=== PATIENT | female | born 1940 | race Caucasian/White ===

== ENCOUNTER 2016-09-16 21:26 | Day surgery (SDC) | payer MEDICARE, BC ==
[~2016-09-16] VITALS: Ht 162.6 cm; Wt 106.6 kg
[~2016-09-16 21:26] MED LIST: ASP325TEC PO; ASPI-875 PO; ASPI-892; ASPI-892 PO; ATR20T; CALC-80; CALC-9 PO; CLOP75TA PO; CLOP75TA28 PO; FLC1T; LEFL20TA; LEFL20TA PO; LEFL20TA18 PO; LEVO150T6 PO; LVT.05T PO; LVT.15T PO; METO-272 PO; METO50TA7 PO; MULT-608; MULT-608 PO; NITR0.3T6 SL; NITR0.4T SL; OXYC-12 PO; RNT150T PO; SIMV40TA4 PO
--- OUTSIDE RECORDS SUMMARY | 2016-09-16 21:33 | XMS REPORT | Continuity of Care Document ---
Author Author [facility] Organization [facility] Address Unknown Phone Unavailable Care Team Providers Care Manager Pediatric Name Role Phone STEPHANIE PIERRE MD PCP Insurance Providers Payer Name Policy Number Subscriber Name Relationship [employer] [id number] Beulah Barreto 20 Self / Same As Patient [facility] [id number] Beulah Barreto Self / Same As Patient Advance Directives Directive Response Recorded Date/Time Advance Directives Yes 01/09/15 9:59am Health Care Power of Flight Engineer Instructor No 01/09/15 9:59am Organ Donor Yes 01/09/15 9:59am Resuscitation Status Full Code 01/09/15 9:59am Problems No known problems or medical conditions. Medications Medication Dose Route Sig Days/Qty Instructions Order Date Discontinued Date Status Leflunomide 11/19/09 11/20/09 Discontinued Folic Acid 11/19/09 11/20/09 Discontinued Atorvastatin Calcium 11/19/09 11/04/10 Discontinued Ranitidine HCl 150 Mg PO BEDTIME 11/19/09 Active Multivitamins 11/19/09 11/20/09 Discontinued Calcium Carbonate/Vitamin D3 11/19/09 11/20/09 Discontinued Aspirin 11/19/09 11/20/09 Discontinued Metoprolol Succinate 50 Mg PO DAILY 11/19/09 Active Clopidogrel Bisulfate 75 Mg PO DAILY 11/19/09 12/27/14 Discontinued Levothyroxine Sodium 150 Mcg PO DAILY 11/19/09 11/06/10 Discontinued Leflunomide 20 Mg PO DAILY 11/20/09 Active Folic Acid 11/20/09 11/04/10 Discontinued Calcium Carbonate/Vitamin D3 1 Tab PO TWICE A DAY TWICE A DAY 9AM & 9PM 11/20/09 Active Aspirin 81 Mg PO DAILY 11/20/09 11/06/10 Discontinued Multivitamins 1 Tab PO DAILY 11/20/09 Active Simvastatin 40 Mg PO BEDTIME 11/04/10 Active Nitroglycerin 0.4 Mg SL NEEDED 11/04/10 Active Levothyroxine Sodium 150 Mcg PO DAILY 11/06/10 Active Aspirin 325 Mg PO DAILY 11/06/10 06/28/12 Discontinued Aspirin 81 Mg PO DAILY 06/28/12 Active Leflunomide 20 Mg PO DAILY 10/18/12 12/27/14 Discontinued Oxycodone Hcl/Acetaminophen 1-2 Tab PO Q4-6HR PRN PAIN 60 Qty 01/10/15 Active Social History Social History Problem Response Recorded Date/Time Alcohol Use Occasionally Uses 01/09/2015 6:52am Recreational Drug Use No 01/09/2015 6:52am Recent Foreign Travel No 01/09/2015 6:52am Recent Infectious Disease Exposure No 01/09/2015 6:52am Smoking Status Never a Smoker 01/09/2015 9:59am Query Response Start Date Stop Date Smoking Status Never a Smoker Hospital Discharge Instructions No hospital discharge instructions. Plan of Care Discharge Date 01/12/15 11:00am Disposition 30 STILL A PATIENT Instructions/Education Provided Total Knee Replacement (DC) Forms Provided Follow-Up Fax [facility] Surgical Prescriptions See Medications Section Referrals (Unspecified) Reason(s) for Referral: FOLLOW UP WITH DR SEAY IN THREE WEEKS [phone] Care Plan and Goals RN to contact [facility] of any weekend discharge, [phone]. [facility] has been coordinated, but agency does not plan to visit patient until Wednesday. Functional Status Query Response Date Recorded Patient Orientation Confused Place Time Situation January 12, 2015 9:01am Comprehension Ability Understands Concepts January 11, 2015 8:05pm Allergies, Adverse Reactions, Alerts Allergen Type Severity Reaction Status Last Updated tetracycline ([id number]) Allergy Mild Active 11/19/09 Immunizations Name Given Type Date of Pneumonia Vaccine 04/25/13 Historical Date of Influenza Vaccine 03/30/12 Historical Vital Signs Acute Vital Signs Vital Response Date/Time Temperature (Fahrenheit) 97.6 degrees F (97.6 - 99.5) Temperature (Calculated Celsius) 36.47945 degrees C (36.4 - 37.5) Temperature Source Tympanic Pulse Rate (adult) 76 bpm (60 - 90) Respiratory Rate 20 bpm (12 - 24) O2 Sat by Pulse Oximetry 96 % (88 - 100) Blood Pressure 133/77 mm Hg Pain Pain Intensity 3 Height (Feet) 5 feet Height (Inches) 4.00 inches Height (Calculated Centimeters) 162.759516 cm Weight (Pounds) 232 pounds Weight (Calculated Grams) 622186.431 gm Weight (Calculated Kilograms) 105.857377 kilograms Calculated BMI 39.82 Results Laboratory Results Test Name Result Units Flags Reference Collection Date/Time Result Date/ Time Comments Hemoglobin 9.9 G/DL L 11.5-16.0 01/12/2015 4:39am 01/12/2015 5:30am Hematocrit 32 % L 35-52 01/12/2015 4:39am 01/12/2015 5:30am White Blood Count 5.9 10^3/uL 4.3-11.0 12/27/2014 10:12/27/2014 11 :03am Red Blood Count 4.53 10^6/uL 4.35-5.85 12/27/2014 10:12/27/2014 11 :03am Hemoglobin 13.5 G/DL 11.5-16.0 12/27/2014 10:12/27/2014 11:03am Hematocrit 42 % 35-52 12/27/2014 10:12/27/2014 11:03am Mean Corpuscular Volume 93 FL 80-99 12/27/2014 10:12/27/2014 11: 03am Mean Corpuscular Hemoglobin 30 PG 25-34 12/27/2014 10:12/27/2014 11:03am Mean Corpuscular Hemoglobin Concent 32 G/DL 32-36 12/27/2014 10: 11:03am Red Cell Distribution Width 13.8 % 10.0-14.5 12/27/2014 10:202014 11:03am Platelet Count 206 10^3/uL 130-400 12/27/2014 10:2012/27/2014 11: 03am Mean Platelet Volume 10.2 FL 7.4-10.4 12/27/2014 10:12/27/2014 11: 03am Neutrophils (%) (Auto) 54 % 42-75 12/27/2014 10:12/27/2014 11: 03am Lymphocytes (%) (Auto) 26 % 12-44 12/27/2014 10:12/27/2014 11: 03am Monocytes (%) (Auto) 9 % 0-12 12/27/2014 10:12/27/2014 11:03am Eosinophils (%) (Auto) 10 % 0-10 12/27/2014 10:12/27/2014 11:03am Basophils (%) (Auto) 1 % 0-10 12/27/2014 10:12/27/2014 11:03am Neutrophils # (Auto) 3.2 X 10^3 1.8-7.8 12/27/2014 10:12/27/2014 11:03am Lymphocytes # (Auto) 1.5 X 10^3 1.0-4.0 12/27/2014 10:12/27/2014 11:03am Monocytes # (Auto) 0.5 X 10^3 0.0-1.0 12/27/2014 10:12/27/2014 11: 03am Eosinophils # (Auto) 0.6 10^3/uL H 0.0-0.3 12/27/2014 10:12/27/2014 11:03am Basophils # (Auto) 0.0 10^3/uL 0.0-0.1 12/27/2014 10:12/27/2014 11 :03am Erythrocyte Sedimentation Rate 40 MM/HR H 0-30 12/27/2014 10:2014 11:32am Prothrombin Time 12.0 SEC L 12.2-14.7 12/27/2014 10:12/27/2014 11: 00am INR Comment 0.9 0.8-1.4 12/27/2014 10:12/27/2014 11:00am INTERPRETIVE DATA SUGGESTED THERAPEUTIC RANGE FOR INR'S: VENOUS THROMBOSIS, PULMONARY EMBOLISM, OR PREVENTION OF SYSTEMIC EMBOLISM (EG. IN ATRIAL FIBRILLATION): 2.0 - 3.0 MECHANICAL PROSTHETIC HEART VALVES: 2.5 - 3.5* *NOTE: INR'S UP TO 4.5 MAY BE NECESSARY IN SELECTED GROUPS OF HIGH RISK PATIENTS. [employer] CONSENSUS CONFERENCE ON ANTITHROMBOTIC THERAPY (2000). Urine Color YELLOW 12/27/2014 10:2512/27/2014 11:14am Urine Clarity CLEAR 12/27/2014 10:12/27/2014 11:14am Urine pH 6.5 5-9 12/27/2014 10:12/27/2014 11:14am Urine Specific Paulina 1.010 * 1.016-1.022 12/27/2014 10:252014 11:14am Urine Protein NEGATIVE NEGATIVE 12/27/2014 10:2512/27/2014 11: 14am Urine Glucose (UA) NEGATIVE NEGATIVE 12/27/2014 10:12/27/2014 11 :14am Urine RBC (Auto) NEGATIVE NEGATIVE 12/27/2014 10:12/27/2014 11: 14am Urine Ketones NEGATIVE NEGATIVE 12/27/2014 10:2512/27/2014 11: 14am Urine Nitrite NEGATIVE NEGATIVE 12/27/2014 10:2512/27/2014 11: 14am Urine Bilirubin NEGATIVE NEGATIVE 12/27/2014 10:2512/27/2014 11: 14am Urine Urobilinogen NORMAL MG/DL NORMAL 12/27/2014 10:12/27/2014 11 :14am Urine Leukocyte Esterase NEGATIVE NEGATIVE 12/27/2014 10:2014 11:14am Urine RBC NONE /HPF 12/27/2014 10:12/27/2014 11:14am Urine WBC NONE /HPF 12/27/2014 10:2512/27/2014 11:14am Urine Bacteria TRACE /HPF 12/27/2014 10:2512/27/2014 11:14am Urine Squamous Epithelial Cells 5-10 /HPF 12/27/2014 10:252014 11:14am Urine Crystals NONE /LPF 12/27/2014 10:2512/27/2014 11:14am Urine Casts NONE /LPF 12/27/2014 10:2512/27/2014 11:14am Urine Mucus NEGATIVE /LPF 12/27/2014 10:2512/27/2014 11:14am Urine Culture Indicated NO 12/27/2014 10:12/27/2014 11:14am Sodium Level 142 MMOL/L 135-145 12/27/2014 10:12/27/2014 11:10am Potassium Level 4.0 MMOL/L 3.6-5.0 12/27/2014 10:12/27/2014 11: 10am Chloride Level 108 MMOL/L H 98-107 12/27/2014 10:12/27/2014 11:10am Carbon Dioxide Level 26 MMOL/L 21-32 12/27/2014 10:12/27/2014 11: 10am Blood Urea Nitrogen 13 MG/DL 7-18 12/27/2014 10:12/27/2014 11: 10am Creatinine 0.73 MG/DL 0.60-1.30 12/27/2014 10:12/27/2014 11:10am BUN/Creatinine Ratio 18 12/27/2014 10:12/27/2014 11:10am Estimat Glomerular Filtration Rate > 60 12/27/2014 10:2014 11:10am GFR INTERPRETIVE DATA UNITS FOR ESTIMATED GFR (eGFR): mL/min/1.73 M2 REFERENCE RANGE FOR ESTIMATED GFR (eGFR) eGFR NORMAL eGFR >60 MODERATELY DECREASED eGFR 30-59 SEVERLY DECREASED eGFR 15-29 KIDNEY FAILURE <15 (OR DIALYSIS) Glucose Level 93 MG/DL 70-105 12/27/2014 10:12/27/2014 11:10am Calcium Level 8.9 MG/DL 8.5-10.1 12/27/2014 10:12/27/2014 11:10am Total Bilirubin 0.5 MG/DL 0.1-1.0 12/27/2014 10:12/27/2014 11: 10am Alkaline Phosphatase 53 U/L 40-136 12/27/2014 10:12/27/2014 11: 10am Aspartate Amino Transf (AST/SGOT) 16 U/L 5-34 12/27/2014 10:2014 11:10am Alanine Aminotransferase (ALT/SGPT) 18 U/L 0-55 12/27/2014 10:10/2014 11:10am Total Protein 6.8 G/DL 6.4-8.2 12/27/2014 10:20am 12/27/2014 11:10am Albumin 3.7 G/DL 3.2-4.5 12/27/2014 10:20am 12/27/2014 11:10am Procedures Procedure Status Date Provider(s) Total replacement of knee joint completed 01/09/15 FIONA SEAY MD Tracing only of electrocardiogram completed 12/31/14 FIONA SEAY MD Tracing only of electrocardiogram completed 01/01/15 FIONA SEAY MD Encounters Encounter Location Date/Time Discharged Inpatient Via [facility] 01/09/15 5:51am Registered Clinic [facility] 12/27/14 9:37am Registered Clinic [facility] 12/20/14 7:40am
--- NOTE | 2016-09-16 21:47 | ED General ---
General Stated Complaint: COLD AND CLAMY FEELING Source of Information: Patient Exam Limitations: No Limitations History of Present Illness Time Seen by Provider: 21:45 Initial Comments Patient develops diaphoresis malaise and exhaustion around 7 p.m. today. She took a nitroglycerin without much relief. She came here for evaluation because her symptoms were the same as that experienced prior to a non-STEMI 1 year ago. She denies chest discomfort. Symptoms are better now. Allergies and Home Medications Allergies Coded Allergies: tetracycline (Unverified Allergy, Mild, 11/19/09) Home Medications Aspirin 81 Mg Tablet.dr 81 MG PO DAILY (Reported) Calcium Carbonate/Vitamin D3 1 Each Tablet 1 TAB PO BID (Reported) Clopidogrel Bisulfate 75 Mg Tablet 30Days 75 MG PO DAILY Prescribed by: NADEGE WHITE on 12/23/15 0819 Leflunomide 20 Mg Tablet 20 MG PO DAILY (Reported) Levothyroxine Sodium 150 Mcg Tablet 150 MCG PO DAILY (Reported) Metoprolol Succinate 50 Mg Tab.er.24h 50 MG PO DAILY (Reported) Multivitamins 1 Tab Tablet 1 TAB PO DAILY (Reported) Nitroglycerin 0.4 Mg Tab.subl 0.4 MG SL UD PRN PRN CHEST PAIN (Reported) Ranitidine Hcl 150 Mg Tablet 150 MG PO HS PRN PRN HEARTBURN (Reported) Simvastatin 40 Mg Tablet 40 MG PO HS (Reported) Constitutional: diaphoresisNo fever, malaise weakness Respiratory: no symptoms reported Cardiovascular: see HPI Musculoskeletal: no symptoms reported All Other Systems Reviewed Negative Unless Noted: Yes Past [id number]-Tqhbnr-Cfbbmz Hx Patient Social History Former Smoker/When Quit: Oct 18, 2008 Recent Foreign Travel: No Contact w/Someone Who Travel: No Immunizations Up To Date Date of Pneumonia Vaccine: Apr 25, 2013 Date of Influenza Vaccine: Mar 30, 2012 Seasonal Allergies Seasonal Allergies: Yes Surgeries HX Surgeries: Yes ( BREAST LUMPECTOMY, R MASTECTOMY, r knee) Surgeries: Breast, Joint Replacement, Orthopedic, Thyroidectomy Respiratory Hx Respiratory Disorders: No Cardiovascular Hx Cardiac Disorders: No (STENTS X3) Cardiac Disorders: Coronary Artery Disease, Heart Attack, High Cholesterol, Hypertension Neurological Hx Neurological Disorders: No Reproductive System Hx Reproductive Disorders: Yes Genitourinary Hx Genitourinary Disorders: No Gastrointestinal Hx Gastrointestinal Disorders: Yes Gastrointestinal Disorders: Gastroesophageal Reflux Musculoskeletal Hx Musculoskeletal Disorders: Yes Musculoskeletal Disorders: Arthritis, Rheumatoid Arthritis Endocrine Hx Endocrine Disorders: Yes (hx thyroid ca x2 with thyroidectomy) Endocrine Disorders: Hypothyroidsim HEENT HX ENT Disorders: Yes (GLASSES, RIGHT EYE BLOOD VESSEL KEEPS POPPING-RED EYE) Cancer Hx Cancer: Yes Cancer: Breast, Thyroid Psychosocial Hx Psychiatric Problems: No Integumentary HX Skin/Integumentary Disorder: No Blood Transfusions Hx Blood Disorders: No Reviewed Nursing Assessment Reviewed/Agree w Nursing PMH: Yes Family Medical History Significant Family History: No Pertinent Family Hx Family Medial History: Alcoholism G8 BROTHER Arthritis 19 FATHER 19 MOTHER G8 BROTHER G8 SISTER Cardiovascular disease 19 FATHER G8 BROTHER Cataracts 19 MOTHER Diabetes mellitus G8 SISTER Drug abuse G8 BROTHER FH: cancer G8 BROTHER Hypertension 19 MOTHER Myocardial infarction 19 FATHER G8 BROTHER Thyroid disease G8 SISTER No Family History of: AIDS Abdominal aortic aneurysm Dandre's disease Asthma Cancer of mouth Colon cancer Completed stroke Dementia Parkinson's disease Prostate cancer Psychosocial problem Respiratory disorder Seizure disorder Severe allergy Tuberculosis Physical Exam Vital Signs Vital Sign - Last 12Hours 09/16/16 21:30 Temp 97.3 Pulse 84 Resp 18 B/P 166/87 O2 Delivery Room Air Capillary Refill : General Appearance: No Apparent Distress WD/WN Eyes: Bilateral Eye EOMI, Bilateral Eye Normal Inspection, Bilateral Eye PERRL HEENT: PERRL/EOMI Pharynx Normal Neck: Supple Respiratory: Lungs Clear Normal Breath Sounds Cardiovascular: Regular Rate, Rhythm Gastrointestinal: Non Tender Soft Extremity: Normal Inspection Neurologic/Psychiatric: Alert No Motor/Sensory Deficits Skin: Normal Color Warm/Dry Progress/Results/Core Measures Results/Orders Lab Results Laboratory Tests Test 09/16/16 21:45 09/16/16 22:06 Range/Units Activated Partial Thromboplast Time 22 L 24-35 SEC Basophils # (Auto) 0.0 0.0-0.1 10^3/uL Basophils (%) (Auto) 0 0-10 % Eosinophils # (Auto) 0.5 H 0.0-0.3 10^3/uL Eosinophils (%) (Auto) 6 0-10 % Hematocrit 41 35-52 % Hemoglobin 13.4 11.5-16.0 G/DL INR Comment 0.9 0.8-1.4 Lymphocytes # (Auto) 2.4 1.0-4.0 X 10^3 Lymphocytes (%) (Auto) 30 12-44 % Mean Corpuscular Hemoglobin 30 25-34 PG Mean Corpuscular Hemoglobin Concent 32 32-36 G/DL Mean Corpuscular Volume 94 80-99 FL Mean Platelet Volume 10.2 7.4-10.4 FL Monocytes # (Auto) 0.8 0.0-1.0 X 10^3 Monocytes (%) (Auto) 10 0-12 % Neutrophils # (Auto) 4.5 1.8-7.8 X 10^3 Neutrophils (%) (Auto) 54 42-75 % Platelet Count 249 130-400 10^3/uL Prothrombin Time 11.6 L 12.2-14.7 SEC Red Blood Count 4.41 4.35-5.85 10^6/uL Red Cell Distribution Width 13.7 10.0-14.5 % White Blood Count 8.2 4.3-11.0 10^3/uL My Orders Orders-BRAYDEN PIERRE MD Cbc With Automated Diff (09/16/16 22:06) Magnesium (09/16/16 22:06) Chest 1 View, Ap/Pa Only (09/16/16 22:06) Ekg Tracing (09/16/16 22:06) Cardiac Profile 1 (09/16/16 22:06) Comprehensive Metabolic Panel (09/16/16 22:06) Protime With Inr (09/16/16 22:06) Partial Thromboplastin Time (09/16/16 22:06) O2 (09/16/16 22:06) Monitor-Rhythm Ecg Trace Only (09/16/16 22:06) Saline Lock/Iv-Start (09/16/16 22:06) Vital Signs/I&O Vital Sign - Last 12Hours 09/16/16 21:30 Temp 97.3 Pulse 84 Resp 18 B/P 166/87 O2 Delivery Room Air ECG Initial ECG Rhythm: Normal Sinus Initial ECG Intervals: Normal Initial ECG Impression: Normal Diagnostic Imaging Comments Chest x-ray showed nothing acute Departure Communication Time/Spoke to Admitting Phy: 22:[address] Rodriguez who agrees to admit Progress Notes We'll admit as symptoms are very similar to her [place] 1 year ago Impression Impression: Primary Impression: Unstable angina Disposition: 01 HOME, SELF-CARE Condition: Stable Decision to Admit Reason: Admit from ER (General) Decision to Admit/Date: Sep 17, 2016 Time/Decision to Admit Time: 22:30 Departure-Patient Inst. Referrals: STEPHANIE PIERRE MD (PCP/Family) Primary Care Physician BRAYDEN PIERRE MD Sep 16, 2016 21:47
[2016-09-16 22:14] LABS: BASOPHILS % (AUTO) 0 % (0-10); EOSINOPHILS # (AUTO) 0.5 10^3/uL (0.0-0.3); EOSINOPHILS % (AUTO) 6 % (0-10); LYMPHOCYTES # (AUTO) 2.4 X 10^3 (1.0-4.0); LYMPHOCYTES % (AUTO) 30 % (12-44); MEAN CORPUSCULAR HEMOGLOBIN 30 PG (25-34); MEAN CORPUSCULAR HGB CONC 32 G/DL (32-36); MEAN CORPUSCULAR VOLUME 94 FL (80-99); MEAN PLATELET VOLUME 10.2 FL (7.4-10.4); MONOCYTES # (AUTO) 0.8 X 10^3 (0.0-1.0); MONOCYTES % (AUTO) 10 % (0-12); NEUTROPHILS # (AUTO) 4.5 X 10^3 (1.8-7.8); NEUTROPHILS % (AUTO) 54 % (42-75); PLATELET COUNT 249 10^3/uL (130-400); RED BLOOD COUNT 4.41 10^6/uL (4.35-5.85); RED CELL DISTRIBUTION WIDTH 13.7 % (10.0-14.5); WHITE BLOOD COUNT 8.2 10^3/uL (4.3-11.0)
[2016-09-16 22:17] LABS: INR 0.9 (0.8-1.4); PROTHROMBIN TIME PATIENT 11.6 SEC (12.2-14.7)
[2016-09-17] VITALS (10 sets, daily range): BP systolic 132–179; BP diastolic 58–85
[2016-09-17 00:14] LABS: ANION GAP 12 MMOL/L (5-14); BLOOD UREA NITROGEN 20 MG/DL (7-18); BUN/CREATININE RATIO 19; CALCIUM 8.5 MG/DL (8.5-10.1); CARBON DIOXIDE 22 MMOL/L (21-32); CHLORIDE 107 MMOL/L (98-107); CREATININE SERUM 1.04 MG/DL (0.60-1.30); GFR ESTIMATED 52; GLUCOSE 105 MG/DL (70-105); POTASSIUM 4.1 MMOL/L (3.6-5.0); SODIUM 141 MMOL/L (135-145)
[2016-09-17 00:15] LABS: ALANINE AMINOTRANSFERASE 19 U/L (0-55); ALBUMIN 3.6 G/DL (3.2-4.5); ASPARTATE AMINO TRANSFERASE 21 U/L (5-34); BILIRUBIN,TOTAL 0.3 MG/DL (0.1-1.0); MAGNESIUM 2.1 MG/DL (1.8-2.4); TOTAL PROTEIN 6.6 G/DL (6.4-8.2)
[2016-09-17] MEDS ORDERED: ATOR80TA76 PO (00:51)
[2016-09-17] MEDS ORDERED: NITROGLYCERIN SUBLINGUAL 0.4 MG TAB (NITROSTAT) SL PRN ×2 (03:45→09:45)
[2016-09-17] MEDS ORDERED: CATHETER FLUSH 10 ML SYR IV PRN (03:45)
[2016-09-17] MEDS: CATHETER FLUSH 10 ML SYR IV SCH ×2 (06:05→14:00)
--- NOTE | 2016-09-17 06:21 | Diagnostic Imaging Report ---
EXAM: CHEST 1 VIEW, AP/PA ONLY INDICATION: Diaphoresis. Nausea. COMPARISON: Chest radiograph 12/20/2015. FINDINGS: Normal heart size and pulmonary vascularity. No focal pulmonary opacity, pleural effusion or pneumothorax. Increased attenuation of the left hemithorax in relation to the right due to a right mastectomy. No acute osseous findings. IMPRESSION: No acute cardiopulmonary findings. Dictated by: Dictated on workstation # [id number]
[2016-09-17] MEDS ORDERED: ASPIRIN E.C. 325 MG (ECOTRIN) TABLET PO SCH (09:00)
[2016-09-17] MEDS ORDERED: CLOP75TA28 PO (09:04)
[2016-09-17] MEDS ORDERED: LEFL20TA18 PO (09:05)
[2016-09-17] MEDS ORDERED: LIDOCAINE 1% INJ 20 ML (XYLOCAINE) VIAL ONE ×2 (10:10→10:15)
[2016-09-17] MEDS ORDERED: NS IV 1000 ML 1,000 ML ONE ×2 (10:10→10:15)
[2016-09-17] MEDS ORDERED: HEParin (CATH LAB) 2,000 ML IV ONE ×2 (10:10→10:15)
--- NOTE | 2016-09-17 10:13 | Consultation-Cardiology ---
HPI-Cardiology Cardiology Consultation: Date of Consultation 09/17/16 Date of Admission 09/16/16 Attending Physician Ximena Rodriguez DO Admitting Physician Rudy Parada MD Consulting Physician GILBERT MICHELE MD, FACP, FACC, FSCAI, CCDS HPI: Chief Complaint: Chest/throat discomfort, sweating 75 yo woman with known CAD who had upper midsternal and throat discomfort associated with diaphoresis, unrelieved with s/l NTG, similar to previous angina , lasting 1- 1 1/2 hours, not associated with palp or syncope. Has been having such symptoms intermittently for several months. Yesterday's episode much worse. Denies leg swelling. Chronic mod exertional shortness of breath Review of Systems-Cardiology Review of Systems Constitutional: malaise tirednessNo weight loss, No weight gain Eyes: No vision change Ears/Nose/Throat: No ear discharge, No nasal drainage, No recent hearing loss Respiratory: As described under HPI Cardiovascular: As described under HPI Gastrointestinal: No constipation, No nausea Genitourinary: No dysuria, No hematuria Musculoskeletal: No back pain Skin: No rash, No ulcerations Psychiatric/Neurological: No focal weakness, No seizure, No syncope Hematologic: No bleeding abnormalities All Other Systems Reviewed Negative Unless Noted: Yes ZME-Tjddpk-Nvkgzv Hx Patient Social History Alcohol Use: Regular Use Recreational Drug Use: No Smoking Status: Former Smoker Former smoker/When Quit: Oct 18, 2008 Recent Foreign Travel: No Recent Infectious Disease Expo: No Hospitalization with Isolation: Denies Physical Abuse Screen: No Sexual Abuse: No Immunizations Up To Date Date of Pneumonia Vaccine: Apr 25, 2015 Date of Influenza Vaccine: Apr 27, 2016 Past Medical History PMH As described under Assessment. Family Medical History Family History: Alcoholism G8 BROTHER Arthritis 19 FATHER 19 MOTHER G8 BROTHER G8 SISTER Cardiovascular disease 19 FATHER G8 BROTHER Cataracts 19 MOTHER Diabetes mellitus G8 SISTER Drug abuse G8 BROTHER FH: cancer G8 BROTHER Hypertension 19 MOTHER Myocardial infarction 19 FATHER G8 BROTHER Thyroid disease G8 SISTER No Family History of: AIDS Abdominal aortic aneurysm Dandre's disease Asthma Cancer of mouth Colon cancer Completed stroke Dementia Parkinson's disease Prostate cancer Psychosocial problem Respiratory disorder Seizure disorder Severe allergy Tuberculosis Allergies and Home Medications Allergies Coded Allergies: tetracycline (Unverified Allergy, Mild, 11/19/09) Home Medications Aspirin 81 Mg Tablet.dr 81 MG PO DAILY (Reported) Atorvastatin Calcium 80 Mg Tablet 80 MG PO HS (Reported) Calcium Carbonate/Vitamin D3 1 Each Tablet 1 TAB PO BID (Reported) Clopidogrel Bisulfate 75 Mg Tablet 75 MG PO DAILY (Reported) Leflunomide 20 Mg Tablet 20 MG PO DAILY (Reported) Levothyroxine Sodium 150 Mcg Tablet 150 MCG PO DAILY (Reported) Metoprolol Succinate 50 Mg Tab.er.24h 50 MG PO DAILY (Reported) Multivitamins 1 Tab Tablet 1 TAB PO DAILY (Reported) Nitroglycerin 0.4 Mg Tab.subl 0.4 MG SL UD PRN PRN CHEST PAIN (Reported) Ranitidine Hcl 150 Mg Tablet 150 MG PO BID (Reported) Physical Exam-Cardiology Physical Exam Vital Signs/I&O Vital Sign - Last 12Hours 09/16/16 09/16/16 09/17/16 09/17/16 22:40 23:03 00:50 01:00 Temp 97.1 Pulse 73 70 79 Resp 16 20 B/P 138/63 Pulse Ox 98 96 O2 Delivery Room Air 09/17/16 09/17/16 09/17/16 09/17/16 04:00 07:00 08:00 09:00 Temp 96.3 96.6 Pulse 69 65 70 Resp 18 18 B/P 137/60 132/58 Pulse Ox 97 97 O2 Delivery Room Air Room Air Capillary Refill : Less Than 3 Seconds Constitutional: AAO x 3 well-developed well-nourished HEENT: PERRL EOMINo xanthelasmas are seen Neck: carotid pulses are 2 + bilaterally with good upstrokes Respiratory: No accessory muscle use, lungs clear to percussion lungs clear to auscultation Cardiovascular: regular rate-rhythm S1 and S2 systolic murmur (faint ALBERTO at card baase) Gastrointestinal: No tender, softNo guarding, No rebound, audible bowel sounds Extremities: No clubbing, No cyanosis, No significant edema Neurologic/Psychiatric: oriented x 3 grossly intact power is 5/5 both on sides Skin: No rash on exposed areas, No ulcerations on exposed areas Data Review Labs Laboratory Tests 09/16/16 21:45: Activated Partial Thromboplast Time 22L, Basophils # (Auto) 0.0, Basophils (%) ( Auto) 0, Eosinophils # (Auto) 0.5H, Eosinophils (%) (Auto) 6, Hematocrit 41, Hemoglobin 13.4, INR Comment 0.9, Lymphocytes # (Auto) 2.4, Lymphocytes (%) ( Auto) 30, Mean Corpuscular Hemoglobin 30, Mean Corpuscular Hemoglobin Concent 32 , Mean Corpuscular Volume 94, Mean Platelet Volume 10.2, Monocytes # (Auto) 0.8 , Monocytes (%) (Auto) 10, Neutrophils # (Auto) 4.5, Neutrophils (%) (Auto) 54, Platelet Count 249, Prothrombin Time 11.6L, Red Blood Count 4.41, Red Cell Distribution Width 13.7, White Blood Count 8.2 09/16/16 22:06: Alanine Aminotransferase (ALT/SGPT) 19, Albumin 3.6, Alkaline Phosphatase 61, Anion Gap 12, Aspartate Amino Transf (AST/SGOT) 21, BUN/Creatinine Ratio 19, Blood Urea Nitrogen 20H, Calcium Level 8.5, Carbon Dioxide Level 22, Chloride Level 107, Creatinine 1.04, Estimat Glomerular Filtration Rate 52, Glucose Level 105, Magnesium Level 2.1, Potassium Level 4.1, Sodium Level 141, Total Bilirubin 0.3, Total Protein 6.6, Troponin I < 0.30 09/17/16 04:05: Troponin I < 0.30 Laboratory Tests 09/16/16 21:45 09/16/16 22:06 A/P-Cardiology Assessment/Admission Diagnosis Chest discomfort and diaphoresis, suggestive of unstable angina Coronary artery disease with history of multiple percutaneous interventions. The first intervention was to the right coronary artery in December 2008 (Promus 3.5 x 18-mm stent in [place]). She also had balloon angioplasty of the left circumflex artery at that time. Cardiac catheterization on 11/04/2010: she underwent drug-eluting stenting with Promus 4 x 23-mm stent to the proximal and mid-right coronary artery. On 11/05/2010, she underwent drug-eluting stenting with Promus 2.75 x 15-mm stent to the proximal and mid-left anterior descending artery. Cardiac catheterization from 10/18/2012 showed angiographically mild coronary artery disease. Most recent cath of 12/20/[address] Pierre, during STEMI, showed complete occlusion of LCX that was treated with Promus 2.5x15 stent (there was periprocedural VF, requiring defibrillation); other previous stents were intact; there was 50% mid LAD stenosis, as before. Echo of 01/08/16 showed LVEF 55-60%, tivial MR, no valvular stenosis, PASP 25 mmHg Dyspepsia, likely related to gastroesophageal reflux and/or hiatal hernia and/ or peptic ulcer disease. 24 Hour Holter monitor study of May 29, 2015 showed NSR, isolated and coupled PVC's. No VT or SVT. No significant bradycardia. Hyperlipidemia, being treated with statin therapy, currently controlled History of rheumatoid arthritis. Hypothyroidism following thyroidectomy for thyroid cancer. This is being followed by Dr. Parada. Cough, resolving following cessation of therapy with ESTEVAN inhibitors and addition of Zantac to the regimen. History of right-sided mastectomy for breast carcinoma several years ago. Gastroesophageal reflux. Normal global left ventricular systolic function per echocardiography of 2008. Elevated body mass index of approximately approximately 39 Carotid u/s of December 2015 showed minimal caotid plaque without any evidence of hemodynamic stenosis. Distal portion of the R ICA is not well visualized Discussion and Recomendations * Given previous card history and symptoms suggestive of unstable angina, it appears reasonable to proceed with card cath * I spoke with her in detail and explained procedure, rationale, risks, benefits , potential complications and alternative of card cath and possible PCI. She understands and provides informed consent * Further recs to be based on the results of card cath Clinical Quality Measures DVT/VTE Risk/Contraindication: Risk Factor Score Per Nursin RFS Level Per Nursing on Admit: 4+=Very High GILBERT MICHELE MD FACP [facility] CCDS Sep 17, 2016 10:13
[2016-09-17] MEDS ORDERED: fentaNYL INJECTION 100 MCG/2 ML AMP ONE ×2 (10:14→16:34)
[2016-09-17] MEDS ORDERED: MIDAZOLAM 5 MG/5 ML (VERSED) VIAL ONE (10:14)
[2016-09-17] MEDS ORDERED: diphenhydrAMINE 50 MG/ML INJ (BENADRYL) ONE (10:15)
[2016-09-17] MEDS ORDERED: PATIENT MAY USE OWN MEDS, ALL MC SCH (11:00)
--- NOTE | 2016-09-17 11:41 | Short Stay Summary-Hospitalist ---
HPI History of Present Illness: HPI/Chief Complaint CC: Chest pain HPI: This is a 75yoWF pt of Dr. Parada that presented to ER with chest pain. She has been admitted to observation with Cardiology consultation. Chart Review: No fever Vitals stable WBC 8.2 CMP normal Troponin negative para educator: RN states that pt will receive heart cath this evening. Patient Interview: Pt states that she feels good today. Pt confirms that PCP is Dr. Parada. Pt states that she has had 3 stents placed before. The most recent was last November. Pt states that she sees Dr. Ibrahim for Rheumatology for Rheumatoid arthritis. Pt states that she no longer has chest pain. Physical exam stable. Pt denies smoking and drinks ETOH occasionally. 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 Pt and both worked for [employer] and retired 9 years ago. Scribed by Elías Alfaro under the direct supervision of Dr. Mishra. Source: patient Exam Limitations: no limitations Date Seen 09/17/16 Attending Physician Ximena Mishra DO PCP Rudy Parada MD Referring Physician Date of Admission Sep 16, 2016 at 22:26 Home Medications & Allergies Home Medications Reviewed patient Home Medication Reconciliation Form Allergies Coded Allergies: tetracycline (Unverified Allergy, Mild, 11/19/09) Past Yzyhybh-Upcqbu-Wdhvrv Hx Patient Social History Marrital Status: Employed/Student: retired (worked as [employer]) Alcohol Use: Regular Use Recreational Drug Use: No Smoking Status: Former Smoker Former smoker/When Quit: Oct 18, 2008 Physical Abuse Screen: No Sexual Abuse: No Recent Foreign Travel: No Contact w/other who traveled: No Recent Hopitalizations: Yes Recent Infectious Disease Expo: No Immunizations Up To Date Date of Pneumonia Vaccine: Apr 25, 2015 Date of Influenza Vaccine: Apr 27, 2016 Seasonal Allergies Seasonal Allergies: Yes Surgeries HX Surgeries: Yes ( BREAST LUMPECTOMY, R MASTECTOMY, r knee) Surgeries: Breast, Coronary Stent, Joint Replacement, Orthopedic, Thyroidectomy Respiratory Hx Respiratory Disorders: No Cardiovascular Hx Cardiovascular Disorders: Yes (STENTS X4) Cardiac Disorders: Coronary Artery Disease, Heart Attack, High Cholesterol, Hypertension Neurological Hx Neurological Disorders: No Reproductive System Hx Reproductive Disorders: Yes Genitourinary Hx Genitourinary Disorders: No Gastrointestinal Hx Gastrointestinal Disorders: Yes Gastrointestinal Disorders: Gastroesophageal Reflux Musculoskeletal Hx Musculoskeletal Disorders: Yes Musculoskeletal Disorders: Arthritis, Rheumatoid Arthritis Endocrine Hx Endocrine Disorders: Yes (hx thyroid ca x2 with thyroidectomy) Endocrine Disorders: Hypothyroidsim HEENT HX ENT Disorders: Yes (GLASSES) Cancer Hx Cancer: Yes Cancer: Breast, Thyroid Psychosocial Hx Psychiatric Problems: No Integumentary HX Skin/Integumentary Disorder: No Blood Transfusions Hx Blood Disorders: No Reviewed Nursing Assessment Reviewed/Agree w Nursing PMH: Yes Family Medical History Significant Family History: No Pertinent Family Hx Family Hx: Alcoholism G8 BROTHER Arthritis 19 FATHER 19 MOTHER G8 BROTHER G8 SISTER Cardiovascular disease 19 FATHER G8 BROTHER Cataracts 19 MOTHER Diabetes mellitus G8 SISTER Drug abuse G8 BROTHER FH: cancer G8 BROTHER Hypertension 19 MOTHER Myocardial infarction 19 FATHER G8 BROTHER Thyroid disease G8 SISTER No Family History of: AIDS Abdominal aortic aneurysm Huntington's disease Asthma Cancer of mouth Colon cancer Completed stroke Dementia Parkinson's disease Prostate cancer Psychosocial problem Respiratory disorder Seizure disorder Severe allergy Tuberculosis Review of Systems Constitutional: no symptoms reported weakness EENTM: no symptoms reported Respiratory: short of breath Cardiovascular: chest pain Gastrointestinal: nausea Genitourinary: no symptoms reported Musculoskeletal: no symptoms reported Skin: no symptoms reported Psychiatric/Neurological: No Symptoms Reported All Other Systems Reviewed Negative Unless Noted: Yes Physical Exam Physical Exam Vital Signs Vital Sign - Last 12Hours 09/16/16 09/16/16 21:30 22:40 Temp 97.3 Pulse 84 Resp 18 B/P 166/87 Pulse Ox 98 O2 Delivery Room Air O2 Flow Rate 2 Capillary Refill : Less Than 3 Seconds General Appearance: No Apparent Distress WD/WN Eyes: Bilateral Eye Normal Inspection, Bilateral Eye PERRL HEENT: PERRL/EOMI Normal ENT Inspection Pharynx Normal Neck: Full Range of Motion Normal Inspection Non Tender Supple Carotid Bruit Respiratory: Chest Non Tender Lungs Clear Normal Breath Sounds No Accessory Muscle Use No Respiratory Distress Cardiovascular: Regular Rate, Rhythm No Edema No Gallop No JVD No Murmur Normal Peripheral Pulses Gastrointestinal: Normal Bowel Sounds No Organomegaly No Pulsatile Mass Non Tender Soft Back: Normal Inspection No CVA Tenderness No Vertebral Tenderness Extremity: Normal Capillary Refill Normal Inspection Normal Range of Motion Non Tender No Calf Tenderness No Pedal Edema Neurologic/Psychiatric: Alert Oriented x3 No Motor/Sensory Deficits Normal Mood/Affect Skin: Normal Color Warm/Dry Lymphatic: No Adenopathy Results Results/Procedures Lab Laboratory Tests 09/16/16 21:45 09/16/16 22:06 Short Stay Diagnosis Discharge Diagnosis-Short Stay Admission Diagnosis Assessment: Chest pain CAD on Plavix w/3 prior stents Hypothyroidism HTN Hyperlipidemia GERD Plan: Heart cath placement this afternoon Final Discharge Diagnosis Assessment: Chest pain CAD on Plavix w/3 stents placed prior Hypothyroidism HTN Hyperlipidemia GERD Plan: Heart cath placement this afternoon Conclusion Plan Appreciate cardiology consultation and cardiac catheter arrangements Home meds Clinical Quality Measures DVT/VTE Risk/Contraindication: Risk Factor Score Per Nursin RFS Level Per Nursing on Admit: 4+=Very High XIMENA MISHRA DO Sep 17, 2016 11:41
[2016-09-17] MEDS ORDERED: HEParin 1000 UNIT/ML (10ML VIAL) FOR BOLUS ONE (13:06)
[2016-09-17] MEDS ORDERED: ADENOSINE 3 MG/1 ML (ADENOSCAN) 30ML VIAL IV ONE (13:06)
[2016-09-17] MEDS ORDERED: NS IV 1000 ML 1,000 ML IV SCH (13:35)
[2016-09-17] MEDS ORDERED: PATIENT MAY USE OWN MEDS, ALL PO SCH (13:45)
[2016-09-17] MEDS ORDERED: ATROPINE INJECTION 1 MG/10 ML SYR (ABBOTT) ONE (16:33)
[2016-09-17] MEDS ORDERED: FAMOTIDINE 20 MG (PEPCID) TABLET PO SCH (21:00)
[2016-09-17] MEDS ORDERED: ATORVASTATIN 80 MG (LIPITOR) TABLET PO SCH ×2 (21:00)
[2016-09-18] MEDS ORDERED: LEVOTHYROXINE 150 MCG (LEVOTHROID) TAB PO SCH ×2 (06:30)
[2016-09-18] MEDS ORDERED: ASPIRIN E.C. 81 MG (ECOTRIN) TAB PO SCH ×2 (09:00)
[2016-09-18] MEDS ORDERED: LEFLUNOMIDE 20 MG PO SCH (09:00)
[2016-09-18] MEDS ORDERED: meTOproloL SUCCINATE 50 MG (TOPROL XL) TAB PO SCH ×2 (09:00)
[2016-09-18] MEDS ORDERED: CLOPIDOGREL 75 MG (PLAVIX) TABLET PO SCH ×2 (09:00)
--- NOTE | 2016-09-18 12:55 | CARDIAC CATHETERIZATION ---
PROCEDURE PHYSICIAN: GILBERT MICHELE DATE OF PROCEDURE: 09/16/2016 PRIMARY PHYSICIAN: Dr. Rodriguez. Beulah Barreto is a 75-year-old lady who is known to have coronary artery disease and has had multiple coronary interventions. She presented with symptoms suggestive of unstable angina. Cardiac catheterization was carried out after having obtained an informed consent. PROCEDURE: She is brought to the cardiac catheterization during a fasting state. The right groin was prepared and draped in usual sterile fashion. 1% lidocaine was used for local anesthesia. Modified Seldinger technique was used to advance a 5-Sudanese sheath in the right femoral artery. 5-Sudanese JL4 catheter was used for left coronary angiography. 5-Sudanese JR4 catheter was used for right coronary angiography. 5-Sudanese pigtail catheter was used for left heart catheterization, left ventricular angiography. FRACTIONAL FLOW RESERVE MEASUREMENT IN THE RIGHT CORONARY ARTERY: Following completion of the diagnostic procedure, we carried out fractional flow reserve measurement in the right coronary artery where the patient had multiple 40 to 50% stenoses in its proximal and mid to distal portion. We exchanged the sheath over the wire for a 6-Sudanese sheath. We gave 5,000 units of intravenous heparin. We used a 6-Sudanese JR4 guide catheter. We advanced an Aeris pressure wire across the multiple lesions in the right coronary artery and the tip was placed in the distal vessel. We gave 140 mcg/kg per minute infusion of adenosine for 2 minutes and 30 seconds. Fractional flow reserve was normal. Fractional flow reserve was measured at 0.99. This indicates hemodynamic non-significance of these multiple stenoses. The wire and the catheter were removed. Angiography of the right femoral artery was carried through the sheath. The site of sheath insertion did not appear suitable for device closure. She was [facility] for manual sheath removal. She tolerated the procedure well. HEMODYNAMICS: Left ventricular end diastolic pressure following coronary angiography was 14 mmHg. There was no significant pressure gradient on pullback across the aortic valve. Ascending aortic pressure was 167/89 with a mean of 91 mmHg. LEFT VENTRICULAR ANGIOGRAPHY: Left ventricular angiography was carried out in the right anterior oblique projection. Global left ventricular systolic function is normal. No regional wall motion abnormalities are seen. Left ventricular ejection fraction is approximately 65 to 70%. There did not appear to be any significant mitral regurgitation. AORTIC ARCH ANGIOGRAPHY: Following completion of the left ventricular angiography, we pulled back the pigtail catheter into the aortic arch and aortic arch angiography was performed. Some degree of aortic arch calcification is seen but there does not appear to be significant thoracic aortic aneurysm or dissection, to the extent seen. The neck arteries, to the extent seen, do not have significant disease. CORONARY ANGIOGRAPHY: Diffuse coronary calcification is present. The left main coronary does not exhibit significant disease. The left anterior descending artery is approximately 40% proximal stenosis and 40 to 50% stenosis in the midportion following the distal end of a proximal left anterior descending artery stent. The left anterior descending artery is widely patent. Left circumflex artery stent is widely patent and is present in the proximal portion of the left circumflex artery. Right coronary artery has 2 stents. The proximal stent is widely patent and so is the distal stent. The proximal right coronary artery has approximately 40 to 50% stenoses. The mid right coronary artery has 40 to 50% stenoses. The distal right coronary artery has 40 to 50% stenoses. Fractional flow reserve measurement across all of these is 0.99, indicating hemodynamic insignificance of these lesions. CONCLUSION: 1. Diffuse, mild to moderate coronary artery disease. 2. Patent stents: Left anterior descending artery has 2.75 x 15 mm stent placed in 2010, left circumflex artery has a patent stent 2.5 x 15 placed in 2015, right coronary artery has widely patent stents that are 4.0 x 23 mm in the proximal (2010) and 3.5 x 18 mm and the distal (2008) vessel. 3. Normal global left ventricular systolic function with an ejection fraction of 65 to 70%. 4. No significant mitral regurgitation. 5. Mild elevation left ventricular end diastolic pressure. 6. No evidence of thoracic aortic aneurysm or dissection. DISCUSSION AND RECOMMENDATION: Based on the results of this study, it appears appropriate to continue a conservative regimen. Risk factor modification has been advised. His previous regimen is being continued. Outpatient follow-up is advised. Job ID: [id number] Dictated Date: 09/17/2016 13:34:07 Flow Specialist Date: 09/18/2016 12:35:15 / constance
--- OUTSIDE RECORDS SUMMARY | 2016-09-18 15:25 | XMS REPORT | Continuity of Care Document ---
Author Author [facility] Organization [facility] Address Unknown Phone Unavailable Care Team Providers Care Horse Rancher Name Role Phone STEPHANIE PIERRE MD PCP Insurance Providers Payer Name Policy Number Subscriber Name Relationship Wps Medicare [id number] Beulah Barreto 20 Self / Same As Patient [facility] [id number] Beulah Barreto Self / Same As Patient Advance Directives Directive Response Recorded Date/Time Advance Directives Yes 01/09/15 9:59am Health Care Power of Rn Cardiovascular No 01/09/15 9:59am Organ Donor Yes 01/09/15 [...] UP WITH DR SEAY IN THREE WEEKS [phone] Care Plan and Goals RN to contact [facility] of any weekend discharge, [phone]. [facility] has been coordinated, but agency does not plan to visit patient until Wednesday. Functional Status Query Response Date Recorded Patient Orientation Confused Place Time Situation January 12, 2015 9:01am Comprehension Ability Understands Concepts January 11, 2015 8:05pm Allergies, Adverse Reactions, Alerts Allergen Type Severity Reaction Status Last Updated tetracycline ([id number]) Allergy Mild Active 11/19/09 Immunizations Name Given Type Date of Pneumonia Vaccine 04/25/13 Historical Date of Influenza Vaccine 03/30/12 Historical Vital Signs Acute Vital Signs Vital Response Date/Time Temperature (Fahrenheit) 97.6 degrees F (97.6 - 99.5) Temperature (Calculated Celsius) 36.45286 degrees C (36.4 - 37.5) Temperature Source Tympanic Pulse Rate (adult) 76 bpm (60 - 90) Respiratory Rate 20 bpm (12 - 24) O2 Sat by Pulse Oximetry 96 % (88 - 100) Blood Pressure 133/77 mm Hg Pain Pain Intensity 3 Height (Feet) 5 feet Height (Inches) 4.00 inches Height (Calculated Centimeters) 162.706577 cm Weight (Pounds) 232 pounds Weight (Calculated Grams) 560073.431 gm Weight (Calculated Kilograms) 105.564731 kilograms Calculated BMI 39.82 Results Laboratory Results [...] SELECTED GROUPS OF HIGH RISK PATIENTS. [place]IX[employer] CIT[employer] [employer] [employer] CONSENSUS CONFERENCE ON ANTITHROMBOTIC THERAPY (2000). Urine Color YELLOW 12/27/2014 10:2512/27/2014 11:14am Urine Clarity CLEAR 12/27/2014 10:12/27/2014 11:14am Urine pH 6.5 5-9 12/27/2014 10:12/27/2014 11:14am Urine Specific [place] 1.010 * 1.016-1.022 12/27/2014 10:252014 11:14am Urine [...] Encounters Encounter Location Date/Time Discharged Inpatient [facility] 01/09/15 5:51am Registered Clinic [facility] 12/27/14 9:37am Registered Clinic [facility] 12/20/14 7:40am
--- OUTSIDE RECORDS SUMMARY | 2016-09-18 15:25 | XMS REPORT | Continuity of Care Document ---
Author Author [facility] Organization [facility] Address Unknown Phone Unavailable Care Team Providers Care Cut Out Stitcher Name Role Phone STEPHANIE PIERRE MD PCP Insurance Providers Payer Name Policy Number Subscriber Name Relationship [employer] [id number] Beulah Barreto 20 Self / Same As Patient [facility] [id number] Beulah Barreto Self / Same As Patient Advance Directives Directive Response Recorded Date/Time Advance Directives Yes 01/09/15 9:59am Health Care Power of Resource Efficiency Manager No 01/09/15 9:59am Organ Donor Yes 01/09/15 [...] UP WITH DR SEAY IN THREE WEEKS [phone] Care Plan and Goals RN to contact [facility] of any weekend discharge, [phone]. [facility] has been coordinated, but agency does not plan to visit patient until Wednesday. Functional Status Query Response Date Recorded Patient Orientation Confused Place Time Situation January 12, 2015 9:01am Comprehension Ability Understands Concepts January 11, 2015 8:05pm Allergies, Adverse Reactions, Alerts Allergen Type Severity Reaction Status Last Updated tetracycline ([id number]) Allergy Mild Active 11/19/09 Immunizations Name Given Type Date of Pneumonia Vaccine 04/25/13 Historical Date of Influenza Vaccine 03/30/12 Historical Vital Signs Acute Vital Signs Vital Response Date/Time Temperature (Fahrenheit) 97.6 degrees F (97.6 - 99.5) Temperature (Calculated Celsius) 36.08964 degrees C (36.4 - 37.5) Temperature Source Tympanic Pulse Rate (adult) 76 bpm (60 - 90) Respiratory Rate 20 bpm (12 - 24) O2 Sat by Pulse Oximetry 96 % (88 - 100) Blood Pressure 133/77 mm Hg Pain Pain Intensity 3 Height (Feet) 5 feet Height (Inches) 4.00 inches Height (Calculated Centimeters) 162.444485 cm Weight (Pounds) 232 pounds Weight (Calculated Grams) 268008.431 gm Weight (Calculated Kilograms) 105.776350 kilograms Calculated BMI 39.82 Results Laboratory Results [...] SELECTED GROUPS OF HIGH RISK PATIENTS. [employer] CONSENSUS CONFERENCE ON ANTITHROMBOTIC THERAPY (2000). Urine Color YELLOW 12/27/2014 10:2512/27/2014 11:14am Urine Clarity CLEAR 12/27/2014 10:12/27/2014 11:14am Urine pH 6.5 5-9 12/27/2014 10:12/27/2014 11:14am Urine Specific [place] 1.010 * 1.016-1.022 12/27/2014 10:252014 11:14am Urine [...] Encounters Encounter Location Date/Time Discharged Inpatient [facility] 01/09/15 5:51am Registered Clinic [facility] 12/27/14 9:37am Registered Clinic [facility] 12/20/14 7:40am
--- NOTE | 2016-09-23 07:32 | ECHOCARDIOGRAPHY REPORT ---
PROCEDURE PHYSICIAN: GILBERT LARSEN DATE OF PROCEDURE: 09/17/2016 TWO DIMENSIONAL ECHOCARDIOGRAM REPORT PRIMARY PHYSICIAN: Dr. Rodriguez OTHER PHYSICIAN: Dr. Parada REFERRING PHYSICIAN: ORDERING PHYSICIAN: Dr. Larsen INDICATION FOR THE PROCEDURE: Chest discomfort. MEASUREMENTS DERIVED VALUES LV DIAMETER (LAX) NORMALS NORMALS Diastolic 5.3 (3.6-5.2) Eject. Fract. (60%+/-6%) Systolic (2.3-3.9) Diastolic Vol. % Shortening (0.22-0.42) Systolic Vol. Aortic Root 3 IVS THICKNESS Diastolic 1 (0.6-1.1) LVPW THICKNESS Diastolic 0.9 (0.6-1.1) LA DIAMETER Systolic 3.7 (2.1-3.7) DESCRIPTION: Two-dimensional echocardiography shows normal global left ventricular systolic function without distinct regional wall motion abnormality. Left ventricular ejection fraction is approximately 55 to 60%. Aortic, mitral, and tricuspid valve leaflets show good leaflet excursion. There is no significant pericardial effusion. Doppler imaging shows trivial, mitral, tricuspid and pulmonic regurgitation. There is Doppler evidence of any significant valvular stenosis. The aortic valve appears to be trileaflet. Mitral inflow is consistent with grade 1 diastolic dysfunction of the left ventricle. Pulmonary artery systolic pressure is estimated to be approximately 30 mmHg. There is no evidence of significant intracardiac shunt on this transthoracic echocardiographic study. Inferior vena cava appears to be mildly dilated but does exhibit inspiratory collapse. CONCLUSION: 1. Normal global left ventricular systolic function with an ejection fraction of 55 to 60%. 2. Trivial, mitral, pulmonic and tricuspid regurgitation. 3. Pulmonary artery systolic pressure is estimated to be approximately 35 mmHg. 4. No evidence of significant valvular stenosis. 5. Mild diastolic dysfunction of the left ventricle. Job ID: [id number] Dictated Date: 09/22/2016 13:30:31 Group Leader Date: 09/23/2016 07:26:01 / almita
== END 2016-09-17 21:30 | disposition home or self-care (01) ==
LOC: EDUNIT# 21:26 → ER 21:28 → 4TH 22:26 → UNDOADMOB 22:26 → 4TH 23:02 → CATH 23:03 → UNDOADMOB 23:03 → ICU 09-17 12:40 → 4TH 09-17 12:40 → ICU 09-17 12:40 → CATH 09-17 21:30 → UNDODISOB 09-17 21:30
PROVIDERS: ATTEND Internal Medicine
DX: R07.89 Other chest pain (principal); I25.10 Atherosclerotic heart disease of native coronary artery without angina pectoris; I25.84 Coronary atherosclerosis due to calcified coronary lesion; I10 Essential (primary) hypertension; E78.5 Hyperlipidemia, unspecified; K21.9 Gastro-esophageal reflux disease without esophagitis; E03.9 Hypothyroidism, unspecified; Z79.899 Other long term (current) drug therapy; Z95.5 Presence of coronary angioplasty implant and graft
CPT/HCPCS: 36221; 36415; 71010; 80053; 83735; 84484; 85025; 85610; 85730; 93005; 93041; 93306; 93458; 93571; G0378

== ENCOUNTER → 2017-02-23 | Outpatient (CLI) | payer MEDICARE, BC ==
[~2017-02-23] MED LIST changes: +ATOR80TA76 PO
--- NOTE | 2017-02-24 09:51 | Diagnostic Imaging Report ---
Left breast screening mammogram 2D views with tomosynthesis The current study was also evaluated with a Computer Aided Detection (CAD) system. Indication: Screening. No current complaints stated on the questionnaire. COMPARISON: 02/19/16 FINDINGS: The breasts are composed of scattered fibroglandular densities. There are occasional benign-appearing calcifications. Allowing for technique and positional differences, no suspicious change is seen. IMPRESSION: No significant change. ACR BI-RADS Category 2: Benign findings. Result letter will be mailed to the patient. Note: At least 10% of breast cancer is not imaged by mammography. Dictated by: Dictated on workstation # [id number]
== END ==
LOC: RAD 09:07
PROVIDERS: ATTEND Nurse Practitioner
DX: Z12.31 Encounter for screening mammogram for malignant neoplasm of breast (principal)

== ENCOUNTER 2017-04-28 10:43 | Outpatient (CLI) | payer MEDICARE, BC ==
[~2017-04-28] VITALS: Ht 162.6 cm; Wt 107.6 kg
[~2017-04-28 10:43] MED LIST changes: -ASPI-999 PO; -CALC-140 PO; -FLUT9.9S; -LORA10TA7 PO; -MULT1TAB69 PO; -RANI150T11 PO; -[UNRECOGNIZED DRUG - CODE] OU
[2017-04-28 11:26] VITALS: BP 143/80
[2017-04-28 11:34] LABS: BILIRUBIN,URINE NEGATIVE (NEGATIVE); KETONES,URINE NEGATIVE (NEGATIVE); LEUKOCYTE ESTERASE ,URINE NEGATIVE (NEGATIVE); NITRITE,URINE NEGATIVE (NEGATIVE); PH,URINE 7 (5-9); PROTEIN,URINE NEGATIVE (NEGATIVE); UROBILINOGEN,URINE NORMAL (NORMAL)
[2017-04-28 11:44] LABS: WBC,URINE 0-2 /HPF
[2017-04-28 12:09] LABS: BASOPHILS % (AUTO) 0 % (0-10); EOSINOPHILS # (AUTO) 0.4 10^3/uL (0.0-0.3); EOSINOPHILS % (AUTO) 6 % (0-10); LYMPHOCYTES # (AUTO) 1.4 X 10^3 (1.0-4.0); LYMPHOCYTES % (AUTO) 20 % (12-44); MEAN CORPUSCULAR HEMOGLOBIN 29 PG (25-34); MEAN CORPUSCULAR HGB CONC 31 G/DL (32-36); MEAN CORPUSCULAR VOLUME 95 FL (80-99); MEAN PLATELET VOLUME 10.4 FL (7.4-10.4); MONOCYTES # (AUTO) 0.5 X 10^3 (0.0-1.0); MONOCYTES % (AUTO) 7 % (0-12); NEUTROPHILS # (AUTO) 4.7 X 10^3 (1.8-7.8); NEUTROPHILS % (AUTO) 66 % (42-75); PLATELET COUNT 187 10^3/uL (130-400); RED BLOOD COUNT 4.62 10^6/uL (4.35-5.85); RED CELL DISTRIBUTION WIDTH 14.1 % (10.0-14.5); WHITE BLOOD COUNT 7.1 10^3/uL (4.3-11.0)
--- NOTE | 2017-04-28 12:18 | Diagnostic Imaging Report ---
INDICATION: Preoperative evaluation. 1229 hrs. PA and lateral views of the chest obtained with comparison made study of 09/21/2016. FINDINGS: Heart size and pulmonary vascularity are within normal limits, and the lungs are clear, bilaterally. IMPRESSION: Unremarkable chest. Dictated by: Dictated on workstation # [id number]
[2017-04-28 12:19] LABS: INR 0.9 (0.8-1.4)
[2017-04-28 12:32] LABS: ALANINE AMINOTRANSFERASE 25 U/L (0-55); ALBUMIN 3.7 GM/DL (3.2-4.5); ANION GAP 7 MMOL/L (5-14); ASPARTATE AMINO TRANSFERASE 20 U/L (5-34); BILIRUBIN,TOTAL 0.5 MG/DL (0.1-1.0); BLOOD UREA NITROGEN 13 MG/DL (7-18); BUN/CREATININE RATIO 17; CALCIUM 8.4 MG/DL (8.5-10.1); CARBON DIOXIDE 27 MMOL/L (21-32); CHLORIDE 108 MMOL/L (98-107); CREATININE SERUM 0.77 MG/DL (0.60-1.30); GFR ESTIMATED > 60; GLUCOSE 97 MG/DL (70-105); POTASSIUM 4.2 MMOL/L (3.6-5.0); SODIUM 142 MMOL/L (135-145); TOTAL PROTEIN 6.7 GM/DL (6.4-8.2)
[2017-04-28 12:33] LABS: ERYTHROCYTE SEDIMENTATION RATE 18 MM/HR (0-30)
[2017-04-28] MEDS ORDERED: [UNRECOGNIZED DRUG - CODE] OU (14:40)
[2017-04-28] MEDS ORDERED: RANI150T11 PO (14:40)
[2017-04-28] MEDS ORDERED: FLUT9.9S (14:40)
[2017-04-28] MEDS ORDERED: MULT1TAB69 PO (14:40)
[2017-04-28] MEDS ORDERED: ASPI-999 PO (14:40)
[2017-04-28] MEDS ORDERED: CALC-140 PO (14:40)
[2017-04-28] MEDS ORDERED: LORA10TA7 PO (14:40)
== END 2017-04-28 15:21 | disposition home or self-care (01) ==
LOC: PREOP 10:43
PROVIDERS: ATTEND Orthopaedic Surgery
DX: M17.11 Unilateral primary osteoarthritis, right knee; R53.83 Other fatigue; Z01.811 Encounter for preprocedural respiratory examination; Z01.812 Encounter for preprocedural laboratory examination
CPT/HCPCS: 36415; 71020; 80053; 81000; 85025; 85610; 85652; 86850; 86900; 86901; 87081; 93005

== ENCOUNTER 2017-04-28 10:49 | Outpatient (RCR) | payer MEDICARE, BC ==
[~2017-04-28 10:49] MED LIST changes: -METO-272 PO; +METO-370 PO
[2017-04-28 12:30] LABS: ALBUMIN 3.7 GM/DL (3.2-4.5); BILIRUBIN,DIRECT 0.2 MG/DL (0.0-0.3); BILIRUBIN,INDIRECT 0.3 MG/DL; BILIRUBIN,TOTAL 0.5 MG/DL (0.1-1.0); TOTAL PROTEIN 6.7 GM/DL (6.4-8.2)
[2017-04-28] MEDS ORDERED: [UNRECOGNIZED DRUG - CODE] OU (14:40)
[2017-04-28] MEDS ORDERED: ASPI-999 PO (14:40)
[2017-04-28] MEDS ORDERED: MULT1TAB69 PO (14:40)
[2017-04-28] MEDS ORDERED: RANI150T11 PO (14:40)
[2017-04-28] MEDS ORDERED: FLUT9.9S (14:40)
[2017-04-28] MEDS ORDERED: CALC-140 PO (14:40)
[2017-04-28] MEDS ORDERED: LORA10TA7 PO (14:40)
[2017-05-12] MEDS ORDERED: OXYC-197 PO (11:57)
[2017-06-22] MEDS ORDERED: Rocephin IV (09:16)
== END 2017-07-27 | disposition home or self-care (01) ==
LOC: LAB 10:49
PROVIDERS: ATTEND Internal Medicine Rheumatology
DX: Z51.81 Encounter for therapeutic drug level monitoring (principal); Z79.899 Other long term (current) drug therapy
CPT/HCPCS: 36415; 80076; 82248

== ENCOUNTER → 2017-04-28 | Outpatient (CLI) | payer MEDICARE, BC ==
[~2017-04-28] MED LIST changes: +ASPI-999 PO; +CALC-140 PO; +FLUT9.9S; +LORA10TA7 PO; +MULT1TAB69 PO; +RANI150T11 PO; +[UNRECOGNIZED DRUG - CODE] OU
[2017-04-28 12:30] LABS: CHOLESTEROL 140 MG/DL (< 200); DIRECT LDL 75 MG/DL (1-129); TRIGLYCERIDES 121 MG/DL (<150); VLDL CHOLESTEROL 24 MG/DL (5-40)
== END ==
LOC: LAB 10:52
PROVIDERS: ATTEND Nurse Practitioner Family
DX: E78.4 Other hyperlipidemia; I25.10 Atherosclerotic heart disease of native coronary artery without angina pectoris
CPT/HCPCS: 36415; 80061

== ENCOUNTER 2017-05-12 05:49 | Inpatient (IN) | payer MEDICARE, BC ==
--- NOTE | 2017-05-04 11:59 | HISTORY AND PHYSICAL ---
DATE OF SERVICE: DATE OF ADMISSION: 05/12/2017 for left total knee arthroplasty. HISTORY: The patient is a 76-year-old female with long standing progressive left knee pain. Radiographs reveal severe medial and patellofemoral arthrosis. She has undergone treatment with injections, anti-inflammatories and activity modifications without relief and due to functional impairment, the patient has elected to proceed with surgical intervention. REVIEW OF SYSTEMS: No chest pain, no shortness of breath, no dysuria. PAST MEDICAL HISTORY: Coronary artery disease, reflux, hypertension, rheumatoid arthritis, hypothyroidism, breast cancer. PAST SURGICAL HISTORY: Coronary artery stent placement, mastectomy, thyroidectomy, right total knee arthroplasty. FAMILY HISTORY: Diabetes, ischemic heart disease. PRIMARY CARE PROVIDER: Dr. Parada. MEDICATIONS: Aspirin, calcium, Leflunomide, Levothyroxine, Metoprolol, Nitrostat, Ranitidine, Atorvastatin, Clopidogrel. ALLERGIES: Tetracycline. SOCIAL HISTORY: The patient is a former smoker. She drinks 2 drinks per week. PHYSICAL EXAMINATION: GENERAL: The patient is well-developed, well-nourished in no acute distress. HEENT: Normocephalic, atraumatic. Pupils are equal, round and reactive to light. Oropharynx is clear. NECK: Supple, no lymphadenopathy. LUNGS: Clear to auscultation bilaterally. HEART: Regular rate and rhythm. ABDOMEN: Soft, nontender, nondistended. EXTREMITIES: The left knee demonstrates varus alignment. No skin lesions are noted. She has intact sensation throughout with a negative straight leg raise. Range of motion is 0/3/115 degrees. No varus or valgus laxity. Negative anterior and posterior drawer. IMPRESSION: Left knee severe osteoarthritis, unresponsive to conservative measures. PLAN: Left total knee arthroplasty. The risks, benefits, options, ramifications and recovery have been discussed at length with the patient. She understands and wishes to proceed. Job ID: [id number] DocumentID: [id number] Dictated Date: 05/04/2017 11:41:38 Military Equipment Specialist Date: 05/04/2017 11:58:37 Dictated By: FIONA SEAY MD
[~2017-05-12] VITALS: Ht 162.6 cm; Wt 107.6 kg
[~2017-05-12 05:49] MED LIST changes: +ASPI-999 PO; +CALC-140 PO; +FLUT9.9S; +LORA10TA7 PO; +METO-272 PO; -METO-370 PO; +MULT1TAB69 PO; +RANI150T11 PO; +[UNRECOGNIZED DRUG - CODE] OU
[2017-05-12] MEDS ORDERED: NS (IVPB) 50 ML ONE (06:17)
[2017-05-12] MEDS ORDERED: CEFUROXIME 1.5 GM (ZINACEF) VIAL ONE (06:17)
[2017-05-12] MEDS: LACTATED RINGERS 1,000 ML IV PRN ×2 (06:20→08:55)
[2017-05-12] MEDS ORDERED: ONDANSETRON 4 MG/2 ML (SDV) Z0FRAN ONE (06:28)
[2017-05-12] MEDS ORDERED: DEXAMETHASONE 10 MG/ML (DECADRON) 1 ML VIAL ONE (06:28)
[2017-05-12] MEDS ORDERED: proPOfol 200 MG/20 ML (DIPRIVAN) VIAL IV ONE (06:28)
[2017-05-12] MEDS ORDERED: MIDAZOLAM 2 MG/2 ML (VERSED) VIAL ONE (06:28)
[2017-05-12] MEDS ORDERED: LIDOCAINE PF 2% 5 ML (XYLOCAINE) VIAL ONE (06:28)
[2017-05-12] MEDS ORDERED: fentaNYL INJECTION 250 MCG/5 ML AMP ONE (06:29)
[2017-05-12] MEDS ORDERED: ROCURONIUM 50 MG/5 ML (ZEMURON) VIAL IV ONE (06:39)
[2017-05-12 06:59] VITALS: BP 148/73
[2017-05-12] MEDS ORDERED: CEFUROXIME 1.5 GM/NS 50 ML IVPB IV ONE ×2 (07:15)
--- NOTE | 2017-05-12 07:28 | Progress Note-Pre Operative ---
Pre-Operative Progress Note H&P Reviewed The H&P was reviewed, patient examined and no changes noted. Date Seen by Provider: May 12, 2017 Time Seen by Provider: 07:15 Date H&P Reviewed: May 12, 2017 Time H&P Reviewed: 07:11 Pre-Operative Diagnosis: left knee primary osteoarthritis FIONA SEAY MD May 12, 2017 07:28
--- NOTE | 2017-05-12 07:29 | Progress Note-Post Operative ---
Post-Operative Progess Note Surgeon (s)/Fitness/Wellness Director (s) Surgeon FIONA SEAY MD Fitness/Wellness Director: Hoang Menchaca Pre-Operative Diagnosis left knee primary osteoarthritis Post-Operative Diagnosis left knee primary osteoarthritis Procedure & Operative Findings Date of Procedure 05/12/17 Procedure Performed/Findings left total knee arthroplasty Anesthesia Type GETA Estimated Blood Loss Estimated blood loss (mL): minimal Specimens/Packing Specimens Removed none Packing: none FIONA SEAY MD May 12, 2017 07:29
[2017-05-12] MEDS ORDERED: morphine PCA 30 MG/30 ML VIAL IV PRN (07:30)
[2017-05-12] MEDS ORDERED: diphenhydrAMINE 50 MG/ML INJ (BENADRYL) IVP PRN (07:30)
[2017-05-12] MEDS ORDERED: ONDANSETRON 4 MG/2 ML (SDV) Z0FRAN IVP PRN ×2 (07:30→09:45)
[2017-05-12] MEDS ORDERED: ACETAMINOPHEN 325 MG TABLET/CAPLET (TYLENOL) PO PRN (07:30)
[2017-05-12] MEDS ORDERED: INTRA-ARTICULAR INJ ONE ×5 (07:45)
[2017-05-12] MEDS ORDERED: GLYCOPYRROLATE 0.2 MG/ML (ROBINUL) 2 ML VIAL ONE (08:20)
[2017-05-12] MEDS ORDERED: NEOSTIGMINE (BLOXIVERZ ) 1 MG/1ML 10 ML VIAL ONE (08:20)
[2017-05-12] MEDS ORDERED: SEVOFLURANE (ULTANE) 15 ML INHAL SOLN ONE ×6 (08:22→09:02)
[2017-05-12] MEDS ORDERED: HYDROmorphone (DILAUDID) 2 MG/ML VIAL IVP PRN (09:45)
[2017-05-12] MEDS ORDERED: morphine INJ 10 MG/ML 1ML (SYR OR VIAL) IVP PRN (09:45)
[2017-05-12 10:20] VITALS: BP 133/70
--- NOTE | 2017-05-12 10:36 | Diagnostic Imaging Report ---
2 views of the left knee. Indication: post total knee arthroplasty Findings: There is femoral and tibial prosthesis with patellar resurfacing and prosthesis seen. Anterior soft tissue post-operative changes are noted with anterior skin lalya seen. Impression: Baseline post left total knee arthroplasty in good alignment. Dictated by: Dictated on workstation # [id number]
[2017-05-12] MEDS: NS IV 1000 ML 1,000 ML IV SCH ×2 (11:07→20:25)
[2017-05-12] MEDS ORDERED: INFLUENZA TRIvalent 2017-2018 0.5 ML/45 MCG SYR IM ONE (11:15)
[2017-05-12] MEDS ORDERED: NITROGLYCERIN 0.4 MG SL TABS BTL 25'S SL PRN (11:30)
[2017-05-12] MEDS ORDERED: raNItidine (ZANTAC) 150 MG TAB NON-FORMULARY PO PRN (11:30)
[2017-05-12] MEDS ORDERED: NON-FORMULARY MEDICATION 1 EA EA (Fluticasone Propionate (Flonase Allergy Relief) 1 SPRAY) PRN (11:30)
[2017-05-12] MEDS ORDERED: CARBOXYMETHYLCELLULOSE SODIUM OU PRN (11:30)
[2017-05-12] MEDS ORDERED: LORATADINE (CLARITIN) 10 MG TAB PO PRN (11:30)
--- NOTE | 2017-05-12 11:32 | Consultation-Hospitalist ---
HPI History of Present Illness: HPI/Chief Complaint CC: Medical management following left total knee arthroplasty HPI: This is a 76 yoWF pt presenting after left total knee arthroplasty. Patient Interview: Pt states she remembers me from after her heart attack Pt confirms Dr. Parada as PCP, Dr. Larsen as inside trucker, and Dr. Ibrahim in [place] for rheumatoid arthritis. Pt states she is feeling okay and denies pain. Physical exam stable. 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 Pt states she is from [place] and they moved here because they liked the area. Pt was noted saying, "the less pain meds the better" Scribed by Yesenia Loja under the direct supervision of Dr. Mishra. Source: patient Exam Limitations: no limitations Date Seen 05/12/17 Attending Physician Masood Dugan MD PCP Rudy Parada MD Referring Physician Date of Admission May 12, 2017 at 05:49 Home Medications & Allergies Home Medications Reviewed patient Home Medication Reconciliation Form Allergies Allergies Coded Allergies tetracycline (Unverified Allergy, Mild, RASH, 04/28/17) Past Pyxpjuq-Xlahjl-Pluugf Hx Patient Social History Marrital Status: Employed/Student: retired ([employer] in [place] 26 years) Alcohol Use: Occasionally Uses Number of Drinks Today: AA Alcohol Beverage of Choice: Beer, Wine Recreational Drug Use: No Smoking Status: Former Smoker Former Smoker, Quit: Apr 28, 2008 Physical Abuse Screen: No Sexual Abuse: No Recent Foreign Travel: No Contact w/other who traveled: No Recent Hopitalizations: Yes (OCTOBER-CARDIAC STENT) Recent Infectious Disease Expo: No Immunizations Up To Date Date of Pneumonia Vaccine: Apr 25, 2015 Date of Influenza Vaccine: Apr 27, 2016 Seasonal Allergies Seasonal Allergies: Yes Surgeries Yes ( BREAST LUMPECTOMY, R MASTECTOMY, R TKR, THROID X2-PARTIAL THEN TOTAL) Breast, Coronary Stent, Joint Replacement, Orthopedic, Thyroidectomy Respiratory No Currently Using CPAP: No Cardiovascular Yes (STENTS X4, CODED X2 2007 AND 2015) Coronary Artery Disease, Heart Attack, High Cholesterol, Hypertension Neurological No Reproductive System Hx Reproductive Disorders: Yes Sexually Transmitted Disease: No HIV/AIDS: No Genitourinary No Gastrointestinal Yes Gastroesophageal Reflux Musculoskeletal Yes (OSTEOARTHRITIS) Arthritis, Rheumatoid Arthritis Endocrine History of Endocrine Disorders: Yes (hx thyroid ca x2 with thyroidectomy) Endocrine Disorders: Hypothyroidsim HEENT History of HEENT Disorders: Yes (GLASSES) Loss of Vision: Bilateral Cancer Yes Breast, Thyroid Type of Treatment: Radiation, Surgical Intervention Psychosocial History of Psychiatric Problem: No Integumentary History of Skin or Integumenta: No Blood Transfusions History of Blood Disorders: No Adverse Reaction to a Blood Tr: No (N/A) Family Medical History Significant Family History: No Pertinent Family Hx Family Hx: Alcoholism G8 BROTHER Arthritis 19 FATHER 19 MOTHER G8 BROTHER G8 SISTER Cardiovascular disease 19 FATHER G8 BROTHER Cataracts 19 MOTHER Diabetes mellitus G8 SISTER Drug abuse G8 BROTHER FH: cancer G8 BROTHER Hypertension 19 MOTHER Myocardial infarction 19 FATHER G8 BROTHER Thyroid disease G8 SISTER No Family History of: AIDS Abdominal aortic aneurysm Norman's disease Asthma Cancer of mouth Colon cancer Completed stroke Dementia Parkinson's disease Prostate cancer Psychosocial problem Respiratory disorder Seizure disorder Severe allergy Tuberculosis Review of Systems Constitutional: see HPI EENTM: no symptoms reported Respiratory: no symptoms reported Cardiovascular: no symptoms reported Gastrointestinal: no symptoms reported Genitourinary: no symptoms reported Musculoskeletal: joint pain (left knee) Skin: no symptoms reported Psychiatric/Neurological: No Symptoms Reported All Other Systems Reviewed Negative Unless Noted: Yes Physical Exam Physical Exam Vital Signs Vital Sign - Last 12Hours 05/12/17 06:59 Temp 99.3 Pulse 70 Resp 16 B/P (MAP) 148/73 Pulse Ox 96 O2 Delivery Room Air Capillary Refill : General Appearance: No Apparent Distress, WD/WN, Chronically ill, Obese Eyes: Bilateral Eye Normal Inspection, Bilateral Eye PERRL HEENT: PERRL/EOMI, Normal ENT Inspection, Pharynx Normal Neck: Full Range of Motion, Normal Inspection, Non Tender, Supple, Carotid Bruit Respiratory: Chest Non Tender, Lungs Clear, Normal Breath Sounds, No Accessory Muscle Use, No Respiratory Distress Cardiovascular: Regular Rate, Rhythm, No Edema, No Gallop, No JVD, No Murmur, Normal Peripheral Pulses Gastrointestinal: Normal Bowel Sounds, No Organomegaly, No Pulsatile Mass, Non Tender, Soft Back: Normal Inspection, No CVA Tenderness, No Vertebral Tenderness Extremity: Normal Capillary Refill, Normal Inspection, Normal Range of Motion ( except left knee), Non Tender, No Calf Tenderness, No Pedal Edema Neurologic/Psychiatric: Alert, Oriented x3, No Motor/Sensory Deficits, Normal Mood/Affect Skin: Normal Color, Warm/Dry Lymphatic: No Adenopathy Assessment/Plan Admission Diagnosis Assessment: Status post left total knee replacement uncomplicated by Dr. Dugan POD # 0 CAD previous PR with stent placement managed by Dr. Larsen Hypertension Hyperlipidemia Osteoarthritis Rheumatoid arthritis Assessment and Plan Plan: AM labs Monitor closely Consult Dr Larsen for guidance on ASA and Plavix due to stent placement in the past PT/OT BM regimen Hold immunosuppressive Clinical Quality Measures DVT/VTE Risk/Contraindication: Risk Factor Score Per Nursin RFS Level Per Nursing on Admit: 4+=Very High CHANEL MISHRA DO May 12, 2017 11:32
[2017-05-12] MEDS ORDERED: OXYC-197 PO (11:57)
--- NOTE | 2017-05-12 12:09 | Progress Note-Standard ---
Standard Progress Note Progress Notes/Assess & Plan Date Seen by Provider: May 12, 2017 Time Seen by Provider: 12:07 Progress/Assessment & Plan no complaints radiographs--hw well positioned. no fractures lle--dressing intact. intact df and of of toes and ankle. sensation intact throughout. 2 plus dp pulse with brisk cap refill s/p l tka mobilize as able FIONA SEAY MD May 12, 2017 12:09
[2017-05-12] MEDS ORDERED: FLUTICASONE NASAL SPRAY (FLONASE) 16 GM BTL NS PRN (12:15)
[2017-05-12] MEDS ORDERED: ARTIFICAL TEARS 0.4 ML UNIT DOSE (REFRESH PLUS) OU PRN (12:15)
--- NOTE | 2017-05-12 12:18 | D/C HH Face to Face Order ---
D/C Face to Face Orders Instructions for Patient Patient Instructions/FollowUp: 3 weeks Physician to follow Patient: 3 weeks Discharge Diet for Home: No Restrictions Patient Data-Allergies,Ht & Wt Patient Allergies: Coded Allergies: tetracycline (Unverified Allergy, Mild, RASH, 04/28/17) Height (Feet): 5 Height (Inches): 4.00 Weight (Pounds): 237 Weight (Ounces): 3.0 Home Health Need/Face to Face Date of Face to Face: May 12, 2017 Clinical Findings: Muscle weakness, Non or partial weight bearing, Pain with ambulation, Unsteady gait I have seen Pt [id number]: Yes Discharged To: Home Diagnosis/Conditions: left total knee arthroplasty Problems/Diagnosis/Condition: Patient is Homebound due to: Oliver fall risk due to instabilty, Muscle weakness , Pain w/ambulation Homebound Status Due to the above stated illness, injury or surgical procedure (medical condition or diagnosis) and associated clinical findings, the patient is homebound because of his/her inability to leave home except with aid of a supportive device and/or person AND leaving the home requires a considerable and taxing effort or is medically contraindicated. Pt req the following assistanc: [facility] Nursing Orders Home Health Services Order: Physical Therapy-Evaluate & Treat Home Health Infusion Therapy Line Start Date: May 12, 2017 Line Start Time: 0615 Site Location: Forearm Therapy Orders Therapy Orders: Physical Therapy Therapy Specific Orders: Eval assistive deivces, Teach strategies/cognitive deficits, Teach enviro modifications/safety, Gait training, Increase strength/ endurance, Restore ROM Certify Stmt I certify that this patient is under my care and that I, a nurse practitioner or a physician; a assistant professor of religion working with me, had a face to face encounter that - meets the physician face to face encounter requirements with this patient as dated. FIONA SEAY MD May 12, 2017 12:18
--- NOTE | 2017-05-12 12:33 | Physical Therapy Progress Note ---
Therapy Progress Note CPM fit and applied 0-50 degrees. visit only MARIAN JACINTO PT May 12, 2017 12:33
--- NOTE | 2017-05-12 13:43 | Consultation-Cardiology ---
HPI-Cardiology Cardiology Consultation: Date of Consultation 05/12/17 Time Seen by Provider: 13:10 Date of Admission Attending Physician Masood Dugan MD Admitting Physician Rudy Parada MD Consulting Physician GILBERT MICHELE MD, MA, FACP, FACC, FSCAI, CCDS Physician requesting consult: Dr Rodriguez HPI: Chief Complaint: Reason for consultation: Management of antiplatelet therapy for CAD 76 woman who underwent L knee arthroplasty this am. Does not report cp or palp or syncope. Denies shortness of breath. Dr Rodriguez has asked us to see her in card consult Review of Systems-Cardiology Review of Systems Constitutional: No weight loss, No weight gain Eyes: No vision change Ears/Nose/Throat: No ear discharge, No nasal drainage, No recent hearing loss Respiratory: As described under HPI Cardiovascular: As described under HPI Gastrointestinal: No constipation, No diarrhea, No difficulty swallowing, No nausea, No vomiting Genitourinary: No dysuria, No hematuria Musculoskeletal: joint pain (chronic) Skin: No rash, No ulcerations Psychiatric/Neurological: No seizure, No focal weakness, No syncope Hematologic: No bleeding abnormalities All Other Systems Reviewed Negative Unless Noted: Yes WHJ-Slwyql-Tkfmaw Hx Patient Social History Marrital Status: Employed/Student: retired ([employer] in [place] 26 years) Alcohol Use: Occasionally Uses Recreational Drug Use: No Smoking Status: Former Smoker Former smoker/When Quit: Oct 18, 2008 Recent Foreign Travel: No Recent Infectious Disease Expo: No Physical Abuse Screen: No Sexual Abuse: No Immunizations Up To Date Date of Pneumonia Vaccine: Apr 25, 2015 Date of Influenza Vaccine: Apr 27, 2016 Past Medical History PMH As described under Assessment. Family Medical History Family History: Alcoholism G8 BROTHER Arthritis 19 FATHER 19 MOTHER G8 BROTHER G8 SISTER Cardiovascular disease 19 FATHER G8 BROTHER Cataracts 19 MOTHER Diabetes mellitus G8 SISTER Drug abuse G8 BROTHER FH: cancer G8 BROTHER Hypertension 19 MOTHER Myocardial infarction 19 FATHER G8 BROTHER Thyroid disease G8 SISTER No Family History of: AIDS Abdominal aortic aneurysm [place]'s disease Asthma Cancer of mouth Colon cancer Completed stroke Dementia Parkinson's disease Prostate cancer Psychosocial problem Respiratory disorder Seizure disorder Severe allergy Tuberculosis Allergies and Home Medications Allergies Coded Allergies: tetracycline (Unverified Allergy, Mild, RASH, 04/28/17) Home Medications Aspirin 81 Mg Tab.chew, 81 MG PO DAILY, (Reported) Atorvastatin Calcium 80 Mg Tablet, 80 MG PO HS, (Reported) Calcium Carbonate/Vitamin D3 1 Each Tablet, 1 TAB PO BID, (Reported) Carboxymethylcellulose Sodium 15 Ml Drp.lq.gel, 2 DROPS OU TID PRN for DRY EYES, (Reported) Clopidogrel Bisulfate 75 Mg Tablet, 75 MG PO DAILY, (Reported) Fluticasone Propionate 9.9 Ml [place].susp, 1 SPRAY NA DAILY PRN for ALLERGIES, ( Reported) Leflunomide 20 Mg Tablet, 20 MG PO DAILY, (Reported) Levothyroxine Sodium 150 Mcg Tablet, 150 MCG PO DAILY, (Reported) Loratadine 10 Mg Tablet, 10 MG PO DAILY PRN for ALLERGIES, (Reported) Metoprolol Succinate 50 Mg Tab.er.24h, 50 MG PO DAILY, (Reported) Multivitamin 1 Each Tablet, 1 TAB PO DAILY, (Reported) Nitroglycerin 0.4 Mg Tab.subl, 0.4 MG SL UD PRN for CHEST PAIN, (Reported) Oxycodone HCl/Acetaminophen 1 Each Tablet, 1 EACH PO Q4H, #60 Prescribed by: MASOOD DUGAN on 05/12/17 1157 Ranitidine HCl 150 Mg Tablet, 150 MG PO DAILY PRN for HEARTBURN, (Reported) Physical Exam-Cardiology Physical Exam Vital Signs/I&O Vital Sign - Last 12Hours 05/12/17 05/12/17 05/12/17 05/12/17 06:59 10:20 11:42 12:00 Temp 99.3 96.1 Pulse 70 73 Resp 16 18 18 B/P (MAP) 148/73 133/70 Pulse Ox 96 95 98 O2 Delivery Room Air Room Air Room Air Capillary Refill : Constitutional: AAO x 3, well-developed, well-nourished HEENT: EOMI, hearing is well preserved, No xanthelasmas are seen Neck: carotid pulses are 2 + bilaterally, with good upstrokes Respiratory: No accessory muscle use, other (good bilateral air entry) Cardiovascular: regular rate-rhythm, S1 and S2, systolic murmur (faint ALBERTO at card base) Gastrointestinal: No tender, soft, No guarding, No rebound, audible bowel sounds Extremities: swelling (mild bilateral leg swelling), No clubbing, No cyanosis Neurologic/Psychiatric: oriented x 3, grossly intact, power is 5/5 both on sides Skin: No rash on exposed areas, No ulcerations on exposed areas A/P-Cardiology Assessment/Admission Diagnosis S/p L knee arthroplasty on 05/12/17 Coronary artery disease with history of multiple percutaneous interventions. Last cor intervention on 12/20/[address] Pierre, during STEMI, showed complete occlusion of LCX that was treated with Promus 2.5x15 stent ( there was periprocedural VF, requiring defibrillation); other previous stents were intact; there was 50% mid LAD stenosis, as before. Last card cath on : Diffuse, mild to moderate coronary artery disease. Patent stents: Left anterior descending artery has 2.75 x 15mm stent placed in 2010, left circumflex artery has a patent stent 2.5 x 15 placed in 2015, right coronary artery has widely patent stents that are 4.0 x 23 mm in the proximal (2010) and 3.5 x 18 mm and the distal (2008) vessel. Normal global left ventricular systolic function with an ejection fraction of 65 to 70%. No significant mitral regurgitation. Mild elevation left ventricular end diastolic pressure. No evidence of thoracic aortic aneurysm or dissection. Echo of 09/17/16 showed LVEF 55-60%, tivial MR & TR, no valvular stenosis, PASP 35 mmHg, mild diastolic dysfunction of LV Dyspepsia, likely related to gastroesophageal reflux and/or hiatal hernia and/ or peptic ulcer disease. 24 Hour Holter monitor study of May 29, 2015 showed NSR, isolated and coupled PVC's. No VT or SVT. No significant bradycardia. Hyperlipidemia, being treated with statin therapy, currently controlled History of rheumatoid arthritis. Hypothyroidism following thyroidectomy for thyroid cancer. This is being followed by Dr. Parada. Cough, resolving following cessation of therapy with ESTEVAN inhibitors and addition of Zantac to the regimen. History of right-sided mastectomy for breast carcinoma several years ago. Gastroesophageal reflux. Elevated body mass index of approximately approximately 40. Carotid u/s of December 2015 showed minimal caotid plaque without any evidence of hemodynamic stenosis. Distal portion of the R ICA is not well visualized Discussion and Recomendations * We discussed her CV issues with her * We recommend resumption of aspirin therapy in am, if ok with the surgical service * We also recommend DVT prophylaxis with enoxaparin * Monitor labs Clinical Quality Measures DVT/VTE Risk/Contraindication: Risk Factor Score Per Nursin RFS Level Per Nursing on Admit: 4+=Very High GILBERT MICHELE MD FACP FAC CCDS May 12, 2017 13:43
[2017-05-12] MEDS: SENNA W/DOCUSATE (SENOKOT S) TABLET PO SCH ×2 (14:15→20:24)
--- NOTE | 2017-05-12 15:02 | Physical Therapy Evaluation ---
PT Evaluation-General Medical Diagnosis Admission Date May 12, 2017 at 05:49 Medical Diagnosis: left TKA Onset Date: May 12, 2017 Therapy Diagnosis Therapy Diagnosis: impaired moblity, strength, endurance, ROM Height/Weight Height (Feet): 5 Height (Inches): 4.00 Weight (Pounds): 237 Weight (Ounces): 3.0 Precautions Precautions/Isolations: Standard Precautions Weight Bear Status Left Lower Extremity: Left Weight Bearing/Tolerated Referral Physician: Hoang Menchaca Reason for Referral: Evaluation/Treatment Medical History Pertinent Medical History: CAD, GERD, HTN, Hypothroidism, Rheumatoid Arthritis Additional Medical History breast CA, surg (coronary artery stent placement, mastectomy, thyroidectomy, right TKA) Current History longstanding progressive left knee pain, severe medial and patellofemoral arthrosis Reviewed History: Yes Social History Home: Single Level Current Living Status: Spouse Entry Into Home: Stairs Without Railing PT Steps Into Home: 2 Prior/Core FIM Prior Level of Function Functional [place] Measure 0=Not Assessed/NA 4=Minimal Assistance 1=Total Assistance 5=Supervision or Setup 2=Maximal Assistance 6=Modified [place] 3=Moderate Assistance 7=Complete [place] Bed Mobility: 7 Transfers (B,C,W/C) (FIM): 7 Gait: 7 PT Evaluation-Current Subjective Patient in recliner pre tx, agrees to PT, has pain of 3/10 in left knee. Pt/Family Goals to be independent at home Objective Patient Orientation: Person, Place, Situation Attachments: Oxygen, IV ROM/Strength ROM Lower Extremities left knee extension +5 degrees, flexion 75 degrees Strength Lower Extremities NT due to recent surgery Integumentary/Posture Bowel Incontinence: No Bladder Incontinence: No Neuromuscular (Tone, Coordination, Reflexes) NT Sensory Vision: Functional Hearing: Impaired Sensation Right Lower Extremit: Intact Sensation Left Lower Extremity: Impaired Sensation Lower Extremities patient still had some numbness around her left knee Transfers Functional [place] Measure 0=Not Assessed/NA 4=Minimal Assistance 1=Total Assistance 5=Supervision or Setup 2=Maximal Assistance 6=Modified [place] 3=Moderate Assistance 7=Complete [place] Transfers (B, C, W/C) (FIM): 4 Sit to/from Stand: 4 CGA for sit to stand, cues for positioning and hand placement and safety Gait Mode of Locomotion: Walk Anticipated Mode of Locomotion: Walk Gait (FIM): 2 Distance: 50' Gait Level of Assist: 4 Gait Persons Needed: 1 Gait Assistive Device: FWW Comments/Gait Description CGA, good step-through ambulation, antalgic, slow Balance Sitting Static: Normal Sitting Dynamic: Normal Standing Static: Good Standing Dynamic: Good Treatment seated exercises x10 (LAQ, knee flexion, QS with therapist elevating leg, AP). Patient left in recliner post tx, she did not want to go back to bed at this time, she had already been fitted with CPM and had it on for a while. Advised patient to have it put on when she does go back to bed and wear for several hours if possible. Assessment/Needs Patient has impaired mobility, strength, endurance, ROM post left TKA Rehab Potential: Fair PT Short Term Goals Short Term Goals Time Frame: May 19, 2017 Transfers (B,C,W/C) (FIM): 5 Gait (FIM): 2 Gait Distance Comment: 100' Gait Level of Assist: 5 Gait Assistive Device: FWW PT Plan Problem List Problem List: Activity Tolerance, Functional Strength, Safety, Balance, Gait, Transfer, Bed Mobility, ROM Treatment/Plan Treatment Plan: Continue Plan of Care Treatment Plan: Bed Mobility, Education, Functional Activity Shayy, Functional Strength, Gait, Safety, Therapeutic Exercise, Transfers Treatment Duration: May 19, 2017 Frequency: 11 times per week Estimated Hrs Per Day: .25 hour per day (15-30') Patient and/or Family Agrees t: Yes Safety Risks/Education Patient Education: Gait Training, Transfer Techniques, Reviewed Use of Ice, Correct Positioning, Disease Process, Safety Issues Teaching Recipient: Patient Teaching Methods: Demonstration, Discussion Response to Teaching: Reinforcement Needed Discharge Recommendations Plan Patient will perform bed mobility and transfer training, balance and endurance training, functional strengthening, stair training, gait training, and education to improve functional mobility and independence at home. Therapy D/C Recommendations: Home w/ Family Support Time/GCodes Time In: 1430 Time Out: 1455 Total Billed Treatment Time: 25 Total Billed Treatment 1 visit EVL 15' GT 10' BRIANNE KHOURY PT May 12, 2017 15:02
[2017-05-12] MEDS: CEFUROXIME INJECTION 750 MG in NS (IVPB) 50 ML IV SCH ×2 (15:28→22:46)
[2017-05-12 16:20] VITALS: BP 137/64
[2017-05-12] MEDS: CALCIUM CARB + VIT D 600 MG (CALCARB + D) TAB PO SCH (17:12)
[2017-05-12 20:00] VITALS: BP 136/62
[2017-05-12] MEDS: ATORVASTATIN 80 MG (LIPITOR) TABLET PO SCH (20:24)
[2017-05-12] MEDS ORDERED: NON-FORMULARY MEDICATION 1 EA EA (Calcium Carbonate/Vitamin D3 (Calcium + Vitamin D Tablet PO SCH (21:00)
[2017-05-13 00:25] VITALS: BP 150/76
[2017-05-13] MEDS: NS IV 1000 ML 1,000 ML IV SCH ×2 (00:35→21:31)
[2017-05-13 04:20] VITALS: BP 131/72
[2017-05-13] MEDS: MULTIVIT W/MINERALS TAB (THERAGRAN M) PO SCH (05:30)
[2017-05-13] MEDS: LEVOTHYROXINE 150 MCG (LEVOTHROID) TAB PO SCH (05:30)
[2017-05-13] MEDS: CALCIUM CARB + VIT D 600 MG (CALCARB + D) TAB PO SCH ×2 (05:30→16:40)
--- NOTE | 2017-05-13 07:51 | Progress Note-Standard ---
Standard Progress Note Progress Notes/Assess & Plan Date Seen by Provider: May 13, 2017 Time Seen by Provider: 07:50 Progress/Assessment & Plan no complaints radiographs--hw well positioned. no fractures lle--dressing intact. intact df and of of toes and ankle. sensation intact throughout. 2 plus dp pulse with brisk cap refill s/p l tka mobilize as able Final Diagnosis More painful today. Vital Signs Date Time Temp Pulse Resp B/P (MAP) Pulse Ox O2 Delivery O2 Flow Rate FiO2 05/13/17 06:33 99 Room Air 05/13/17 04:20 98.1 85 16 131/72 97 Room Air 05/13/17 02:36 95 Room Air 05/13/17 00:25 97.9 76 18 150/76 100 Room Air 05/12/17 22:05 96 Room Air 05/12/17 20:00 97.5 72 20 136/62 98 Room Air 05/12/17 19:08 98 Room Air 05/12/17 16:20 97.0 78 18 137/64 98 Room Air 05/12/17 14:11 98 Room Air 05/12/17 12:00 98 Room Air 05/12/17 11:42 18 05/12/17 11:00 98 Room Air 05/12/17 10:20 96.1 73 18 133/70 95 Room Air Laboratory Tests Test 05/13/17 05:40 Range/Units Hemoglobin 10.2 L 11.5-16.0 G/DL Hematocrit 33 L 35-52 % LLE--dressing intact. NVI distally. No calf tenderness s/p LTKA doing well continue PT/OT FIONA SEAY MD May 13, 2017 07:51
[2017-05-13 08:00] VITALS: BP 122/69
[2017-05-13] MEDS ORDERED: ASPIRIN E.C. 81 MG (ECOTRIN) TAB PO SCH (08:00)
[2017-05-13] MEDS: FAMOTIDINE 20 MG (PEPCID) TABLET PO PRN (08:29)
[2017-05-13] MEDS: ENOXAPARIN 30 MG/0.3 ML (LOVENOX) SYR SC SCH ×2 (08:29→20:43)
[2017-05-13] MEDS: oxyCODONE/APAP 5/325MG (PERCOCET 5) TABLET PO PRN ×4 (08:29→20:43)
[2017-05-13] MEDS: SENNA W/DOCUSATE (SENOKOT S) TABLET PO SCH ×2 (08:30→20:43)
[2017-05-13] MEDS: ASPIRIN 81 MG CHEW (CHILDREN'S ASA) PO SCH (08:30)
[2017-05-13] MEDS: meTOproloL SUCCINATE 50 MG (TOPROL XL) TAB PO SCH (08:30)
[2017-05-13] MEDS ORDERED: MULTIVIT W/MINERALS TAB (THERAGRAN M) PO SCH (09:00)
--- NOTE | 2017-05-13 09:56 | Progress Note-Cardiology ---
Cardiology SOAP Progress Note Subjective: No cp or palp or syncope. Has knee pain at site of surgery Objective: I&O/Vital Signs Vital Sign - Last 12Hours 05/12/17 05/13/17 05/13/17 05/13/17 22:05 00:25 02:36 04:20 Temp 97.9 98.1 Pulse 76 85 Resp 18 16 B/P (MAP) 150/76 131/72 Pulse Ox 96 100 95 97 O2 Delivery Room Air Room Air Room Air Room Air 05/13/17 05/13/17 06:33 08:00 Temp 97.0 Pulse 88 Resp 10 B/P (MAP) 122/69 Pulse Ox 99 98 O2 Delivery Room Air Room Air Weight (Pounds): 237 Weight (Ounces): 3.0 Weight (Calculated Kilograms): 107.214246 Constitutional: AAO x 3, well-developed, well-nourished Respiratory: No accessory muscle use, other (good bilateral air entry) Cardiovascular: regular rate-rhythm, S1 and S2, systolic murmur (faint ALBERTO at card base) Gastrointestional: No tender, soft, No guarding, No rebound, audible bowel sounds Extremities: swelling (mild bilateral leg swelling), No clubbing, No cyanosis Neurologic/Psychiatric: oriented x 3, grossly intact, power is 5/5 both on sides Skin: No rash on exposed areas, No ulcerations on exposed areas Results/Procedures: Labs Laboratory Tests 05/13/17 05:40: Hemoglobin 10.2L, Hematocrit 33L A/P: Assessment: S/p L knee arthroplasty on 05/12/17 Coronary artery disease with history of multiple percutaneous interventions. Last cor intervention on 12/20/[address] Pierre, during STEMI, showed complete occlusion of LCX that was treated with Promus 2.5x15 stent ( there was periprocedural VF, requiring defibrillation); other previous stents were intact; there was 50% mid LAD stenosis, as before. Last card cath on : Diffuse, mild to moderate coronary artery disease. Patent stents: Left anterior descending artery has 2.75 x 15mm stent placed in 2010, left circumflex artery has a patent stent 2.5 x 15 placed in 2015, right coronary artery has widely patent stents that are 4.0 x 23 mm in the proximal (2010) and 3.5 x 18 mm and the distal (2008) vessel. Normal global left ventricular systolic function with an ejection fraction of 65 to 70%. No significant mitral regurgitation. Mild elevation left ventricular end diastolic pressure. No evidence of thoracic aortic aneurysm or dissection. Echo of 09/17/16 showed LVEF 55-60%, tivial MR & TR, no valvular stenosis, PASP 35 mmHg, mild diastolic dysfunction of LV Dyspepsia, likely related to gastroesophageal reflux and/or hiatal hernia and/ or peptic ulcer disease. 24 Hour Holter monitor study of May 29, 2015 showed NSR, isolated and coupled PVC's. No VT or SVT. No significant bradycardia. Hyperlipidemia, being treated with statin therapy, currently controlled History of rheumatoid arthritis. Hypothyroidism following thyroidectomy for thyroid cancer. This is being followed by Dr. Parada. Cough, resolving following cessation of therapy with ESTEVAN inhibitors and addition of Zantac to the regimen. History of right-sided mastectomy for breast carcinoma several years ago. Gastroesophageal reflux. Elevated body mass index of approximately approximately 40. Carotid u/s of December 2015 showed minimal carotid plaque without any evidence of hemodynamic stenosis. Distal portion of the R ICA is not well visualized Plan: * Aspirin resumed * I discussed her case with Dr Rodriguez today * Continue DVT prophylaxis with enoxaparin * Monitor labs GILBERT MICHELE MD FACP FAC CCDS May 13, 2017 09:56
--- NOTE | 2017-05-13 10:21 | Physical Therapy Daily Note ---
PT Daily Note-Current Subjective Patient states she feels frustrated with lack of progress. PT reminded patient she is less than 24 hours out of surgery and to allow her body to heal. Pain Numeric Pain Scale: 9 Location: Left Location Body Site: Knee Pain Description: Acute Mental Status Patient Orientation: Normal For Age Attachments: Polar Pack, IV Transfers Functional [place] Measure 0=Not Assessed/NA 4=Minimal Assistance 1=Total Assistance 5=Supervision or Setup 2=Maximal Assistance 6=Modified [place] 3=Moderate Assistance 7=Complete IndependenceIRFPAI Quality Coding Scale 6 Independent with activity with or without an assistive device 5 Patient requires set up or clean up by helper. Patient completes activity by themselves 4 Supervision or touching assist (CGA). [place] provide cues , steadying assist 3 The helper provides less than half the effort to complete the activity 2 The helper provides more than half the effort to complete the activity 1 Dependent. The helper does all the effort to complete an activity 7 Patient refused to complete or attempt activity 9 The patient did not perform the activity before the current illness or injury 88 Not attempted due to Medical conditions or safety concerns Transfers (B, C, W/C) (FIM): 4 Scootin Sit to/from Stand: 4 CGA with use of gait belt for safety Weight Bearing Left Lower Extremity: Left Weight Bearing/Tolerated Gait Training Gait (FIM): 2 Distance (FIM): 0=083-45 ft Distance: 75' Gait Level of Assist: 4 Gait Persons Needed: 1 Gait Assistive Device: FWW slow, antalgic, step to gait sequence with close CGA for safety Exercises Seated Therapy Exercises: Ankle pumps, Long arc quads, Hip flexion Seated Reps: 10 (2 sets to increase ROM and strength) Assessment Patient is progressing with treatment plan and is educated on safety concerns and importance of performing exercises and gait training to ensure full benefit from elective surgery. PT Short Term Goals Short Term Goals Time Frame: May 19, 2017 Transfers (B,C,W/C) (FIM): 5 Gait (FIM): 2 Gait Distance Comment: 100' Gait Level of Assist: 5 Gait Assistive Device: FWW PT Plan Treatment/Plan Treatment Plan: Continue Plan of Care Treatment Plan: Bed Mobility, Education, Functional Activity Shayy, Functional Strength, Gait, Safety, Therapeutic Exercise, Transfers Treatment Duration: May 19, 2017 Frequency: 11 times per week Estimated Hrs Per Day: .25 hour per day (15-30') Patient and/or Family Agrees t: Yes Safety Risks/Education Patient Education: Safety Issues Teaching Recipient: Patient Teaching Methods: Discussion Response to Teaching: Verbalize Understanding Time/GCodes Time In: 810 Time Out: 835 Total Billed Treatment Time: 25 Total Billed Treatment 1 visit GT 15 min EX 10 min CR STONER PT May 13, 2017 10:21
--- NOTE | 2017-05-13 10:38 | Progress Note-Hospitalist ---
Progress Note HPI/CC on Admission CC: Medical management following left total knee arthroplasty HPI: This is a 76 yoWF pt presenting after left total knee arthroplasty. Patient Interview: Pt states she remembers me from after her heart attack Pt confirms Dr. Parada as PCP, Dr. Larsen as product marketing analyst, and Dr. Irbahim in [place] for rheumatoid arthritis. Pt states she is feeling okay and denies pain. Physical exam stable. 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 Pt states she worked there for 30 years. Pt states she is from [place] and they moved here because they liked the area. Pt was noted saying, "the less pain meds the better" Scribed by Yesenia Loja under the direct supervision of Dr. Mishra. Progress Notes/Assess & Plan Date Seen 05/13/17 Time Seen by Provider: 10:30 Admission Dx/Process Assessment: Status post left total knee replacement uncomplicated by Dr. Dugan POD # 0 CAD previous GA with stent placement managed by Dr. Larsen Hypertension Hyperlipidemia Osteoarthritis Rheumatoid arthritis Diagonsis/Assessment & Plan Chart Review: No fever Vitals stable Hgb 10.2 Patient Interview: Dr. Larsen interviewed pt prior to interview. Pt states that Dr. Larsen is still considering the Plavix and when she must get back on that med. Pt seems to be moving well and states that she is not jumping up and getting around. Pt confirms experiencing pain. Labs were discussed and look good Pt confirms IS usage. Pt confirms urinating but denies BMs. Pt confirms flatulence and states that she is normally very regular. Physical exam stable. Lungs sound perfect. Pt confirms sleeping very well last night and states she was able to get back to sleep after each time she was awakened by [facility] staff Pt confirms working with PT AFVSS, [place], O x 3 RRR, CTAB no edema Laboratory Tests 05/13/17 05:40 Assessment: Status post left total knee replacement uncomplicated by Dr. Dugan POD # 1 Post-op anemia due to acute blood loss CAD previous GA with stent placement managed by Dr. Larsen 1 yr ago Hypertension Hyperlipidemia Osteoarthritis Rheumatoid arthritis Plan: AM labs Monitor closely Consult Dr Larsen for guidance on ASA and Plavix due to stent placement in the past is appreciated PT/OT BM regimen Hold immunosuppressives Check CBC and CMP in morning IS Scribed by Yesenia Loja under the direct supervision of Dr. Mishra. CHANEL MISHRA DO May 13, 2017 10:38
[2017-05-13 12:00] VITALS: BP 127/56
--- NOTE | 2017-05-13 12:30 | Physical Therapy Daily Note ---
PT Daily Note-Current Subjective Patient is in her recliner among PT entering. She states she has been waiting for PT to arrive. Pain Numeric Pain Scale: 7 Location: Left Location Body Site: Knee Pain Description: Ache Appearance Patient appears to be okay, but very discouraged when performing gait or exercises. Mental Status Patient Orientation: Normal For Age Attachments: IV Transfers Functional [place] Measure 0=Not Assessed/NA 4=Minimal Assistance 1=Total Assistance 5=Supervision or Setup 2=Maximal Assistance 6=Modified [place] 3=Moderate Assistance 7=Complete IndependenceIRFPAI Quality Coding Scale 6 Independent with activity with or without an assistive device 5 Patient requires set up or clean up by helper. Patient completes activity by themselves 4 Supervision or touching assist (CGA). [place] provide cues , steadying assist 3 The helper provides less than half the effort to complete the activity 2 The helper provides more than half the effort to complete the activity 1 Dependent. The helper does all the effort to complete an activity 7 Patient refused to complete or attempt activity 9 The patient did not perform the activity before the current illness or injury 88 Not attempted due to Medical conditions or safety concerns Transfers (B, C, W/C) (FIM): 5 Sit to/from Stand: 5 Patient performs transfers with CGA from PT. Weight Bearing Left Lower Extremity: Left Weight Bearing/Tolerated Gait Training Gait (FIM): 1 Distance (FIM): 1=up to 49 ft Distance: 25' Gait Level of Assist: 5 Gait Persons Needed: 1 Gait Assistive Device: FWW Patient has a slow step to gait with swinging and an externally rotated left LE. Exercises Seated Therapy Exercises: Long arc quads (AAROM 20 reps) Assessment Current Status: Good Progress PT will continue to progress this patient as tolerable. Patient will continue to perform PT interventions better as her confidence in her knee improves. PT Short Term Goals Short Term Goals Time Frame: May 19, 2017 Transfers (B,C,W/C) (FIM): 5 Gait (FIM): 2 Gait Distance Comment: 100' Gait Level of Assist: 5 Gait Assistive Device: FWW PT Plan Problem List Problem List: Functional Strength, Safety, Balance, Gait, ROM Treatment/Plan Treatment Plan: Continue Plan of Care Treatment Plan: Bed Mobility, Education, Functional Activity Shayy, Functional Strength, Gait, Safety, Therapeutic Exercise, Transfers Treatment Duration: May 19, 2017 Frequency: 11 times per week Estimated Hrs Per Day: .25 hour per day (15-30') Patient and/or Family Agrees t: Yes Time/GCodes Time In: 1151 Time Out: 1211 Total Billed Treatment Time: 20 Total Billed Treatment 1 visit GT 20 min CR STONER PT May 13, 2017 12:30
--- NOTE | 2017-05-13 14:01 | OPERATIVE REPORT ---
DATE OF SERVICE: 05/12/2017 PREOPERATIVE DIAGNOSIS: Left knee primary osteoarthritis. POSTOPERATIVE DIAGNOSIS: Left knee primary osteoarthritis. PROCEDURE: Left total knee arthroplasty. SURGEON: Masood Dugan MD [employer] SUPERVISOR: LUCY Smith, who assisted throughout the procedure and closed the incision. ANESTHESIA: General endotracheal by Dr. Bellamy. TOURNIQUET TIME: 75 minutes at 300 mmHg. ESTIMATED BLOOD LOSS: Minimal. DRAINS: None. COMPLICATIONS: None. POSTOPERATIVE PLAN: Total knee arthroplasty protocol. MATERIALS: Microport, Man size 6 femur, Man size 6 tibia with a 12 mm insert and a Man size 35 patella. The patient was transferred to the recovery room awake in stable condition. STATEMENT OF MEDICAL NECESSITY: The patient is a 76-year-old female with longstanding osteoarthritis of her left knee. Radiographs revealed severe tricompartmental osteoarthritis. She had difficulty with activities of daily living because of her knee. She had tried injections, anti-inflammatories and rest without relief and due to functional impairment and failure to improve with conservative measures the patient elected to proceed with surgical intervention. PROCEDURE: After the risks and benefits of the procedure were discussed and questions were answered and informed consent was signed and placed on the chart. The operative site was confirmed in the preoperative holding area initiated by the surgeon. The patient transported to the operating room and after adequate levels of general endotracheal anesthetic were obtained, a time out was called confirming the operative site. The left lower extremity was then prepped and draped in the usual sterile fashion with the leg elevated and the knee flexed, the tourniquet was inflated to 300 mmHg. A standard anterior approach was utilized. Hemostasis was obtained with cautery and a medial parapatellar arthrotomy was performed leaving 1 cm cuff on the patella for later reattachment. A portion of the fat pad was resected. A subperiosteal release was performed of the proximal medial tibia being careful to stay on the bony surface. The ACL was resected. The intramedullary guide was passed into the femur and the distal cutting block was placed. A distal cut was made and the femur was sized to a size 6. A 6 cutting block was placed parallel to the epicondylar axis and cuts were made from posterior to anterior. A subperiosteal release was then carefully performed posteriorly being careful to stay on the bony surface. There were osteophytes which were resected directly. The intramedullary guide was then passed into the tibia. The cutting block was placed and the drop roberto transected, the ____ axis cut was made, a 6 base plate was positioned and again the drop roberto transected the ____ axis. There was a large posterior medial osteophyte which was resected off of the tibia carefully. The tibia was then prepared with a drill and keel punch. The trials were inserted. The trochlear cut was made on the femur. The 12 mm insert was placed and the patella was prepared using the freehand technique by resecting 10 mm off the undersurface. A cutting guide was placed superomedially and the peg holes were drilled. The 35 trial was placed. Full extension was easily obtained at 120 degrees of flexion with gravity was easily obtained. The patella tracked well. There was no anterior/posterior or medial/lateral laxity in flexion or extension. The trials were removed. The joint was irrigated with pulse lavage. The periarticular block was placed in the posterior capsule, medial and lateral retinaculum extensor mechanism and subcutaneous tissue. The bone ends were irrigated and dried. The tibial base plate was cemented into position. Excessive cement was removed. The superior surface was irrigated and dried and the polyethylene insert was placed. The distal femur was irrigated and dried. The femoral prosthesis was cemented into position and excessive cement was removed. The knee was brought out into full extension until the cement had cured. The undersurface of the patella was irrigated and dried and the patella button was cemented into position. This was held in position until the cement had cured. Excessive cement was removed. After the cement had cured the knee was taken through full range of motion and the patella tracked well. There was no medial/lateral laxity in flexion or extension and no anterior/posterior laxity in flexion or extension. Full extension was loosely obtained at 120 degrees of flexion with gravity was obtained. The joint was irrigated with pulse lavage until 6 liters were used throughout the procedure. The arthrotomy was closed with #2 Tevde[place] in [id number] interrupted fashion. The knee was flexed and the patella tracked well and no undue tension was noted at the repair site. The subcutaneous tissues were irrigated with pulse lavage and 0 Vicryl was used for the deep subcutaneous tissue, 2-0 Vicryl for the superficial subcutaneous tissue and layla were used on the skin. A soft dressing was applied. The tourniquet was deflated and the patient was transported to the recovery room awake and in stable condition. Job ID: [id number] DocumentID: [id number] Dictated Date: 05/12/2017 09:29:32 Finishing Machine Operator Date: 05/12/2017 21:25:46 Dictated By: MASOOD DUGAN MD
[2017-05-13 16:29] VITALS: BP 124/57
--- NOTE | 2017-05-13 17:36 | Occ Therapy Progress Note ---
Therapy Progress Note 1508 to 1515 Pt reported that she has ADL equipment from prior TKA, including BSC, stool riser and FWW. She recalls modified techniques for ADLs and will have her available for assistance if needed. Pt declined OT. DC OT per patient request. RE VANEGAS OT May 13, 2017 17:36
[2017-05-13 19:33] VITALS: BP 129/60
[2017-05-13] MEDS: ATORVASTATIN 80 MG (LIPITOR) TABLET PO SCH (20:43)
[2017-05-14 00:46] VITALS: BP 125/57
[2017-05-14] MEDS: NS IV 1000 ML 1,000 ML IV SCH (02:33)
[2017-05-14] MEDS: oxyCODONE/APAP 5/325MG (PERCOCET 5) TABLET PO PRN ×6 (04:35→21:05)
[2017-05-14 04:50] VITALS: BP 124/57
[2017-05-14] MEDS: MULTIVIT W/MINERALS TAB (THERAGRAN M) PO SCH (06:03)
[2017-05-14] MEDS: LEVOTHYROXINE 150 MCG (LEVOTHROID) TAB PO SCH (06:03)
[2017-05-14] MEDS: CALCIUM CARB + VIT D 600 MG (CALCARB + D) TAB PO SCH ×2 (06:03→16:00)
[2017-05-14 06:40] LABS: BASOPHILS % (AUTO) 0 % (0-10); EOSINOPHILS # (AUTO) 0.1 10^3/uL (0.0-0.3); EOSINOPHILS % (AUTO) 1 % (0-10); LYMPHOCYTES # (AUTO) 1.2 X 10^3 (1.0-4.0); LYMPHOCYTES % (AUTO) 12 % (12-44); MEAN CORPUSCULAR HEMOGLOBIN 30 PG (25-34); MEAN CORPUSCULAR HGB CONC 32 G/DL (32-36); MEAN CORPUSCULAR VOLUME 96 FL (80-99); MEAN PLATELET VOLUME 10.2 FL (7.4-10.4); MONOCYTES # (AUTO) 1.4 X 10^3 (0.0-1.0); MONOCYTES % (AUTO) 14 % (0-12); NEUTROPHILS # (AUTO) 7.4 X 10^3 (1.8-7.8); NEUTROPHILS % (AUTO) 74 % (42-75); PLATELET COUNT 153 10^3/uL (130-400); RED BLOOD COUNT 3.11 10^6/uL (4.35-5.85); RED CELL DISTRIBUTION WIDTH 13.8 % (10.0-14.5)
--- NOTE | 2017-05-14 06:57 | Progress Note-Standard ---
Standard Progress Note Progress Notes/Assess & Plan Date Seen by Provider: May 14, 2017 Time Seen by Provider: 06:56 Progress/Assessment & Plan no complaints radiographs--hw well positioned. no fractures lle--dressing intact. intact df and of of toes and ankle. sensation intact throughout. 2 plus dp pulse with brisk cap refill s/p l tka mobilize as able Final Diagnosis patient feeling better, but concerned about ambulation ability Vital Signs Date Time Temp Pulse Resp B/P (MAP) Pulse Ox O2 Delivery O2 Flow Rate FiO2 05/14/17 06:34 97 Room Air 05/14/17 04:50 98.9 91 16 124/57 96 Room Air 05/14/17 02:52 94 Room Air 05/14/17 00:46 99.7 85 18 125/57 98 Room Air 05/13/17 22:43 98 Room Air 05/13/17 20:28 97 Room Air 05/13/17 19:33 99.0 88 19 129/60 95 Room Air 05/13/17 18:00 18 05/13/17 16:29 97.5 85 10 124/57 99 Room Air 05/13/17 14:28 96 Room Air 05/13/17 12:00 97.3 80 13 127/56 99 Room Air 05/13/17 10:29 99 Room Air 05/13/17 08:00 97.0 88 10 122/69 98 Room Air Laboratory Tests Test 05/14/17 06:25 Range/Units White Blood Count 10.0 4.3-11.0 10^3/uL Red Blood Count 3.11 L 4.35-5.85 10^6/uL Hemoglobin 9.4 L 11.5-16.0 G/DL Hematocrit 30 L 35-52 % Mean Corpuscular Volume 96 80-99 FL Mean Corpuscular Hemoglobin 30 25-34 PG Mean Corpuscular Hemoglobin Concent 32 32-36 G/DL Red Cell Distribution Width 13.8 10.0-14.5 % Platelet Count 153 130-400 10^3/uL Mean Platelet Volume 10.2 7.4-10.4 FL Neutrophils (%) (Auto) 74 42-75 % Lymphocytes (%) (Auto) 12 12-44 % Monocytes (%) (Auto) 14 H 0-12 % Eosinophils (%) (Auto) 1 0-10 % Basophils (%) (Auto) 0 0-10 % Neutrophils # (Auto) 7.4 1.8-7.8 X 10^3 Lymphocytes # (Auto) 1.2 1.0-4.0 X 10^3 Monocytes # (Auto) 1.4 H 0.0-1.0 X 10^3 Eosinophils # (Auto) 0.1 0.0-0.3 10^3/uL Basophils # (Auto) 0.0 0.0-0.1 10^3/uL LLE--incision clean and dry. Neg SLR. No calf tenderness. Neg Homans s/p LTKA continue PT/OT DC ACCESS CONTROL OFFICER ?IRF if doesn't progress FIONA SEAY MD May 14, 2017 06:57
[2017-05-14] MEDS ORDERED: morphine INJ 4 MG/ML 1 ML (VIAL/SYRINGE) IVP PRN (07:00)
[2017-05-14 07:02] LABS: ALANINE AMINOTRANSFERASE 18 U/L (0-55); ALBUMIN 3.1 GM/DL (3.2-4.5); ANION GAP 7 MMOL/L (5-14); ASPARTATE AMINO TRANSFERASE 16 U/L (5-34); BILIRUBIN,TOTAL 0.5 MG/DL (0.1-1.0); BLOOD UREA NITROGEN 17 MG/DL (7-18); BUN/CREATININE RATIO 22; CALCIUM 7.9 MG/DL (8.5-10.1); CARBON DIOXIDE 25 MMOL/L (21-32); CHLORIDE 107 MMOL/L (98-107); CREATININE SERUM 0.76 MG/DL (0.60-1.30); GFR ESTIMATED > 60; GLUCOSE 120 MG/DL (70-105); POTASSIUM 4.1 MMOL/L (3.6-5.0); SODIUM 139 MMOL/L (135-145)
[2017-05-14] MEDS: ENOXAPARIN 30 MG/0.3 ML (LOVENOX) SYR SC SCH ×2 (07:55→19:54)
[2017-05-14 08:00] VITALS: BP 139/65
[2017-05-14] MEDS: SENNA W/DOCUSATE (SENOKOT S) TABLET PO SCH ×2 (08:02→21:05)
[2017-05-14] MEDS: meTOproloL SUCCINATE 50 MG (TOPROL XL) TAB PO SCH (08:02)
[2017-05-14] MEDS: ASPIRIN 81 MG CHEW (CHILDREN'S ASA) PO SCH (08:03)
--- NOTE | 2017-05-14 08:46 | Progress Note-Cardiology ---
Cardiology SOAP Progress Note Subjective: Sitting up in a chair at the bedside. No c/o CP or dyspnea. No c/o palpitations. C/O swelling to left hand. Objective: I&O/Vital Signs Vital Sign - Last 12Hours 05/14/17 05/14/17 05/14/17 05/14/17 07:36 08:00 10:04 12:00 Temp 97.3 97.6 Pulse 81 97 86 Resp 16 14 B/P (MAP) 139/65 123/76 Pulse Ox 97 98 97 98 O2 Delivery Room Air Room Air Room Air 05/14/17 16:20 Temp 98.4 Pulse 87 Resp 17 B/P (MAP) 137/60 Pulse Ox 98 O2 Delivery Room Air Intake and Output 05/15/17 00:00 Intake Total 1250 ml Output Total 400 ml Balance 850 ml Weight (Pounds): 237 Weight (Ounces): 3.0 Weight (Calculated Kilograms): 107.893945 Constitutional: AAO x 3, well-developed, well-nourished Respiratory: No accessory muscle use, other (good bilateral air entry) Cardiovascular: regular rate-rhythm, S1 and S2, systolic murmur (faint ALBERTO at card base) Gastrointestional: No tender, soft, No guarding, No rebound, audible bowel sounds Extremities: swelling (mild bilateral leg swelling; mod left hand swelliing), No clubbing, No cyanosis Neurologic/Psychiatric: oriented x 3, grossly intact, power is 5/5 both on sides Skin: No rash on exposed areas, No ulcerations on exposed areas Results/Procedures: Labs Laboratory Tests 05/14/17 06:25: White Blood Count 10.0, Red Blood Count 3.11L, Hemoglobin 9.4L, Hematocrit 30L, Mean Corpuscular Volume 96, Mean Corpuscular Hemoglobin 30, Mean Corpuscular Hemoglobin Concent 32, Red Cell Distribution Width 13.8, Platelet Count 153, Mean Platelet Volume 10.2, Neutrophils (%) (Auto) 74, Lymphocytes (%) (Auto) 12 , Monocytes (%) (Auto) 14H, Eosinophils (%) (Auto) 1, Basophils (%) (Auto) 0, Neutrophils # (Auto) 7.4, Lymphocytes # (Auto) 1.2, Monocytes # (Auto) 1.4H, Eosinophils # (Auto) 0.1, Basophils # (Auto) 0.0, Sodium Level 139, Potassium Level 4.1, Chloride Level 107, Carbon Dioxide Level 25, Anion Gap 7, Blood Urea Nitrogen 17, Creatinine 0.76, Estimat Glomerular Filtration Rate > 60, BUN/ Creatinine Ratio 22, Glucose Level 120H, Calcium Level 7.9L, Total Bilirubin 0.5 , Aspartate Amino Transf (AST/SGOT) 16, Alanine Aminotransferase (ALT/SGPT) 18, Alkaline Phosphatase 50, Total Protein 6.0L, Albumin 3.1L A/P: Assessment: S/p L knee arthroplasty on 05/12/17. Continuing discomfort, swelling and bruising at site of surgery Coronary artery disease with history of multiple percutaneous interventions. Last cor intervention on 12/20/[address] Pierre, during STEMI, showed complete occlusion of LCX that was treated with Promus 2.5x15 stent ( there was periprocedural VF, requiring defibrillation); other previous stents were intact; there was 50% mid LAD stenosis, as before. Last card cath on : Diffuse, mild to moderate coronary artery disease. Patent stents: Left anterior descending artery has 2.75 x 15mm stent placed in 2010, left circumflex artery has a patent stent 2.5 x 15 placed in 2015, right coronary artery has widely patent stents that are 4.0 x 23 mm in the proximal (2010) and 3.5 x 18 mm and the distal (2008) vessel. Normal global left ventricular systolic function with an ejection fraction of 65 to 70%. No significant mitral regurgitation. Mild elevation left ventricular end diastolic pressure. No evidence of thoracic aortic aneurysm or dissection. Echo of 09/17/16 showed LVEF 55-60%, tivial MR & TR, no valvular stenosis, PASP 35 mmHg, mild diastolic dysfunction of LV Dyspepsia, likely related to gastroesophageal reflux and/or hiatal hernia and/ or peptic ulcer disease. 24 Hour Holter monitor study of May 29, 2015 showed NSR, isolated and coupled PVC's. No VT or SVT. No significant bradycardia. Hyperlipidemia, being treated with statin therapy, currently controlled History of rheumatoid arthritis. Hypothyroidism following thyroidectomy for thyroid cancer. This is being followed by Dr. Parada. Cough, resolving following cessation of therapy with ESTEVAN inhibitors and addition of Zantac to the regimen. History of right-sided mastectomy for breast carcinoma several years ago. Gastroesophageal reflux. Elevated body mass index of approximately approximately 40. Carotid u/s of December 2015 showed minimal carotid plaque without any evidence of hemodynamic stenosis. Distal portion of the R ICA is not well visualized Plan: * Aspirin resumed * Dr. Larsen has discussed her case with Dr Rodriguez * Continue DVT prophylaxis with enoxaparin * Monitor labs * Swelling to left hand likely d/t infiltrated IV - advised to keep elevated Physician Assessment Physician Assessment Continues with surgical site discomfort and swelling and bruising. Denies cp or palp or syncope Cor: reg Lungs: clear A&R * As documented in our note above that I updated (italics) and as note below * Continue ASA * Hold Plavix for now, given recent post-surgical state with continuing surgical site swelling and bruising * I spoke with him and his and answered CV-related questions CATIE SAUNDERS May 14, 2017 08:46 GILBERT LARSEN MD FACP FAC CCDS May 14, 2017 19:08
--- NOTE | 2017-05-14 09:01 | Anesthesia-General Post-Op ---
General Patient Condition Mental Status/LOC: Same as Preop Cardiovascular: Satisfactory Nausea/Vomiting: Absent Respiratory: Satisfactory Pain: Controlled Complications: Absent Post Op Complications Complications None Follow Up Care/Instructions Patient Instructions None needed. Anesthesia/Patient Condition Patient Condition Patient is doing well, no complaints, stable vital signs, no apparent adverse anesthesia problems. No complications reported per nursing. CHI NEWTON CRNA May 14, 2017 09:01
--- NOTE | 2017-05-14 10:19 | Physical Therapy Daily Note ---
PT Daily Note-Current Subjective Patient is awake in her chair among PT entering her room. Patient states that her knee does feel a little better today as opposed to yesterday. Pain Numeric Pain Scale: 5-Moderate Pain Location: Left Location Body Site: Knee Pain Description: Ache Appearance Patient appears in good health today. Mental Status Patient Orientation: Normal For Age Attachments: Other-See Comments Pulse oximeter Transfers Functional [place] Measure 0=Not Assessed/NA 4=Minimal Assistance 1=Total Assistance 5=Supervision or Setup 2=Maximal Assistance 6=Modified [place] 3=Moderate Assistance 7=Complete IndependenceIRFPAI Quality Coding Scale 6 Independent with activity with or without an assistive device 5 Patient requires set up or clean up by helper. Patient completes activity by themselves 4 Supervision or touching assist (CGA). [place] provide cues , steadying assist 3 The helper provides less than half the effort to complete the activity 2 The helper provides more than half the effort to complete the activity 1 Dependent. The helper does all the effort to complete an activity 7 Patient refused to complete or attempt activity 9 The patient did not perform the activity before the current illness or injury 88 Not attempted due to Medical conditions or safety concerns Transfers (B, C, W/C) (FIM): 4 Supine to/from Sit: 5 Sit to/from Stand: 4 Patient performs transfers with SBA by PT. Weight Bearing Left Lower Extremity: Left Weight Bearing/Tolerated Gait Training Gait (FIM): 2 Distance (FIM): 5=016-40 ft Distance: 50' Gait Level of Assist: 4 (close CGA) Gait Persons Needed: 1 Gait Assistive Device: FWW Patient ambulates with a slow step to gait with an externally rotated left LE. Patient is fearful of WB through her L LE. Exercises Supine Ex: Quad Set (1 set L LE), Heel Slides (1 set L LE) Supine Reps: 10 Seated Therapy Exercises: Long arc quads (1 set L LE) Seated Reps: 10 Thjer ex performed to promote ROM and functional strengt for normalized gait and transfers. Treatments CPM applied post treatment 0-70 degreees Assessment Current Status: Good Progress, Fair Progress Patient seems to still be having trouble with confidence in her L LE, but she has shown improvement since last visit. PT will progress exercises as the patient's confidence and pain tolerance improves. PT Short Term Goals Short Term Goals Time Frame: May 19, 2017 Transfers (B,C,W/C) (FIM): 5 Gait (FIM): 2 Gait Distance Comment: 100' Gait Level of Assist: 5 Gait Assistive Device: FWW PT Plan Problem List Problem List: Activity Tolerance, Functional Strength, Safety, Balance, Gait, Transfer, Bed Mobility Treatment/Plan Treatment Plan: Continue Plan of Care Treatment Plan: Bed Mobility, Education, Functional Activity Shayy, Functional Strength, Gait, Safety, Therapeutic Exercise, Transfers Treatment Duration: May 19, 2017 Frequency: 11 times per week Estimated Hrs Per Day: .25 hour per day (15-30') Patient and/or Family Agrees t: Yes Safety Risks/Education Patient Education: Transfer Techniques, Safety Issues Teaching Recipient: Patient Teaching Methods: Discussion Response to Teaching: Reinforcement Needed Discharge Recommendations Plan Progress as patient able. Time/GCodes Time In: 915 Time Out: 953 Total Billed Treatment Time: 38 Total Billed Treatment visit GT 15 EX 23 MARIAN JACINTO PT May 14, 2017 10:19
--- NOTE | 2017-05-14 11:22 | Progress Note-Hospitalist ---
Progress Note HPI/CC on Admission CC: Medical management following left total knee arthroplasty HPI: This is a 76 yoWF pt presenting after left total knee arthroplasty. Patient Interview: Pt states she remembers me from after her heart attack Pt confirms Dr. Parada as PCP, Dr. Larsen as production maintenance technician, and Dr. Ibrahim in [place] for rheumatoid arthritis. Pt states she is feeling okay and denies pain. Physical exam stable. 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 Pt states she is from [place] and they moved here because they liked the area. Pt was noted saying, "the less pain meds the better" Scribed by Yesenia Loja under the direct supervision of Dr. Mishra. Progress Notes/Assess & Plan Date Seen 05/14/17 Time Seen by Provider: 10:00 Admission Dx/Process Assessment: Status post left total knee replacement uncomplicated by Dr. Dugan POD # 0 CAD previous AR with stent placement managed by Dr. Larsen Hypertension Hyperlipidemia Osteoarthritis Rheumatoid arthritis Diagonsis/Assessment & Plan Chart Review: No fever except 99.7 at midnight WBC 10 Hgb 9.4 CMP normal SW Review: Pt is going home on home health tomorrow Patient Interview: Pt was working with PT upon interview Labs were discussed and they look good. Pt confirms having BMs Physical exam stable. Lungs sound perfect. Pt denies feeling ready to DC tomorrow; this will be up to the pt and Dr. Dugan AFVSS, [place], O x 3 RRR, CTAB no edema Laboratory Tests 05/14/17 06:25 Assessment: Status post left total knee replacement uncomplicated by Dr. Dugan POD # 2 Post-op anemia due to acute blood loss stable CAD previous AR with stent placement managed by Dr. Larsen 1 yr ago Hypertension Hyperlipidemia Osteoarthritis Rheumatoid arthritis Plan: AM labs Monitor closely Consult Dr Larsen for guidance on ASA and Plavix due to stent placement in the past is appreciated PT/OT BM regimen Hold immunosuppressives IS Scribed by Yesenia Loja under the direct supervision of Dr. Mishra. CHANEL MISHRA DO May 14, 2017 11:22
[2017-05-14 12:00] VITALS: BP 123/76
--- NOTE | 2017-05-14 13:58 | Physical Therapy Daily Note ---
PT Daily Note-Current Subjective Patient is awake and in her recliner upon PT entering. She states she slept the whole morning after PT and left the CPM on for 2 hours. Patient states she is feeling better than she was this morning. Pain Numeric Pain Scale: 0-No Pain Location: No Pain Reported Appearance Patient appears in good health. Mental Status Patient Orientation: Normal For Age Transfers Functional [place] Measure 0=Not Assessed/NA 4=Minimal Assistance 1=Total Assistance 5=Supervision or Setup 2=Maximal Assistance 6=Modified [place] 3=Moderate Assistance 7=Complete IndependenceIRFPAI Quality Coding Scale 6 Independent with activity with or without an assistive device 5 Patient requires set up or clean up by helper. Patient completes activity by themselves 4 Supervision or touching assist (CGA). [place] provide cues , steadying assist 3 The helper provides less than half the effort to complete the activity 2 The helper provides more than half the effort to complete the activity 1 Dependent. The helper does all the effort to complete an activity 7 Patient refused to complete or attempt activity 9 The patient did not perform the activity before the current illness or injury 88 Not attempted due to Medical conditions or safety concerns Transfers (B, C, W/C) (FIM): 5 Sit to/from Stand: 5 Patient performs sit to stand and stand to sit into the recliner with SBA from the PT. Weight Bearing Left Lower Extremity: Left Weight Bearing/Tolerated Gait Training Gait (FIM): 2 Distance (FIM): 2=289-74 ft Distance: 75' Gait Level of Assist: 5 Gait Persons Needed: 1 Gait Assistive Device: FWW Patient walks with a slow step to gait with externally rotated L LE. Gait speed and pattern has improved since previous visit. Exercises Supine Ex: Quad Set (1 set L LE), Short Arc Quads (1 set L LE), Straight leg raise (1 set L LE) Supine Reps: 10 Seated Therapy Exercises: Long arc quads (1 set L LE) Assessment Current Status: Good Progress Patient ambulation is still slow, but patient is showing improvement in gait pattern and confidence in the surgically repaired L knee. PT should continue progressing with exercise and gait as patient tolerates. PT Short Term Goals Short Term Goals Time Frame: May 19, 2017 Transfers (B,C,W/C) (FIM): 5 Gait (FIM): 2 Gait Distance Comment: 100' Gait Level of Assist: 5 Gait Assistive Device: FWW PT Plan Problem List Problem List: Functional Strength, Safety, Gait, ROM Treatment/Plan Treatment Plan: Continue Plan of Care Treatment Plan: Bed Mobility, Education, Functional Activity Shayy, Functional Strength, Gait, Safety, Therapeutic Exercise, Transfers Treatment Duration: May 19, 2017 Frequency: 11 times per week Estimated Hrs Per Day: .25 hour per day (15-30') Patient and/or Family Agrees t: Yes Time/GCodes Time In: 115 Time Out: 150 Total Billed Treatment Time: 35 Total Billed Treatment 1 visit EX 15 min GT 20 min MARIAN JACINTO PT May 14, 2017 13:58
[2017-05-14 16:20] VITALS: BP 137/60
[2017-05-14] MEDS: ATORVASTATIN 80 MG (LIPITOR) TABLET PO SCH (21:04)
[2017-05-14] MEDS: FAMOTIDINE 20 MG (PEPCID) TABLET PO PRN (21:05)
[2017-05-15] VITALS: BP 134/81
[2017-05-15] MEDS: MULTIVIT W/MINERALS TAB (THERAGRAN M) PO SCH (06:46)
[2017-05-15] MEDS: CALCIUM CARB + VIT D 600 MG (CALCARB + D) TAB PO SCH ×2 (06:46→16:25)
[2017-05-15] MEDS: LEVOTHYROXINE 150 MCG (LEVOTHROID) TAB PO SCH (06:46)
[2017-05-15] MEDS: oxyCODONE/APAP 5/325MG (PERCOCET 5) TABLET PO PRN ×3 (06:49→16:26)
[2017-05-15 07:36] VITALS: BP 124/59
--- NOTE | 2017-05-15 09:15 | Progress Note-Standard ---
Standard Progress Note Progress Notes/Assess & Plan Date Seen by Provider: May 15, 2017 Time Seen by Provider: 09:13 Progress/Assessment & Plan no complaints radiographs--hw well positioned. no fractures lle--dressing intact. intact df and of of toes and ankle. sensation intact throughout. 2 plus dp pulse with brisk cap refill s/p l tka mobilize as able Final Diagnosis Patient with continued mobility concerns, though improved Vital Signs Date Time Temp Pulse Resp B/P (MAP) Pulse Ox O2 Delivery O2 Flow Rate FiO2 05/15/17 07:36 98.4 104 20 124/59 93 Room Air 05/15/17 00:00 97.5 89 18 134/81 96 Room Air 05/14/17 16:20 98.4 87 17 137/60 98 Room Air 05/14/17 12:00 97.6 86 14 123/76 98 Room Air 05/14/17 10:04 97 Laboratory Tests Test 05/15/17 06:21 Range/Units Hemoglobin 8.1 L 11.5-16.0 G/DL Hematocrit 26 L 35-52 % LLE-dressing intact. Poor quad control No calf tenderness. Neg Nayana's s/p LTKA progressing PT today. will hold DC until tomorrow due to mobility issues FIONA SEAY MD May 15, 2017 09:14
[2017-05-15] MEDS: ASPIRIN 81 MG CHEW (CHILDREN'S ASA) PO SCH (10:14)
[2017-05-15] MEDS: SENNA W/DOCUSATE (SENOKOT S) TABLET PO SCH ×2 (10:14→20:06)
[2017-05-15] MEDS: ENOXAPARIN 30 MG/0.3 ML (LOVENOX) SYR SC SCH ×2 (10:14→19:59)
[2017-05-15] MEDS: meTOproloL SUCCINATE 50 MG (TOPROL XL) TAB PO SCH (10:17)
--- NOTE | 2017-05-15 13:01 | Progress Note-Hospitalist ---
Progress Note HPI/CC on Admission CC: Medical management following left total knee arthroplasty HPI: This is a 76 yoWF pt presenting after left total knee arthroplasty. Patient Interview: Pt states she remembers me from after her heart attack Pt confirms Dr. Parada as PCP, Dr. Larsen as light industrial supervisor, and Dr. Ibrahim in [place] for rheumatoid arthritis. Pt states she is feeling okay and denies pain. Physical exam stable. 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 Pt states she is from [place] and they moved here because they liked the area. Pt was noted saying, "the less pain meds the better" Scribed by Yesenia Loja under the direct supervision of Dr. Mishra. Progress Notes/Assess & Plan Date Seen 05/15/17 Time Seen by Provider: 12:00 Admission Dx/Process Assessment: Status post left total knee replacement uncomplicated by Dr. Dugan POD # 0 CAD previous NV with stent placement managed by Dr. Larsen Hypertension Hyperlipidemia Osteoarthritis Rheumatoid arthritis Diagonsis/Assessment & Plan Patient staying another night for reassurance Pain is controlled Had a bowel movement this morning No issues AFVSS, Ple[place], O x 3 RRR, CTAB no edema Assessment: Status post left total knee replacement uncomplicated by Dr. Dugan POD # 3 Post-op anemia due to acute blood loss stable CAD previous NV with stent placement managed by Dr. Larsen 1 yr ago Hypertension Hyperlipidemia Osteoarthritis Rheumatoid arthritis Plan: Monitor closely PT/OT BM regimen Hold immunosuppressives IS DC home Wednesday CHANEL MISHRA DO May 15, 2017 13:01
--- NOTE | 2017-05-15 13:36 | Physical Therapy Daily Note ---
PT Daily Note-Current Subjective Pt sitting in recliner upon arrival. Pt wanted PT to go over car transfer and ambulation of stairs instruction before discharge tomorrow. Pain Numeric Pain Scale: 7 Location: Incisional, Left Location Body Site: Knee Pain Description: Ache, Tightness Mental Status Patient Orientation: Person, Place, Time, Situation Attachments: Polar Pack Transfers Functional [place] Measure 0=Not Assessed/NA 4=Minimal Assistance 1=Total Assistance 5=Supervision or Setup 2=Maximal Assistance 6=Modified [place] 3=Moderate Assistance 7=Complete IndependenceIRFPAI Quality Coding Scale 6 Independent with activity with or without an assistive device 5 Patient requires set up or clean up by helper. Patient completes activity by themselves 4 Supervision or touching assist (CGA). [place] provide cues , steadying assist 3 The helper provides less than half the effort to complete the activity 2 The helper provides more than half the effort to complete the activity 1 Dependent. The helper does all the effort to complete an activity 7 Patient refused to complete or attempt activity 9 The patient did not perform the activity before the current illness or injury 88 Not attempted due to Medical conditions or safety concerns Scootin Supine to/from Sit: 4 Sit to/from Stand: 5 Weight Bearing Left Lower Extremity: Left Weight Bearing/Tolerated Gait Training Distance (FIM): 1=up to 49 ft Distance: 5' Gait Level of Assist: 5 Gait Persons Needed: 1 Gait Assistive Device: FWW Pt is very guarded due to anxiousness about L knee. Stair Training PT gave instruction for ambulation for home. Treatments PT gave pt instruction/demonstration for both car transfers & ambulation of stairs. Pt then wanted to transfers back to bed to lay down and rest w/CPM on. PT assisted pt with LLE lifting into bed as well as putting CPM on. Pt is resting with all needs met at end of tx. Assessment Pt is ambulating short distance and transfers from sit to standing independently although is still very anxious about going home. PT Short Term Goals Short Term Goals Time Frame: May 19, 2017 Transfers (B,C,W/C) (FIM): 5 Gait (FIM): 2 Gait Distance Comment: 100' Gait Level of Assist: 5 Gait Assistive Device: FWW PT Plan Problem List Problem List: Activity Tolerance, Functional Strength, Safety, Balance, Gait, Transfer, Bed Mobility Treatment/Plan Treatment Plan: Continue Plan of Care Treatment Plan: Bed Mobility, Education, Functional Activity Shayy, Functional Strength, Gait, Safety, Therapeutic Exercise, Transfers Treatment Duration: May 19, 2017 Frequency: 11 times per week Estimated Hrs Per Day: .25 hour per day (15-30') Patient and/or Family Agrees t: Yes Safety Risks/Education Patient Education: Gait Training, Transfer Techniques, Correct Positioning, Safety Issues Teaching Recipient: Patient Teaching Methods: Discussion Response to Teaching: Verbalize Understanding Time/GCodes Time In: 1210 Time Out: 1245 Total Billed Treatment Time: 35 Total Billed Treatment visit, FA x2 (35m) SHARI DUNHAM POTATO CHIP FRYER May 15, 2017 13:36
[2017-05-15 16:27] VITALS: BP 124/62
[2017-05-15] MEDS: ATORVASTATIN 80 MG (LIPITOR) TABLET PO SCH (20:06)
[2017-05-16] VITALS: BP 135/63
[2017-05-16] MEDS: LEVOTHYROXINE 150 MCG (LEVOTHROID) TAB PO SCH (06:13)
[2017-05-16] MEDS: MULTIVIT W/MINERALS TAB (THERAGRAN M) PO SCH (06:13)
[2017-05-16] MEDS: CALCIUM CARB + VIT D 600 MG (CALCARB + D) TAB PO SCH (06:13)
[2017-05-16] MEDS: oxyCODONE/APAP 5/325MG (PERCOCET 5) TABLET PO PRN ×3 (06:13→10:47)
[2017-05-16] MEDS: ENOXAPARIN 30 MG/0.3 ML (LOVENOX) SYR SC SCH (08:20)
[2017-05-16] MEDS: ASPIRIN 81 MG CHEW (CHILDREN'S ASA) PO SCH (08:21)
[2017-05-16] MEDS: meTOproloL SUCCINATE 50 MG (TOPROL XL) TAB PO SCH (08:21)
[2017-05-16] MEDS: SENNA W/DOCUSATE (SENOKOT S) TABLET PO SCH (08:21)
[2017-05-16 08:31] VITALS: BP 126/60
--- NOTE | 2017-05-16 10:23 | Progress Note-Standard ---
Standard Progress Note Progress Notes/Assess & Plan Date Seen by Provider: May 16, 2017 Time Seen by Provider: 10:21 Progress/Assessment & Plan no complaints radiographs--hw well positioned. no fractures lle--dressing intact. intact df and of of toes and ankle. sensation intact throughout. 2 plus dp pulse with brisk cap refill s/p l tka mobilize as able Final Diagnosis feeling better. Independent with ambulation Vital Signs Date Time Temp Pulse Resp B/P (MAP) Pulse Ox O2 Delivery O2 Flow Rate FiO2 05/16/17 08:31 97.1 88 16 126/60 94 Room Air 05/16/17 00:00 98.3 84 18 135/63 97 Room Air 05/15/17 16:27 98.2 101 20 124/62 97 Room Air LLE--dressing intact. No calf tenderness. Neg Rosalina's improved quad function s/p LTKA doing well DC home FIONA SEAY MD May 16, 2017 10:23
--- NOTE | 2017-05-16 10:38 | Physical Therapy Daily Note ---
PT Daily Note-Current Subjective Patient in recliner pre tx, she is discharging from this facility this morning but will be given an opportunity to ambulate before she leaves if she wants to. Patient agrees and states she has pain of 2/10 in left knee. Appearance Patient in recliner post tx, in the room, has nurse call. Nurse states she is getting her DC paperwork ready for her. Mental Status Patient Orientation: Normal For Age Transfers Functional [place] Measure 0=Not Assessed/NA 4=Minimal Assistance 1=Total Assistance 5=Supervision or Setup 2=Maximal Assistance 6=Modified [place] 3=Moderate Assistance 7=Complete IndependenceIRFPAI Quality Coding Scale 6 Independent with activity with or without an assistive device 5 Patient requires set up or clean up by helper. Patient completes activity by themselves 4 Supervision or touching assist (CGA). [place] provide cues , steadying assist 3 The helper provides less than half the effort to complete the activity 2 The helper provides more than half the effort to complete the activity 1 Dependent. The helper does all the effort to complete an activity 7 Patient refused to complete or attempt activity 9 The patient did not perform the activity before the current illness or injury 88 Not attempted due to Medical conditions or safety concerns Transfers (B, C, W/C) (FIM): 5 Sit to/from Stand: 5 Weight Bearing Left Lower Extremity: Left Weight Bearing/Tolerated Gait Training Gait (FIM): 2 Distance: 100' Gait Level of Assist: 5 Gait Persons Needed: 1 Gait Assistive Device: FWW Slow, antalgic, but much better step through gait pattern. Treatments transfers, ambulation Assessment Current Status: Fair Progress better ambulation PT Short Term Goals Short Term Goals Time Frame: May 19, 2017 Transfers (B,C,W/C) (FIM): 5 Gait (FIM): 2 Gait Distance Comment: 100' Gait Level of Assist: 5 Gait Assistive Device: FWW PT Plan Problem List Problem List: Activity Tolerance, Functional Strength, Safety, Balance, Gait, Transfer, Bed Mobility, ROM Treatment/Plan Treatment Plan: Continue Plan of Care Treatment Plan: Bed Mobility, Education, Functional Activity Shayy, Functional Strength, Gait, Safety, Therapeutic Exercise, Transfers Treatment Duration: May 19, 2017 Frequency: 11 times per week Estimated Hrs Per Day: .25 hour per day (15-30') Patient and/or Family Agrees t: Yes Safety Risks/Education Patient Education: Gait Training, Transfer Techniques, Correct Positioning, Safety Issues Teaching Recipient: Patient Teaching Methods: Demonstration, Discussion Response to Teaching: Reinforcement Needed Time/GCodes Time In: 1015 Time Out: 1030 Total Billed Treatment Time: 15 Total Billed Treatment 1 visit GT 15' BRIANNE KHOURY PT May 16, 2017 10:38
--- NOTE | 2017-05-16 21:21 | DISCHARGE SUMMARY ---
DATE OF SERVICE: 05/16/2017 DIAGNOSES: 1. Left knee primary osteoarthritis. 2. Coronary artery disease. 3. Reflux. 4. Hypertension. 5. Rheumatoid arthritis. 6. Hypothyroidism 7. Breast cancer. PROCEDURE: Left total knee arthroplasty. SUMMARY: The patient is a 76-year-old female who was admitted the day of a left total knee arthroplasty which she underwent without complications. Postoperatively, she did well. At the time of discharge her wound was clean and dry. She had no calf tenderness. Negative Homans sign. She had attained independent status with physical therapy. She was tolerating diet well and tolerating pain with oral pain medication. CONDITION AT DISCHARGE: Good. DISCHARGE DIET: Regular. FOLLOWUP: In three weeks. Home physical therapy has been arranged. DISCHARGE MEDICATIONS: Home medications, aspirin and Percocet. Job ID: [id number] DocumentID: [id number] Dictated Date: 05/16/2017 10:21:36 Lasting Room Supervisor Date: 05/16/2017 21:20:51 Dictated By: FIONA SEAY MD
== END 2017-05-16 11:10 | disposition home health service (06) | DRG 470 ==
LOC: 4TH 05:49 → SURG 05:50 → 4TH 10:21
PROVIDERS: ADMIT Orthopaedic Surgery; ATTEND Orthopaedic Surgery
PROC: 0SRD0J9 Replacement of Left Knee Joint with Synthetic Substitute, Cemented, Open Approach (ICD-10-PCS; principal; 2017-05-12 07:28)
DX: M17.12 Unilateral primary osteoarthritis, left knee (principal); D62 Acute posthemorrhagic anemia; Z68.41 Body mass index [BMI] 40.0-44.9, adult; I25.10 Atherosclerotic heart disease of native coronary artery without angina pectoris; I10 Essential (primary) hypertension; E78.00 Pure hypercholesterolemia, unspecified; I25.2 Old myocardial infarction; K21.9 Gastro-esophageal reflux disease without esophagitis; E66.9 Obesity, unspecified; M06.9 Rheumatoid arthritis, unspecified; E89.0 Postprocedural hypothyroidism; Z95.5 Presence of coronary angioplasty implant and graft; Z96.651 Presence of right artificial knee joint; Z85.3 Personal history of malignant neoplasm of breast; Z85.850 Personal history of malignant neoplasm of thyroid; Z87.891 Personal history of nicotine dependence; Z92.3 Personal history of irradiation; Z79.82 Long term (current) use of aspirin; Z79.01 Long term (current) use of anticoagulants; Z83.3 Family history of diabetes mellitus; Z82.49 Family history of ischemic heart disease and other diseases of the circulatory system
CPT/HCPCS: 36415; 73560; 80053; 85014; 85018; 85025; 94664; 94760

== ENCOUNTER 2017-06-02 09:28 | Outpatient (RCR) | payer MEDICARE, BC ==
[~2017-06-02 09:28] MED LIST changes: -METO-272 PO; +METO-370 PO; +OXYC-197 PO
--- NOTE | 2017-06-03 13:10 | HISTORY AND PHYSICAL ---
DATE OF SERVICE: Inpatient admission on 06/09/2017 for left knee arthroplasty revision. HISTORY OF PRESENT ILLNESS: The patient is a 76-year-old female who underwent a left total knee arthroplasty four weeks prior to admission. She has had difficulty with extension of her knee and has felt unstable. Radiographs reveal lateral subluxation of her patella and clinically her patella was riding laterally. Because of this, it was recommended the patient undergo operative revision. She denies any specific trauma. REVIEW OF SYSTEMS: No chest pain or shortness of breath. No dysuria. PAST MEDICAL HISTORY: Coronary artery disease, reflux, hypertension, rheumatoid arthritis, hypothyroidism, breast cancer. PAST SURGICAL HISTORY: Coronary artery stent placement, mastectomy, thyroidectomy, right total knee arthroplasty, left total knee arthroplasty. FAMILY HISTORY: Significant for diabetes and ischemic heart disease. Primary care provider is Dr. Parada. MEDICATIONS: Aspirin, calcium, leflunomide, levothyroxine, metoprolol, Nitrostat, ranitidine, atorvastatin and Plavix. ALLERGIES: TETRACYCLINE. SOCIAL HISTORY: The patient is a former smoker. She drinks two drinks per week. PHYSICAL EXAMINATION: GENERAL: The patient is well developed, well nourished in no acute distress. HEENT: Normocephalic, atraumatic. Pupils equal, round and reactive. Oropharynx is clear. NECK: Supple. No lymphadenopathy. LUNGS: Clear to auscultation bilaterally. HEART: Regular rate and rhythm. ABDOMEN: Soft, nontender, nondistended. EXTREMITIES: The left knee demonstrates a well-healed incision. She has no calf tenderness. Negative Homans sign. She has active flexion of 90 degrees. She could not maintain an extended position. The patella tracks laterally. There appears to be a palpable defect in a medial retinaculum. IMPRESSION: Patellar instability, status post total knee arthroplasty. PLAN: Left knee arthroplasty revision. Risks, benefits, options, complications and recovery were discussed at length with the patient and her . They understand the risks of the procedure. Job ID: [id number] DocumentID: [id number] Dictated Date: 06/03/2017 11:12:15 Sheet Metal Shop Foreman Date: 06/03/2017 12:12:21 Dictated By: FIONA SEAY MD
[2017-06-22] MEDS ORDERED: Rocephin IV (09:16)
== END 2017-06-28 15:13 | disposition home or self-care (01) ==
PROVIDERS: ATTEND Orthopaedic Surgery
DX: Z47.1 Aftercare following joint replacement surgery (principal); Z96.652 Presence of left artificial knee joint

== ENCOUNTER 2017-06-07 05:40 | Outpatient (CLI) | payer MEDICARE, BC ==
[~2017-06-07] VITALS: Ht 162.6 cm; Wt 107.6 kg
[~2017-06-07 05:40] MED LIST changes: +METO-272 PO; -METO-370 PO
== END 2017-06-07 14:08 ==
LOC: PREOP 05:40
PROVIDERS: ATTEND Orthopaedic Surgery
DX: Z01.818 Encounter for other preprocedural examination (principal); S83.092A Other subluxation of left patella, initial encounter; X58.XXXA Exposure to other specified factors, initial encounter; Y99.8 Other external cause status

== ENCOUNTER 2017-06-14 09:21 | Inpatient (IN) | payer MEDICARE, BC ==
[~2017-06-14] VITALS: Ht 162.6 cm; Wt 108.0 kg
[~2017-06-14 09:21] MED LIST changes: -METO-272 PO; +METO-370 PO
--- NOTE | 2017-06-14 11:26 | Physical Therapy Evaluation ---
PT Evaluation-General Medical Diagnosis Admission Date Jun 14, 2017 at 10:15 Medical Diagnosis: L TKA revision Onset Date: Jun 09, 2017 Therapy Diagnosis Therapy Diagnosis: L knee immobility, muscular weakness Height/Weight Height (Feet): 5 Height (Inches): 4.00 Weight (Pounds): 237 Weight (Ounces): 7.0 Precautions Precautions/Isolations: Standard Precautions Weight Bear Status Right Lower Extremity: Right Full Weight Bearing Left Lower Extremity: Left Weight Bearing/Tolerated Referral Physician: Tru Reason for Referral: Evaluation/Treatment, Strengthening, Gait Medical History Pertinent Medical History: CAD, GERD, HTN, Hypothroidism, Rheumatoid Arthritis Reviewed History: Yes Social History Home: Single Level Current Living Status: Spouse Entry Into Home: Stairs Without Railing PT Steps Into Home: 2 Prior/Core FIM Prior Level of Function Functional [place] Measure 0=Not Assessed/NA 4=Minimal Assistance 1=Total Assistance 5=Supervision or Setup 2=Maximal Assistance 6=Modified [place] 3=Moderate Assistance 7=Complete [place] Bed Mobility: 7 Transfers (B,C,W/C) (FIM): 7 Gait: 7 Locomotion: 7 PT Evaluation-Current Subjective Patient is in good spirits today and states she is ready to begin therapy in inpatient rehab facility. She reports taht her knee is stiff today with some ache on the medial aspect of the L knee. Pain Comment: Patient states she is not experiencing pain, but the L LE feels heavy. Pt/Family Goals Patient hopes to regain function in her L LE and return to more independent lifestyle. Objective Patient Orientation: Normal For Age Problem Solving: Good Picc line ROM/Strength ROM Upper Extremities WNL ROM Lower Extremities L knee extension/flexion- 5-90 degrees Strength Upper Extremities WNL Strenght Lower Extremities L knee extension- 2-/5 L hip flexion- 3/5 L knee flexion- 5/5 R LE- WNL grossly Integumentary/Posture Integumentary intact; Picc line inserted on L UE Bowel Incontinence: No Bladder Incontinence: No Neuromuscular (Tone, Coordination, Reflexes) tone, coordination, reflexes all normal Sensory Vision: Functional Hearing: Functional Hand Dominance: Right Sensation Right Upper Extremit: Intact Sensation Left Upper Extremity: Intact Sensation Right Lower Extremit: Intact Sensation Left Lower Extremity: Intact Transfers Functional [place] Measure 0=Not Assessed/NA 4=Minimal Assistance 1=Total Assistance 5=Supervision or Setup 2=Maximal Assistance 6=Modified [place] 3=Moderate Assistance 7=Complete IndependenceIRFPAI Quality Coding Scale 6 Independent with activity with or without an assistive device 5 Patient requires set up or clean up by helper. Patient completes activity by themselves 4 Supervision or touching assist (CGA). [place] provide cues , steadying assist 3 The helper provides less than half the effort to complete the activity 2 The helper provides more than half the effort to complete the activity 1 Dependent. The helper does all the effort to complete an activity 7 Patient refused to complete or attempt activity 9 The patient did not perform the activity before the current illness or injury 88 Not attempted due to Medical conditions or safety concerns Transfers (B, C, W/C) (FIM): 4 Scootin Rollin Roll Left to Right (QC): 4 Supine to/from Sit: 4 Sit to/from Stand: 5 Sit to Lying (QC): 3 Sit to Stand (QC): 4 Patient requires min assist from PT with sit to lying and rising from supine mostly due to inability to functional transfer L LE through her own muscular power. Gait Does the Patient Walk?: Yes Mode of Locomotion: Walk Anticipated Mode of Locomotion: Walk Gait (FIM): 5 Walk 10 feet (QC): 4 Walk 50 ft with 2 Turns(QC): 4 Walk 150 ft (QC): 4 Walking 10ft/uneven surface-QC: 4 Distance: >300' Gait Level of Assist: 5 Gait Persons Needed: 1 Gait Assistive Device: FWW Comments/Gait Description Patient ambulates with reciprocal gait pattern with improving stride length. L LE is externally rotated with gait, but she is improving with verbal cueing. Stairs Stairs (FIM): 5 #of Steps: 8 Level of Assist: 5 1 Step (curb) (QC): 4 4 Steps (QC): 4 Assistive Device: Walker If not tested on admit;explain 12 steps not attempted due to patient fatigue Balance Sitting Static: Normal Sitting Dynamic: Normal Standing Static: Normal Standing Dynamic: Normal Assessment/Needs Patient was being seen by PT in hospital since day 0 post op. She has shown slight improvements since post-op. PT will continue to address L LE muscle weakness as well as ROM of L LE. Patient has good potential for ROM and muscular improvements, leading to improved functional status. Rehab Potential: Good PT Pole Peeler Goals Pole Peeler Goals PT Pole Peeler Goals Time Frame: Jun 28, 2017 Transfers (B,C,W/C) (FIM): 6 Sit to Lying (QC): 6 Lying-Sitting on Side/Bed(QC): 6 Sit to Stand (QC): 6 Rollin Roll Left to Right (QC): 6 Chair/Fzx-as-Qkoqf Xfer(QC): 6 Does the Patient Walk: Yes Gait (FIM): 6 Distance: >500' Walk 10 feet (QC): 6 Walk 10ft-Uneven Surface(QC): 6 Walk 50ft with 2 Turns (QC): 6 Walk 150 ft (QC): 6 Gait Level of Assist: 6 Gait Assistive Device: FWW Stairs (FIM): 5 # of Steps: 12 1 Step (curb) (QC): 5 4 Steps (QC): 5 12 Steps (QC): 5 Stairs Level Of Assist: 5 Picking up an Object (QC): 5 PT Plan Problem List Problem List: Activity Tolerance, Functional Strength, Safety, Balance, Gait, Transfer, Bed Mobility, ROM Treatment/Plan Treatment Plan: Continue Plan of Care Treatment Plan: Bed Mobility, Education, Functional Activity Shayy, Functional Strength, Group Therapy, Gait, Safety, Therapeutic Exercise, Transfers Treatment Duration: Jun 28, 2017 Frequency: At least 5 of 7 days/Wk (IRF) Estimated Hrs Per Day: 1.5 hours per day Patient and/or Family Agrees t: Yes Safety Risks/Education Patient Education: Gait Training, Steps, Reviewed Precautions, Safety Issues Teaching Recipient: Patient Teaching Methods: Demonstration, Discussion Response to Teaching: Verbalize Understanding, Return Demonstration Discharge Recommendations Therapy D/C Recommendations: Home w/ Family Support Equpiment Recommendations-D/C: Front Wheeled Walker Time/GCodes Time In: 1015 Time Out: 1130 Total Billed Treatment Time: 75 Total Billed Treatment 1 visit EVM 30 min GT 20 min EX x 2 25 min CR STONER PT Jun 14, 2017 11:26
[2017-06-14 11:50] VITALS: BP 120/70
[2017-06-14] MEDS ORDERED: INFLUENZA TRIvalent 2017-2018 0.5 ML/45 MCG SYR IM ONE (14:30)
--- NOTE | 2017-06-14 14:53 | Occupational Ther Daily Note ---
OT Current Status-Daily Note Subjective Pt alert, sitting in recliner. Visitor present in room. Pt agreed to therapy. No c/o pain at this time. Mental Status/Objective Patient Orientation: Person, Place, Time, Situation Functional [place] Measure 0=Not Assessed/NA 4=Minimal Assistance 1=Total Assistance 5=Supervision or Setup 2=Maximal Assistance 6=Modified [place] 3=Moderate Assistance 7=Complete [place] ADL-Treatment Pt and ALLEN discussed pt's bathroom and kitchen set up at home. Pt stated that she had walk-in shower with tub seat and grabbars already being used at home. Pt then worked on FWW safety in ARU kitchen with transporting items along counter and placing in refrigerator, no LOB noted. Pt then demonstrated how to pick items up off floor using FWW safely. Pt required one cue for correct hand placement. Functional [place] Measure 0=Not Assessed/NA 4=Minimal Assistance 1=Total Assistance 5=Supervision or Setup 2=Maximal Assistance 6=Modified [place] 3=Moderate Assistance 7=Complete IndependenceIRFPAI Quality Coding Scale 6 Independent with activity with or without an assistive device 5 Patient requires set up or clean up by helper. Patient completes activity by themselves 4 Supervision or touching assist (CGA). [place] provide cues , steadying assist 3 The helper provides less than half the effort to complete the activity 2 The helper provides more than half the effort to complete the activity 1 Dependent. The helper does all the effort to complete an activity 7 Patient refused to complete or attempt activity 9 The patient did not perform the activity before the current illness or injury 88 Not attempted due to Medical conditions or safety concerns Eating (FIM): 6 Eating (QC): 6 Other Treatment Pt then ambulated to therapy gym to complete UE exercises with 2# wt attached to B wrists. Pt completed fine motor dexterity and strengthening for daily functional tasks. [place] roberto exercises completed 3 sets 10 reps 3 exercises completed without difficulty. Pt then ambulated back to room with SBA using FWW. After therapy, pt sitting in recliner with call light/phone in reach. All needs met in room. OT Short Term Goals Short Term Goals 1=Demonstrate adherence to instructed precautions during ADL tasks. 2=Patient will verbalize/demonstrate understanding of assistive devices/ modifications for ADL. 3=Patient will improve strength/tolerance for activity to enable patient to perform ADL's. OT Exchange Engineer Goals Exchange Engineer Goals 1=Demonstrate adherence to instructed precautions during ADL tasks. 2=Patient will verbalize/demonstrate understanding of assistive devices/ modifications for ADL. 3=Patient will improve strength/tolerance for activity to enable patient to perform ADL's. OT Education/Plan Discharge Recommendations Plan/Recommendations: Continue POC Treatment Plan/Plan of Care Patient would benefit from OT for education, treatment and training to promote independence in ADL's, mobility, safety and/or upper extremity function for ADL' s. Treatment Duration: Jul 05, 2017 Frequency: At least 5 of 7 days/Wk (IRF) Estimated Hrs Per Day: 1.5 hours per day Rehab Potential: Good Time/GCodes Start Time: 13:00 Stop Time: 14:00 Total Time Billed (hr/min): 60 Billed Treatment Time 1 visit-FA 2 (30 min) EX 2 (30 min) MARIAN VARGAS Jun 14, 2017 14:52
--- NOTE | 2017-06-14 14:54 | Physical Therapy Daily Note ---
PT Daily Note-Current Subjective Patient is seated and ready for PT intervention this p.m. Pain Numeric Pain Scale: 0-No Pain Location: No Pain Reported Appearance Patient appears healthy. She is left supine in bed with CPM machine on set from -2 to 80 degrees. Call light and phone in reach. Transfers Functional [place] Measure 0=Not Assessed/NA 4=Minimal Assistance 1=Total Assistance 5=Supervision or Setup 2=Maximal Assistance 6=Modified [place] 3=Moderate Assistance 7=Complete IndependenceIRFPAI Quality Coding Scale 6 Independent with activity with or without an assistive device 5 Patient requires set up or clean up by helper. Patient completes activity by themselves 4 Supervision or touching assist (CGA). [place] provide cues , steadying assist 3 The helper provides less than half the effort to complete the activity 2 The helper provides more than half the effort to complete the activity 1 Dependent. The helper does all the effort to complete an activity 7 Patient refused to complete or attempt activity 9 The patient did not perform the activity before the current illness or injury 88 Not attempted due to Medical conditions or safety concerns Transfers (B, C, W/C) (FIM): 5 Scootin Rollin Supine to/from Sit: 5 Sit to/from Stand: 5 Patient performed sit to supine transfer by aiding her L LE with her R LE to complete the task. PT was SBA this p.m. Weight Bearing Right Lower Extremity: Right Full Weight Bearing Left Lower Extremity: Left Weight Bearing/Tolerated Gait Training Does the Patient Walk?: Yes Gait (FIM): 5 Distance: 160' Gait Level of Assist: 5 Gait Persons Needed: 1 Gait Assistive Device: FWW Patient is ambulating with reciprocal gait pattern this p.m. L LE is externally rotated, but she is demonstrating improved stride length. Exercises Standing: Hamstring curls, Heel/toe raises, Marching, Step-ups Standing Reps: 10 Assessment Current Status: Good Progress Patient is showing improved muscle activation and performance with therapeutic exercise and gait. PT will continue to progress interventions to improve functionality of L LE. PT Crop Duster Goals Jail Goals PT Crop Duster Goals Time Frame: Jun 28, 2017 Transfers (B,C,W/C) (FIM): 6 Sit to Lying (QC): 6 Lying-Sitting on Side/Bed(QC): 6 Sit to Stand (QC): 6 Rollin Roll Left to Right (QC): 6 Chair/Fcz-rn-Mseeu Xfer(QC): 6 Does the Patient Walk: Yes Gait (FIM): 6 Distance: >500' Walk 10 feet (QC): 6 Walk 10ft-Uneven Surface(QC): 6 Walk 50ft with 2 Turns (QC): 6 Walk 150 ft (QC): 6 Gait Level of Assist: 6 Gait Assistive Device: FWW PT Plan Problem List Problem List: Activity Tolerance, Functional Strength, Safety, Balance, Gait, Transfer Treatment/Plan Treatment Plan: Continue Plan of Care Treatment Plan: Bed Mobility, Education, Functional Activity Shayy, Functional Strength, Group Therapy, Gait, Safety, Therapeutic Exercise, Transfers Treatment Duration: Jun 28, 2017 Frequency: At least 5 of 7 days/Wk (IRF) Estimated Hrs Per Day: 1.5 hours per day Patient and/or Family Agrees t: Yes Discharge Recommendations Therapy D/C Recommendations: Home w/ Family Support, Physical Therapy Home Care Time/GCodes Time In: 1401 Time Out: 1431 Total Billed Treatment Time: 30 Total Billed Treatment 1 visit EX x 2 30 min CR STONER PT Jun 14, 2017 14:54
[2017-06-14] MEDS ORDERED: oxyCODONE/APAP 5/325MG (PERCOCET 5) TABLET PO PRN (15:00)
[2017-06-14] MEDS ORDERED: ENOXAPARIN 30 MG/0.3 ML (LOVENOX) SYR SC SCH (15:00)
[2017-06-14] MEDS ORDERED: FLUTICASONE NASAL SPRAY (FLONASE) 16 GM BTL NS PRN (15:00)
[2017-06-14] MEDS ORDERED: FAMOTIDINE 20 MG (PEPCID) TABLET PO PRN (15:00)
[2017-06-14] MEDS ORDERED: ARTIFICAL TEARS 0.4 ML UNIT DOSE (REFRESH PLUS) OU PRN (15:00)
[2017-06-14] MEDS ORDERED: LORATADINE (CLARITIN) 10 MG TAB PO PRN (15:00)
[2017-06-14] MEDS ORDERED: ACETAMINOPHEN 325 MG TABLET/CAPLET (TYLENOL) PO PRN (15:00)
[2017-06-14] MEDS ORDERED: NITROGLYCERIN 0.4 MG SL TABS BTL 25'S SL PRN (15:00)
--- NOTE | 2017-06-14 16:47 | Occupational Therapy Eval ---
OT Evaluation-General/PLF Medical Diagnosis Admission Date Jun 14, 2017 at 10:15 Medical Diagnosis: L TKA revision Onset Date: Jun 09, 2017 Therapy Diagnosis Therapy Diagnosis: Decreased ADL skills Height/Weight Height (Feet): 5 Height (Inches): 4.00 Weight (Pounds): 237 Weight (Ounces): 7.0 Precautions Precautions/Isolations: Fall Prevention, Standard Precautions Weight Bear Status Weight Bearing Restriction: Weight Bearing/Tolerated Referral Physician: Tru Referral Reason: Activity Tolerance, Self Care, Evaluation/Treatment, Strengthening/ROM Medical History Pertinent Medical History: CAD, GERD, HTN, Hypothroidism, Rheumatoid Arthritis Additional Medical History mastectomy, TKA, coronary stent Current History Pt. had a Right TKA approximately 5 weeks ago. States that her patella was displaced. Had a revision. Reviewed History: Yes Social History Home: Single Level Current Living Status: Spouse Entry Into Home: Stairs Without Railing Steps Into Home: 2 ADL-Prior Level of Function ADL PLOF Comments Pt. was independent with daily basic skills. DME/Equipment: Shower Occupation: Retired from [employer] Self: Yes OT Current Status Subjective No pain reported. Appearance Pt. is up in chair. Declines showering as she had one yesterday. Agreed to get dressed. Mental Status/Objective Patient Orientation: Person, Place, Time, Situation Current Glasses/Contacts: Yes Hand Dominance: Right Upper Extremity ROM WFL Upper Extremity Strength WFL ADL-Treatment Functional [place] Measure 0=Not Assessed/NA 4=Minimal Assistance 1=Total Assistance 5=Supervision or Setup 2=Maximal Assistance 6=Modified [place] 3=Moderate Assistance 7=Complete IndependenceIRFPAI Quality Coding Scale 6 Independent with activity with or without an assistive device 5 Patient requires set up or clean up by helper. Patient completes activity by themselves 4 Supervision or touching assist (CGA). [place] provide cues , steadying assist 3 The helper provides less than half the effort to complete the activity 2 The helper provides more than half the effort to complete the activity 1 Dependent. The helper does all the effort to complete an activity 7 Patient refused to complete or attempt activity 9 The patient did not perform the activity before the current illness or injury 88 Not attempted due to Medical conditions or safety concerns Grooming (FIM): 5 (SBA at sink) Oral Hygiene (QC): 4 Upper Body Dressing (FIM): 5 Upper Body Dressing (QC): 4 Lower Body Dressing (FIM): 5 Lower Body Dressing (QC): 4 On/Off Footwear (QC): 4 Toileting (FIM): 5 Toileting Hygiene (QC): 4 Transfers (B, C, W/C) (FIM): 5 Toilet/Commode Transfer (FIM): 5 Toilet Transfer (QC): 4 Other Treatments Pt. seen this date for evaluation. Pt. declines showering, but agrees to dress self. After dressing, all needs met up in chair. Education OT Patient Education: Correct positioning, Modified ADL techniques, Progress toward Goal/Update tx plan, Purpose of tx/functional activities, Reviewed precautions, Rehab process, Transfer techniques Teaching Recipient: Patient Teaching Methods: Demonstration, Discussion Response to Teaching: Verbalize Understanding, Return Demonstration OT Short Term Goals Short Term Goals 1=Demonstrate adherence to instructed precautions during ADL tasks. 2=Patient will verbalize/demonstrate understanding of assistive devices/ modifications for ADL. 3=Patient will improve strength/tolerance for activity to enable patient to perform ADL's. OT [facility] Goals [facility] Goals Time Frame: Jun 28, 2017 Eating (FIM): 6 Eating (QC): 6 Groomin Oral Hygiene (QC): 6 Bathing(FIM): 6 Shower/Bathe Self (QC): 6 Upper Body Dressing(FIM): 6 Upper Body Dressing (QC): 6 Lower Body Dressing(FIM): 6 Lower Body Dressing (QC): 6 On/Off Footwear (QC): 6 Toileting(FIM): 6 Toileting Hygiene (QC): 6 Transfers (B,C,W/C) (FIM): 6 Toilet/Commode Transfer(FIM): 6 Toilet/Commode Transfer (QC): 6 Shower Transfer(FIM): 5 Additional Goals: 1-Demonstrate ADL Tasks, 2-Verbalize Understanding, 3- ImproveStrength/Shayy 1=Demonstrate adherence to instructed precautions during ADL tasks. 2=Patient will verbalize/demonstrate understanding of assistive devices/ modifications for ADL. 3=Patient will improve strength/tolerance for activity to enable patient to perform ADL's. OT Education/Plan Problem List/Assessment Assessment: Decreased Activ Tolerance, Impaired I ADL's, Impaired Self-Care Skills Discharge Recommendations Plan/Recommendations: Continue POC Therapy D/C Recommendations: Home w/ Family Support, Occupational Therapy Home Care Equpiment Recommendations-D/C: Bath Chair Target Placement Home with spouse Treatment Plan/Plan of Care Treatment,Training & Education: Yes Patient would benefit from OT for education, treatment and training to promote independence in ADL's, mobility, safety and/or upper extremity function for ADL' s. Plan of Care: ADL Retraining, Functional Mobility, UE Funct Exercise/Act Treatment Duration: Jul 05, 2017 Frequency: At least 5 of 7 days/Wk (IRF) Estimated Hrs Per Day: 1.5 hours per day Rehab Potential: Good Time/GCodes Start Time: 11:30 Stop Time: 12:15 Total Time Billed (hr/min): 45 Billed Treatment Time 1, EVM x 15minutes, ADL x 30minutes KHADRA MCLEOD OT Jun 14, 2017 16:47
--- NOTE | 2017-06-14 16:51 | HISTORY AND PHYSICAL ---
DATE OF SERVICE: Admission History and Physical CHIEF COMPLAINT: Difficulty with walking. HISTORY OF PRESENT ILLNESS: The patient is a 76-year-old female who developed patellar instability, status post total left knee replacement. She was admitted to [facility] by Orthopedics, Dr. Dugan and underwent left total knee arthroplasty revision. The patient is now referred to inpatient rehabilitation for ongoing therapies. Her intraoperative cultures revealed scant coag negative Staphylococcus. Empirical treatment was begun with vancomycin. After consultation with infectious disease at outside hospital it was felt that this might be a contaminant, but she was left on for a course of antibiotics as a precaution. She underwent PICC line placement. She had been independent prior to this and living in [place], [place] with her spouse. 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 She is min assist for dressing and toileting. PAST MEDICAL HISTORY: Coronary artery disease, hypertension, hyperlipidemia, rheumatoid arthritis, osteoarthritis. PAST SURGICAL HISTORY: She has had a prior right knee surgery. ALLERGIES: TETRACYCLINE. FAMILY HISTORY: Noncontributory. SOCIAL HISTORY: As per above. REVIEW OF SYSTEMS: Ten point review of systems significant for knee pain. MEDICATIONS: Leflunomide 20 mg p.o. daily, ASA 81 mg p.o. daily, Lipitor 80 mg p.o. at bedtime, calcium carbonate, vitamin D3 600 mg p.o. b.i.d., Refresh eyedrops one drop both eyes as needed for dry eyes. Lovenox 30 mg subq q.12h. Pepcid 20 mg p.o. daily p.r.n. heartburn. Flonase nasal spray 1 spray nasally each nostril daily, Synthroid 150 mcg p.o. daily, Claritin 10 mg p.o. daily p.r.n., therapeutic multivitamin 1 tablet p.o. daily, nitroglycerin 0.4 mg sublingual p.r.n. chest pain, Senokot-S 2 tablets p.o. b.i.d., Tylenol 650 mg p.o. q. 6 hours p.r.n. mild pain, iron sucrose injections 200 mg IV q. 48 hours. PHYSICAL EXAMINATION: GENERAL: Significant for a pleasant female appearing stated age, alert and oriented, no acute distress. VITAL SIGNS: Within normal limits. She is afebrile. HEENT: Vision, speech, hearing grossly intact. No oral lesion is noted. NECK: Supple without mass. HEART: Regular rhythm. LUNGS: Clear. ABDOMEN: Soft, nontender. Bowel sounds present. EXTREMITIES: The patient has a brace on her left knee. There is trace edema in the left ankle. No calf tenderness. MUSCULOSKELETAL: The patient has functional active range of motion both upper extremities and right lower extremity. NEUROLOGIC: Sensation is grossly intact to touch. Cognition grossly intact. Strength overall good BUES and RT Lower limb..She is rt hand dominant. Strength left knee extension2-/5 left hip flex 3/5 left hip flex 3/5 left knee flex 5/ 5.She is reported to be continent of bowel and bladder.left knee flex/extension 5-90 degrees IMPRESSION: 1. Ambulatory dysfunction secondary to patellar instability, status post left total knee arthroplasty revision. 2. Coronary artery disease, stable on meds. 3. Hypertension, controlled with medication. 4. Hyperlipidemia. 5. Rheumatoid arthritis. 6. Osteoarthritis. 7. Hypothyroidism on replacement 8. postop anemia on replacement PLAN: The patient will have comprehensive program of inpatient rehabilitation with goal of maximizing level of functional independence prior to discharge home with spouse. The patient will have PT and OT 90 minutes per day each discipline, five days a week for gait strengthening and conditioning, ADLs, any patient family caregiver training necessary, any adaptive equipment training necessary, rehabilitation, nursing to assist with bowel, bladder, skin, wound care, medication administration, pain management. client services coordinator to assist with discharge and community reentry. Follow up with hospital service and Dr. Dugan as per their schedule. ESTIMATED LENGTH OF STAY: 1 to 2 weeks. PROGNOSIS. Rehab prognosis appears good with the goal of discharging her with spouse, modified independent supervision for ADLs and mobility skills. DIET: Regular. CODE STATUS: Full code. Job ID: [id number] DocumentID: [id number] Dictated Date: 06/14/2017 14:43:57 Director Intelligence Analysis Programs Date: 06/14/2017 16:50:41 Dictated By: REFUGIO MURPHY MD [facility]
[2017-06-14] MEDS: CALCIUM CARB + VIT D 600 MG (CALCARB + D) TAB PO SCH (16:52)
[2017-06-14] MEDS: IRON SUCROSE INJECTION 200 MG in NS (IVPB) 100 ML IV SCH (16:52)
[2017-06-14 18:15] VITALS: BP 120/59
--- NOTE | 2017-06-14 19:18 | PM&R Post Admission Assessment ---
Post Admission Physician Asses The preadmission screen agrees with the post admission assessment that the patient is a good candidate for inpatient rehabilitation. The patient will have a comprehensive program of inpatient rehabilitation with a goal of maximizing level of functional independence prior to discharge home with spouse. The patient will have PT/OT ninety minutes per day, each discipline, five days a week for gait, strengthening, conditioning, balance, ADLs, any patient/family/caregiver training as necessary. Speech therapy to do cognitive assessment and treat as indicated. Rehabilitation nursing to assist with bowel, bladder, skin, wound care, medication administration, pain management. Continuous Miner to assist with discharge planning, community reentry. SCD's for DVT prophylaxis. She appears to be well motivated to participate in three hours of therapy a day. She should be able to tolerate three hours of therapy a day from a medical and surgical standpoint. She should benefit from the three hours of therapy a day. She has a reasonable discharge plan, reasonable discharge rehabilitation goals and a supportive family. She has various comorbidities that need to be closely monitored with medications and treatments adjusted on a daily basis as needed. These include: HTN OA RA CAD s/p stent and prior AL Barriers to discharge for this patient who had been independent prior to this are for her to be modified independent to supervision for ADLs and mobility skills prior to discharge home with spouse, so as to lessen the burden of the caregivers. Risks for this patient include: 1. Fall 2. Fracture 3. DVT 4. Pulmonary embolism 5. Wound infection 6. Skin breakdown 7. Contractures 8. Poorly controlled pain 9. Urinary retention 10. UTI 11. Respiratory infection 12. Aspiration 13. Poorly controlled HTN 14. Recurrent AL Estimated Length of Stay: 10-14 days Prognosis: Rehab prognosis appears good for goal of discharge home with spouse modified independent to supervision for ADLs and mobility skills. REFUGIO MURPHY MD Jun 14, 2017 19:18
[2017-06-14] MEDS ORDERED: ceFAZolin 1,000 MG (ANCEF) VIAL ONE (20:53)
[2017-06-14] MEDS ORDERED: NS (IVPB) 50 ML ONE (20:54)
[2017-06-14] MEDS: ATORVASTATIN 80 MG (LIPITOR) TABLET PO SCH (21:09)
[2017-06-14] MEDS: ENOXAPARIN 30 MG/0.3 ML (LOVENOX) SYR SC SCH (21:09)
[2017-06-14] MEDS: SENNA W/DOCUSATE (SENOKOT S) TABLET PO SCH (21:09)
[2017-06-14] MEDS: ceFAZolin INJECTION 1,000 MG in NS (IVPB) 50 ML IV SCH (21:10)
[2017-06-15] MEDS ORDERED: NS (IVPB) 50 ML ONE (05:06)
[2017-06-15] MEDS ORDERED: ceFAZolin 1,000 MG (ANCEF) VIAL ONE (05:06)
[2017-06-15] MEDS: ceFAZolin INJECTION 1,000 MG in NS (IVPB) 50 ML IV SCH ×3 (05:34→22:05)
[2017-06-15] MEDS: MULTIVIT W/MINERALS TAB (THERAGRAN M) PO SCH (05:34)
[2017-06-15] MEDS: CALCIUM CARB + VIT D 600 MG (CALCARB + D) TAB PO SCH ×2 (05:34→16:56)
[2017-06-15] MEDS: LEVOTHYROXINE 150 MCG (LEVOTHROID) TAB PO SCH (05:34)
[2017-06-15 06:26] VITALS: BP 124/61
[2017-06-15] MEDS: meTOproloL SUCCINATE 50 MG (TOPROL XL) TAB PO SCH (07:59)
[2017-06-15] MEDS: ASPIRIN E.C. 81 MG (ECOTRIN) TAB PO SCH (07:59)
[2017-06-15] MEDS: SENNA W/DOCUSATE (SENOKOT S) TABLET PO SCH ×2 (08:00→20:00)
[2017-06-15] MEDS: ENOXAPARIN 30 MG/0.3 ML (LOVENOX) SYR SC SCH ×2 (08:00→20:19)
[2017-06-15] MEDS ORDERED: NON-FORMULARY MEDICATION 1 EA EA (Leflunomide 20 MG) PO SCH (09:00)
--- NOTE | 2017-06-15 10:52 | ST Cognitive Linguistic Eval ---
Speech Evaluation-General Medical Diagnosis L TKA revision Onset Date: Jun 09, 2017 Therapy Diagnosis Therapy Diagnosis: Cognitive Linguistic Skills WNL Precautions Precautions/Isolations: Fall Prevention, Standard Precautions Referral Referring Physician: Dr. Cr Ott Reason for Referral: Evaluation/Treatment Cognitive Evaluation Medical History Pertinent Medical History: CAD, GERD, HTN, Hypothroidism, Rheumatoid Arthritis Reviewed History: Yes Social History Current Living Status: Spouse Speech PLF-Current Status Prior Level of Function The patient denied prior challenges with speech, language or cognition. Subjective The patient was recently admitted to [facility] Rehabilitation Unit following a left knee revision procedure. The patient greeted the clinician appropriately and was agreeable to participation in the cognitive assessment. Language Eval: Auditory Comprehends Simple Yes/No Ques: Functional Indent/Objects Multiple [place]: Functional Ident/Pics in Multiple Clemens: Functional Follows 1-Step Commands: Functional Follows Complex Directions: Functional Follows General Conversations: Functional Language Eval: Verbal Language Completes Spontaneous Greeting: Functional Produces Auto, Serial Info: Functional Imitates Simple Words/Phrases: Functional Word Finding: Functional Requests Basic Needs: Functional States Basic Personal Info: Functional Expresses Complex Ideas: Functional Language Evaluation: Reading Comprehends Single Nouns: Functional Cognitive Patient Orientation The patient was independently oriented to self, location, month, day of week, date, and year. Objective Cognitive Domain Attention: WNL Memory: WNL Problem Solving: Functional Objective Impression The patient demonstrated cognitive linguistic skills WNL and appropriate for completion of ADL's. Communication/Social Cognition Comprehension: 6 Expression: 6 Social Interaction: 6 Problem Solvin Memory: 6 Speech Patient Assess Expression of Ideas/Wants: Expression (4) Understanding [place] Content: Understands (4) Brief Interview-Mental Status: Yes Repetition of Three Words: Three (3) Temporal Orientation: Year: Correct (3) Temporal Orientation: Month: Accurate within 5 days(2) Temporal Orientation: Day: Correct (1) Recall : Wear to say "Sock": Yes, no cue required (2) Recall : Color: Yes, no cue required (2) Recall : Bed: Yes, no cue required (2) Speech-Plan Treatment Plan Speech Therapy Treatment Plan: Discontinue ST Evaluation, only. Frequency: Modified Program (IRF) (Evaluation, only.) Estimated Hrs Per Day: Other (Evaluation, only.) Rehab Potential: Good Safety Risks/Education Teaching Recipient: Patient Teaching Methods: Discussion Response to Teaching: Verbalize Understanding Education Topics Provided: Results, Recommendations, Plan of Care Time Speech Therapy Time In: 09:45 Speech Therapy Time Out: 10:00 Total Billed Time: 15 Billed Treatment Time 1, MIKE COOMBS Jun 15, 2017 10:52
--- NOTE | 2017-06-15 11:19 | Occupational Ther Daily Note ---
OT Current Status-Daily Note Subjective No pain reported. Appearance Pt. is up in chair. Has already gotten dressed due to having PT earlier. States that she would rather do all therapy before having her shower. Pt. agrees to take a shower later today with OT. Mental Status/Objective Patient Orientation: Person, Place, Time, Situation Functional [place] Measure 0=Not Assessed/NA 4=Minimal Assistance 1=Total Assistance 5=Supervision or Setup 2=Maximal Assistance 6=Modified [place] 3=Moderate Assistance 7=Complete [place] ADL-Treatment Functional [place] Measure 0=Not Assessed/NA 4=Minimal Assistance 1=Total Assistance 5=Supervision or Setup 2=Maximal Assistance 6=Modified [place] 3=Moderate Assistance 7=Complete IndependenceIRFPAI Quality Coding Scale 6 Independent with activity with or without an assistive device 5 Patient requires set up or clean up by helper. Patient completes activity by themselves 4 Supervision or touching assist (CGA). [place] provide cues , steadying assist 3 The helper provides less than half the effort to complete the activity 2 The helper provides more than half the effort to complete the activity 1 Dependent. The helper does all the effort to complete an activity 7 Patient refused to complete or attempt activity 9 The patient did not perform the activity before the current illness or injury 88 Not attempted due to Medical conditions or safety concerns Lower Body Dressing (FIM): 4 (Min assist to don socks, SBA to don shoes.) Lower Body Dressing (QC): 4 On/Off Footwear (QC): 4 Transfers (B, C, W/C) (FIM): 5 (SBA for all ADL transfers with walker. Pt. reports that her knee is "stiff.") Other Treatment Pt. ambulated to therapy gym. Donned 1 lb. wrist weights and completed bilateral UE exercises with arm arc back and forth for increased strengthening. Tolerated this well. Pt. then completed 10 minutes at mod resistance on armbike to complete UE strength and overall endurance for daily tasks. Pt. ambulated back to room with SBA. Practiced donning slipper socks in room. Required min assist to don left slipper sock. Able to don left shoe after sock on. All needs met. Will assist shower at later time. Education OT Patient Education: Correct positioning, Exercise program, Modified ADL techniques, Progress toward Goal/Update tx plan, Purpose of tx/functional activities, Reviewed precautions, Rehab process, Transfer techniques Teaching Recipient: Patient Teaching Methods: Demonstration, Discussion Response to Teaching: Verbalize Understanding, Return Demonstration OT Short Term Goals Short Term Goals 1=Demonstrate adherence to instructed precautions during ADL tasks. 2=Patient will verbalize/demonstrate understanding of assistive devices/ modifications for ADL. 3=Patient will improve strength/tolerance for activity to enable patient to perform ADL's. OT Shelter Goals Consumer Banker Goals Time Frame: Jun 28, 2017 Eating (FIM): 6 Eating (QC): 6 Groomin Oral Hygiene (QC): 6 Bathing(FIM): 6 Shower/Bathe Self (QC): 6 Upper Body Dressing(FIM): 6 Upper Body Dressing (QC): 6 Lower Body Dressing(FIM): 6 Lower Body Dressing (QC): 6 On/Off Footwear (QC): 6 Toileting(FIM): 6 Toileting Hygiene (QC): 6 Transfers (B,C,W/C) (FIM): 6 Toilet/Commode Transfer(FIM): 6 Toilet/Commode Transfer (QC): 6 Shower Transfer(FIM): 5 Additional Goals: 1-Demonstrate ADL Tasks, 2-Verbalize Understanding, 3- ImproveStrength/Shayy 1=Demonstrate adherence to instructed precautions during ADL tasks. 2=Patient will verbalize/demonstrate understanding of assistive devices/ modifications for ADL. 3=Patient will improve strength/tolerance for activity to enable patient to perform ADL's. OT Education/Plan Problem List/Assessment Assessment: Decreased Activ Tolerance, Impaired I ADL's, Impaired Self-Care Skills Discharge Recommendations Plan/Recommendations: Continue POC Therapy D/C Recommendations: Home w/ Family Support, Occupational Therapy Home Care Treatment Plan/Plan of Care Treatment,Training & Education: Yes Patient would benefit from OT for education, treatment and training to promote independence in ADL's, mobility, safety and/or upper extremity function for ADL' s. Plan of Care: ADL Retraining, Functional Mobility, UE Funct Exercise/Act Treatment Duration: Jul 05, 2017 Frequency: At least 5 of 7 days/Wk (IRF) Estimated Hrs Per Day: 1.5 hours per day Agreement: Yes Rehab Potential: Good Time/GCodes Start Time: 10:15 Stop Time: 11:00 Total Time Billed (hr/min): 45 Billed Treatment Time 1, EX x 3 KHADRA MCLEOD OT Jun 15, 2017 11:19
--- NOTE | 2017-06-15 12:16 | Physical Therapy Daily Note ---
PT Daily Note-Current Subjective Patient is seated in recliner upon PT entering the room. She reports that her knee is stiff, but she is not experiencing any pain. Pain Numeric Pain Scale: 0-No Pain Location: No Pain Reported Appearance Patient is in good health. She is left post tx seated in chair with call light in reach. Mental Status Patient Orientation: Normal For Age Transfers Functional [place] Measure 0=Not Assessed/NA 4=Minimal Assistance 1=Total Assistance 5=Supervision or Setup 2=Maximal Assistance 6=Modified [place] 3=Moderate Assistance 7=Complete IndependenceIRFPAI Quality Coding Scale 6 Independent with activity with or without an assistive device 5 Patient requires set up or clean up by helper. Patient completes activity by themselves 4 Supervision or touching assist (CGA). [place] provide cues , steadying assist 3 The helper provides less than half the effort to complete the activity 2 The helper provides more than half the effort to complete the activity 1 Dependent. The helper does all the effort to complete an activity 7 Patient refused to complete or attempt activity 9 The patient did not perform the activity before the current illness or injury 88 Not attempted due to Medical conditions or safety concerns Transfers (B, C, W/C) (FIM): 4 Scootin Rollin Supine to/from Sit: 4 Sit to/from Stand: 5 Patient requires assistance moving L LE when transferring to and from supine. Weight Bearing Right Lower Extremity: Right Full Weight Bearing Left Lower Extremity: Left Weight Bearing/Tolerated Gait Training Does the Patient Walk?: Yes Gait (FIM): 5 Distance: 2 x 160' Gait Level of Assist: 5 Gait Persons Needed: 1 Gait Assistive Device: FWW Patient walks with step through gait with small stride. PT is SBA. Exercises Supine Ex: Short Arc Quads (eccentric hold 10") Supine Reps: 20 Seated Therapy Exercises: Long arc quads (eccentric hold 10"; side lying LAQs also performed; 20 each) Seated Reps: 20 NuStep Minutes: 20 (Improve ROM of knee; improve muscle activation L LE) NuStep Workload: 5 Assessment Current Status: Good Progress Patient is able to extend leg using quadriceps musculature in gravity lessened position and is not showing trace amount of movement when extending the leg against gravity. PT will continue to address quadriceps weakness as well as work on improving ROM of L knee. PT Loss Prevention Research Engineer Goals Loss Prevention Research Engineer Goals PT Prison Goals Time Frame: Jun 28, 2017 Transfers (B,C,W/C) (FIM): 6 Sit to Lying (QC): 6 Lying-Sitting on Side/Bed(QC): 6 Sit to Stand (QC): 6 Rollin Roll Left to Right (QC): 6 Chair/Krh-sx-Jjxep Xfer(QC): 6 Does the Patient Walk: Yes Gait (FIM): 6 Distance: >500' Walk 10 feet (QC): 6 Walk 10ft-Uneven Surface(QC): 6 Walk 50ft with 2 Turns (QC): 6 Walk 150 ft (QC): 6 Gait Level of Assist: 6 Gait Assistive Device: FWW Stairs (FIM): 5 # of Steps: 12 1 Step (curb) (QC): 5 4 Steps (QC): 5 12 Steps (QC): 5 Stairs Level Of Assist: 5 Picking up an Object (QC): 5 PT Plan Problem List Problem List: Activity Tolerance, Functional Strength, Safety, Balance, Gait, Transfer, Bed Mobility, ROM Treatment/Plan Treatment Plan: Continue Plan of Care Treatment Plan: Bed Mobility, Education, Functional Activity Shayy, Functional Strength, Group Therapy, Gait, Safety, Therapeutic Exercise, Transfers Treatment Duration: Jun 28, 2017 Frequency: At least 5 of 7 days/Wk (IRF) Estimated Hrs Per Day: 1.5 hours per day Patient and/or Family Agrees t: Yes Discharge Recommendations Therapy D/C Recommendations: Home w/ Family Support Time/GCodes Time In: 1100 Time Out: 1205 Total Billed Treatment Time: 65 Total Billed Treatment 1 visit GT 15 min EX x 3 50 min CR STONER PT Jun 15, 2017 12:15
--- NOTE | 2017-06-15 13:35 | Physical Therapy Daily Note ---
PT Daily Note-Current Subjective Patient agrees to PT and reports frustration with minimal progress. Pain Numeric Pain Scale: 5-Moderate Pain Location: Left Location Body Site: Knee Pain Description: Ache, Acute Appearance ER left LE Mental Status Patient Orientation: Normal For Age Transfers Functional [place] Measure 0=Not Assessed/NA 4=Minimal Assistance 1=Total Assistance 5=Supervision or Setup 2=Maximal Assistance 6=Modified [place] 3=Moderate Assistance 7=Complete IndependenceIRFPAI Quality Coding Scale 6 Independent with activity with or without an assistive device 5 Patient requires set up or clean up by helper. Patient completes activity by themselves 4 Supervision or touching assist (CGA). [place] provide cues , steadying assist 3 The helper provides less than half the effort to complete the activity 2 The helper provides more than half the effort to complete the activity 1 Dependent. The helper does all the effort to complete an activity 7 Patient refused to complete or attempt activity 9 The patient did not perform the activity before the current illness or injury 88 Not attempted due to Medical conditions or safety concerns Transfers (B, C, W/C) (FIM): 5 Scootin Sit to/from Stand: 5 Sit to Stand (QC): 5 Weight Bearing Right Lower Extremity: Right Full Weight Bearing Left Lower Extremity: Left Weight Bearing/Tolerated Gait Training Does the Patient Walk?: Yes Gait (FIM): 5 Distance (FIM): 3=150 ft Distance: 150' x 2 Walk 10 feet (QC): 5 Walk 50 ft with 2 Turns(QC): 5 Walk 150 ft (QC): 5 Gait Level of Assist: 5 Gait Assistive Device: FWW trunk flexed posture/slow, antalgic gait sequence Exercises Seated Therapy Exercises: Long arc quads, Hip abd/add Seated Reps: 25 (2 sets) Standing: Heel/toe raises, Mini squats Standing Reps: 25 (3 sets) Assessment Patient progressing slowly with treatment plan. PT will continue to increase activity as tolerated by patient. PT Group Home Goals Civil Clerk Goals PT Civil Clerk Goals Time Frame: Jun 28, 2017 Transfers (B,C,W/C) (FIM): 6 Sit to Lying (QC): 6 Lying-Sitting on Side/Bed(QC): 6 Sit to Stand (QC): 6 Rollin Roll Left to Right (QC): 6 Chair/Cci-hj-Wbmeq Xfer(QC): 6 Does the Patient Walk: Yes Gait (FIM): 6 Distance: >500' Walk 10 feet (QC): 6 Walk 10ft-Uneven Surface(QC): 6 Walk 50ft with 2 Turns (QC): 6 Walk 150 ft (QC): 6 Gait Level of Assist: 6 Gait Assistive Device: FWW Stairs (FIM): 5 # of Steps: 12 1 Step (curb) (QC): 5 4 Steps (QC): 5 12 Steps (QC): 5 Stairs Level Of Assist: 5 Picking up an Object (QC): 5 PT Plan Treatment/Plan Treatment Plan: Continue Plan of Care Treatment Plan: Bed Mobility, Education, Functional Activity Shayy, Functional Strength, Group Therapy, Gait, Safety, Therapeutic Exercise, Transfers Treatment Duration: Jun 28, 2017 Frequency: At least 5 of 7 days/Wk (IRF) Estimated Hrs Per Day: 1.5 hours per day Patient and/or Family Agrees t: Yes Time/GCodes Time In: 1257 Time Out: 1327 Total Billed Treatment Time: 30 Total Billed Treatment 1 visit EX 20 min GT 10 min CR STONER PT Jun 15, 2017 13:35
--- NOTE | 2017-06-15 14:04 | Progress Note-Hospitalist ---
Subjective HPI/CC On Admission Date Seen by Provider: Jun 15, 2017 Time Seen by Provider: 13:50 Subjective/Events-last exam Pt reports doing well. Has questions about abx and duration. Also plans to call her regional sales associate to discuss getting back on those medicines. Objective Exam Vital Signs Vital Sign - Last 12Hours 06/14/17 11:50 Temp 98.7 Pulse 97 Resp 18 B/P (MAP) 120/70 Pulse Ox 99 O2 Delivery Room Air Capillary Refill : Less Than 3 Seconds General Appearance: No Apparent Distress, WD/WN Respiratory: Lungs Clear, No Respiratory Distress Cardiovascular: No Murmur Gastrointestinal: Normal Bowel Sounds, Non Tender, Soft Extremity: Other (sowmya hose on, left knee with ABD pad) Neurologic/Psychiatric: Alert, Oriented x3 Assessment/Plan Assessment and Plan Assess & Plan/Chief Complaint s/p revision of TKA Diagnosis/Problems Diagnosis/Problems (1) CAD (coronary artery disease) Status: Chronic Assessment & Plan: Resumed Plavix today Continue ASA, metoprolol, lipitor Qualifiers: Qualified Codes: I25.10 - Atherosclerotic heart disease of [place] coronary artery without angina pectoris (2) Essential (primary) hypertension Status: Chronic Assessment & Plan: Well controlled on Metoprolol (3) Wound infection Status: Acute Assessment & Plan: coag neg staph grew in wound from intraopertive cultures Continue on Ancef (4) Hypothyroidism Status: Chronic Assessment & Plan: Cont Synthroid (5) Normocytic anemia Status: Acute Assessment & Plan: Continue Venofer (6) Rheumatoid arthritis Status: Chronic Assessment & Plan: Off leflunomide She will call her Telegraphic Typewriter Repairer to discuss when to resume leflunomide (7) Prophylactic measure Assessment & Plan: Lovenox Reg Diet Saline Lock PICC in place in L JILLIAN Pérez MD Jun 15, 2017 2:04 pm
[2017-06-15] MEDS: NAPROXEN 250 MG (NAPROSYN) TABLET PO PRN (14:15)
--- NOTE | 2017-06-15 14:38 | Occupational Ther Daily Note ---
OT Current Status-Daily Note Subjective No pain reported. Appearance Pt. agrees to shower. Mental Status/Objective Patient Orientation: Person, Place Functional [place] Measure 0=Not Assessed/NA 4=Minimal Assistance 1=Total Assistance 5=Supervision or Setup 2=Maximal Assistance 6=Modified [place] 3=Moderate Assistance 7=Complete [place] ADL-Treatment Functional [place] Measure 0=Not Assessed/NA 4=Minimal Assistance 1=Total Assistance 5=Supervision or Setup 2=Maximal Assistance 6=Modified [place] 3=Moderate Assistance 7=Complete IndependenceIRFPAI Quality Coding Scale 6 Independent with activity with or without an assistive device 5 Patient requires set up or clean up by helper. Patient completes activity by themselves 4 Supervision or touching assist (CGA). [place] provide cues , steadying assist 3 The helper provides less than half the effort to complete the activity 2 The helper provides more than half the effort to complete the activity 1 Dependent. The helper does all the effort to complete an activity 7 Patient refused to complete or attempt activity 9 The patient did not perform the activity before the current illness or injury 88 Not attempted due to Medical conditions or safety concerns Grooming (FIM): 5 Oral Hygiene (QC): 5 Bathing (FIM): 4 (Pt. requires min assist to wash rear [place] area.) Shower/Bathe Self (QC): 4 Upper Body (FIM): 5 Upper Body Dressing (QC): 5 Lower Body Dressing (FIM): 5 Lower Body Dressing (QC): 5 On/Off Footwear (QC): 5 Toileting (FIM): 5 Toileting Hygiene (QC): 5 Transfers (B, C, W/C) (FIM): 5 Toilet/Commode Transfer (FIM): 5 Toilet Transfer (QC): 5 Shower Transfer(FIM): 5 Other Treatment Pt. agreed to shower. Able to complete ADL task with SBA, requiring min assist only to wash rear [place] area. All needs met after shower. OT applied CPM. Pt. in room with nursing after OT treatment session. Education OT Patient Education: Correct positioning, Modified ADL techniques, Progress toward Goal/Update tx plan, Purpose of tx/functional activities, Reviewed precautions, Rehab process, Transfer techniques, Use of adapted equipment Teaching Recipient: Patient Teaching Methods: Demonstration, Discussion Response to Teaching: Verbalize Understanding, Return Demonstration OT Short Term Goals Short Term Goals 1=Demonstrate adherence to instructed precautions during ADL tasks. 2=Patient will verbalize/demonstrate understanding of assistive devices/ modifications for ADL. 3=Patient will improve strength/tolerance for activity to enable patient to perform ADL's. OT Correction Goals Correction Goals Time Frame: Jun 28, 2017 Eating (FIM): 6 Eating (QC): 6 Groomin Oral Hygiene (QC): 6 Bathing(FIM): 6 Shower/Bathe Self (QC): 6 Upper Body Dressing(FIM): 6 Upper Body Dressing (QC): 6 Lower Body Dressing(FIM): 6 Lower Body Dressing (QC): 6 On/Off Footwear (QC): 6 Toileting(FIM): 6 Toileting Hygiene (QC): 6 Transfers (B,C,W/C) (FIM): 6 Toilet/Commode Transfer(FIM): 6 Toilet/Commode Transfer (QC): 6 Shower Transfer(FIM): 5 Additional Goals: 1-Demonstrate ADL Tasks, 2-Verbalize Understanding, 3- ImproveStrength/Shayy 1=Demonstrate adherence to instructed precautions during ADL tasks. 2=Patient will verbalize/demonstrate understanding of assistive devices/ modifications for ADL. 3=Patient will improve strength/tolerance for activity to enable patient to perform ADL's. OT Education/Plan Problem List/Assessment Assessment: Decreased Activ Tolerance, Impaired I ADL's, Impaired Self-Care Skills Discharge Recommendations Plan/Recommendations: Continue POC Therapy D/C Recommendations: Home w/ Family Support, Occupational Therapy Home Care Equpiment Recommendations-D/C: Hip Kit Treatment Plan/Plan of Care Treatment,Training & Education: Yes Patient would benefit from OT for education, treatment and training to promote independence in ADL's, mobility, safety and/or upper extremity function for ADL' s. Plan of Care: ADL Retraining, Functional Mobility, UE Funct Exercise/Act Treatment Duration: Jul 05, 2017 Frequency: At least 5 of 7 days/Wk (IRF) Estimated Hrs Per Day: 1.5 hours per day Agreement: Yes Rehab Potential: Good Time/GCodes Start Time: 13:30 Stop Time: 14:15 Total Time Billed (hr/min): 45 Billed Treatment Time 1, ADL x 45minutes KHADRA MCLEOD OT Jun 15, 2017 14:38
--- NOTE | 2017-06-15 16:11 | PM & R (SOAP) Progress Note ---
Subjective Time Seen by Provider: 08:15 Subjective/Events-last exam Patient was seen in her room this AM and later in [facility] Progressing well with therapies Patient SBA for transfers Objective Exam Last Set of Vital Signs Vital Signs Date Time Temp Pulse Resp B/P (MAP) Pulse Ox O2 Delivery O2 Flow Rate FiO2 06/15/17 09:41 Room Air 06/15/17 06:26 98.1 90 18 124/61 98 Capillary Refill : Less Than 3 Seconds I&O Intake and Output 06/16/17 00:00 Intake Total 350 ml Balance 350 ml Intake Oral 300 ml IV Total 50 ml # Voids 2 General: Alert, Oriented X3, Cooperative, No Acute Distress HEENT: Atraumatic, PERRLA, EOMI, Mucous Memb Moist/[employer] Neck: Supple, No JVD Lungs: Clear to Auscultation Heart: Regular Rate Abdomen: Normal Bowel Sounds, Soft, No Tenderness Extremities: No Edema Neuro: Other (trace edema left ankle) Assessment/Plan Assessment s/p Left TKR revision Coronary Art D chronic on meds plavix resumed HTN controlled Wound infection on antibiotic Hypothyroidism on synthroid Normocytic anemia-on venofer RA -lefluromide DVT prophylaxis on Lovenox Plan Continue PT/OT F/U with Hospitalist and DR Dugan prbenjamin Team Conference tomorrow 06-16-17 REFUGIO MURPHY MD Jun 15, 2017 16:11
--- NOTE | 2017-06-15 16:15 | Individualized Plan of Care ---
Individualized Plan of Care Rehab Nursing IPOC Order Admission Date Jun 14, 2017 at 10:15 Current Orders Orders Admission-Acute Rehab Unit (06/14/17 09:46) Pt Evaluate/Treat Request (06/14/17 09:46) Request Ot Evaluate & Treat (06/14/17 09:46) Request For Cognitive Services (06/14/17 09:46) Admission Arrival Bed Request (06/14/17 10:42) Admission Arrival Bed Request (06/14/17 10:43) General/Regular (06/14/17 Lunch) Influenza Vac Order Indicated (06/14/17 13:51) Influenza Trivalent [id number] (Afluria (06/14/17 14:30) Admission-Acute Rehab Unit (06/14/17 14:50) Vital Signs: Routine 08,16,00 (06/14/17 14:50) Laborer Demolition-Inpt Rehab (06/14/17 14:50) Rehab Nursing Orders-Ipoc (06/14/17 14:50) Turn And Reposition Q2HR (06/14/17 14:50) Intake & Output 06,14,22 (06/14/17 14:50) Precautions (Aru) (06/14/17 14:50) Weekly Weight (Lbs) WEEK (06/14/17 14:50) Sequential Compression Device , (06/14/17 14:53) Chet Hose , (06/14/17 14:53) (Nf) Leflunomide (06/15/17 09:00) Cefazolin Injection (Ancef Injection) (06/14/17 22:00) Aspirin Enteric Coated Tablet (Ecotrin T (06/15/17 09:00) Atorvastatin Tablet (Lipitor Tablet) (06/14/17 21:00) Calcium Carbonate W/Vitamin D3 (Calcarb (06/14/17 17:00) Carboxymethylcell Ophth Soln (Refresh Pl (06/14/17 15:00) Enoxaparin Injection (Lovenox Injection) (06/14/17 15:00) Famotidine Tablet (Pepcid Tablet) (06/14/17 15:00) Fluticasone Nasal [place] (Flonase Nasal S (06/14/17 15:00) Levothyroxine Tablet (Synthroid Tablet) (06/15/17 06:30) Loratadine Tablet (Claritin Tablet) (06/14/17 15:00) Therapeutic Multivitamin Tab (Vitamins, (06/15/17 07:00) Nitroglycerin 0.4 Mg Btl 25's (Nitrostat (06/14/17 15:00) Senna S Tablet (Senokot S Tablet) (06/14/17 21:00) Acetaminophen Tablet/Caplet (Tylenol T (06/14/17 15:00) Iron Sucrose Injection (Venofer Injectio (06/14/17 15:00) Metoprolol Succinate (Xl) Tab (Toprol Xl (06/15/17 09:00) Oxycodone/Apap 5/325mg Tablet (Percocet (06/14/17 15:00) Cpm: Initial Session (06/14/17 14:53) Patient Visit (06/14/17 ) Pt Eval Moderate Complexity (06/14/17 ) Gait Training, Ea 15 Min (06/14/17 ) Exercise Therap, Ea 15 Min (06/14/17 ) Consult Physician (06/14/17 16:24) Enoxaparin Injection (Lovenox Injection) (06/14/17 21:00) Ambulate TID (06/14/17 20:37) Sequential Compression Device (06/14/17 20:37) Dvt/Vte Risk - Notifiy Physici (06/14/17 20:37) Cefazolin Injection (Ancef Injection) (06/14/17 20:53) Ns (Ivpb) (Sodium Chloride 0.9% Ivpb Bag (06/14/17 20:54) Cefazolin Injection (Ancef Injection) (06/15/17 05:06) Ns (Ivpb) (Sodium Chloride 0.9% Ivpb Bag (06/15/17 05:06) Cefazolin Injection (Ancef Injection) (06/15/17 14:00) Clopidogrel Tablet (Plavix Tablet) (06/16/17 09:00) Patient Visit (06/15/17 ) Speech Sound Lang Comp (06/15/17 ) Naproxen Tablet (Naprosyn Tablet) (06/15/17 12:15) Patient Visit (06/15/17 ) Gait Training, Ea 15 Min (06/15/17 ) Exercise Therap, Ea 15 Min (06/15/17 ) Rehab Nursing Orders: Diseage Management, Edu in Press Rel Techn, Hydration Management, Nutrition Management, Pain Management Other Nursing Orders: Monitor for postop urinary retention and constipation Intensity of Therapy to be met Patient to be seen: Min.3h per day/5 of 7d PT IPOC Problem List: Activity Tolerance, Functional Strength, Safety, Balance, Gait, Transfer, Bed Mobility, ROM Treatment Plan: Continue Plan of Care Bed Mobility, Education, Functional Activity Shayy, Functional Strength, Group Therapy, Gait, Safety, Therapeutic Exercise, Transfers Treatment Duration: Jun 28, 2017 Frequency: At least 5 of 7 days/Wk (IRF) Estimated Hrs Per Day: 1.5 hours per day OT IPOC Problems: Decreased Activ Tolerance, Impaired I ADL's, Impaired Self-Care Skills OT Treatment, Training and Edu: Yes Plan of Care: ADL Retraining, Functional Mobility, UE Funct Exercise/Act Treatment Duration: Jul 05, 2017 Frequency: At least 5 of 7 days/Wk (IRF) Estimated Hrs Per Day: 1.[address] IPOC Speech Therapy Treatment Plan: Discontinue ST Treatment Duration: Jun 15, 2017 Frequency: Modified Program (IRF) (Evaluation, only.) Estimated Hrs Per Day: Other (Evaluation, only.) Laborer Demolition/Case Mgmt Laborer Demolition/Case Managemen: Discharge Planning, Patient/Family Counseling Physician IPOC Medical Issues being managed closely and that require the 24 hour availability of a physician:Coronary artery D Wound infection RA Anemia HTN DVT prophylaxis Medical Issues: Bowel/Bladder Function, DVT Prophylaxis, Falls Precautions, Fluid/Electrolyte/Nutrition Balance, Infection Protection, Pain Management, Weight Bearing Precautions, Wound Care, Other (List) (as per above) Brief Synthesis of Preadmission Screen, Post-Admission Evaluation, and Therapy Evaluations: 76 yo female s/p revision of Left TKR with possible wound infection on IV antibiotics had been Independent prior to this and living with spouse in [facility] Comorbidities as per above Medical Prognosis: Good Anticipated Length of Stay: --06-11 Rehab Goals Modified Independent to supervision for adls and mobility skills Anticipated discharge destinat: Home with [facility] and spouse REFUGIO MURPHY MD Jun 15, 2017 16:15
[2017-06-15 18:24] VITALS: BP 163/95
[2017-06-15] MEDS: ATORVASTATIN 80 MG (LIPITOR) TABLET PO SCH (20:20)
[2017-06-16 05:50] VITALS: BP 153/82
[2017-06-16] MEDS: LEVOTHYROXINE 150 MCG (LEVOTHROID) TAB PO SCH (06:02)
[2017-06-16] MEDS: CALCIUM CARB + VIT D 600 MG (CALCARB + D) TAB PO SCH ×2 (06:02→16:31)
[2017-06-16] MEDS: ceFAZolin INJECTION 1,000 MG in NS (IVPB) 50 ML IV SCH ×3 (06:02→21:55)
[2017-06-16] MEDS: MULTIVIT W/MINERALS TAB (THERAGRAN M) PO SCH (06:02)
--- NOTE | 2017-06-16 07:27 | Progress Note-Standard ---
Standard Progress Note Progress Notes/Assess & Plan Date Seen by Provider: Jun 16, 2017 Time Seen by Provider: 07:19 Progress/Assessment & Plan No complaints seeing slow progress. More confident with ambulation LLE--poor quad function. incision with some bloody DC. No calf tenderness S/P l TKR continue Vanco continue PT/OT FIONA SEAY MD Jun 16, 2017 07:27
[2017-06-16] MEDS: ASPIRIN E.C. 81 MG (ECOTRIN) TAB PO SCH (08:30)
[2017-06-16] MEDS: meTOproloL SUCCINATE 50 MG (TOPROL XL) TAB PO SCH (08:30)
[2017-06-16] MEDS: CLOPIDOGREL 75 MG (PLAVIX) TABLET PO SCH (08:31)
[2017-06-16] MEDS: ENOXAPARIN 30 MG/0.3 ML (LOVENOX) SYR SC SCH ×2 (08:31→20:34)
--- NOTE | 2017-06-16 08:41 | PM & R (SOAP) Progress Note ---
Subjective Time Seen by Provider: 07:45 Subjective/Events-last exam Patient was seen in her room this AM Appreciate Dr Krishnamurthy note.Patient SBA for transfers Objective Exam Last Set of Vital Signs Vital Signs Date Time Temp Pulse Resp B/P (MAP) Pulse Ox O2 Delivery O2 Flow Rate FiO2 06/16/17 08:36 Room Air 06/16/17 05:50 99.1 89 12 153/82 98 Capillary Refill : Less Than 3 Seconds I&O Intake and Output 06/17/17 00:00 Intake Total 990 ml Balance 990 ml Intake Oral 940 ml IV Total 50 ml # Voids 3 General: Alert, Oriented X3, Cooperative, No Acute Distress HEENT: Atraumatic, PERRLA, EOMI, Mucous Memb Moist/[place] Neck: Supple, No JVD Lungs: Clear to Auscultation Heart: Regular Rate Abdomen: Normal Bowel Sounds, Soft, No Tenderness Extremities: No Edema Neuro: Other (trace edema left ankle) Assessment/Plan Assessment s/p Left TKR revision Coronary Art D chronic on meds plavix resumed HTN controlled Wound infection on antibiotic Hypothyroidism on synthroid Normocytic anemia-on venofer RA -lefluromide DVT prophylaxis on Lovenox Plan Continue PT/OT F/U with Hospitalist and DR Dugan prn Team Conference later today- See report for full functional update and POC and REFUGIO HOPE MD Jun 16, 2017 08:41
[2017-06-16] MEDS: SENNA W/DOCUSATE (SENOKOT S) TABLET PO SCH ×3 (09:00→20:35)
--- NOTE | 2017-06-16 12:48 | Physical Therapy Daily Note ---
PT Daily Note-Current Subjective Agrees to Rx. Very friendly Pain Numeric Pain Scale: 0-No Pain Mental Status Patient Orientation: Normal For Age Attachments: Polar Pack, Other-See Comments (CPM) Transfers Functional [place] Measure 0=Not Assessed/NA 4=Minimal Assistance 1=Total Assistance 5=Supervision or Setup 2=Maximal Assistance 6=Modified [place] 3=Moderate Assistance 7=Complete IndependenceIRFPAI Quality Coding Scale 6 Independent with activity with or without an assistive device 5 Patient requires set up or clean up by helper. Patient completes activity by themselves 4 Supervision or touching assist (CGA). [place] provide cues , steadying assist 3 The helper provides less than half the effort to complete the activity 2 The helper provides more than half the effort to complete the activity 1 Dependent. The helper does all the effort to complete an activity 7 Patient refused to complete or attempt activity 9 The patient did not perform the activity before the current illness or injury 88 Not attempted due to Medical conditions or safety concerns Transfers (B, C, W/C) (FIM): 4 Scootin Rollin Supine to/from Sit: 4 Sit to/from Stand: 5 needs assist moving LLE to EOB, tried using blue lift as well as using RLE to assist LLE Weight Bearing Right Lower Extremity: Right Full Weight Bearing Left Lower Extremity: Left Weight Bearing/Tolerated Gait Training Does the Patient Walk?: Yes Gait (FIM): 5 Distance (FIM): 3=150 ft (175x2) Gait Level of Assist: 5 Gait Persons Needed: 1 Gait Assistive Device: FWW Exercises Supine Ex: Ankle pumps, Quad Set, Rolling, Glut sets, Heel Slides, Short Arc Quads, Scooting, Straight leg raise (mod to max assist), Hip abd/add Supine Reps: 15 Seated Therapy Exercises: Ankle pumps, Sit to stand, Long arc quads Seated Reps: 10 Standing: Hamstring curls, 3 way Ex=Flex, Abd, Ext, Mini squats Standing Reps: 15 NuStep Minutes: 10 NuStep Workload: 5 Treatments presses on NUSTEP at level 10 resistance with emphasis on L knee extension Assessment Current Status: Good Progress PT Tree Worker Goals Tree Worker Goals PT Halfway Goals Time Frame: Jun 28, 2017 Transfers (B,C,W/C) (FIM): 6 Sit to Lying (QC): 6 Lying-Sitting on Side/Bed(QC): 6 Sit to Stand (QC): 6 Rollin Roll Left to Right (QC): 6 Chair/Hbb-lh-Ggyis Xfer(QC): 6 Does the Patient Walk: Yes Gait (FIM): 6 Distance: >500' Walk 10 feet (QC): 6 Walk 10ft-Uneven Surface(QC): 6 Walk 50ft with 2 Turns (QC): 6 Walk 150 ft (QC): 6 Gait Level of Assist: 6 Gait Assistive Device: FWW Stairs (FIM): 5 # of Steps: 12 1 Step (curb) (QC): 5 4 Steps (QC): 5 12 Steps (QC): 5 Stairs Level Of Assist: 5 Picking up an Object (QC): 5 PT Plan Treatment/Plan Treatment Plan: Continue Plan of Care Treatment Plan: Bed Mobility, Education, Functional Activity Shayy, Functional Strength, Group Therapy, Gait, Safety, Therapeutic Exercise, Transfers Treatment Duration: Jun 28, 2017 Frequency: At least 5 of 7 days/Wk (IRF) Estimated Hrs Per Day: 1.5 hours per day Patient and/or Family Agrees t: Yes Safety Risks/Education Patient Education: Gait Training, Transfer Techniques, Correct Positioning, Disease Process, Safety Issues Teaching Recipient: Patient Teaching Methods: Demonstration, Discussion Response to Teaching: Verbalize Understanding, Return Demonstration, Reinforcement Needed Time/GCodes Time In: 1100 Time Out: 1210 Total Billed Treatment Time: 70 Total Billed Treatment 1,EX25m,FA25m,GT20m G Codes Necessary: GARRY Preciado BLENDER Jun 16, 2017 12:48
--- NOTE | 2017-06-16 14:15 | Physical Therapy Daily Note ---
PT Daily Note-Current Subjective Pt. states she has her on her mind who keeps asking her when she is going to be coming home and why she isnt any farther along in her rehab and strength Pain Numeric Pain Scale: 0-No Pain Transfers Functional [facility] Measure 0=Not Assessed/NA 4=Minimal Assistance 1=Total Assistance 5=Supervision or Setup 2=Maximal Assistance 6=Modified [facility] 3=Moderate Assistance 7=Complete IndependenceIRFPAI Quality Coding Scale 6 Independent with activity with or without an assistive device 5 Patient requires set up or clean up by helper. Patient completes activity by themselves 4 Supervision or touching assist (CGA). [place] provide cues , steadying assist 3 The helper provides less than half the effort to complete the activity 2 The helper provides more than half the effort to complete the activity 1 Dependent. The helper does all the effort to complete an activity 7 Patient refused to complete or attempt activity 9 The patient did not perform the activity before the current illness or injury 88 Not attempted due to Medical conditions or safety concerns in out bed min to mod assist with LLE, sit to stand all SBA to Mod I Weight Bearing Right Lower Extremity: Right Full Weight Bearing Left Lower Extremity: Left Weight Bearing/Tolerated Gait Training 200 ft slow, FWW improved heel strike and knee ext Exercises Supine Ex: Ankle pumps, Quad Set, Heel Slides, Short Arc Quads, Straight leg raise (assistance needed) Supine Reps: 12 Treatments on polar pack and CPM at 0-80 Assessment Current Status: Good Progress continues to struggle with quad strength PT Usp Goals Hiv Prevention Specialist Goals PT Usp Goals Time Frame: Jun 28, 2017 Transfers (B,C,W/C) (FIM): 6 Sit to Lying (QC): 6 Lying-Sitting on Side/Bed(QC): 6 Sit to Stand (QC): 6 Rollin Roll Left to Right (QC): 6 Chair/Swg-pn-Cosxn Xfer(QC): 6 Does the Patient Walk: Yes Gait (FIM): 6 Distance: >500' Walk 10 feet (QC): 6 Walk 10ft-Uneven Surface(QC): 6 Walk 50ft with 2 Turns (QC): 6 Walk 150 ft (QC): 6 Gait Level of Assist: 6 Gait Assistive Device: FWW Stairs (FIM): 5 # of Steps: 12 1 Step (curb) (QC): 5 4 Steps (QC): 5 12 Steps (QC): 5 Stairs Level Of Assist: 5 Picking up an Object (QC): 5 PT Plan Treatment/Plan Treatment Plan: Continue Plan of Care Treatment Plan: Bed Mobility, Education, Functional Activity Shayy, Functional Strength, Group Therapy, Gait, Safety, Therapeutic Exercise, Transfers Treatment Duration: Jun 28, 2017 Frequency: At least 5 of 7 days/Wk (IRF) Estimated Hrs Per Day: 1.5 hours per day Patient and/or Family Agrees t: Yes Safety Risks/Education Patient Education: Gait Training, Transfer Techniques, Correct Positioning, Safety Issues Teaching Recipient: Patient Teaching Methods: Demonstration, Discussion Response to Teaching: Verbalize Understanding, Return Demonstration, Reinforcement Needed positioning in bed reviewed as pt. lays with knee bent and hip ext rot...instructed in toe up, knee extension etc Time/GCodes Time In: 1330 Time Out: 1405 Total Billed Treatment Time: 35 Total Billed Treatment 1,GT15,EX20 G Codes Necessary: GARRY Preciado SAMPLER RADIOACTIVE WASTE Jun 16, 2017 14:15
--- NOTE | 2017-06-16 14:16 | Occupational Ther Daily Note ---
OT Current Status-Daily Note Subjective No pain reported. Appearance Pt. seen at two different times this morning, as breakfast came and spouse came with her favorite coffee. Mental Status/Objective Patient Orientation: Person, Place, Time, Situation Functional [place] Measure 0=Not Assessed/NA 4=Minimal Assistance 1=Total Assistance 5=Supervision or Setup 2=Maximal Assistance 6=Modified [place] 3=Moderate Assistance 7=Complete [place] ADL-Treatment Functional [place] Measure 0=Not Assessed/NA 4=Minimal Assistance 1=Total Assistance 5=Supervision or Setup 2=Maximal Assistance 6=Modified [place] 3=Moderate Assistance 7=Complete IndependenceIRFPAI Quality Coding Scale 6 Independent with activity with or without an assistive device 5 Patient requires set up or clean up by helper. Patient completes activity by themselves 4 Supervision or touching assist (CGA). [place] provide cues , steadying assist 3 The helper provides less than half the effort to complete the activity 2 The helper provides more than half the effort to complete the activity 1 Dependent. The helper does all the effort to complete an activity 7 Patient refused to complete or attempt activity 9 The patient did not perform the activity before the current illness or injury 88 Not attempted due to Medical conditions or safety concerns Eating (FIM): 7 Eating (QC): 6 Upper Body (FIM): 5 (set up) Upper Body Dressing (QC): 5 Lower Body Dressing (FIM): 5 (set up) Lower Body Dressing (QC): 5 On/Off Footwear (QC): 5 Transfers (B, C, W/C) (FIM): 5 (SBA with walker for ambulation. SBA with leg vehicle operator for supine to and from sit.) Other Treatment Pt. declines showering, but does agree to dress self. Requires SBA for all dressing tasks. Spouse came with coffee, and breakfast came. OT agreed to come back later. OT came back and pt. agreeable to therapy. Ambulated with SBA to therapy gym. Completed armbike x 15 minutes for increased overall strength and endurance. Pt. then donned 1 lb. wrist weights and completed therapy peg activity. Tolerated this well. Ambulated back to room and pt. was shown several different techniques for getting leg into bed at home, without bedrails, such as using a kitchen chair up against bed or using a leg vehicle operator to get leg into bed. Pt. tolerated this well and practiced getting into and out of bed several times. Pt. does require rest breaks throughout. Completed dumbbell exercise x 3 lb. x 3 exercise x 15 reps each on bilateral UE in all planes for increased overall strength. Pt. tolerated this well. All needs met. Education OT Patient Education: Correct positioning, Exercise program, Modified ADL techniques, Progress toward Goal/Update tx plan, Purpose of tx/functional activities, Reviewed precautions, Rehab process, Transfer techniques Teaching Recipient: Patient Teaching Methods: Demonstration, Discussion Response to Teaching: Verbalize Understanding, Return Demonstration OT Short Term Goals Short Term Goals 1=Demonstrate adherence to instructed precautions during ADL tasks. 2=Patient will verbalize/demonstrate understanding of assistive devices/ modifications for ADL. 3=Patient will improve strength/tolerance for activity to enable patient to perform ADL's. OT Assembly Manager Goals Mcc Goals Time Frame: Jun 28, 2017 Eating (FIM): 6 Eating (QC): 6 Groomin Oral Hygiene (QC): 6 Bathing(FIM): 6 Shower/Bathe Self (QC): 6 Upper Body Dressing(FIM): 6 Upper Body Dressing (QC): 6 Lower Body Dressing(FIM): 6 Lower Body Dressing (QC): 6 On/Off Footwear (QC): 6 Toileting(FIM): 6 Toileting Hygiene (QC): 6 Transfers (B,C,W/C) (FIM): 6 Toilet/Commode Transfer(FIM): 6 Toilet/Commode Transfer (QC): 6 Shower Transfer(FIM): 5 Additional Goals: 1-Demonstrate ADL Tasks, 2-Verbalize Understanding, 3- ImproveStrength/Shayy 1=Demonstrate adherence to instructed precautions during ADL tasks. 2=Patient will verbalize/demonstrate understanding of assistive devices/ modifications for ADL. 3=Patient will improve strength/tolerance for activity to enable patient to perform ADL's. OT Education/Plan Problem List/Assessment Assessment: Decreased Activ Tolerance, Decreased UE Strength, Impaired I ADL's , Impaired Self-Care Skills Discharge Recommendations Plan/Recommendations: Continue POC Therapy D/C Recommendations: Home w/ Family Support Treatment Plan/Plan of Care Treatment,Training & Education: Yes Patient would benefit from OT for education, treatment and training to promote independence in ADL's, mobility, safety and/or upper extremity function for ADL' s. Plan of Care: ADL Retraining, Functional Mobility, UE Funct Exercise/Act Treatment Duration: Jul 05, 2017 Frequency: At least 5 of 7 days/Wk (IRF) Estimated Hrs Per Day: 1.5 hours per day Agreement: Yes Rehab Potential: Good Time/GCodes Start Time: 08:30 Stop Time: 11:00 Total Time Billed (hr/min): 90 Billed Treatment Time 6585-0152 1, ADL x 30minutes 8153-5679 1, FA x 60minutes KHADRA MCLEOD OT Jun 16, 2017 14:16
[2017-06-16] MEDS: IRON SUCROSE INJECTION 200 MG in NS (IVPB) 100 ML IV SCH (16:31)
[2017-06-16 19:00] VITALS: BP 157/84
[2017-06-16] MEDS: ATORVASTATIN 80 MG (LIPITOR) TABLET PO SCH (20:33)
[2017-06-17] MEDS: ceFAZolin INJECTION 1,000 MG in NS (IVPB) 50 ML IV SCH ×3 (05:32→21:51)
[2017-06-17] MEDS: LEVOTHYROXINE 150 MCG (LEVOTHROID) TAB PO SCH (05:32)
[2017-06-17] MEDS: MULTIVIT W/MINERALS TAB (THERAGRAN M) PO SCH (05:32)
[2017-06-17] MEDS: CALCIUM CARB + VIT D 600 MG (CALCARB + D) TAB PO SCH ×2 (05:33→17:28)
[2017-06-17 06:08] VITALS: BP 158/94
[2017-06-17] MEDS: ASPIRIN E.C. 81 MG (ECOTRIN) TAB PO SCH (09:08)
[2017-06-17] MEDS: CLOPIDOGREL 75 MG (PLAVIX) TABLET PO SCH (09:08)
[2017-06-17] MEDS: SENNA W/DOCUSATE (SENOKOT S) TABLET PO SCH ×2 (09:09→20:10)
[2017-06-17] MEDS: ENOXAPARIN 30 MG/0.3 ML (LOVENOX) SYR SC SCH ×2 (09:10→20:11)
[2017-06-17] MEDS: meTOproloL SUCCINATE 50 MG (TOPROL XL) TAB PO SCH (09:10)
--- NOTE | 2017-06-17 09:47 | Progress Note-Standard ---
Standard Progress Note Progress Notes/Assess & Plan Date Seen by Provider: Jun 17, 2017 Time Seen by Provider: 09:46 Progress/Assessment & Plan No complaints seeing slow progress. More confident with ambulation LLE--poor quad function. incision with some bloody DC. No calf tenderness S/P l TKR continue Vanco continue PT/OT Final Diagnosis No complaints In CPM LLE--dressing intact. No calf tenderness. Neg Nayana's s/p LTKR continue PT/OT continue FIONA Kamara MD Jun 17, 2017 09:47
[2017-06-17] MEDS ORDERED: NITROGLYCERIN 2% OINT 1 GM UNIT DOSE PACKET TOP PRN (10:30)
--- NOTE | 2017-06-17 11:17 | Physical Therapy Daily Note ---
PT Daily Note-Current Subjective States that her muscle is still not firing well. States that she feels like her leg is crooked. Pain Numeric Pain Scale: 0-No Pain Transfers Functional [place] Measure 0=Not Assessed/NA 4=Minimal Assistance 1=Total Assistance 5=Supervision or Setup 2=Maximal Assistance 6=Modified [place] 3=Moderate Assistance 7=Complete IndependenceIRFPAI Quality Coding Scale 6 Independent with activity with or without an assistive device 5 Patient requires set up or clean up by helper. Patient completes activity by themselves 4 Supervision or touching assist (CGA). [place] provide cues , steadying assist 3 The helper provides less than half the effort to complete the activity 2 The helper provides more than half the effort to complete the activity 1 Dependent. The helper does all the effort to complete an activity 7 Patient refused to complete or attempt activity 9 The patient did not perform the activity before the current illness or injury 88 Not attempted due to Medical conditions or safety concerns Transfers (B, C, W/C) (FIM): 5 Supine to/from Sit: 5 Sit to/from Stand: 5 Weight Bearing Right Lower Extremity: Right Full Weight Bearing Left Lower Extremity: Left Weight Bearing/Tolerated Gait Training Gait (FIM): 5 Distance (FIM): 3=150 ft Distance: 300' Gait Level of Assist: 5 Gait Persons Needed: 1 Gait Assistive Device: FWW Stair Training Stair Training: Handrails/: 2 handrails Stairs (FIM): 5 #of Steps: 4 Level of Assist: 5 Exercises Supine Ex: LE Protocol Supine Reps: 20 Seated Therapy Exercises: LE Protocol Seated Reps: 20 NuStep Minutes: 15 NuStep Workload: 5 Assessment Current Status: Excellent Progress The patient continues to have difficulty firing the quad. PT Mcfp Goals Mcfp Goals PT Buyer Goals Time Frame: Jun 28, 2017 Transfers (B,C,W/C) (FIM): 6 Sit to Lying (QC): 6 Lying-Sitting on Side/Bed(QC): 6 Sit to Stand (QC): 6 Rollin Roll Left to Right (QC): 6 Chair/Xxo-kt-Zygnb Xfer(QC): 6 Does the Patient Walk: Yes Gait (FIM): 6 Distance: >500' Walk 10 feet (QC): 6 Walk 10ft-Uneven Surface(QC): 6 Walk 50ft with 2 Turns (QC): 6 Walk 150 ft (QC): 6 Gait Level of Assist: 6 Gait Assistive Device: FWW Stairs (FIM): 5 # of Steps: 12 1 Step (curb) (QC): 5 4 Steps (QC): 5 12 Steps (QC): 5 Stairs Level Of Assist: 5 Picking up an Object (QC): 5 PT Plan Treatment/Plan Treatment Plan: Continue Plan of Care Treatment Plan: Bed Mobility, Education, Functional Activity Shayy, Functional Strength, Group Therapy, Gait, Safety, Therapeutic Exercise, Transfers Treatment Duration: Jun 28, 2017 Frequency: At least 5 of 7 days/Wk (IRF) Estimated Hrs Per Day: 1.5 hours per day Patient and/or Family Agrees t: Yes Time/GCodes Time In: 800 Time Out: 859 Total Billed Treatment Time: 60 Total Billed Treatment 1, GT x 15, EX x 45 YU PATEL PT Jun 17, 2017 11:17
--- NOTE | 2017-06-17 11:50 | Occupational Ther Daily Note ---
OT Current Status-Daily Note Subjective Pt sitting in chair, agrees to treatment. Pt reports "discomfort" in left knee, but does not rate. Mental Status/Objective Functional [place] Measure 0=Not Assessed/NA 4=Minimal Assistance 1=Total Assistance 5=Supervision or Setup 2=Maximal Assistance 6=Modified [place] 3=Moderate Assistance 7=Complete [place] ADL-Treatment Pt declined shower today, would like a sponge bath. Pt sit to stand with supervision. Gait to restroom with FWW. Sponge bath completed seated at sink. Pt able to wash all areas with set up. Don bra and pullover shirt with set up. Pt donned underwear and pants with set up. Assist required to don MAGDALENO hose. Pt donned slip on shoes without assistance. Toilet transfer completed with SBA. Pt able to complete toileting hygiene and clothing management with SBA. Washed hands at sink with SBA. Combed hair with modified independence. Pt states she has already brushed teeth this morning. Functional [place] Measure 0=Not Assessed/NA 4=Minimal Assistance 1=Total Assistance 5=Supervision or Setup 2=Maximal Assistance 6=Modified [place] 3=Moderate Assistance 7=Complete IndependenceIRFPAI Quality Coding Scale 6 Independent with activity with or without an assistive device 5 Patient requires set up or clean up by helper. Patient completes activity by themselves 4 Supervision or touching assist (CGA). [place] provide cues , steadying assist 3 The helper provides less than half the effort to complete the activity 2 The helper provides more than half the effort to complete the activity 1 Dependent. The helper does all the effort to complete an activity 7 Patient refused to complete or attempt activity 9 The patient did not perform the activity before the current illness or injury 88 Not attempted due to Medical conditions or safety concerns Grooming (FIM): 6 Bathing (FIM): 5 Shower/Bathe Self (QC): 5 Upper Body (FIM): 5 Upper Body Dressing (QC): 5 Lower Body Dressing (FIM): 5 Lower Body Dressing (QC): 5 Toileting (FIM): 5 Toileting Hygiene (QC): 4 Toilet/Commode Transfer (FIM): 5 Toilet Transfer (QC): 4 Other Treatment Gait to therapy gym with FWW, no LOB noted. Arm bike x10 minutes to increase overall strength and activity tolerance needed for functional tasks. Pt completed activity with moderate resistance and steady pace. No rest breaks needed. Pt returned to room, sitting in chair with needs met after session. OT Short Term Goals Short Term Goals 1=Demonstrate adherence to instructed precautions during ADL tasks. 2=Patient will verbalize/demonstrate understanding of assistive devices/ modifications for ADL. 3=Patient will improve strength/tolerance for activity to enable patient to perform ADL's. OT Sales Management Intern Goals Nursing Home Goals Time Frame: Jun 28, 2017 Eating (FIM): 6 Eating (QC): 6 Groomin Oral Hygiene (QC): 6 Bathing(FIM): 6 Shower/Bathe Self (QC): 6 Upper Body Dressing(FIM): 6 Upper Body Dressing (QC): 6 Lower Body Dressing(FIM): 6 Lower Body Dressing (QC): 6 On/Off Footwear (QC): 6 Toileting(FIM): 6 Toileting Hygiene (QC): 6 Transfers (B,C,W/C) (FIM): 6 Toilet/Commode Transfer(FIM): 6 Toilet/Commode Transfer (QC): 6 Shower Transfer(FIM): 5 Additional Goals: 1-Demonstrate ADL Tasks, 2-Verbalize Understanding, 3- ImproveStrength/Shayy 1=Demonstrate adherence to instructed precautions during ADL tasks. 2=Patient will verbalize/demonstrate understanding of assistive devices/ modifications for ADL. 3=Patient will improve strength/tolerance for activity to enable patient to perform ADL's. OT Education/Plan Discharge Recommendations Plan/Recommendations: Continue POC Treatment Plan/Plan of Care Patient would benefit from OT for education, treatment and training to promote independence in ADL's, mobility, safety and/or upper extremity function for ADL' s. Plan of Care: ADL Retraining, Functional Mobility, UE Funct Exercise/Act Treatment Duration: Jul 05, 2017 Frequency: At least 5 of 7 days/Wk (IRF) Estimated Hrs Per Day: 1.5 hours per day Agreement: Yes Rehab Potential: Good Time/GCodes Start Time: 07:00 Stop Time: 08:00 Total Time Billed (hr/min): 60 Billed Treatment Time 1 visit, ADLx3(45minutes), EX(15minutes) TONY LUQUE OT Jun 17, 2017 11:50
--- NOTE | 2017-06-17 13:04 | Therapy Group Daily Note ---
Therapy Daily Group Note Other/Notes Pt ambulated to therapy group with SBA using FWW for OT/PT group. OT/PT group consisted of introductions (name and favorite thanksgiving food), socialization , education on handwashing, seated UE/LE exercises, and Thanksgiving Jeopardy. Pt introduced self appropriately and contributed to conversations. Pt was attentive in activities and was able to answer question. Pt was able to complete exercises well and demonstrated good AROM. Pt was able to stand at sink to wash hands prior to lunch. Pt ambulated to [facility] to participate in thanksgiving lunch. After group, pt sitting in recliner with call light/phone in reach. All needs met in room. Start Time: 11:30 Stop Time: 12:30 Total Billed Treatment Time: 60 Total Billed Treatment 1 visit-MARIAN WILKERSON Jun 17, 2017 13:04
[2017-06-17 17:23] VITALS: BP 159/84
[2017-06-17] MEDS: ATORVASTATIN 80 MG (LIPITOR) TABLET PO SCH (20:11)
[2017-06-18 05:00] VITALS: BP 166/83
[2017-06-18] MEDS: CALCIUM CARB + VIT D 600 MG (CALCARB + D) TAB PO SCH ×2 (05:42→17:33)
[2017-06-18] MEDS: MULTIVIT W/MINERALS TAB (THERAGRAN M) PO SCH (05:42)
[2017-06-18] MEDS: ceFAZolin INJECTION 1,000 MG in NS (IVPB) 50 ML IV SCH ×3 (05:42→21:24)
[2017-06-18] MEDS: LEVOTHYROXINE 150 MCG (LEVOTHROID) TAB PO SCH (05:43)
[2017-06-18] MEDS: ASPIRIN E.C. 81 MG (ECOTRIN) TAB PO SCH (08:19)
[2017-06-18] MEDS: CLOPIDOGREL 75 MG (PLAVIX) TABLET PO SCH (08:19)
[2017-06-18] MEDS: meTOproloL SUCCINATE 50 MG (TOPROL XL) TAB PO SCH (08:20)
[2017-06-18] MEDS: SENNA W/DOCUSATE (SENOKOT S) TABLET PO SCH ×2 (08:20→21:25)
[2017-06-18] MEDS: ENOXAPARIN 30 MG/0.3 ML (LOVENOX) SYR SC SCH (09:10)
--- NOTE | 2017-06-18 10:08 | Physical Therapy Daily Note ---
PT Daily Note-Current Subjective Pt. states her is coming to watch and participate in Rx and exercise program. Pt. states she would really like to go home as soon as IV ABX is finsished Pain Numeric Pain Scale: 3 Location: Left Location Body Site: Knee Pain Description: Ache Mental Status Patient Orientation: Normal For Age Transfers Functional [place] Measure 0=Not Assessed/NA 4=Minimal Assistance 1=Total Assistance 5=Supervision or Setup 2=Maximal Assistance 6=Modified [place] 3=Moderate Assistance 7=Complete IndependenceIRFPAI Quality Coding Scale 6 Independent with activity with or without an assistive device 5 Patient requires set up or clean up by helper. Patient completes activity by themselves 4 Supervision or touching assist (CGA). [place] provide cues , steadying assist 3 The helper provides less than half the effort to complete the activity 2 The helper provides more than half the effort to complete the activity 1 Dependent. The helper does all the effort to complete an activity 7 Patient refused to complete or attempt activity 9 The patient did not perform the activity before the current illness or injury 88 Not attempted due to Medical conditions or safety concerns Transfers (B, C, W/C) (FIM): 4 Scootin Rollin Supine to/from Sit: 4 Sit to/from Stand: 6 Weight Bearing Right Lower Extremity: Right Full Weight Bearing Left Lower Extremity: Left Weight Bearing/Tolerated Gait Training Does the Patient Walk?: Yes Gait (FIM): 5 Distance (FIM): 3=150 ft (175x2) Gait Level of Assist: 5 Gait Persons Needed: 1 Gait Assistive Device: FWW much work a dn instruction on gait pattern and heel strike etc. Pts. present and very interested in pt. gaining normalized pattern soon. Stair Training Stair Training: Handrails/: 2 handrails Exercises Supine Ex: Ankle pumps, Quad Set, Rolling, Glut sets, Heel Slides, Short Arc Quads, Scooting, Straight leg raise Supine Reps: 15 Seated Therapy Exercises: Ankle pumps, Sit to stand, Long arc quads Seated Reps: 15 Treatments . polar pack insitu after Rx, edema continues. 10-75 degrees AROM Assessment Current Status: Good Progress PT Alf Goals Bond Runner Goals PT Bond Runner Goals Time Frame: Jun 28, 2017 Transfers (B,C,W/C) (FIM): 6 Sit to Lying (QC): 6 Lying-Sitting on Side/Bed(QC): 6 Sit to Stand (QC): 6 Rollin Roll Left to Right (QC): 6 Chair/[id number]-Jkzox Xfer(QC): 6 Does the Patient Walk: Yes Gait (FIM): 6 Distance: >500' Walk 10 feet (QC): 6 Walk 10ft-Uneven Surface(QC): 6 Walk 50ft with 2 Turns (QC): 6 Walk 150 ft (QC): 6 Gait Level of Assist: 6 Gait Assistive Device: FWW Stairs (FIM): 5 # of Steps: 12 1 Step (curb) (QC): 5 4 Steps (QC): 5 12 Steps (QC): 5 Stairs Level Of Assist: 5 Picking up an Object (QC): 5 PT Plan Treatment/Plan Treatment Plan: Continue Plan of Care Treatment Plan: Bed Mobility, Education, Functional Activity Shayy, Functional Strength, Group Therapy, Gait, Safety, Therapeutic Exercise, Transfers Treatment Duration: Jun 28, 2017 Frequency: At least 5 of 7 days/Wk (IRF) Estimated Hrs Per Day: 1.5 hours per day Patient and/or Family Agrees t: Yes Safety Risks/Education Patient Education: Gait Training, Transfer Techniques, Issued Written HEP, Correct Positioning, Disease Process, Safety Issues Teaching Recipient: Patient Teaching Methods: Demonstration, Discussion Response to Teaching: Verbalize Understanding, Return Demonstration, Reinforcement Needed Time/GCodes Time In: 900 Time Out: 1000 Total Billed Treatment Time: 60 Total Billed Treatment 1,FA15m,GT25m,EX20m G Codes Necessary: GARRY Preciado BEEF RIBBER Jun 18, 2017 10:08
--- NOTE | 2017-06-18 11:46 | Progress Note-Hospitalist ---
Subjective HPI/CC On Admission Date Seen by Provider: Jun 18, 2017 Time Seen by Provider: 11:20 Subjective/Events-last exam Pt reports doing well. She is wondering about further treatment with abx when she goes home. Has not discussed this with Dr Dugan yet. Also does not think blood pressure readings are accurate as they are being checked in the ankle. Objective Exam Vital Signs Vital Sign - Last 12Hours 06/14/17 11:50 Temp 98.7 Pulse 97 Resp 18 B/P (MAP) 120/70 Pulse Ox 99 O2 Delivery Room Air Capillary Refill : Less Than 3 Seconds General Appearance: No Apparent Distress, WD/WN Respiratory: No Accessory Muscle Use, No Respiratory Distress Extremity: Other (legs in MAGDALENO hose, left slightly more edematous than right) Neurologic/Psychiatric: Alert, Oriented x3, Normal Mood/Affect Assessment/Plan Assessment and Plan Assess & Plan/Chief Complaint s/p revision of TKA Diagnosis/Problems Diagnosis/Problems (1) CAD (coronary artery disease) Status: Chronic Assessment & Plan: Continue Plavix Continue ASA, metoprolol, Lipitor Qualifiers: Qualified Codes: I25.10 - Atherosclerotic heart disease of [place] coronary artery without angina pectoris (2) Essential (primary) hypertension Status: Chronic Assessment & Plan: Elevated the past few days Added Nitro paste but pt declined Increased Metoprolol (3) Wound infection Status: Acute Assessment & Plan: coag kyle alvarado grew in wound from intraopertive cultures Continue on Ancef through 06/28 (4) Hypothyroidism Status: Chronic Assessment & Plan: Cont Synthroid (5) Normocytic anemia Status: Acute Assessment & Plan: Continue Venofer (6) Rheumatoid arthritis Status: Chronic Assessment & Plan: Off leflunomide She will call her Special Delivery Mail Carrier to discuss when to resume leflunomide (7) Prophylactic measure Assessment & Plan: Lovenox Reg Diet Saline Lock PICC in place in JILLIAN GARCIA arm, MD Jun 18, 2017 11:46 am
--- NOTE | 2017-06-18 12:36 | Occupational Ther Daily Note ---
OT Current Status-Daily Note Subjective Pt agreeable to treatment this am. Reports "discomfort" in left knee, but does not rate. Mental Status/Objective Functional [place] Measure 0=Not Assessed/NA 4=Minimal Assistance 1=Total Assistance 5=Supervision or Setup 2=Maximal Assistance 6=Modified [place] 3=Moderate Assistance 7=Complete [place] ADL-Treatment Pt declined shower this morning, states she may take one later today. Pt has already gathered her clothes prior to therapists's arrival. Pt donned bra and pullover shirt with modified independence. Pt has already donned pants. Assist required to don MAGDALENO hose. Pt dons slip on shoes without assistance. To restroom with FWW. Pt able to complete toilet transfer with modified independence. Functional [place] Measure 0=Not Assessed/NA 4=Minimal Assistance 1=Total Assistance 5=Supervision or Setup 2=Maximal Assistance 6=Modified [place] 3=Moderate Assistance 7=Complete IndependenceIRFPAI Quality Coding Scale 6 Independent with activity with or without an assistive device 5 Patient requires set up or clean up by helper. Patient completes activity by themselves 4 Supervision or touching assist (CGA). [place] provide cues , steadying assist 3 The helper provides less than half the effort to complete the activity 2 The helper provides more than half the effort to complete the activity 1 Dependent. The helper does all the effort to complete an activity 7 Patient refused to complete or attempt activity 9 The patient did not perform the activity before the current illness or injury 88 Not attempted due to Medical conditions or safety concerns Upper Body (FIM): 6 Upper Body Dressing (QC): 6 Toilet/Commode Transfer (FIM): 6 Toilet Transfer (QC): 6 Other Treatment Pt performed gait to therapy gym with FWW, no LOB noted. Arm bike [id number] to increase overall strength and activity tolerance needed for functional tasks. Pt completed activity with moderate resistance and steady pace. No rest breaks needed. Pt performed bilateral UE exercises to increase strength needed for ADLs and transfers. Pt performed 10 reps of shoulder flexion, abduction, biceps curls, and triceps extension exercises with moderate resistance (red) theraband. Brief rest beaks taken between exercises. Bilateral hand farm adviser exercises x10 reps with moderate resistance therapy foam to increase farm adviser strength.Pt sitting in chair with needs met after session. OT Short Term Goals Short Term Goals 1=Demonstrate adherence to instructed precautions during ADL tasks. 2=Patient will verbalize/demonstrate understanding of assistive devices/ modifications for ADL. 3=Patient will improve strength/tolerance for activity to enable patient to perform ADL's. OT Hide Paster Goals Senior Care Goals Time Frame: Jun 28, 2017 Eating (FIM): 6 Eating (QC): 6 Groomin Oral Hygiene (QC): 6 Bathing(FIM): 6 Shower/Bathe Self (QC): 6 Upper Body Dressing(FIM): 6 Upper Body Dressing (QC): 6 Lower Body Dressing(FIM): 6 Lower Body Dressing (QC): 6 On/Off Footwear (QC): 6 Toileting(FIM): 6 Toileting Hygiene (QC): 6 Transfers (B,C,W/C) (FIM): 6 Toilet/Commode Transfer(FIM): 6 Toilet/Commode Transfer (QC): 6 Shower Transfer(FIM): 5 Additional Goals: 1-Demonstrate ADL Tasks, 2-Verbalize Understanding, 3- ImproveStrength/Shayy 1=Demonstrate adherence to instructed precautions during ADL tasks. 2=Patient will verbalize/demonstrate understanding of assistive devices/ modifications for ADL. 3=Patient will improve strength/tolerance for activity to enable patient to perform ADL's. OT Education/Plan Discharge Recommendations Plan/Recommendations: Continue POC Treatment Plan/Plan of Care Patient would benefit from OT for education, treatment and training to promote independence in ADL's, mobility, safety and/or upper extremity function for ADL' s. Plan of Care: ADL Retraining, Functional Mobility, UE Funct Exercise/Act Treatment Duration: Jul 05, 2017 Frequency: At least 5 of 7 days/Wk (IRF) Estimated Hrs Per Day: 1.5 hours per day Agreement: Yes Rehab Potential: Good Time/GCodes Start Time: 07:55 Stop Time: 08:55 Total Time Billed (hr/min): 60 Billed Treatment Time 1 visit, ADLx2(30minutes), EXx2(30minutes) TONY LUQUE OT Jun 18, 2017 12:35
--- NOTE | 2017-06-18 13:05 | Physical Therapy Daily Note ---
PT Daily Note-Current Subjective Pt. agrees to Rx. Pain Numeric Pain Scale: 0-No Pain Transfers Functional [place] Measure 0=Not Assessed/NA 4=Minimal Assistance 1=Total Assistance 5=Supervision or Setup 2=Maximal Assistance 6=Modified [place] 3=Moderate Assistance 7=Complete IndependenceIRFPAI Quality Coding Scale 6 Independent with activity with or without an assistive device 5 Patient requires set up or clean up by helper. Patient completes activity by themselves 4 Supervision or touching assist (CGA). [place] provide cues , steadying assist 3 The helper provides less than half the effort to complete the activity 2 The helper provides more than half the effort to complete the activity 1 Dependent. The helper does all the effort to complete an activity 7 Patient refused to complete or attempt activity 9 The patient did not perform the activity before the current illness or injury 88 Not attempted due to Medical conditions or safety concerns All TRFs Mod I to SBA Weight Bearing Right Lower Extremity: Right Full Weight Bearing Left Lower Extremity: Left Weight Bearing/Tolerated Gait Training Gait Assistive Device: FWW 75 x 2 equal step length, improved heel strike and knee flexion Stair Training Stair Training: Handrails/: 2 handrails Stairs (FIM): 2 #of Steps: 4 Stairs: Pattern: Step to Level of Assist: 4 Exercises Standing: Hip Abduction (on Left only), Hamstring curls (left only), Heel/toe raises, Marching, Mini squats, Sit to Stand Standing Reps: 12 NuStep Minutes: 10 NuStep Workload: 5 Assessment Current Status: Good Progress PT Shelter Goals Shelter Goals PT Shelter Goals Time Frame: Jun 28, 2017 Transfers (B,C,W/C) (FIM): 6 Sit to Lying (QC): 6 Lying-Sitting on Side/Bed(QC): 6 Sit to Stand (QC): 6 Rollin Roll Left to Right (QC): 6 Chair/Vdf-uq-Kllti Xfer(QC): 6 Does the Patient Walk: Yes Gait (FIM): 6 Distance: >500' Walk 10 feet (QC): 6 Walk 10ft-Uneven Surface(QC): 6 Walk 50ft with 2 Turns (QC): 6 Walk 150 ft (QC): 6 Gait Level of Assist: 6 Gait Assistive Device: FWW Stairs (FIM): 5 # of Steps: 12 1 Step (curb) (QC): 5 4 Steps (QC): 5 12 Steps (QC): 5 Stairs Level Of Assist: 5 Picking up an Object (QC): 5 PT Plan Treatment/Plan Treatment Plan: Continue Plan of Care Treatment Plan: Bed Mobility, Education, Functional Activity Shayy, Functional Strength, Group Therapy, Gait, Safety, Therapeutic Exercise, Transfers Treatment Duration: Jun 28, 2017 Frequency: At least 5 of 7 days/Wk (IRF) Estimated Hrs Per Day: 1.5 hours per day Patient and/or Family Agrees t: Yes Safety Risks/Education Patient Education: Gait Training, Transfer Techniques, Steps, Correct Positioning, Safety Issues Teaching Recipient: Patient Teaching Methods: Demonstration, Discussion Response to Teaching: Verbalize Understanding, Return Demonstration, Reinforcement Needed Time/GCodes Time In: 1230 Time Out: 1300 Total Billed Treatment Time: 30 Total Billed Treatment 1,EX30m G Codes Necessary: GARRY Preciado DIRECTOR PHONE Jun 18, 2017 13:05
--- NOTE | 2017-06-18 14:54 | Occupational Ther Daily Note ---
OT Current Status-Daily Note Subjective Pt sitting in chair, agrees to treatment. Mental Status/Objective Functional [place] Measure 0=Not Assessed/NA 4=Minimal Assistance 1=Total Assistance 5=Supervision or Setup 2=Maximal Assistance 6=Modified [place] 3=Moderate Assistance 7=Complete [place] ADL-Treatment Functional [place] Measure 0=Not Assessed/NA 4=Minimal Assistance 1=Total Assistance 5=Supervision or Setup 2=Maximal Assistance 6=Modified [place] 3=Moderate Assistance 7=Complete IndependenceIRFPAI Quality Coding Scale 6 Independent with activity with or without an assistive device 5 Patient requires set up or clean up by helper. Patient completes activity by themselves 4 Supervision or touching assist (CGA). [place] provide cues , steadying assist 3 The helper provides less than half the effort to complete the activity 2 The helper provides more than half the effort to complete the activity 1 Dependent. The helper does all the effort to complete an activity 7 Patient refused to complete or attempt activity 9 The patient did not perform the activity before the current illness or injury 88 Not attempted due to Medical conditions or safety concerns Other Treatment Pt sit to stand with modified independence. Gait to therapy gym with FWW. Pt completed bilateral UE exercises to promote increased strength needed for ADLs and transfers. Pt performed shoulder flexion, forward press, biceps curls, and wrist flex/ext x15 reps with 1# dowel roberto. Brief rest breaks between exercises. Pt completed fine motor activity with nuts and bolts with 1# weights in place to increase strength and fine motor coordination. Pt returned to room and completed sit to supine with modified independence. Pt in bed with needs met , CPM and polar pack in place after session. OT Short Term Goals Short Term Goals 1=Demonstrate adherence to instructed precautions during ADL tasks. 2=Patient will verbalize/demonstrate understanding of assistive devices/ modifications for ADL. 3=Patient will improve strength/tolerance for activity to enable patient to perform ADL's. OT Retirement Goals Retirement Goals Time Frame: Jun 28, 2017 Eating (FIM): 6 Eating (QC): 6 Groomin Oral Hygiene (QC): 6 Bathing(FIM): 6 Shower/Bathe Self (QC): 6 Upper Body Dressing(FIM): 6 Upper Body Dressing (QC): 6 Lower Body Dressing(FIM): 6 Lower Body Dressing (QC): 6 On/Off Footwear (QC): 6 Toileting(FIM): 6 Toileting Hygiene (QC): 6 Transfers (B,C,W/C) (FIM): 6 Toilet/Commode Transfer(FIM): 6 Toilet/Commode Transfer (QC): 6 Shower Transfer(FIM): 5 Additional Goals: 1-Demonstrate ADL Tasks, 2-Verbalize Understanding, 3- ImproveStrength/Shayy 1=Demonstrate adherence to instructed precautions during ADL tasks. 2=Patient will verbalize/demonstrate understanding of assistive devices/ modifications for ADL. 3=Patient will improve strength/tolerance for activity to enable patient to perform ADL's. OT Education/Plan Discharge Recommendations Plan/Recommendations: Continue POC Treatment Plan/Plan of Care Patient would benefit from OT for education, treatment and training to promote independence in ADL's, mobility, safety and/or upper extremity function for ADL' s. Plan of Care: ADL Retraining, Functional Mobility, UE Funct Exercise/Act Treatment Duration: Jul 05, 2017 Frequency: At least 5 of 7 days/Wk (IRF) Estimated Hrs Per Day: 1.5 hours per day Agreement: Yes Rehab Potential: Good Time/GCodes Start Time: 13:00 Stop Time: 13:30 Total Time Billed (hr/min): 30 Billed Treatment Time 1 visit, EXx2(30minutes) TONY LUQUE OT Jun 18, 2017 14:54
[2017-06-18] MEDS: IRON SUCROSE INJECTION 200 MG in NS (IVPB) 100 ML IV SCH (15:33)
[2017-06-18 18:56] VITALS: BP 156/81
[2017-06-18] MEDS: ATORVASTATIN 80 MG (LIPITOR) TABLET PO SCH (21:24)
[2017-06-19] MEDS: ceFAZolin INJECTION 1,000 MG in NS (IVPB) 50 ML IV SCH ×3 (05:44→21:01)
[2017-06-19] MEDS: LEVOTHYROXINE 150 MCG (LEVOTHROID) TAB PO SCH (05:45)
[2017-06-19 05:58] VITALS: BP 159/71
[2017-06-19] MEDS: MULTIVIT W/MINERALS TAB (THERAGRAN M) PO SCH (06:00)
[2017-06-19] MEDS: CALCIUM CARB + VIT D 600 MG (CALCARB + D) TAB PO SCH ×2 (06:01→17:50)
[2017-06-19] MEDS: CLOPIDOGREL 75 MG (PLAVIX) TABLET PO SCH (09:47)
[2017-06-19] MEDS: meTOproloL SUCCINATE 50 MG (TOPROL XL) TAB PO SCH (09:47)
[2017-06-19] MEDS: ASPIRIN E.C. 81 MG (ECOTRIN) TAB PO SCH (09:47)
[2017-06-19] MEDS: SENNA W/DOCUSATE (SENOKOT S) TABLET PO SCH ×2 (09:47→21:02)
[2017-06-19] MEDS: NAPROXEN 250 MG (NAPROSYN) TABLET PO PRN (10:06)
--- NOTE | 2017-06-19 10:10 | Physical Therapy Daily Note ---
PT Daily Note-Current Subjective States she is discouraged that she has not been able to conquer SAQ and recruit quads efficiently. Agreeable to Rx. Pain Numeric Pain Scale: 4 Location: Left Location Body Site: Knee Pain Description: Ache Mental Status Patient Orientation: Normal For Age Transfers Functional [place] Measure 0=Not Assessed/NA 4=Minimal Assistance 1=Total Assistance 5=Supervision or Setup 2=Maximal Assistance 6=Modified [place] 3=Moderate Assistance 7=Complete IndependenceIRFPAI Quality Coding Scale 6 Independent with activity with or without an assistive device 5 Patient requires set up or clean up by helper. Patient completes activity by themselves 4 Supervision or touching assist (CGA). [place] provide cues , steadying assist 3 The helper provides less than half the effort to complete the activity 2 The helper provides more than half the effort to complete the activity 1 Dependent. The helper does all the effort to complete an activity 7 Patient refused to complete or attempt activity 9 The patient did not perform the activity before the current illness or injury 88 Not attempted due to Medical conditions or safety concerns Transfers (B, C, W/C) (FIM): 5 Scootin Rollin Supine to/from Sit: 5 Sit to/from Stand: 6 instructed in rolling and log roll technique sup to side to sit from left and right which pt. conquered both left and right approach from flat surface without using rails on bed. Weight Bearing Right Lower Extremity: Right Full Weight Bearing Left Lower Extremity: Left Weight Bearing/Tolerated Gait Training Does the Patient Walk?: Yes Gait (FIM): 6 Distance (FIM): 3=150 ft (180x2) Gait Level of Assist: 6 Gait Persons Needed: 0 Gait Assistive Device: FWW up ad fide status in room and about unit. worked more on better gait pattern with decreased circumduction noted as well as increased heel strike etc Exercises Supine Ex: Ankle pumps, Quad Set, Rolling, Glut sets, Heel Slides, Short Arc Quads (assist still required), Straight leg raise (max assist required), Hip abd /add (ssist required) Supine Reps: 15 Treatments worked on left LE alignment and hip ab adduction as this is weakened, poor control LLE Assessment Current Status: Good Progress still lacking quad recruitment L Knee . AROM 10 - 70 PT Screw Machine Set Up Operator Tool Goals Fdc Goals PT Fdc Goals Time Frame: Jun 28, 2017 Transfers (B,C,W/C) (FIM): 6 Sit to Lying (QC): 6 Lying-Sitting on Side/Bed(QC): 6 Sit to Stand (QC): 6 Rollin Roll Left to Right (QC): 6 Chair/Mqq-su-Rydbk Xfer(QC): 6 Does the Patient Walk: Yes Gait (FIM): 6 Distance: >500' Walk 10 feet (QC): 6 Walk 10ft-Uneven Surface(QC): 6 Walk 50ft with 2 Turns (QC): 6 Walk 150 ft (QC): 6 Gait Level of Assist: 6 Gait Assistive Device: FWW Stairs (FIM): 5 # of Steps: 12 1 Step (curb) (QC): 5 4 Steps (QC): 5 12 Steps (QC): 5 Stairs Level Of Assist: 5 Picking up an Object (QC): 5 PT Plan Treatment/Plan Treatment Plan: Continue Plan of Care Treatment Plan: Bed Mobility, Education, Functional Activity Shayy, Functional Strength, Group Therapy, Gait, Safety, Therapeutic Exercise, Transfers Treatment Duration: Jun 28, 2017 Frequency: At least 5 of 7 days/Wk (IRF) Estimated Hrs Per Day: 1.5 hours per day Patient and/or Family Agrees t: Yes Safety Risks/Education Patient Education: Gait Training, Transfer Techniques, Issued Written HEP, Correct Positioning, Disease Process, Safety Issues Teaching Recipient: Patient Teaching Methods: Demonstration, Discussion Response to Teaching: Verbalize Understanding, Return Demonstration, Reinforcement Needed Time/GCodes Time In: 905 Time Out: 940 Total Billed Treatment Time: 35 Total Billed Treatment 1,GT15m,EX20m G Codes Necessary: GARRY Preciado WEB COMMUNICATIONS SPECIALIST Jun 19, 2017 10:10
--- NOTE | 2017-06-19 12:11 | Progress Note-Standard ---
Standard Progress Note Progress Notes/Assess & Plan Date Seen by Provider: Jun 19, 2017 Time Seen by Provider: 12:10 Progress/Assessment & Plan No complaints seeing slow progress. More confident with ambulation LLE--poor quad function. incision with some bloody DC. No calf tenderness S/P l TKR continue Vanco continue PT/OT Final Diagnosis ambulating easier LLE--incision with minimal bloody DC no erythema neg SLR, flexion to 90 actively. patella appears wellcentered s/p LTKA continue PT/OT continue FIONA Kamara MD Jun 19, 2017 12:11
[2017-06-19 18:04] VITALS: BP 145/82
[2017-06-19] MEDS: ATORVASTATIN 80 MG (LIPITOR) TABLET PO SCH (21:02)
[2017-06-20 05:13] VITALS: BP 163/81
[2017-06-20] MEDS: LEVOTHYROXINE 150 MCG (LEVOTHROID) TAB PO SCH (06:06)
[2017-06-20] MEDS: CALCIUM CARB + VIT D 600 MG (CALCARB + D) TAB PO SCH ×2 (06:06→17:10)
[2017-06-20] MEDS: ceFAZolin INJECTION 1,000 MG in NS (IVPB) 50 ML IV SCH ×3 (06:06→21:47)
[2017-06-20] MEDS: MULTIVIT W/MINERALS TAB (THERAGRAN M) PO SCH (06:06)
[2017-06-20] MEDS: ASPIRIN E.C. 81 MG (ECOTRIN) TAB PO SCH (08:16)
[2017-06-20] MEDS: SENNA W/DOCUSATE (SENOKOT S) TABLET PO SCH ×2 (08:16→21:46)
[2017-06-20] MEDS: meTOproloL SUCCINATE 50 MG (TOPROL XL) TAB PO SCH (08:16)
[2017-06-20] MEDS: CLOPIDOGREL 75 MG (PLAVIX) TABLET PO SCH (08:16)
[2017-06-20 18:11] VITALS: BP 155/80
[2017-06-20] MEDS: ATORVASTATIN 80 MG (LIPITOR) TABLET PO SCH (21:47)
[2017-06-21] MEDS: LEVOTHYROXINE 150 MCG (LEVOTHROID) TAB PO SCH (05:57)
[2017-06-21] MEDS: CALCIUM CARB + VIT D 600 MG (CALCARB + D) TAB PO SCH ×2 (05:57→17:24)
[2017-06-21] MEDS: MULTIVIT W/MINERALS TAB (THERAGRAN M) PO SCH (05:57)
[2017-06-21] MEDS: ceFAZolin INJECTION 1,000 MG in NS (IVPB) 50 ML IV SCH ×3 (05:57→21:23)
[2017-06-21 06:00] VITALS: BP 157/81
[2017-06-21] MEDS: CLOPIDOGREL 75 MG (PLAVIX) TABLET PO SCH (08:17)
[2017-06-21] MEDS: ASPIRIN E.C. 81 MG (ECOTRIN) TAB PO SCH (08:17)
[2017-06-21] MEDS: SENNA W/DOCUSATE (SENOKOT S) TABLET PO SCH ×2 (08:17→20:28)
[2017-06-21] MEDS: NAPROXEN 250 MG (NAPROSYN) TABLET PO PRN ×2 (08:17→13:48)
[2017-06-21] MEDS: meTOproloL SUCCINATE 50 MG (TOPROL XL) TAB PO SCH (08:18)
--- NOTE | 2017-06-21 10:15 | Physical Therapy Daily Note ---
PT Daily Note-Current Subjective Patient reports that she is doing well. She has been getting around by herself throughout the day. She is still experiencing swelling in L knee and inability to move it as well as she wants, but she believes she is functional. Pain Numeric Pain Scale: 0-No Pain Location: No Pain Reported Appearance Patient appears in good health. She is left seated in chair with call light in reach. Mental Status Patient Orientation: Normal For Age Transfers Functional [place] Measure 0=Not Assessed/NA 4=Minimal Assistance 1=Total Assistance 5=Supervision or Setup 2=Maximal Assistance 6=Modified [place] 3=Moderate Assistance 7=Complete IndependenceIRFPAI Quality Coding Scale 6 Independent with activity with or without an assistive device 5 Patient requires set up or clean up by helper. Patient completes activity by themselves 4 Supervision or touching assist (CGA). [place] provide cues , steadying assist 3 The helper provides less than half the effort to complete the activity 2 The helper provides more than half the effort to complete the activity 1 Dependent. The helper does all the effort to complete an activity 7 Patient refused to complete or attempt activity 9 The patient did not perform the activity before the current illness or injury 88 Not attempted due to Medical conditions or safety concerns Transfers (B, C, W/C) (FIM): 6 Scootin Rollin Roll Left to Right (QC): 6 Supine to/from Sit: 6 Sit to/from Stand: 6 Sit to Lying (QC): 6 Sit to Stand (QC): 6 Chair/Uek-ag-Pmrij Xfer(QC): 6 Bed to/from Chair: 6 Car Transfer (QC): 6 Patient performs all transfers with Mod I. She performs transfers by herself in modified form because of current weakness of L LE. Weight Bearing Right Lower Extremity: Right Full Weight Bearing Left Lower Extremity: Left Weight Bearing/Tolerated Gait Training Does the Patient Walk?: Yes Gait (FIM): 6 Distance: >300' Walk 10 feet (QC): 6 Walk 50 ft with 2 Turns(QC): 6 Walk 150 ft (QC): 6 Walking 10ft/uneven surface-QC: 6 Gait Level of Assist: 6 Gait Assistive Device: FWW Patient is free to ambulate independently with a FWW. L LE is still slightly externally rotated with a normal reciprocal gait pattern. Stair Training Stair Training: Handrails/: 1 handrail Stairs (FIM): 6 #of Steps: 12 1 Step (curb) (QC): 6 4 Steps (QC): 6 12 Steps (QC): 6 Stairs: Pattern: Step to Level of Assist: 6 Patient ascends and descends stairs with step to gait pattern. PT is present, but is not needed for assistance. Exercises Supine Ex: Heel Slides (ROM 5-90 degrees AROM), Short Arc Quads (patient able to hold L foot above mat for 5" after PT assist raising foot) Supine Reps: 20 Seated Therapy Exercises: Long arc quads (ROM limited by quad weakness) Seated Reps: 20 NuStep Minutes: 11 (improve ROM as well as promote muscular strength and endurance of LE) NuStep Workload: 6 Assessment Current Status: Good Progress Patient is showing improved activation of quadriceps musculature with leg extension. Patient will benefit from continued physical therapy to continue to improve hip flexion and knee extension. Patient is otherwise functional and healthy. PT Weather Stripper Goals Weather Stripper Goals PT Weather Stripper Goals Time Frame: Jun 28, 2017 Transfers (B,C,W/C) (FIM): 6 Sit to Lying (QC): 6 Lying-Sitting on Side/Bed(QC): 6 Sit to Stand (QC): 6 Rollin Roll Left to Right (QC): 6 Chair/Vwz-cl-Vgjzj Xfer(QC): 6 Does the Patient Walk: Yes Gait (FIM): 6 Distance: >500' Walk 10 feet (QC): 6 Walk 10ft-Uneven Surface(QC): 6 Walk 50ft with 2 Turns (QC): 6 Walk 150 ft (QC): 6 Gait Level of Assist: 6 Gait Assistive Device: FWW Stairs (FIM): 5 # of Steps: 12 1 Step (curb) (QC): 5 4 Steps (QC): 5 12 Steps (QC): 5 Stairs Level Of Assist: 5 Picking up an Object (QC): 5 PT Plan Problem List Problem List: Activity Tolerance, Functional Strength, Safety, Balance, Gait Treatment/Plan Treatment Plan: Continue Plan of Care Treatment Plan: Bed Mobility, Education, Functional Activity Shayy, Functional Strength, Group Therapy, Gait, Safety, Therapeutic Exercise, Transfers Treatment Duration: Jun 28, 2017 Frequency: At least 5 of 7 days/Wk (IRF) Estimated Hrs Per Day: 1.5 hours per day Patient and/or Family Agrees t: Yes Safety Risks/Education Patient Education: Gait Training, Steps, Safety Issues Teaching Recipient: Patient Teaching Methods: Demonstration, Discussion Response to Teaching: Verbalize Understanding, Return Demonstration Discharge Recommendations Therapy D/C Recommendations: Home w/ Family Support, Physical Therapy Home Care , Physical Therapy Outpatient Equpiment Recommendations-D/C: Front Wheeled Walker Time/GCodes Time In: 910 Time Out: 1010 Total Billed Treatment Time: 60 Total Billed Treatment 1 visit GT 10 min EX x 3 50 min CR STONER PT Jun 21, 2017 10:15
--- NOTE | 2017-06-21 14:10 | Occupational Ther Daily Note ---
OT Current Status-Daily Note Subjective No pain reported. Appearance Pt. is up in chair. Agrees to shower. Mental Status/Objective Patient Orientation: Person, Place, Time, Situation Functional [place] Measure 0=Not Assessed/NA 4=Minimal Assistance 1=Total Assistance 5=Supervision or Setup 2=Maximal Assistance 6=Modified [place] 3=Moderate Assistance 7=Complete [place] Pt. has PICC line in left upper arm. ADL-Treatment Functional [place] Measure 0=Not Assessed/NA 4=Minimal Assistance 1=Total Assistance 5=Supervision or Setup 2=Maximal Assistance 6=Modified [place] 3=Moderate Assistance 7=Complete IndependenceIRFPAI Quality Coding Scale 6 Independent with activity with or without an assistive device 5 Patient requires set up or clean up by helper. Patient completes activity by themselves 4 Supervision or touching assist (CGA). [place] provide cues , steadying assist 3 The helper provides less than half the effort to complete the activity 2 The helper provides more than half the effort to complete the activity 1 Dependent. The helper does all the effort to complete an activity 7 Patient refused to complete or attempt activity 9 The patient did not perform the activity before the current illness or injury 88 Not attempted due to Medical conditions or safety concerns Eating (FIM): 7 Eating (QC): 6 Grooming (FIM): 6 Oral Hygiene (QC): 6 Bathing (FIM): 6 Shower/Bathe Self (QC): 6 Upper Body (FIM): 6 Upper Body Dressing (QC): 6 Lower Body Dressing (FIM): 6 Lower Body Dressing (QC): 6 On/Off Footwear (QC): 6 Toileting (FIM): 6 Toileting Hygiene (QC): 6 Transfers (B, C, W/C) (FIM): 6 Toilet/Commode Transfer (FIM): 6 Toilet Transfer (QC): 6 Shower Transfer(FIM): 5 Education OT Patient Education: Modified ADL techniques, Progress toward Goal/Update tx plan, Purpose of tx/functional activities, Reviewed precautions, Rehab process, Transfer techniques Teaching Recipient: Patient Teaching Methods: Demonstration, Discussion (0) Response to Teaching: Verbalize Understanding, Return Demonstration OT Short Term Goals Short Term Goals 1=Demonstrate adherence to instructed precautions during ADL tasks. 2=Patient will verbalize/demonstrate understanding of assistive devices/ modifications for ADL. 3=Patient will improve strength/tolerance for activity to enable patient to perform ADL's. OT Digital Cartographer Goals Skilled Nursing Goals Time Frame: Jun 28, 2017 Eating (FIM): 6 Eating (QC): 6 Groomin Oral Hygiene (QC): 6 Bathing(FIM): 6 Shower/Bathe Self (QC): 6 Upper Body Dressing(FIM): 6 Upper Body Dressing (QC): 6 Lower Body Dressing(FIM): 6 Lower Body Dressing (QC): 6 On/Off Footwear (QC): 6 Toileting(FIM): 6 Toileting Hygiene (QC): 6 Transfers (B,C,W/C) (FIM): 6 Toilet/Commode Transfer(FIM): 6 Toilet/Commode Transfer (QC): 6 Shower Transfer(FIM): 5 Additional Goals: 1-Demonstrate ADL Tasks, 2-Verbalize Understanding, 3- ImproveStrength/Shayy 1=Demonstrate adherence to instructed precautions during ADL tasks. 2=Patient will verbalize/demonstrate understanding of assistive devices/ modifications for ADL. 3=Patient will improve strength/tolerance for activity to enable patient to perform ADL's. OT Education/Plan Discharge Recommendations Plan/Recommendations: Continue POC Therapy D/C Recommendations: Home w/ Family Support, Occupational Therapy Home Care Target Placement Home with spouse support. Pt. would also benefit from home health OT, as she is discouraged at times from her inability to fully move left knee just yet. Treatment Plan/Plan of Care Treatment,Training & Education: Yes Patient would benefit from OT for education, treatment and training to promote independence in ADL's, mobility, safety and/or upper extremity function for ADL' s. Plan of Care: ADL Retraining, Functional Mobility, UE Funct Exercise/Act Treatment Duration: Jul 05, 2017 Frequency: At least 5 of 7 days/Wk (IRF) Estimated Hrs Per Day: 1.5 hours per day Agreement: Yes Rehab Potential: Good Time/GCodes Start Time: 10:30 Stop Time: 11:30 Total Time Billed (hr/min): 60 Billed Treatment Time 1, ADL x 4 KHADRA MCLEOD OT Jun 21, 2017 14:10
--- NOTE | 2017-06-21 14:15 | Occupational Ther Daily Note ---
OT Current Status-Daily Note Subjective No pain reported. Appearance Pt. up in chair. Agrees to treatment. Mental Status/Objective Patient Orientation: Person, Place, Time, Situation Functional [place] Measure 0=Not Assessed/NA 4=Minimal Assistance 1=Total Assistance 5=Supervision or Setup 2=Maximal Assistance 6=Modified [place] 3=Moderate Assistance 7=Complete [place] ADL-Treatment Functional [place] Measure 0=Not Assessed/NA 4=Minimal Assistance 1=Total Assistance 5=Supervision or Setup 2=Maximal Assistance 6=Modified [place] 3=Moderate Assistance 7=Complete IndependenceIRFPAI Quality Coding Scale 6 Independent with activity with or without an assistive device 5 Patient requires set up or clean up by helper. Patient completes activity by themselves 4 Supervision or touching assist (CGA). [place] provide cues , steadying assist 3 The helper provides less than half the effort to complete the activity 2 The helper provides more than half the effort to complete the activity 1 Dependent. The helper does all the effort to complete an activity 7 Patient refused to complete or attempt activity 9 The patient did not perform the activity before the current illness or injury 88 Not attempted due to Medical conditions or safety concerns Transfers (B, C, W/C) (FIM): 6 (Pt. ambulated to therapy gym with Mod I using walker.) Pt. completed bilateral UE exercises x 3 lb. dumbbells x 15 reps x 4 exercises x 3 sets in all planes. Tolerated treatment well for increased overall strength and UE endurance with daily tasks. Pt. required several brief rest breaks, but overall tolerated well. Ambulated back to room with Mod I. All needs met in room. Education OT Patient Education: Progress toward Goal/Update tx plan, Purpose of tx/ functional activities, Reviewed precautions, Rehab process, Transfer techniques Teaching Recipient: Patient Teaching Methods: Demonstration, Discussion Response to Teaching: Verbalize Understanding, Return Demonstration OT Short Term Goals Short Term Goals 1=Demonstrate adherence to instructed precautions during ADL tasks. 2=Patient will verbalize/demonstrate understanding of assistive devices/ modifications for ADL. 3=Patient will improve strength/tolerance for activity to enable patient to perform ADL's. OT Nurse Consultant Goals Nurse Consultant Goals Time Frame: Jun 28, 2017 Eating (FIM): 6 Eating (QC): 6 Groomin Oral Hygiene (QC): 6 Bathing(FIM): 6 Shower/Bathe Self (QC): 6 Upper Body Dressing(FIM): 6 Upper Body Dressing (QC): 6 Lower Body Dressing(FIM): 6 Lower Body Dressing (QC): 6 On/Off Footwear (QC): 6 Toileting(FIM): 6 Toileting Hygiene (QC): 6 Transfers (B,C,W/C) (FIM): 6 Toilet/Commode Transfer(FIM): 6 Toilet/Commode Transfer (QC): 6 Shower Transfer(FIM): 5 Additional Goals: 1-Demonstrate ADL Tasks, 2-Verbalize Understanding, 3- ImproveStrength/Shayy 1=Demonstrate adherence to instructed precautions during ADL tasks. 2=Patient will verbalize/demonstrate understanding of assistive devices/ modifications for ADL. 3=Patient will improve strength/tolerance for activity to enable patient to perform ADL's. OT Education/Plan Discharge Recommendations Plan/Recommendations: Continue POC Therapy D/C Recommendations: Home w/ Family Support, Occupational Therapy Home Care Treatment Plan/Plan of Care Treatment,Training & Education: Yes Patient would benefit from OT for education, treatment and training to promote independence in ADL's, mobility, safety and/or upper extremity function for ADL' s. Plan of Care: ADL Retraining, Functional Mobility, UE Funct Exercise/Act Treatment Duration: Jul 05, 2017 Frequency: At least 5 of 7 days/Wk (IRF) Estimated Hrs Per Day: 1.5 hours per day Agreement: Yes Rehab Potential: Good Time/GCodes Start Time: 13:00 Stop Time: 13:30 Total Time Billed (hr/min): 30 Billed Treatment Time 1, EX x 2 KHADRA MCLEOD OT Jun 21, 2017 14:15
--- NOTE | 2017-06-21 14:55 | Physical Therapy Daily Note ---
PT Daily Note-Current Subjective Patient is sleeping in her recliner upon PT entering the room. She agrees to PT. Pain Numeric Pain Scale: 0-No Pain Location: No Pain Reported Appearance Patient appears in good health. She is left post tx in recliner with call light in reach. Mental Status Patient Orientation: Normal For Age Transfers Functional [place] Measure 0=Not Assessed/NA 4=Minimal Assistance 1=Total Assistance 5=Supervision or Setup 2=Maximal Assistance 6=Modified [place] 3=Moderate Assistance 7=Complete IndependenceIRFPAI Quality Coding Scale 6 Independent with activity with or without an assistive device 5 Patient requires set up or clean up by helper. Patient completes activity by themselves 4 Supervision or touching assist (CGA). [place] provide cues , steadying assist 3 The helper provides less than half the effort to complete the activity 2 The helper provides more than half the effort to complete the activity 1 Dependent. The helper does all the effort to complete an activity 7 Patient refused to complete or attempt activity 9 The patient did not perform the activity before the current illness or injury 88 Not attempted due to Medical conditions or safety concerns Transfers (B, C, W/C) (FIM): 6 Sit to/from Stand: 6 Patient performed sit to stand transfer mod I. Weight Bearing Right Lower Extremity: Right Full Weight Bearing Left Lower Extremity: Left Weight Bearing/Tolerated Gait Training Gait (FIM): 6 Distance: 300' Gait Level of Assist: 6 Gait Assistive Device: FWW Patient ambulates with safe gait pattern in FWW. Patient is showing improved stride and less external rotation of L LE during gait. Exercises Standing: Heel/toe raises (bilateral), Marching, Mini squats, Step-ups Standing Reps: 20 Assessment Current Status: Good Progress Patient has good tolerance for therapeutic intervention. She is showing some frustration with swelling distally and proximally to the L knee, but she is showing improved function and muscular activation. PT Contract Administrator Goals Contract Administrator Goals PT Skilled Nursing Goals Time Frame: Jun 28, 2017 Transfers (B,C,W/C) (FIM): 6 Sit to Lying (QC): 6 Lying-Sitting on Side/Bed(QC): 6 Sit to Stand (QC): 6 Rollin Roll Left to Right (QC): 6 Chair/Dta-ws-Ulblh Xfer(QC): 6 Does the Patient Walk: Yes Gait (FIM): 6 Distance: >500' Walk 10 feet (QC): 6 Walk 10ft-Uneven Surface(QC): 6 Walk 50ft with 2 Turns (QC): 6 Walk 150 ft (QC): 6 Gait Level of Assist: 6 Gait Assistive Device: FWW Stairs (FIM): 5 # of Steps: 12 1 Step (curb) (QC): 5 4 Steps (QC): 5 12 Steps (QC): 5 Stairs Level Of Assist: 5 Picking up an Object (QC): 5 PT Plan Problem List Problem List: Activity Tolerance, Functional Strength, Safety, Balance, Gait Treatment/Plan Treatment Plan: Continue Plan of Care Treatment Plan: Bed Mobility, Education, Functional Activity Shayy, Functional Strength, Group Therapy, Gait, Safety, Therapeutic Exercise, Transfers Treatment Duration: Jun 28, 2017 Frequency: At least 5 of 7 days/Wk (IRF) Estimated Hrs Per Day: 1.5 hours per day Patient and/or Family Agrees t: Yes Time/GCodes Time In: 1402 Time Out: 1432 Total Billed Treatment Time: 30 Total Billed Treatment 1 visit EX x 2 30 min CR STONER PT Jun 21, 2017 14:55
--- NOTE | 2017-06-21 15:25 | PM & R (SOAP) Progress Note ---
Subjective Time Seen by Provider: 15:21 Subjective/Events-last exam Patient was seen in her room this afternoon with RN Patient all set for discharge tomorrow as she is Modified Independent for transfers but still has several more days of IV Ancef to complete.SW to follow-up re having patient administer herself. Objective Exam Last Set of Vital Signs Vital Signs Date Time Temp Pulse Resp B/P (MAP) Pulse Ox O2 Delivery O2 Flow Rate FiO2 06/21/17 10:39 Room Air 06/21/17 08:22 78 20 98 06/21/17 06:00 98.5 157/81 Capillary Refill : Less Than 3 Seconds I&O Intake and Output 06/22/17 00:00 Intake Total 300 ml Balance 300 ml Intake Oral 300 ml # Voids 2 General: Alert, Oriented X3, Cooperative, No Acute Distress HEENT: Atraumatic, PERRLA, EOMI, Mucous Memb Moist/[place] Neck: Supple, No JVD Lungs: Clear to Auscultation Heart: Regular Rate Abdomen: Normal Bowel Sounds, Soft, No Tenderness Extremities: No Edema Neuro: Other (trace edema left ankle) Assessment/Plan Assessment 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
--- NOTE | 2017-06-21 16:49 | Progress Note-Standard ---
Standard Progress Note Progress Notes/Assess & Plan Date Seen by Provider: Jun 21, 2017 Time Seen by Provider: 16:38 Progress/Assessment & Plan No complaints seeing slow progress. More confident with ambulation LLE--poor quad function. incision with some bloody DC. No calf tenderness S/P l TKR continue Vanco continue PT/OT Final Diagnosis no complaints LLE--incision with scant bloody DC Neg SLR s/p LTKR apparently, the patient was switched to Ancef over the last week. Will DC on Rocephin per hospitalist rec fu two weeks check labs tomorrow FIONA SEAY MD Jun 21, 2017 16:48
[2017-06-21 17:28] VITALS: BP 155/87
[2017-06-21] MEDS: ATORVASTATIN 80 MG (LIPITOR) TABLET PO SCH (20:28)
[2017-06-22 05:42] VITALS: BP 159/73
[2017-06-22 05:56] LABS: BASOPHILS % (AUTO) 1 % (0-10); EOSINOPHILS # (AUTO) 0.3 10^3/uL (0.0-0.3); EOSINOPHILS % (AUTO) 4 % (0-10); LYMPHOCYTES # (AUTO) 1.7 X 10^3 (1.0-4.0); LYMPHOCYTES % (AUTO) 22 % (12-44); MEAN CORPUSCULAR HEMOGLOBIN 32 PG (25-34); MEAN CORPUSCULAR HGB CONC 31 G/DL (32-36); MEAN CORPUSCULAR VOLUME 103 FL (80-99); MEAN PLATELET VOLUME 9.6 FL (7.4-10.4); MONOCYTES # (AUTO) 0.7 X 10^3 (0.0-1.0); MONOCYTES % (AUTO) 9 % (0-12); NEUTROPHILS % (AUTO) 65 % (42-75); PLATELET COUNT 315 10^3/uL (130-400); RED BLOOD COUNT 3.04 10^6/uL (4.35-5.85); RED CELL DISTRIBUTION WIDTH 18.5 % (10.0-14.5); WHITE BLOOD COUNT 7.7 10^3/uL (4.3-11.0)
[2017-06-22] MEDS: LEVOTHYROXINE 150 MCG (LEVOTHROID) TAB PO SCH (06:03)
[2017-06-22] MEDS: CALCIUM CARB + VIT D 600 MG (CALCARB + D) TAB PO SCH (06:03)
[2017-06-22] MEDS: MULTIVIT W/MINERALS TAB (THERAGRAN M) PO SCH (06:03)
[2017-06-22] MEDS: ceFAZolin INJECTION 1,000 MG in NS (IVPB) 50 ML IV SCH (06:03)
[2017-06-22 06:26] LABS: ERYTHROCYTE SEDIMENTATION RATE 40 MM/HR (0-30)
[2017-06-22] MEDS: SENNA W/DOCUSATE (SENOKOT S) TABLET PO SCH (08:26)
[2017-06-22] MEDS: meTOproloL SUCCINATE 50 MG (TOPROL XL) TAB PO SCH (08:26)
[2017-06-22] MEDS: CLOPIDOGREL 75 MG (PLAVIX) TABLET PO SCH (08:26)
[2017-06-22] MEDS: ASPIRIN E.C. 81 MG (ECOTRIN) TAB PO SCH (08:26)
--- NOTE | 2017-06-22 08:35 | PM & R (SOAP) Progress Note ---
Subjective Time Seen by Provider: 07:55 Subjective/Events-last exam Patient was seen in her room this AM Appreciate DR Krishnamurthy note and orders Labs noted including ESR and Creactive protein and CBC.Patient Modified Independent for transfers and scheduled for discharge today but arranging for outpatient/ C Continuation of iv antibiotic still in progress.Will follow-up with [facility]U re this.SNU or swing bed may need to be considered if no other reasonable option.. Objective Exam Last Set of Vital Signs Vital Signs Date Time Temp Pulse Resp B/P (MAP) Pulse Ox O2 Delivery O2 Flow Rate FiO2 06/22/17 05:42 98.6 72 18 159/73 96 Room Air Capillary Refill : Less Than 3 Seconds I&O Intake and Output 06/23/17 00:00 Intake Total 720 ml Balance 720 ml Intake Oral 720 ml # Voids 3 General: Alert, Oriented X3, Cooperative, No Acute Distress HEENT: Atraumatic, PERRLA, EOMI, Mucous Memb Moist/[place] Neck: Supple, No JVD Lungs: Clear to Auscultation Heart: Regular Rate Abdomen: Normal Bowel Sounds, Soft, No Tenderness Extremities: No Edema Neuro: Other (trace edema left ankle) Results Lab Laboratory Tests 06/22/17 05:50: White Blood Count 7.7, Red Blood Count 3.04L, Hemoglobin 9.7L, Hematocrit 31L, Mean Corpuscular Volume 103H, Mean Corpuscular Hemoglobin 32, Mean Corpuscular Hemoglobin Concent 31L, Red Cell Distribution Width 18.5H, Platelet Count 315, Mean Platelet Volume 9.6, Neutrophils (%) (Auto) 65, Lymphocytes (%) (Auto) 22, Monocytes (%) (Auto) 9, Eosinophils (%) (Auto) 4, Basophils (%) (Auto) 1, Neutrophils # (Auto) 5.0, Lymphocytes # (Auto) 1.7, Monocytes # (Auto) 0.7, Eosinophils # (Auto) 0.3, Basophils # (Auto) 0.0, Erythrocyte Sedimentation Rate 40H, C-Reactive Protein High Sensitivity 0.54H Assessment/Plan Assessment 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
[2017-06-22] MEDS ORDERED: cefTRIAXone INJECTION 1,000 MG in NS (IVPB) 50 ML IV NR (09:09)
[2017-06-22] MEDS ORDERED: Rocephin IV (09:16)
--- NOTE | 2017-06-22 10:03 | Physical Therapy Daily Note ---
PT Daily Note-Current Subjective Patient states she is doing well today and that she plans to dismiss to home setting around noon today. Pain Numeric Pain Scale: 1 Location: Left Location Body Site: Knee Comment: some soreness after PT Appearance Patient appears healthy on this date. Mental Status Patient Orientation: Normal For Age Transfers Functional [place] Measure 0=Not Assessed/NA 4=Minimal Assistance 1=Total Assistance 5=Supervision or Setup 2=Maximal Assistance 6=Modified [place] 3=Moderate Assistance 7=Complete IndependenceIRFPAI Quality Coding Scale 6 Independent with activity with or without an assistive device 5 Patient requires set up or clean up by helper. Patient completes activity by themselves 4 Supervision or touching assist (CGA). [place] [facility] provide cues , steadying assist 3 The helper provides less than half the effort to complete the activity 2 The helper provides more than half the effort to complete the activity 1 Dependent. The helper does all the effort to complete an activity 7 Patient refused to complete or attempt activity 9 The patient did not perform the activity before the current illness or injury 88 Not attempted due to Medical conditions or safety concerns Transfers (B, C, W/C) (FIM): 6 Scootin Rollin Roll Left to Right (QC): 6 Supine to/from Sit: 6 Sit to/from Stand: 6 Sit to Lying (QC): 6 Sit to Stand (QC): 6 Chair/Vji-sm-Huhfh Xfer(QC): 6 Bed to/from Chair: 6 Car Transfer (QC): 6 Patient can perform all transfers with mod I. Weight Bearing Right Lower Extremity: Right Full Weight Bearing Left Lower Extremity: Left Weight Bearing/Tolerated Gait Training Does the Patient Walk?: Yes Gait (FIM): 6 Distance: >500' Walk 10 feet (QC): 6 Walk 50 ft with 2 Turns(QC): 6 Walk 150 ft (QC): 6 Walking 10ft/uneven surface-QC: 6 Gait Level of Assist: 6 Gait Assistive Device: FWW Patient walks with reciprocal gait pattern with slightly externally rotated L LE. Gait pattern is safe with FWW. Exercises Supine Ex: Short Arc Quads (SL knee extension/hamstring curl) Supine Reps: 5 Seated Therapy Exercises: Long arc quads Seated Reps: 20 NuStep Minutes: 10 NuStep Workload: 7 Assessment Current Status: Good Progress Patient is functional to perform all ADLs. Patient is showing general progression with therapeutic exercise on improving L LE musculature activation and strengthening. Patient is recommended for a safe dismissal from inpatient physical therapy. PT Residential Care Facility Manager Goals Residential Care Facility Manager Goals PT Residential Care Facility Manager Goals Time Frame: Jun 28, 2017 Transfers (B,C,W/C) (FIM): 6 (met 06/21/17) Sit to Lying (QC): 6 (met 06/21/17) Lying-Sitting on Side/Bed(QC): 6 (met 06/21/17) Sit to Stand (QC): 6 (met 06/21/17) Rollin (met 06/21/17) Roll Left to Right (QC): 6 (met 06/21/17) Chair/Utz-xz-Vdnra Xfer(QC): 6 (met 06/21/17) Car Transfer (QC): 6 (met 06/21/17) Does the Patient Walk: Yes Gait (FIM): 6 (met 06/21/17) Distance: >500' Walk 10 feet (QC): 6 (met 06/21/17) Walk 10ft-Uneven Surface(QC): 6 (met 06/21/17) Walk 50ft with 2 Turns (QC): 6 (met 06/21/17) Walk 150 ft (QC): 6 (met 06/21/17) Gait Level of Assist: 6 (met 05/2717) Gait Assistive Device: FWW Stairs (FIM): 5 (met 06/21/17) # of Steps: 12 (met 06/21/17) 1 Step (curb) (QC): 5 (met 06/21/17) 4 Steps (QC): 5 (met 06/21/17) 12 Steps (QC): 5 (met 06/21/17) Stairs Level Of Assist: 5 (met 06/21/17) Picking up an Object (QC): 5 (met 06/21/17) PT Plan Problem List Problem List: Activity Tolerance, Functional Strength, Safety, Balance, Gait Treatment/Plan Treatment Plan: Discontinue PT, goals met Treatment Plan: Bed Mobility, Education, Functional Activity Shayy, Functional Strength, Group Therapy, Gait, Safety, Therapeutic Exercise, Transfers Treatment Duration: Jun 28, 2017 Frequency: At least 5 of 7 days/Wk (IRF) Estimated Hrs Per Day: 1.5 hours per day Patient and/or Family Agrees t: Yes Discharge Recommendations Therapy D/C Recommendations: Home w/ Family Support, Physical Therapy Home Care , Physical Therapy Outpatient Time/GCodes Time In: 900 Time Out: 935 Total Billed Treatment Time: 35 Total Billed Treatment 1 visit EX x 2 35 min CR SOTNER PT Jun 22, 2017 10:03
[2017-06-22 11:55] VITALS: BP 159/73
--- NOTE | 2017-06-22 11:55 | Therapy Team Discharge Summary ---
Therapy Discharge Summary Discharge Recommendations Date of Discharge 06-22-17 Therapy D/C Recommendations: Home w/ Family Support, Physical Therapy Home Care , Physical Therapy Outpatient Occupational Therapy Pt. has been seen by occupational therapy to increase overall strength and independence in all areas. Pt. has met all goals. Pt. is able to bathe and dress self with Mod I. Pt. is discharging home with spouse and continued physical therapy assist. Recommend home health OT due to pt's lack of confidence at times with progression of knee. No equipment needs at this time. Decreased Activ Tolerance PT Longterm Goals Longterm Goals PT Longterm Goals Time Frame: Jun 28, 2017 Transfers (B,C,W/C) (FIM): 6 (met 06/21/17) Roll Left to Right (QC): 6 (met 06/21/17) Sit to Lying (QC): 6 (met 06/21/17) Lying-Sitting on Side/Bed(QC): 6 (met 06/21/17) Sit to Stand (QC): 6 (met 06/21/17) Chair/Yiv-ic-Mcvwg Xfer(QC): 6 (met 06/21/17) Car Transfer (QC): 6 (met 06/21/17) Does the Patient Walk: Yes Gait (FIM): 6 (met 06/21/17) Distance: >500' Walk 10 feet (QC): 6 (met 06/21/17) Walk 10ft-Uneven Surface(QC): 6 (met 06/21/17) Walk 50ft with 2 Turns (QC): 6 (met 06/21/17) Walk 150 ft (QC): 6 (met 06/21/17) Gait Level of Assist: 6 (met 05/2717) Gait Assistive Device: FWW Stairs (FIM): 5 (met 06/21/17) # of Steps: 12 (met 06/21/17) 1 Step (curb) (QC): 5 (met 06/21/17) 4 Steps (QC): 5 (met 06/21/17) 12 Steps (QC): 5 (met 06/21/17) Stairs Level Of Assist: 5 (met 06/21/17) Picking up an Object (QC): 5 (met 06/21/17) OT Longterm Goals Binder Fixer Goals Time Frame: Jun 28, 2017 Eating (FIM): 6 (met) Eating (QC): 6 (met) Oral Hygiene (QC): 6 (met) Grooming(FIM): 6 (met) Bathing(FIM): 6 (met) Shower/Bathe Self (QC): 6 (met) Upper Body Dressing(FIM): 6 (met) Upper Body Dressing (QC): 6 (met) Lower Body Dressing(FIM): 6 (met) Lower Body Dressing (QC): 6 (met) On/Off Footwear (QC): 6 (met) Toileting(FIM): 6 (met) Toileting Hygiene (QC): 6 (met) Transfers (B,C,W/C) (FIM): 6 (met) Toilet/Commode Transfer(FIM): 6 (met) Toilet/Commode Transfer (QC): 6 (met) Shower Transfer(FIM): 5 (met) Additional Goals: 1-Demonstrate ADL Tasks, 2-Verbalize Understanding, 3- ImproveStrength/Shayy 1=Demonstrate adherence to instructed precautions during ADL tasks. 2=Patient will verbalize/demonstrate understanding of assistive devices/ modifications for ADL. 3=Patient will improve strength/tolerance for activity to enable patient to perform ADL's. KHADRA MCLEOD OT Jun 22, 2017 11:55
--- NOTE | 2017-06-22 12:24 | Therapy Team Discharge Summary ---
Therapy Discharge Summary Discharge Recommendations Date of Discharge Therapy D/C Recommendations: Home w/ Family Support, Physical Therapy Home Care , Physical Therapy Outpatient Physical Therapy Patient was admitted to inpatient rehab facility s/p a L TKA revision. Upon admission, this patient required min assist with transferring to/from supine to sit. This patient was SBA for rolling, scooting, and sit to stand transfers. This patient showed positive progress through therapeutic exercise, education, and gait training. She was able to meet all of her goals for inpatient rehabilitation including modified independence in scooting, rolling, sit to/ from lying, sit to stand, as well as ambulation with a FWW. This patient was able to ambulate safely for >500' with a FWW at the time of discharge. Shealso demonstrated the ability to ambulate with FWW over uneven surfaces and walk greater than 50' with multiple turns. Patient demonstrated the ability to ascend and descend 12 stairs with 1 handrail and SBA from a PT. PT recommends that this patient is safe for discharge into the home with family support and recommends further physical therapy in the home setting and/or in an outpatient setting. Occupational Therapy Decreased Activ Tolerance PT Snf Goals Snf Goals PT Snf Goals Time Frame: Jun 28, 2017 Transfers (B,C,W/C) (FIM): 6 (met 06/21/17) Roll Left to Right (QC): 6 (met 06/21/17) Sit to Lying (QC): 6 (met 06/21/17) Lying-Sitting on Side/Bed(QC): 6 (met 06/21/17) Sit to Stand (QC): 6 (met 06/21/17) Chair/Cri-ep-Vbgmj Xfer(QC): 6 (met 06/21/17) Car Transfer (QC): 6 (met 06/21/17) Does the Patient Walk: Yes Gait (FIM): 6 (met 06/21/17) Distance: >500' Walk 10 feet (QC): 6 (met 06/21/17) Walk 10ft-Uneven Surface(QC): 6 (met 06/21/17) Walk 50ft with 2 Turns (QC): 6 (met 06/21/17) Walk 150 ft (QC): 6 (met 06/21/17) Gait Level of Assist: 6 (met 05/2717) Gait Assistive Device: FWW Stairs (FIM): 5 (met 06/21/17) # of Steps: 12 (met 06/21/17) 1 Step (curb) (QC): 5 (met 06/21/17) 4 Steps (QC): 5 (met 06/21/17) 12 Steps (QC): 5 (met 06/21/17) Stairs Level Of Assist: 5 (met 06/21/17) Picking up an Object (QC): 5 (met 06/21/17) OT Snf Goals Feed Research Technician Goals Time Frame: Jun 28, 2017 Eating (FIM): 6 (met) Eating (QC): 6 (met) Oral Hygiene (QC): 6 (met) Grooming(FIM): 6 (met) Bathing(FIM): 6 (met) Shower/Bathe Self (QC): 6 (met) Upper Body Dressing(FIM): 6 (met) Upper Body Dressing (QC): 6 (met) Lower Body Dressing(FIM): 6 (met) Lower Body Dressing (QC): 6 (met) On/Off Footwear (QC): 6 (met) Toileting(FIM): 6 (met) Toileting Hygiene (QC): 6 (met) Transfers (B,C,W/C) (FIM): 6 (met) Toilet/Commode Transfer(FIM): 6 (met) Toilet/Commode Transfer (QC): 6 (met) Shower Transfer(FIM): 5 (met) Additional Goals: 1-Demonstrate ADL Tasks, 2-Verbalize Understanding, 3- ImproveStrength/Shayy 1=Demonstrate adherence to instructed precautions during ADL tasks. 2=Patient will verbalize/demonstrate understanding of assistive devices/ modifications for ADL. 3=Patient will improve strength/tolerance for activity to enable patient to perform ADL's. CR STONER PT Jun 22, 2017 12:24
== END 2017-06-22 12:00 | disposition home health service (06) | DRG 561 ==
PROVIDERS: ADMIT Physical Medicine & Rehabilitation; ATTEND Physical Medicine & Rehabilitation
DX: Z47.1 Aftercare following joint replacement surgery (principal); T84.54XD Infection and inflammatory reaction due to internal left knee prosthesis, subsequent encounter; Z96.652 Presence of left artificial knee joint; Z95.5 Presence of coronary angioplasty implant and graft; Z96.651 Presence of right artificial knee joint; I25.10 Atherosclerotic heart disease of native coronary artery without angina pectoris; E78.5 Hyperlipidemia, unspecified; I10 Essential (primary) hypertension; E03.9 Hypothyroidism, unspecified; M06.9 Rheumatoid arthritis, unspecified; D64.9 Anemia, unspecified
CPT/HCPCS: 36415; 85025; 85652; 86141

== ENCOUNTER 2017-10-12 08:43 | Outpatient (RCR) | payer MEDICARE, BC ==
[~2017-10-12 08:43] MED LIST changes: +Rocephin IV
== END 2017-10-12 13:41 | disposition home or self-care (01) ==
PROVIDERS: ATTEND Orthopaedic Surgery
DX: Z47.1 Aftercare following joint replacement surgery (principal); Z96.652 Presence of left artificial knee joint

== ENCOUNTER 2017-11-07 08:58 | Emergency (ER) | payer MEDICARE, BC ==
[~2017-11-07] VITALS: Ht 162.6 cm; Wt 108.0 kg
--- NOTE | 2017-11-07 09:11 | ED Neurological Problem ---
General Chief Complaint: Altered Mental Status Stated Complaint: LETHARGIC,POSS STROKE, Source: patient, EMS Exam Limitations: clinical condition History of Present Illness Date Seen by Provider: Nov 07, 2017 Time Seen by Provider: 09:07 Initial Comments This 77-year-old white female presents with acute abnormality of her speech this morning while she was singing him was at synagogue. The patient mixed her words. She did not have slurred speech. There was some paresthesia and weakness in the right upper extremity primarily to the right thumb. Upon arrival in the emergency department the symptoms which had begun within the past hour resolved. Patient relates that she has hypertension and that her medications have recently been changed. The patient denies headache, photophobia, stiff neck, palpitations, chest pain, nausea or vomiting, fever, flank pain, or dysuria. Allergies and Home Medications Allergies Coded Allergies: tetracycline (Unverified Allergy, Mild, RASH, 06/07/17) Home Medications Aspirin 81 Mg Tab.chew, 81 MG PO DAILY, (Reported) Atorvastatin Calcium 80 Mg Tablet, 80 MG PO HS, (Reported) Calcium Carbonate/Vitamin D3 1 Each Tablet, 1 TAB PO BID, (Reported) Carboxymethylcellulose Sodium 15 Ml Drp.lq.gel, 2 DROPS OU TID PRN for DRY EYES, (Reported) Clopidogrel Bisulfate 75 Mg Tablet, 75 MG PO DAILY, (Reported) Fluticasone Propionate 9.9 Ml [place].susp, 1 SPRAY NA DAILY PRN for ALLERGIES, ( Reported) Leflunomide 20 Mg Tablet, 20 MG PO DAILY, (Reported) Levothyroxine Sodium 150 Mcg Tablet, 150 MCG PO DAILY, (Reported) Loratadine 10 Mg Tablet, 10 MG PO DAILY PRN for ALLERGIES, (Reported) Metoprolol Succinate 50 Mg Tab.er.24h, 50 MG PO DAILY, (Reported) Multivitamin 1 Each Tablet, 1 TAB PO DAILY, (Reported) Nitroglycerin 0.4 Mg Tab.subl, 0.4 MG SL UD PRN for CHEST PAIN, (Reported) Oxycodone HCl/Acetaminophen 1 Each Tablet, 1 EACH PO Q4H Prescribed by: FIONA SEAY on 05/12/17 1157 Ranitidine HCl 150 Mg Tablet, 150 MG PO DAILY PRN for HEARTBURN, (Reported) [Rocephin] , 1,000 MG IV DAILY Prescribed by: MORENA SAHU on 06/22/17 0916 Patient Home Medication List Home Medication List Reviewed: Yes Review of Systems Constitutional: No chills, No fever; weakness Eyes: No Symptoms Reported Ears, Nose, Mouth, Throat: no symptoms reported Respiratory: No cough, No short of breath Cardiovascular: No chest pain, No palpitations Gastrointestinal: No abdominal pain, No diarrhea, No nausea, No vomiting Genitourinary: no symptoms reported Musculoskeletal: no symptoms reported Skin: no symptoms reported Psychiatric/Neurological: Cognitive Dysfunction; Denies Headache; Numbness (in the right thumb.), Other (the patient had abnormal speech manifested as substitution of words. The speech was clear.) Endocrine: No Symptoms Reported Hematologic/Lymphatic: No Symptoms Reported Past Vlufldy-Yamyee-Vnrdvj Hx Past Med/Social Hx: Reviewed Nursing Past Med/Soc Hx Patient Social History Alcohol Beverage of Choice: Beer, Wine Type Used: Cigarettes Former Smoker, Quit: Apr 28, 2008 Recent Foreign Travel: No Contact w/Someone Who Travel: No Recent Hopitalizations: Yes (APRIL-KNEE REPLACEMENT; OCTOBER-CARDIAC STENT) Immunizations Up To Date Date of Pneumonia Vaccine: Apr 25, 2015 Date of Influenza Vaccine: Apr 06, 2016 Seasonal Allergies Seasonal Allergies: Yes Past Medical History Surgeries: Yes (BREAST LUMPECTOMY, RT MASTECTOMY, RT TKR, LT TKR, THROID x2- PARTIAL/TOTAL) Breast, Coronary Stent, Joint Replacement, Orthopedic, Thyroidectomy Respiratory: No Currently Using CPAP: No Cardiac: Yes (STENTS x4, CODED x2 IN 2007 AND 2015) Coronary Artery Disease, Heart Attack, High Cholesterol, Hypertension Neurological: No Reproductive Disorders: No Sexually Transmitted Disease: No HIV/AIDS: No Genitourinary: No Gastrointestinal: Yes Gastroesophageal Reflux Musculoskeletal: Yes (OSTEOARTHRITIS) Arthritis, Rheumatoid Arthritis Endocrine: Yes (HX THYROID CA x2 WITH THYROIDECTOMY) Hypothyroidsim HEENT: Yes (GLASSES) Loss of Vision: Bilateral Hearing Impairment: Denies Cancer: Yes Breast, Thyroid What Type of Treatment Did You: Radiation, Surgical Intervention Psychosocial: No Integumentary: No Blood Disorders: No Adverse Reaction/Blood Tranf: No (N/A) Family Medical History Reviewed Nursing Family Hx Alcoholism G8 BROTHER Arthritis 19 FATHER 19 MOTHER G8 BROTHER G8 SISTER Cardiovascular disease 19 FATHER G8 BROTHER Cataracts 19 MOTHER Diabetes mellitus G8 SISTER Drug abuse G8 BROTHER FH: cancer G8 BROTHER Hypertension 19 MOTHER Myocardial infarction 19 FATHER G8 BROTHER Thyroid disease G8 SISTER No Family History of: AIDS Abdominal aortic aneurysm [place]'s disease Asthma Cancer of mouth Colon cancer Completed stroke Dementia Parkinson's disease Prostate cancer Psychosocial problem Respiratory disorder Seizure disorder Severe allergy Tuberculosis No Pertinent Family Hx Physical Exam Vital Signs Vital Signs - First Documented 11/07/17 09:20 Temp 98.1 Pulse 86 Resp 18 B/P (MAP) 188/ Pulse Ox 99 Capillary Refill : General Appearance: WD/WN, other (anxiety) HEENT: normal ENT inspection Neck: full range of motion, supple, normal inspection Respiratory: lungs clear, normal breath sounds Cardiovascular: normal peripheral pulses, regular rate, rhythm Gastrointestinal: normal bowel sounds, soft Back: normal inspection Extremities: normal range of motion, non-tender, normal inspection Neurologic/Psychiatric: no motor/sensory deficits, alert Crainal Nerves: normal hearing, PERRL, abnormal speech, facial asymmetry (the patient substitutes words. Her speech however is clear.) Motor/Sensory: no motor deficit, no sensory deficit Skin: normal color, warm/dry Stroke NIH Stroke Scale Assessment Select: Initial Level of Consciousness: 0=Alert (0), Level of Consciousness- Questions: 0=Answers both month/age (0), LOC Commands: 0=Performs both tasks (0) , Gaze: Normal (0), Visual Clemens: 0=No visual loss (0), Facial Movement ( Facial Paresis): 0=Normal symmetrical mnt (0), Motor Function-Arms Right: 0=No drift (0), Motor Function-Arms Left: 0=No drift (0), Motor Function-Legs Right: 0=No drift (0), Motor Function-Legs Left: 0=No drift (0), Limb Ataxia: 0=Absent (0), Sensory: 0=Normal:no loss (0), Best Language: 1=Mild to moderat aphasia (1) , Dysarthria: 0=Normal (0), Extinction & Inattention: 0=No abnormality (0), Total: 1 Stroke Thrombolytic Exclusion TPA Contraindication: No IV - TPa Received IV - TPa Procedure Performed?: Yes IV - TPa Date: Nov 07, 2017 IV - TPa Time: 10:11 Progress/Results/Core Measures Lab Results Laboratory Tests Test 11/07/17 09:46 Range/Units White Blood Count 7.3 4.3-11.0 10^3/uL Red Blood Count 4.77 4.35-5.85 10^6/uL Hemoglobin 14.0 11.5-16.0 G/DL Hematocrit 44 35-52 % Mean Corpuscular Volume 93 80-99 FL Mean Corpuscular Hemoglobin 29 25-34 PG Mean Corpuscular Hemoglobin Concent 32 32-36 G/DL Red Cell Distribution Width 14.9 H 10.0-14.5 % Platelet Count 227 130-400 10^3/uL Mean Platelet Volume 10.2 7.4-10.4 FL Neutrophils (%) (Auto) 62 42-75 % Lymphocytes (%) (Auto) 20 12-44 % Monocytes (%) (Auto) 8 0-12 % Eosinophils (%) (Auto) 9 0-10 % Basophils (%) (Auto) 1 0-10 % Neutrophils # (Auto) 4.5 1.8-7.8 X 10^3 Lymphocytes # (Auto) 1.4 1.0-4.0 X 10^3 Monocytes # (Auto) 0.6 0.0-1.0 X 10^3 Eosinophils # (Auto) 0.7 H 0.0-0.3 10^3/uL Basophils # (Auto) 0.1 0.0-0.1 10^3/uL Sodium Level 141 135-145 MMOL/L Potassium Level 4.4 3.6-5.0 MMOL/L Chloride Level 106 98-107 MMOL/L Carbon Dioxide Level 25 21-32 MMOL/L Anion Gap 10 5-14 MMOL/L Blood Urea Nitrogen 13 7-18 MG/DL Creatinine 0.89 0.60-1.30 MG/DL Estimat Glomerular Filtration Rate > 60 BUN/Creatinine Ratio 15 Glucose Level 101 70-105 MG/DL Calcium Level 9.1 8.5-10.1 MG/DL Total Bilirubin 0.6 0.1-1.0 MG/DL Aspartate Amino Transf (AST/SGOT) 20 5-34 U/L Alanine Aminotransferase (ALT/SGPT) 18 0-55 U/L Alkaline Phosphatase 87 40-136 U/L Total Protein 7.5 6.4-8.2 GM/DL Albumin 4.0 3.2-4.5 GM/DL My Orders Orders - ANABELLE NOLASCO MD Ct Head Wo (11/07/17 09:03) Troponin I (4/15/18 09:04) Chest 1 View, Ap/Pa Only (11/07/17 09:04) Ekg Tracing (11/07/17 09:04) Saline Lock/Iv-Start (11/07/17 09:04) Monitor-Rhythm Ecg Trace Only (11/07/17 09:04) Cbc With Automated Diff (11/07/17 09:23) Comprehensive Metabolic Panel (11/07/17 09:23) Metoprolol Tartrate (Ir) Tab (Lopressor (11/07/17 09:30) Metoprolol Tartrate (Ir) Tab (Lopressor (11/07/17 09:31) Alteplase (Activase) (Activase Injection (11/07/17 09:44) Ct Angio Head/Neck (11/07/17 09:59) Iohexol Injection (Omnipaque 350 Mg/Ml 1 (11/07/17 10:30) Ns (Ivpb) (Sodium Chloride 0.9% Ivpb Bag (11/07/17 10:30) Medications Given in ED Current Medications Medications Dose Ordered Sig/Vic Route Start Time Stop Time Status Last Admin Dose Admin Metoprolol Tartrate 25 mg STK-MED ONCE .ROUTE 11/07/17 09:31 11/07/17 09:36 DC 11/07/17 09:35 50 MG Vital Signs/I&O 11/07/17 09:20 Temp 98.1 Pulse 86 Resp 18 B/P (MAP) 188/ Pulse Ox 99 Progress Note : Time: 10:13 Progress Note The patient's a fascia spontaneously cleared shortly after recent taste emergency department. A noncontrast CT of the head failed to demonstrate evidence of acute hemorrhage. After the patient returned from CT her speech difficulty recurred specifically the patient with mixed up words in her speech. She had no slurring. She denied other neurologic complaint. Telephone consultation was undertaken with , stroke neurologist at , recommended TPA be given. After a long conversation re: risks and benefits and making certain with the patient and Dr. Loomis that the patient had no contraindications for lytics the patient was given TPA. Dr. Loomis after accepting the patient for transfer requested the patient come by air to if possible. A CTA of the head and neck has been ordered. Arrangements are being made for transfer. Critical Care Note Critical Care Total Time (minutes) 1 hour Departure Impression Primary Impression: Stroke Qualified Codes: I63.10 - Cerebral infarction due to embolism of unspecified precerebral artery Disposition: 02 XFER SHT-TRM HOSP Condition: Unchanged Transfer Time Spoke to Accepting Phy: 10:[address] Loomis Transfer Time: 10:27 Transfer Facility: Method of Transfer: Air Departure-Patient Inst. Referrals: STEPHANIE PIERRE MD (PCP/Family) Primary Care Physician ANABELLE NOLASCO MD Nov 07, 2017 09:11
--- NOTE | 2017-11-07 09:22 | Diagnostic Imaging Report ---
EXAMINATION: Chest radiograph, portable AP view. DATE: 11/07/2017 at 0911 hours. INDICATION: 77-year-old female, evaluation for stroke. COMPARISON: 06/11/2017. FINDINGS: Heart size and mediastinal contours are unremarkable. There is no identified pneumothorax. There is no large pleural effusion. There is no identified focal airspace consolidation. IMPRESSION: No identified acute cardiopulmonary abnormality. Dictated by: Dictated on workstation # [id number]
--- NOTE | 2017-11-07 09:23 | Diagnostic Imaging Report ---
PROCEDURE: CT head without contrast. TECHNIQUE: Multiple contiguous axial images were obtained through the brain without the use of intravenous contrast. DATE: 11/07/2017. COMPARISON: CT head 10/07/2012. INDICATION: 77-year-old female, speech difficulty, right hand weakness. Evaluation for stroke. FINDINGS: There is a partially visualized polypoid lesion in the right maxillary sinus which may potentially reflect a mucous retention cyst. There is no identified air-fluid level within the paranasal sinuses. Mastoid air cells and middle ears are well aerated. There is proportional prominence of the ventricles and CSF spaces compatible with mild to moderate cerebral volume loss. There is an area of CSF-like attenuation in the right cerebellum which may relate to partial volume averaging versus remote prior lacunar infarct. This appears to be an interval change since September 2012. There is no mass effect or midline shift. There is no acute intracranial hemorrhage. There is no abnormal extra-axial fluid collection. IMPRESSION: 1. No identified acute intracranial abnormality. 2. Round area of CSF attenuation in the region of the right cerebellum which is not seen on comparison exam and may relate to partial volume averaging of CSF spaces versus small remote lacunar infarct new since 2012. 3. [id number] cerebral volume loss. Dictated by: Dictated on workstation # [id number]
[2017-11-07] MEDS ORDERED: meTOprolol TARTRATE 50 MG (LOPRESSOR) TAB PO ONE (09:30)
[2017-11-07] MEDS ORDERED: meTOprolol TARTRATE 25 MG (LOPRESSOR) TABLET ONE (09:31)
[2017-11-07] MEDS ORDERED: ALTEPLASE 100 MG/VIAL (ACTIVASE) IV ONE (09:44)
[2017-11-07 09:57] LABS: BASOPHILS # (AUTO) 0.1 10^3/uL (0.0-0.1); BASOPHILS % (AUTO) 1 % (0-10); EOSINOPHILS # (AUTO) 0.7 10^3/uL (0.0-0.3); EOSINOPHILS % (AUTO) 9 % (0-10); HEMATOCRIT 44 % (35-52); LYMPHOCYTES # (AUTO) 1.4 X 10^3 (1.0-4.0); LYMPHOCYTES % (AUTO) 20 % (12-44); MEAN CORPUSCULAR HEMOGLOBIN 29 PG (25-34); MEAN CORPUSCULAR HGB CONC 32 G/DL (32-36); MEAN CORPUSCULAR VOLUME 93 FL (80-99); MEAN PLATELET VOLUME 10.2 FL (7.4-10.4); MONOCYTES # (AUTO) 0.6 X 10^3 (0.0-1.0); MONOCYTES % (AUTO) 8 % (0-12); NEUTROPHILS # (AUTO) 4.5 X 10^3 (1.8-7.8); NEUTROPHILS % (AUTO) 62 % (42-75); PLATELET COUNT 227 10^3/uL (130-400); RED BLOOD COUNT 4.77 10^6/uL (4.35-5.85); RED CELL DISTRIBUTION WIDTH 14.9 % (10.0-14.5); WHITE BLOOD COUNT 7.3 10^3/uL (4.3-11.0)
[2017-11-07 10:17] LABS: ALANINE AMINOTRANSFERASE 18 U/L (0-55); ALKALINE PHOSPHATASE 87 U/L (40-136); BILIRUBIN,TOTAL 0.6 MG/DL (0.1-1.0); BUN/CREATININE RATIO 15; CALCIUM 9.1 MG/DL (8.5-10.1); CARBON DIOXIDE 25 MMOL/L (21-32); CHLORIDE 106 MMOL/L (98-107); CREATININE SERUM 0.89 MG/DL (0.60-1.30); GFR ESTIMATED > 60; GLUCOSE 101 MG/DL (70-105); POTASSIUM 4.4 MMOL/L (3.6-5.0); SODIUM 141 MMOL/L (135-145); TOTAL PROTEIN 7.5 GM/DL (6.4-8.2)
[2017-11-07] MEDS ORDERED: IOHEXOL 350 MG/ML 100 ML (OMNIPAQUE 350) VIAL IV ONE (10:30)
[2017-11-07] MEDS ORDERED: NS 100 ML (IVPB) BAG IV ONE (10:30)
--- NOTE | 2017-11-07 11:40 | Diagnostic Imaging Report ---
PROCEDURE: CT angiography of the head and CT angiography of the neck with and without contrast. TECHNIQUE: Contiguous noncontrast images were obtained from the skull base through the vertex. After intravenous contrast administration, helical CT angiography of the neck was performed. Source data was reformatted into multiple MIP projections. Delayed post contrast acquisition was also obtained. DATE: 11/07/2017. INDICATION: 77-year-old female, speech difficulties. Right hand weakness. Stroke evaluation. COMPARISON: CT head without contrast 11/07/2017. FINDINGS: There is no identified abnormal intracranial enhancement. The left common carotid artery is patent. The left internal carotid artery is patent. There are calcifications of the cavernous segment of the left internal carotid artery. There is no identified stenosis of the left internal carotid artery. The left anterior cerebral artery is patent. The left middle cerebral artery is patent. The right anterior cerebral artery is patent. The right middle cerebral artery is patent. There are calcifications of the cavernous segment of the right internal carotid artery. There is no narrowing of the right internal carotid artery. There is retropharyngeal course of the right internal carotid artery. The right common carotid artery is patent. The left vertebral artery is conventional in origin. The left vertebral artery is patent. The basilar artery is patent. The right and left posterior cerebral arteries are patent and supplied predominantly via posterior indicating arteries bilaterally. The right vertebral artery terminates prior to supplying blood flow to the basilar artery. The right vertebral artery is small in caliber. There is conventional origin of the right vertebral artery. There is no identified aneurysm. There is a 2 mm right upper lobe pulmonary nodule on axial image 13. There is a 3 mm left upper lobe pulmonary nodule on axial image 9. Additional visualized portions of the lung apices are clear. Soft tissue evaluation of the neck is grossly unremarkable. There are degenerative changes of the cervical spine. IMPRESSION: 1. Patent arterial head and neck vasculature without high-grade stenosis, occlusion, or aneurysm. Blood flow to the bilateral posterior cerebral arteries is supplied primarily via bilateral posterior communicating arteries. 2. No identified abnormal intracranial enhancement. 3. Upper lobe pulmonary nodules measuring up to 3 mm in size. Recommend followup CT chest in six months to evaluate for stability. Dictated by: Dictated on workstation # [id number]
[2017-11-07 12:29] VITALS: BP 127/64
[2018-01-28] MEDS ORDERED: AMLO5TAB2 PO (09:54)
[2018-01-28] MEDS ORDERED: LEFL10TA16 PO (09:54)
== END 2017-11-07 12:29 | disposition short-term general hospital (02) ==
LOC: EDUNIT# 08:58 → ER 09:00
DX: I63.9 Cerebral infarction, unspecified (principal); I25.10 Atherosclerotic heart disease of native coronary artery without angina pectoris; I25.2 Old myocardial infarction; E78.00 Pure hypercholesterolemia, unspecified; I10 Essential (primary) hypertension; K21.9 Gastro-esophageal reflux disease without esophagitis; M06.9 Rheumatoid arthritis, unspecified; Z85.3 Personal history of malignant neoplasm of breast; Z85.850 Personal history of malignant neoplasm of thyroid; Z82.49 Family history of ischemic heart disease and other diseases of the circulatory system; Z88.1 Allergy status to other antibiotic agents; Z79.82 Long term (current) use of aspirin; Z79.51 Long term (current) use of inhaled steroids; Z79.02 Long term (current) use of antithrombotics/antiplatelets; Z95.5 Presence of coronary angioplasty implant and graft; Z90.11 Acquired absence of right breast and nipple; Z96.653 Presence of artificial knee joint, bilateral; Z90.89 Acquired absence of other organs
CPT/HCPCS: 36415; 70450; 70496; 70498; 71045; 80053; 84484; 85025; 93005; 93041; 96365; 96375; 99291; 99292

== ENCOUNTER 2018-01-28 10:05 | Outpatient (CLI) | payer MEDICARE, BC ==
[~2018-01-28] VITALS: Ht 162.6 cm; Wt 103.4 kg
[~2018-01-28 10:05] MED LIST changes: +AMLO5TAB2 PO; +LEFL10TA16 PO
== END 2018-01-28 10:26 ==
LOC: PREOP 10:05
PROVIDERS: ATTEND Surgery
DX: Z01.818 Encounter for other preprocedural examination (principal)

== ENCOUNTER 2018-02-02 09:28 | Day surgery (SDC) | payer MEDICARE, BC ==
[~2018-02-02] VITALS: Ht 162.6 cm; Wt 103.4 kg
--- OUTSIDE RECORDS SUMMARY | 2018-02-02 09:31 | XMS REPORT | Encounter Summary ---
Author Author [facility] Organization [facility] Address Unknown Phone Unavailable Care Team Providers Care L Tacker Name Role Phone Rudy Parada MD PCP Reason for Visit * Reason Comments Follow Up Encounter Details Date Type Department Care Team Description 12/29/2017 Office Visit [facility] Humberto Blanca DO Cerebral artery occlusion [facility] [address] [facility] without cerebral [facility] [place] 2012 infarction (Primary Dx) [address] [place] [address] [place], [place] [phone] [id number] [phone] Social History Tobacco Use Types Packs/Day Years Used Date Former Smoker Smokeless Tobacco: Never Used Sex Assigned at Date Recorded Not on file as of this encounter Last Filed Vital Signs Vital Sign Reading Time Taken Blood Pressure 144/75 12/29/2017 11:12 AM CDT Pulse 77 12/29/2017 11:12 AM CDT Temperature - - Respiratory Rate - - Oxygen Saturation - - Inhaled Oxygen - - Concentration Weight 104.3 kg (230 lb) 12/29/2017 11:12 AM CDT Height 162.6 cm (5' 4") 12/29/2017 11:12 AM CDT Body Mass Index 39.48 12/29/2017 11:12 AM CDT in this encounter Functional Status Functional Status Response Date of Assessment Does the patient have a hearing impairment: No 11/07/2017 as of this encounter Progress Notes * Humberto Blanca DO - 12/29/2017 11:10 AM CDT Formatting of this note may be different from the original. Date of Service: 12/29/2017 Subjective: Beulah Barreto is a 77 y.o. female. 3-4 weeks later was started back on amlodipine. Bp has been around 130s/ 75. Has a log but did not bring it. choleterstoral aer at recommmended level per patient . History of Present Illness Beulah Champagne is a 77yo female who presented to outside hospital on 11/07/17 with speech difficulty and right hand weakness. CTA was obtained at the outside hospital and reported to have left M2 occlusion. She was given IV tPA and transferred to . Ct perfusion performed on arrival and showed an area of decreased flow in the left MCA distribution. MRI the following day did not show any area of ischemia or hemorrhage. Clinically back to her baseline without clear residual deficit and was able to discharge to home. She was restarted on ASA and Plavix. She was also set up with extended cardiac event monitor. Today she returns for follow up. She denies any residual deficits from her admission. She has not had any new stroke like symptoms since her discharge. She continues on ASA and Plavix without problem (previously on for cardiac purposes). She was allowed to have permissive blood pressure at discharge and now working with her PCP to slowly bring it down to goal. She was recently started on Amlodipine 2.5mg. A 12 point review of systems was obtained from the patient and negative except : Review of Systems Eyes: Positive for visual disturbance. Neurological: Positive for speech difficulty. All other systems reviewed and are negative. Past Medical History: Diagnosis Date Breast cancer (HCC) 1991 CAD (coronary artery disease) HLD (hyperlipidemia) HTN (hypertension) Rheumatoid arthritis (HCC) Stroke (HCC) Thyroid cancer (HCC) 1959 Past Surgical History: Procedure Laterality Date HX CORONARY STENT PLACEMENT MASTECTOMY History reviewed. No pertinent family history. Objective: amLODIPine (NORVASC) 5 mg tablet Take 2.5 mg by mouth at bedtime daily. aspirin EC 81 mg tablet Take 81 mg by mouth daily. Take with food. atorvastatin (LIPITOR) 80 mg tablet Take 80 mg by mouth at bedtime daily. calcium carbonate/vitamin D-3 (OSCAL-500+D) 1250 mg/200 unit tablet Take 1 tablet by mouth daily. Calcium Carb 1250mg delivers 500mg elemental Ca Carboxymethylcellulose Sodium 0.5 % drop Apply 2 drops to both eyes daily as needed. clopiDOGrel (PLAVIX) 75 mg tablet Take 75 mg by mouth daily. fluticasone (FLONASE) 50 mcg/actuation nasal spray Apply 1 spray to each nostril as directed daily as needed. Shake bottle gently before using. leflunomide (ARAVA) 10 mg tablet Take 0.5 mg by mouth daily. levothyroxine (SYNTHROID) 150 mcg tablet Take 150 mcg by mouth daily 30 minutes before breakfast. loratadine (CLARITIN) 10 mg tablet Take 10 mg by mouth daily as needed. metoprolol XL (TOPROL XL) 50 mg extended release tablet Take 50 mg by mouth daily. nitroglycerin (NITROSTAT) 0.[address] 0.4 mg under tongue every 5 minutes as needed for Chest Pain. Max of 3 tablets, call 911. ranitidine(+) (ZANTAC) 150 mg tablet Take 150 mg by mouth twice daily as needed for Heartburn. Vitals: 12/29/17 1112 BP: 144/75 Pulse: 77 Weight: 104.3 kg (230 lb) Height: 162.6 cm (64") Body mass index is 39.48 kg/m. Physical Exam HEENT: normocephalic, eyes open with no discharge, nares patent, oropharynx is clear with no lesions, palate intact CV: regular rate and rhythm, no murmur Chest: normal configuration, lungs are clear bilaterally Mental status: Awake, alert, oriented x 4 Speech: Fluent; comprehension, naming and repeating intact; no dysarthria Cranial Nerves: PERRL, EOMI, visual madera full, no nystagmus, sensation intact to light touch, no droop, facial expression symmetric, tongue protrusion midline , palate elevation symmetric, shoulder shrug 5/5 bilaterally Muscle/motor: Tone normal, bulk normal, no abnormal movements, no pronator drift Sensation: intact to light touch and pin prick Coordination: finger to nose and heel to olivia intact Gait and Station: Regular gait, normal toe walk and heel walk Reflexes: 2/4 in biceps and patella Assessment and Plan: Problem Cerebral Artery Occlusion Without Cerebral Infarction Cerebral artery occlusion without cerebral infarction Beulah Champagne is a 77yo female who presented to outside hospital on 11/07/17 with speech difficulty and right hand weakness and was given IV tPA. She was found to have left M2 occlusion, but no stroke on MRI the following day. She has no residual deficits and no further stroke like symptoms. - Continue ASA and Plavix - monotherapy sufficient from stroke standpoint, but may continue dual antiplatelet therapy if indicated for cardiac - May continue to slowly bring down blood pressure with goal less than 140 systolic - Ongoing secondary stroke risk factor modification: o Goal LDL less than 70 o Goal Hgb A1C less than 7 o No smoking - Stroke education provided to patient and . If now stroke symptoms arise , she should immediately seek medical care. - Follow up 6 months Total time 35 minutes. Estimated counseling time 25 minutes. Counseled patient regarding stroke education, diagnosis, prognosis, and treatment plan. in this encounter Miscellaneous Notes * Assessment & Plan Note - Humberto Blanca DO - 12/30/2017 10:21 AM CDT Associated Problem(s): Cerebral artery occlusion without cerebral infarction Beulah Champagne is a 77yo female who presented to outside hospital on 11/07/17 with speech difficulty and right hand weakness and was given IV tPA. She was found to have left M2 occlusion, but no stroke on MRI the following day. She has no residual deficits and no further stroke like symptoms. - Continue ASA and Plavix - monotherapy sufficient from stroke standpoint, but may continue dual antiplatelet therapy if indicated for cardiac - May continue to slowly bring down blood pressure with goal less than 140 systolic - Ongoing secondary stroke risk factor modification: o Goal LDL less than 70 o Goal Hgb A1C less than 7 o No smoking - Stroke education provided to patient and . If now stroke symptoms arise , she should immediately seek medical care. - Follow up 6 months in this encounter Plan of Treatment Not on fileas of this encounter Visit Diagnoses Diagnosis Cerebral artery occlusion without cerebral infarction - Primary
--- OUTSIDE RECORDS SUMMARY | 2018-02-02 09:31 | XMS REPORT | Encounter Summary ---
Author Author [facility] Organization [facility] Address Unknown Phone Unavailable Care Team Providers Care Clothing Consultant Name Role Phone Rudy Parada MD PCP Encounter Details Date Type Department Care Team Description 12/21/2017 [facility] Cardiology Vasiliy Willett MD Encounter [address] [place] [address] [place] [address] [place] [address] [place], [place] [id number] Social History Tobacco Use Types Packs/Day Years Used Date Former Smoker Smokeless Tobacco: Never Used Sex Assigned at Date Recorded Not on file as of this encounter Functional Status Functional Status Response Date of Assessment Does the patient have a hearing impairment: No 11/07/2017 as of this encounter Medications at Time of Discharge Medication Sig. Disp. Refills Start Date End Date amLODIPine (NORVASC) 5 mg Take 2.5 mg by mouth at tablet bedtime daily. aspirin EC 81 mg tablet Take 81 mg by mouth daily. Take with food. atorvastatin (LIPITOR) 80 Take 80 mg by mouth at mg tablet bedtime daily. calcium carbonate/vitamin Take 1 tablet by mouth D-3 (OSCAL-500+D) 1250 daily. Calcium Carb mg/200 unit tablet 1250mg delivers 500mg elemental Ca Carboxymethylcellulose Apply 2 drops to both Sodium 0.5 % drop eyes daily as needed. clopiDOGrel (PLAVIX) 75 Take 75 mg by mouth mg tablet daily. fluticasone (FLONASE) 50 Apply 1 spray to each mcg/actuation nasal spray nostril as directed daily as needed. Shake bottle gently before using. leflunomide (ARAVA) 10 mg Take 0.5 mg by mouth tablet daily. levothyroxine (SYNTHROID) Take 150 mcg by mouth 150 mcg tablet daily 30 minutes before breakfast. loratadine (CLARITIN) 10 Take 10 mg by mouth daily mg tablet as needed. metoprolol XL (TOPROL XL) Take 50 mg by mouth 50 mg extended release daily. tablet nitroglycerin (NITROSTAT) Place 0.4 mg under tongue 0.4 mg tablet every 5 minutes as needed for Chest Pain. Max of 3 tablets, call 911. ranitidine(+) (ZANTAC) Take 150 mg by mouth 150 mg tablet twice daily as needed for Heartburn. as of this encounter Plan of Treatment Not on fileas of this encounter Results * EVENT MONITOR (12/21/2017 4:51 PM) Specimen Performing Laboratory OTHER OUTSIDE LAB Narrative A looping event recorder is utilized for 29 days.There is a single transmission which is sinus at 77 with a single PVC. 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
--- OUTSIDE RECORDS SUMMARY | 2018-02-02 09:31 | XMS REPORT | Clinical Summary ---
Author Author [facility] Organization [facility] Address Unknown Phone Unavailable Care Team Providers Care Lab Coordinator Name Role Phone Rudy Parada MD PCP Source Comments Some departments are not documenting in the electronic medical record. If you do not see the information that you expected, contact Release of Information in the Health Information Management department at [phone] for further assistance in locating additional records.[facility] Allergies Active Allergy Reactions Severity Noted Date Comments Tetracycline RASH Medium 11/07/2017 Current Medications Prescription Sig. Disp. Refills Start End Date Status Date aspirin EC 81 mg tablet Take 81 mg by mouth Active daily. Take with food. calcium carbonate/vitamin Take 1 tablet by mouth Active D-3 (OSCAL-500+D) 1250 daily. Calcium Carb mg/200 unit tablet 1250mg delivers 500mg elemental Ca atorvastatin (LIPITOR) 80 Take 80 mg by mouth at Active mg tablet bedtime daily. Carboxymethylcellulose Apply 2 drops to both Active Sodium 0.5 % drop eyes daily as needed. clopiDOGrel (PLAVIX) 75 Take 75 mg by mouth Active mg tablet daily. fluticasone (FLONASE) 50 Apply 1 spray to each Active mcg/actuation nasal spray nostril as directed daily as needed. Shake bottle gently before using. leflunomide (ARAVA) 10 mg Take 0.5 mg by mouth Active tablet daily. levothyroxine (SYNTHROID) Take 150 mcg by mouth Active 150 mcg tablet daily 30 minutes before breakfast. amLODIPine (NORVASC) 5 mg Take 2.5 mg by mouth at Active tablet bedtime daily. loratadine (CLARITIN) 10 Take 10 mg by mouth daily Active mg tablet as needed. metoprolol XL (TOPROL XL) Take 50 mg by mouth Active 50 mg extended release daily. tablet nitroglycerin (NITROSTAT) Place 0.4 mg under tongue Active 0.4 mg tablet every 5 minutes as needed for Chest Pain. Max of 3 tablets, call 911. ranitidine(+) (ZANTAC) Take 150 mg by mouth Active 150 mg tablet twice daily as needed for Heartburn. 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 If now stroke symptoms arise, she should immediately seek medical care. 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) (Primary Dx) 11/07/2017 [facility] Ashley Loomis, Cerebral artery occlusion - Encounter MD without cerebral 11/09/2017 Cheyenne Holguin MD infarction Humberto Blanca DO 11/07/2017 Hospital Radiology Encounter 11/07/2017 Hospital Radiology Encounter 11/07/2017 Procedure Pass 11/07/2017 Hospital Radiology Encounter 11/07/2017 Procedure Pass from Last 3 Months Social History Tobacco Use Types Packs/Day Years Used Date Former Smoker Smokeless Tobacco: Never Used Sex Assigned at Date Recorded Not on file Last Filed Vital Signs Vital Sign Reading Time Taken Blood Pressure 144/75 12/29/2017 11:12 AM CDT Pulse 77 12/29/2017 11:12 AM CDT Temperature 36.8 C (98.2 F) 11/09/2017 1:00 PM CDT Respiratory Rate - - Oxygen Saturation 100% 11/09/2017 1:00 PM CDT Inhaled Oxygen - - Concentration Weight 104.3 kg (230 lb) 12/29/2017 11:12 AM CDT Height 162.6 cm (5' 4") 12/29/2017 11:12 AM CDT Body Mass Index 39.48 12/29/2017 11:12 AM CDT Plan of Treatment Health Maintenance Due Date Last Done Comments PHYSICAL (COMPREHENSIVE) 1947 EXAM PERTUSSIS VACCINE 1953 TETANUS VACCINE 10/09/1959 COLORECTAL CANCER 1992 SCREENING SHINGLES RECOMBINANT 1992 VACCINE (1 of 2) OSTEOPOROSIS SCREENING 10/09/2007 PNEUMONIA (PCV13/PPSV23) 10/09/2007 VACCINES (1 of 2 - PCV13) INFLUENZA VACCINE 04/25/2018 05/19/2010 Procedures Procedure Name Priority Date/Time Associated Diagnosis Comments ECG-SCAN 11/07/2017 Results for this 3:40 PM CDT procedure are in the results section. from Last 3 Months Results * EVENT MONITOR (12/21/2017 4:51 PM) Specimen Performing Laboratory OTHER OUTSIDE LAB Narrative A looping event recorder is utilized for 29 days.There is a single transmission which is sinus at 77 with a single PVC. * CBC (11/09/2017 4:42 AM) Only the most recent of 3 results within the time period is included. Component Value Ref Range White Blood Cells 8.3 4.5 - 11.0 K/UL RBC 4.08 4.0 - 5.0 M/UL Hemoglobin 12.3 12.0 - 15.0 GM/DL Hematocrit 36.1 36 - 45 % MCV 88.6 80 - 100 FL MCH 30.1 26 - 34 PG MCHC 34.0 32.0 - 36.0 G/DL RDW 15.4 (H) 11 - 15 % Platelet Count 194 150 - 400 K/UL MPV 7.8 7 - 11 FL Specimen Performing Laboratory [facility] [address] [place] [address] * BASIC METABOLIC PANEL (11/09/2017 4:42 AM) Component Value Ref Range Sodium 138 137 - 147 MMOL/L Potassium 3.9 3.5 - 5.1 MMOL/L Chloride 106 98 - 110 MMOL/L CO2 23 21 - 30 MMOL/L Anion Gap 9 3 - 12 Glucose 103 (H) 70 - 100 MG/DL Blood Urea Nitrogen 19 7 - 25 MG/DL Creatinine 0.90 0.4 - 1.00 MG/DL Calcium 8.9 8.5 - 10.6 MG/DL eGFR Non >60 >60 mL/min Comment: The eGFR is not validated for use in drug dosing adjustments.Continue to use estimated creatinine clearance per dosing reference text.Please contact the Clinical Pharmacist for questions. eGFR >60 >60 mL/min Comment: The eGFR is not validated for use in drug dosing adjustments.Continue to use estimated creatinine clearance per dosing reference text.Please contact the Clinical Pharmacist for questions. Specimen Performing Laboratory [facility] [address] [place] [address] * MRI HEAD WO CONTRAST (11/08/2017 10:54 AM) Specimen Performing Laboratory [facility] RAD RESULTS Impressions 1.No recent infarct, intracranial hemorrhage, or mass lesion. 2.Right insular/frontal opercular encephalomalacia and gliosis from remote infarct. Finalized by ARIA PRITCHARD M.D. on 11/08/2017 1:23 PM. Dictated by ARIA PRITCHARD M.D. on 11/08/2017 12:42 PM. Narrative MRI HEAD WO CONTRAST Clinical indication: Left M2 branch occlusion. Technique: MRI of the brain is performed without contrast. Contrast: None Comparison: CTA from November 07, 2017 Findings: There is encephalomalacia and FLAIR hyperintensities in the right insula and opercular right frontal lobe. No restricted diffusion is identified. The ADC values within this area are elevated. Brain parenchyma is normal in volume for age. No additional parenchymal signal abnormalities identified. There is no intracranial hemorrhage. There is no mass effect or midline shift. The major intracranial flow voids are preserved. The globes and orbits appear normal. There is a right maxillary retention cyst. The mastoid air cells are clear. Procedure Note Interface, Radiant Results - 11/08/2017 1:27 PM CDT MRI HEAD WO CONTRAST Clinical indication: Left M2 branch occlusion. Technique: MRI of the brain is performed without contrast. Contrast: None Comparison: CTA from November 07, 2017 Findings: There is encephalomalacia and FLAIR hyperintensities in the right insula and opercular right frontal lobe. No restricted diffusion is identified. The ADC values within this area are elevated. Brain parenchyma is normal in volume for age. No additional parenchymal signal abnormalities identified. There is no intracranial hemorrhage. There is no mass effect or midline shift. The major intracranial flow voids are preserved. The globes and orbits appear normal. There is a right maxillary retention cyst. The mastoid air cells are clear. IMPRESSION 1. No recent infarct, intracranial hemorrhage, or mass lesion. 2. Right insular/frontal opercular encephalomalacia and gliosis from remote infarct. Finalized by ARIA PRITCHARD M.D. on 11/08/2017 1:23 PM. Dictated by ARIA PRITCHARD M.D. on 11/08/2017 12:42 PM. * 2-D + DOPPLER ECHOCARDIOGRAM (11/08/2017 9:47 AM) Component Value Ref Range IVS 1.52 0.6 - 0.9 cm LVIDD 4.34 3.8 - 5.2 cm LVIDS 3.58 2.2 - 3.5 cm PW 1.22 0.6 - 0.9 cm TDI e' 0.09 m/s Right Ventricular Mid 2.34 1.9 - 3.5 cm Diameter LA size 3.59 2.7 - 3.8 cm LA volume 43.23 22 - 52 mL Right Atrial Area 11.51 15 - 27 cm2 Right Atrial Major 3.83 2.2 - 2.8 cm Dimension MV Peak A Shimon 1.10 m/s MV Peak E Shimon PW 0.93 m/s Right Heart Systolic 1.65 >1.7 cm Mmode TAPSE Right Ventricular Basal 2.93 2.5 - 4.1 cm Diameter Sinus 3.30 2.7 - 3.3 cm BSA 2.16 m2 FS 17.51 28 - 44 % EF 29.77 % Left Atrium Index 20.01 16 - 34 E/A ratio 0.85 E/E' ratio 10.33 Referring Provider None CV ECHO [place] [facility] Gerardo RN LV mass 227.86 66 - 150 g RWT 0.56 <=0.42 TV rest pulmonary artery NA mmHg pressure Right Heart Systolic TDI 0.150 m/s S' Cardiology Ultrasound Siemens [id number] Machine Left Ventricle Mass Index 105.49 44 - 88 g/m2 and a peak gradient of 10.68 mmHg AV peak velocity 1.63 m/s ECHO EF 60 % Specimen Performing Laboratory OTHER OUTSIDE LAB Narrative The atria are not dilated Right ventricular chamber size is normal, and function is lower limits of normal by TAPSE Left ventricular chamber size is normal; with mild concentric left ventricular hypertrophy Normal left ventricular systolic function, with an ejection fraction estimated at 60% Mild diastolic dysfunction No hemodynamically significant valvular abnormalities No previous study available for comparison * LIPID PROFILE (11/08/2017 4:40 AM) Component Value Ref Range Cholesterol 141 <200 MG/DL Triglycerides 155 (H) <150 MG/DL HDL 32 (L) >40 MG/DL LDL 82 <100 MG/DL VLDL 31 MG/DL Non HDL Cholesterol 109 MG/DL Comment: Calculated non-HDL Cholesterol (non-HDL-C) indirectly measures LDL-C, Lp(a), IDL-C, and VLDL-C.It is a surrogate marker for Apoprotein B.Goal should be less than 130 mg/dL. Specimen Performing Laboratory [facility] [address] [place] [address] * COMPREHENSIVE METABOLIC PANEL (11/08/2017 4:40 AM) Only the most recent of 2 results within the time period is included. Component Value Ref Range Sodium 139 137 - 147 MMOL/L Potassium 3.9 3.5 - 5.1 MMOL/L Chloride 107 98 - 110 MMOL/L Glucose 103 (H) 70 - 100 MG/DL Blood Urea Nitrogen 14 7 - 25 MG/DL Creatinine 0.86 0.4 - 1.00 MG/DL Calcium 8.8 8.5 - 10.6 MG/DL Total Protein 6.1 6.0 - 8.0 G/DL Total Bilirubin 0.6 0.3 - 1.2 MG/DL Albumin 3.2 (L) 3.5 - 5.0 G/DL Alk Phosphatase 64 25 - 110 U/L AST (SGOT) 18 7 - 40 U/L CO2 25 21 - 30 MMOL/L ALT (SGPT) 11 7 - 56 U/L Anion Gap 7 3 - 12 eGFR Non >60 >60 mL/min Comment: The eGFR is not validated for use in drug dosing adjustments.Continue to use estimated creatinine clearance per dosing reference text.Please contact the Clinical Pharmacist for questions. eGFR >60 >60 mL/min Comment: The eGFR is not validated for use in drug dosing adjustments.Continue to use estimated creatinine clearance per dosing reference text.Please contact the Clinical Pharmacist for questions. Specimen Performing Laboratory [facility] [address] [place] [address] * ECG-SCAN (11/07/2017 3:40 PM) Narrative Ordered by an unspecified provider. * HEMOGLOBIN A1C (11/07/2017 2:49 PM) Component Value Ref Range Hemoglobin A1C 5.7 4.0 - 6.0 % Comment: The ADA recommends that most patients with type 1 and type 2 diabetes maintain an A1c level <7%. Specimen Performing Laboratory [facility] [address] [place] [address] * CT BRAIN PERF (11/07/2017 2:25 PM) Specimen Performing Laboratory [facility] RAD RESULTS Impressions 1.Moderate sized left MCA territory perfusion mismatch in the posterior left frontal lobe, which corresponds to area of a distal left M2 branch small thrombus identified on prior CTA. 2.Completed, older appearing infarcts within the right insula/right perisylvian temporal cortex and right cerebellum. 3.Development of mild hyperdensity along the posterior falx with mild additional hyperdensity along the sulci in the right medial parietal occipital area, suggestive of subarachnoid hemorrhage versus residual contrast. This is more suspicious for subarachnoid hemorrhage given lack of additional sulcal contrast in additional portions of the cerebrum. Preliminary findings were discussed by phone with Dr. Colvin at 2:55 PM on . By my electronic signature, I attest that I have personally reviewed the images for this examination and formulated the interpretations and opinions expressed in this report Finalized by Rudy Nayak M.D. on 11/07/2017 3:13 PM. Dictated by Jose Hunt M.D. on 11/07/2017 2:31 PM. Narrative EXAM: CT BRAIN PERFUSION HISTORY: Stroke, right-sided weakness TECHNIQUE: Multiple contiguous axial images were obtained of the brain without the administration ofIV contrast. Perfusion imaging was obtained following the administration of IV contrast with CBV, MTT, TTD, and CBF mapping. COMPARISON: CTA head and neck from earlier the same day. FINDINGS: Dr. Rudy Nayak M.D. has personally reviewed these images and formulated the interpretations and opinions expressed in this report. The ventricles and subarachnoid spaces are normal in size and configuration. There is hypoattenuation within the right insula and adjacent to the right temporal perisylvian cortex with loss of the cantor-white matter interface, likely representing a subacute to chronic infarct. There is a nearly 1 cm hypodense focus within the right upper cerebellum, most consistent with an old small infarct. There is hyperdensity along the posterior falx cerebri with mild linear hyperdensity along the adjacent sulci in the right medial parieto-occipital area , new since the previous outside noncontrast head CT. There is no midline shift or herniation.The basal cisterns are patent. The calvarium is intact. There is a moderate-sized area of decreased flow, increased mean transit time, and increased time to peak in the left insula and posterior left frontal lobe. These areas show increased cerebral blood volume, with no areas of decreased left cerebral blood volume seen to indicate a significant completed infarct at this time. This corresponds to the small thrombus seen on outside CTA head within a distal left M2 branch (series 8, image 116 on outside scan). There is a small area of increased mean transit time involving the right insula and adjacent perisylvian cortex corresponding to area of older infarct seen on CTA images. Additional triple phase perfusion defect within the right cerebellum, compatible with old infarct. Procedure Note Interface, Radiant Results - 11/07/2017 3:16 PM CDT EXAM: CT BRAIN PERFUSION HISTORY: Stroke, right-sided weakness TECHNIQUE: Multiple contiguous axial images were obtained of the brain without the administration of IV contrast. Perfusion imaging was obtained following the administration of IV contrast with CBV, MTT, TTD, and CBF mapping. COMPARISON: CTA head and neck from earlier the same day. FINDINGS: Dr. Rudy Nayak M.D. has personally reviewed these images and formulated the interpretations and opinions expressed in this report. The ventricles and subarachnoid spaces are normal in size and configuration. There is hypoattenuation within the right insula and adjacent to the right temporal perisylvian cortex with loss of the cantor-white matter interface, likely representing a subacute to chronic infarct. There is a nearly 1 cm hypodense focus within the right upper cerebellum, most consistent with an old small infarct. There is hyperdensity along the posterior falx cerebri with mild linear hyperdensity along the adjacent sulci in the right medial parieto-occipital area , new since the previous outside noncontrast head CT. There is no midline shift or herniation. The basal cisterns are patent. The calvarium is intact. There is a moderate-sized area of decreased flow, increased mean transit time, and increased time to peak in the left insula and posterior left frontal lobe. These areas show increased cerebral blood volume, with no areas of decreased left cerebral blood volume seen to indicate a significant completed infarct at this time. This corresponds to the small thrombus seen on outside CTA head within a distal left M2 branch (series 8, image 116 on outside scan). There is a small area of increased mean transit time involving the right insula and adjacent perisylvian cortex corresponding to area of older infarct seen on CTA images. Additional triple phase perfusion defect within the right cerebellum, compatible with old infarct. IMPRESSION 1. Moderate sized left MCA territory perfusion mismatch in the posterior left frontal lobe, which corresponds to area of a distal left M2 branch small thrombus identified on prior CTA. 2. Completed, older appearing infarcts within the right insula/right perisylvian temporal cortex and right cerebellum. 3. Development of mild hyperdensity along the posterior falx with mild additional hyperdensity along the sulci in the right medial parietal occipital area, suggestive of subarachnoid hemorrhage versus residual contrast. This is more suspicious for subarachnoid hemorrhage given lack of additional sulcal contrast in additional portions of the cerebrum. Preliminary findings were discussed by phone with Dr. Colvin at 2:55 PM on . By my electronic signature, I attest that I have personally reviewed the images for this examination and formulated the interpretations and opinions expressed in this report Finalized by Rudy Nayak M.D. on 11/07/2017 3:13 PM. Dictated by Jose Hunt M.D. on 11/07/2017 2:31 PM. * CT HEAD EXTERNAL IMAGING (11/07/2017 12:30 AM) Only the most recent of 2 results within the time period is included. Narrative This order has been auto finalized and does not contain a result. * GENERAL RAD CHEST EXTERNAL IMAGING (11/07/2017) Narrative This order has been auto finalized and does not contain a result. from Last 3 Months
--- OUTSIDE RECORDS SUMMARY | 2018-02-02 09:31 | XMS REPORT | Encounter Summary ---
Author Author [facility] Organization [facility] Address Unknown Phone Unavailable Care Team Providers Care Schedule Manager Name Role Phone Rudy Parada MD PCP Reason for Visit * Reason Comments Test/procedure Event monitor enrolled Encounter Details Date Type Department Care Team Description 11/10/2017 Documentation [facility] Alvarez Fraire Test/ procedure (Event [address] monitor enrolled) [place] [address] Social History Tobacco Use Types Packs/Day Years Used Date Former Smoker Smokeless Tobacco: Never Used Sex Assigned at Date Recorded Not on file as of this encounter Functional Status Functional Status Response Date of Assessment Does the patient have a hearing impairment: No 11/07/2017 as of this encounter Progress Notes * Alvarez Fraire - 11/10/2017 12:17 PM CDT Brand: Cardionet Type: Looping Length: 30days Ordering Dr: Tamie Diagnosis: CVA Was insurance info faxed with enrollment: Yes in this encounter Plan of Treatment Not on fileas of this encounter Visit Diagnoses Not on filein this encounter
--- OUTSIDE RECORDS SUMMARY | 2018-02-02 09:31 | XMS REPORT | Encounter Summary ---
Author Author [facility] Organization [facility] Address Unknown Phone Unavailable Care Team Providers Care Clothing Supervisor Name Role Phone Rudy Parada MD PCP Reason for Referral * Status Reason Specialty Diagnoses / Referred By Referred To Procedures Contact Contact New Request Diagnoses Vasiliy Willett MD accident (CVA) [address] of left middle [place] [address] cerebral artery [place], [place] (HCC) [address] P Phone: [employer] [phone] REQUEST FOR Fax: CARDIOLOGY [phone] APPOINTMENT Encounter Details Date Type Department Care Team Description 11/09/2017 Orders Only [facility] Jennifer Pierce RN Cerebrovascular accident [address] (CVA) due to embolism of [address] [place] [address] artery (HCC) (Primary Dx) [phone] Social History Tobacco Use Types Packs/Day Years Used Date Former Smoker Smokeless Tobacco: Never Used Sex Assigned at Date Recorded Not on file as of this encounter Functional Status Functional Status Response Date of Assessment Does the patient have a hearing impairment: No 11/07/2017 as of this encounter Plan of Treatment [...] embolism of left middle cerebral artery (HCC) - Primary
--- OUTSIDE RECORDS SUMMARY | 2018-02-02 09:32 | XMS REPORT | Encounter Summary ---
Author Author [facility] Organization [facility] Address Unknown Phone Unavailable Care Team Providers Care Automobile Assembly Supervisor Name Role Phone Rudy Parada MD PCP Encounter Details Date Type Department Care Team Description 11/07/2017 Hospital [facility] Encounter Hospital Radiology [address] [place] [address] Social History Tobacco Use Types Packs/Day Years [...]
--- OUTSIDE RECORDS SUMMARY | 2018-02-02 09:32 | XMS REPORT | Encounter Summary ---
Author Author [facility] Organization [facility] Address Unknown Phone Unavailable Care Team Providers Care Artificial Insemination Technician Name Role Phone Rudy Parada MD PCP Encounter Details Date Type Department Care Team Description 11/07/2017 Hospital [facility] Encounter Hospital Radiology [address] [place] [address] Social History Tobacco Use Types [...]
--- OUTSIDE RECORDS SUMMARY | 2018-02-02 09:32 | XMS REPORT | Encounter Summary ---
Author Author [facility] Organization [facility] Address Unknown Phone Unavailable Care Team Providers Care Air Traffic Controller Name Role Phone Rudy Parada MD PCP Encounter Details Date Type Department Care Team Description 11/07/2017 Procedure [address] [place] [address] Social History Tobacco Use Types Packs/Day Years [...]
--- OUTSIDE RECORDS SUMMARY | 2018-02-02 09:32 | XMS REPORT | Encounter Summary ---
Author Author [facility] Organization [facility] Address Unknown Phone Unavailable Care Team Providers Care Coding Compliance Auditor Name Role Phone Rudy Parada MD PCP Encounter Details Date Type Department Care Team Description 11/07/2017 Hospital [facility] Encounter Hospital Radiology [address] [place] [address] Social History Tobacco Use Types [...]
--- OUTSIDE RECORDS SUMMARY | 2018-02-02 09:32 | XMS REPORT | Encounter Summary ---
Author Author [facility] Organization [facility] Address Unknown Phone Unavailable Care Team Providers Care Loan Secretary Name Role Phone Rudy Parada MD PCP Reason for Visit * Auth/Cert Status Reason Specialty Diagnoses / Referred By Referred To Procedures Contact Contact Diagnoses acute stroke Stroke (cerebrum) (HCC) Encounter Details Date Type Department Care Team Description 11/07/2017 Hospital [facility] Ashley Loomis, Cerebral artery occlusion - Encounter [id number] MD without cerebral 11/09/2017 [place] [address] infarction [phone] [address] [place] [address] [phone] Cheyenne Sauer MD [address] [place] [address] [phone] Garry Larson DO [address] [place] [address] [phone] Social History Tobacco Use Types Packs/Day Years Used Date Former Smoker Smokeless Tobacco: Never Used Sex Assigned at Date Recorded Not on file as of this encounter Last Filed Vital Signs Vital Sign Reading Time Taken Blood Pressure 115/67 11/09/2017 1:00 PM CDT Pulse 79 11/09/2017 1:00 PM CDT Temperature 36.8 C (98.2 F) 11/09/2017 1:00 PM CDT Respiratory Rate - - Oxygen Saturation 100% 11/09/2017 1:00 PM CDT Inhaled Oxygen - - Concentration Weight 103 kg (227 lb 1.2 oz) 11/08/2017 4:39 PM CDT Height 162.6 cm (5' 4") 11/08/2017 4:39 PM CDT Body Mass Index 38.98 11/08/2017 4:39 PM CDT in this encounter Functional Status Functional Status Response Date of Assessment Does the patient have a hearing impairment: No 11/07/2017 as of this encounter Discharge Summaries * Garry Blanca DO - 11/09/2017 1:59 PM CDT Formatting of this note may be different from the original. Physician Discharge Summary Name: Beulah Barreto Date Of : 1940 Age: 77 years Admit date: 11/07/2017 Discharge date: 11/09/2017 Attending Physician: Dr. Blanca Service: Neurology Stroke Physician Summary completed by: Misa Lainez MD Reason for hospitalization: Significant PMH: Past Medical History: Diagnosis Date Breast cancer (HCC) 1991 CAD (coronary artery disease) HLD (hyperlipidemia) HTN (hypertension) Rheumatoid arthritis (HCC) Thyroid cancer (HCC) 1959 Allergies: Tetracycline Admission Physical Exam notable for: HEENT: normocephalic, eyes open with no discharge, nares patent, oropharynx is clear with no lesions, palate intact CV: regular rate, distal pulses palpable Chest: normal configuration, equal chest rise bilaterally Ab: soft, non-tender, no masses, no organomegaly Skin: no rashes or lesions Extended Neuro Exam: Mental status: alert, oriented to person/place/time Speech: Normal Abnormal Fluency x Comprehension x Articulation x Repetition x Naming x Cranial Nerves: Normal Abnormal II x III, IV, x V x VII x VIII x IX, X x XI x XII x Muscle/motor: Tone: nml Bulk: nml Fasciculations: none Pronator drift: none NF NE SA EF EE WE WF FF FE FA TA HF ALMANZA HE KF KE DF PF R 5 5 5 5 5 5 5 5 5 5 5 5 5 5 5 5 5 5 L 5 5 5 5 5 5 5 5 5 5 5 5 5 5 5 5 Sensation: Normal RUE LUE RLE LLE Light Touch x Pin Prick x Temperature x Vibration x Proprioception x Coordination: Normal Abnormal Right Abnormal Left Finger to Nose x Rapid alternating Heel to Olivia x Finger tap Foot tap NIHSS 0 on admission Admission Lab/Radiology studies notable for: CBC Collection Time: 11/07/17 2:49 PM Result Value Ref Range White Blood Cells 8.2 4.5 - 11.0 K/UL RBC 4.40 4.0 - 5.0 M/UL Hemoglobin 12.9 12.0 - 15.0 GM/DL Hematocrit 39.7 36 - 45 % MCV 90.2 80 - 100 FL MCH 29.3 26 - 34 PG MCHC 32.5 32.0 - 36.0 G/DL RDW 15.6 (H) 11 - 15 % Platelet Count 203 150 - 400 K/UL MPV 7.8 7 - 11 FL COMPREHENSIVE METABOLIC PANEL Collection Time: 11/07/17 2:49 PM Result Value Ref Range Sodium 139 137 - 147 MMOL/L Potassium 4.2 3.5 - 5.1 MMOL/L Chloride 106 98 - 110 MMOL/L Glucose 109 (H) 70 - 100 MG/DL Blood Urea Nitrogen 14 7 - 25 MG/DL Creatinine 0.93 0.4 - 1.00 MG/DL Calcium 8.8 8.5 - 10.6 MG/DL Total Protein 6.5 6.0 - 8.0 G/DL Total Bilirubin 0.6 0.3 - 1.2 MG/DL Albumin 3.5 3.5 - 5.0 G/DL Alk Phosphatase 74 25 - 110 U/L AST (SGOT) 16 7 - 40 U/L CO2 26 21 - 30 MMOL/L ALT (SGPT) 11 7 - 56 U/L Anion Gap 7 3 - 12 eGFR Non 59 (L) >60 mL/min eGFR >60 >60 mL/min Glucose: (!) 109 (11/07/17 1449) Brief Hospital Course: The patient was admitted and the following issues were addressed during this hospitalization: (with pertinent details). This is 77 yo F with h/oBreast cancer in 1991, CAD s/p stenting on ASA+plavix , hypothyroidism, RA, HTN, HLD, thyroid cancer s/p resection, tobacco abuse who was transferred from [facility], operated by [facility]. He initially presented to OSH with sudden onset garbled speech, right hand weakness and incoordination. NIHSS at OSH was 2 , received tPA on 11/07. On [facility] arrival, NIHSS 0. CTA head and neck at OSH showed distal left M2 occlusion with thrombus. CTP 11/07 here showed moderate sized posterior left MCA distribution(left frontal and insula). MRI brain was negative.Echo without intracardiac shunt. LDL 82, A1C 5.4. ASA and plavix were resumed 24 hours after tPA given. Continue atorvastatin 80 mg Qhs. Keep BP goal 120-160 to avoid low flow given the occlusion. She was resumed on PESTICIDE APPLICATOR metoprolol XL 50 mg Qday but held amlodipine(will start amlodipine if SBP> 160) . Etiology is likely artery to artery emboli given the risk factors but cardio embolic is also possible, so Cardiology EP consulted for 30 day cardiac monitoring to rule out parosyxmal Afib. She will follow with Cardiology EP for LINQ placement. Patient was stable and discharged home with outpatient [employer] for language treatment and follow up appointment with in 6 weeks. 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 Moving around can help prevent blood clots, lung infection (pneumonia ) and other problems. Gradually increasing the number of times you are up moving around will help you return to your normal activity level more quickly. Continue to increase the number of times you are up to the chair and walking daily to return to your normal activity level. Begin to work towards your normal activity level after follow-up appointment. Report These Signs and Symptoms STROKE Call 911 for the following symptoms: *Sudden numbness or weakness of the face, arm or leg, especially on one side of the body. *Sudden confusion, trouble speaking or understanding. *Sudden trouble seeing in one or both eyes. *Sudden trouble walking, dizziness, loss of balance or coordination. *Sudden, severe headache with no known cause. Return Appointment For Neurology scheduling contact [phone] Questions About Your Stay STANDARD For questions or concerns regarding your hospital stay: -DURING BUSINESS HOURS (8:00 AM - 4:30 PM): Call [phone] and ask to be transferred to your discharge attending physician. -AFTER BUSINESS HOURS (4:30 PM - 8:00 AM, on weekends, or holidays): Call [phone] and ask the inclined railway operator to page the on-call doctor for the discharge attending physician. Discharging attending physician: GARRY BLANCA [[id number]] Cardiac Diet Limiting unhealthy fats and cholesterol is the most important step you can take in reducing your risk for cardiovascular disease. Unhealthy fats include saturated and trans fats. Monitor your sodium and cholesterol intake. Restrict your sodium to 2g (grams) or 2000mg (milligrams) daily, and your cholesterol to 200mg daily. If you have questions regarding your diet at home, you may contact a dietitian at . Current Discharge Medication List CONTINUE these medications which have NOT CHANGED Details amLODIPine (NORVASC) 5 mg tablet Take 5 mg by mouth at bedtime daily. PRESCRIPTION TYPE: Historical Med aspirin EC 81 mg tablet Take 81 mg by mouth daily. Take with food. PRESCRIPTION TYPE: Historical Med atorvastatin (LIPITOR) 80 mg tablet Take 80 mg by mouth at bedtime daily. PRESCRIPTION TYPE: Historical Med calcium carbonate/vitamin D-3 (OSCAL-500+D) 1250 mg/200 unit tablet Take 1 tablet by mouth daily. Calcium Carb 1250mg delivers 500mg elemental Ca PRESCRIPTION TYPE: Historical Med Carboxymethylcellulose Sodium 0.5 % drop Apply 2 drops to both eyes daily as needed. PRESCRIPTION TYPE: Historical Med clopiDOGrel (PLAVIX) 75 mg tablet Take 75 mg by mouth daily. PRESCRIPTION TYPE: Historical Med fluticasone (FLONASE) 50 mcg/actuation nasal spray Apply 1 spray to each nostril as directed daily as needed. Shake bottle gently before using. PRESCRIPTION TYPE: Historical Med leflunomide (ARAVA) 10 mg tablet Take 10 mg by mouth daily. PRESCRIPTION TYPE: Historical Med levothyroxine (SYNTHROID) 150 mcg tablet Take 150 mcg by mouth daily 30 minutes before breakfast. PRESCRIPTION TYPE: Historical Med loratadine (CLARITIN) 10 mg tablet Take 10 mg by mouth daily as needed. PRESCRIPTION TYPE: Historical Med metoprolol XL (TOPROL XL) 50 mg extended release tablet Take 50 mg by mouth daily. PRESCRIPTION TYPE: Historical Med nitroglycerin (NITROSTAT) 0.[address] 0.4 mg under tongue every 5 minutes as needed for Chest Pain. Max of 3 tablets, call 911. PRESCRIPTION TYPE: Historical Med ranitidine(+) (ZANTAC) 150 mg tablet Take 150 mg by mouth twice daily as needed for Heartburn. PRESCRIPTION TYPE: Historical Med Pending items needing follow up: none Signed: Misa Lainez MD 11/09/2017 cc: Primary Care Physician: Rudy Parada Referring physicians: Self, Referral Additional provider(s): in this encounter Medications at Time of Discharge [...] needed for Heartburn. as of this encounter Progress Notes * James Daniel RN - 11/09/2017 2:03 PM CDT Beulah Barreto discharged on 11/09/2017. . Discharge instructions reviewed with patient and family. Valuables returned: with patient . Home medications: none . Functional assessment at discharge complete: Yes . Pt and family verbalized understanding of medications and dc instructions. RN allowed time for questions. No incidents or injuries at time of dc * James Daniel RN - 11/09/2017 2:02 PM CDT I have reviewed the notes, assessment, and/or procedures performed by SN Ramón and concur with her/his documentation unless otherwise noted. * Misa Lainez MD - 11/09/2017 9:50 AM CDT Formatting of this note may be different from the original. General Progress Note Name: Beulah Barreto Today's Date: 11/09/2017 Admission Date: 11/07/2017 LOS: 2 days Assessment/Plan: Active Problems: Stroke (cerebrum) (HCC) This is 77 yo F with h/o Breast cancer in 1991, CAD s/p stenting on ASA+plavix, hypothyroidism, RA, HTN, HLD, thyroid cancer s/p resection, tobacco abuse who was transferred from [facility], operated by [facility]. He initially presented to OSH with sudden onset garbled speech, right hand weakness and incoordination. NIHSS at OSH was 2. She received tPA on 11/07 and transferred here. On [facility] arrival, NIHSS 0. Imaging and diagnostic studies: - CTA head and neck at OSH showed distal left M2 occlusion with thrombus - CTP 11/07 here showed moderate sized posterior left MCA distribution(left frontal and insula) - MRI brain negative - Echo without intracardiac shunt - LDL 82, A1C 5.4 Etiology: Unclear at this time (artery to artery emboli given the risk factors vs cardio embolic) Plan - Continue ASA + plavix - BP control (goal 120-140,to avoid low flow given the occlusion) -> continue metoprolol XL 50 mg Qday, hold amlodipine (start amlodipine if SBP> 160) - PT/[facility] [employer]/rehab consulted -> home with assistance - Outpatient [facility] for language - Cardiology EP consulted for cardiac monitoring to evaluate for arrhythmia which could contribute to cardio embolic source - Follow up with Dr. Blanca in stroke clinic in 6 weeks as an outpatient FEN: no IVF, replace E'lyte PRN, cardiac diet PPX: SCDs, lovenox Dispo: Discharge home today Patient seen and discussed with . Subjective Beulah Barreto is a 77 y.o. female. Patient was resting in the bed comfortably. No acute event overnight. Reports 10 seconds where she could not move her right hand last night but then went back to normal after that. This morning, she said that she had event where she could not get the words right for 30 seconds before back to baseline. Discussed diagnosis and plan with patient and she voiced understanding. Medications Scheduled Meds: amLODIPine (NORVASC) tablet 5 mg 5 mg Oral QDAY aspirin chewable tablet 81 mg 81 mg Oral QDAY atorvastatin (LIPITOR) tablet 80 mg 80 mg Oral QHS calcium carbonate/vitamin D-3 (OSCAL-500+D) 1250 mg/200 unit tablet 1 tablet 1 tablet Oral BID clopiDOGrel (PLAVIX) tablet 75 mg 75 mg Oral QDAY leflunomide (ARAVA) tablet 10 mg 10 mg Oral QDAY levothyroxine (SYNTHROID) tablet 150 mcg 150 mcg Oral QDAY() metoprolol XL (TOPROL XL) tablet 50 mg 50 mg Oral QDAY Continuous Infusions: PRN and Respiratory Meds:carboxymethylcellulose PRN Objective: Vital Signs: Last Filed Vital Signs: 24 Hour Range BP: 129/77 (11/09 0550) Temp: 36.9 C (98.4 F) (11/09 0550) Pulse: 78 (11/09 0550) Respirations: 16 PER MINUTE (11/09 0550) SpO2: 98 % (11/09 0550) O2 Delivery: None (Room Air) (11/09 0550) SpO2 Pulse: 80 (11/08 1500) Height: 162.6 cm (64") (11/08 1639) BP: (105-146)/(49-78) Temp: [36.7 C (98.1 F)-37.1 C (98.8 F)] Pulse: [75-90] Respirations: [10 PER MINUTE-17 PER MINUTE] SpO2: [96 %-99 %] O2 Delivery: None (Room Air) Vitals: 11/07/17 1445 11/08/17 0947 11/08/17 1639 Weight: 103.2 kg (227 lb 8.2 oz) 103 kg (227 lb 1.2 oz) 103 kg (227 lb 1.2 oz) Intake/Output Summary: (Last 24 hours) Intake/Output Summary (Last 24 hours) at 11/09/17 0951 Last data filed at 11/08/17 1200 Gross per 24 hour Intake 0 ml Output 250 ml Net -250 ml Stool Occurrence: 1 Physical Exam: General: Resting comfortably Respiratory: No respiratory distress Neuro Exam: Mental status: Alert and oriented to person, place, time, and situation. Follows commands Speech: Fluent, intact comprehension and articulation CN: EOMIB, PERRL, facial sensation intact, facial movement symmetric, hearing grossly intact, tongue protrudes midline Motor: Moves all extremities equally against gravity without difficulty or abnormalities Sensation: intact to light touch throughout Gait: able to rise from a seated position, normal arm swing and step length, no decompensation of turn, no ataxia Lab Review 24-hour labs: Results for orders placed or performed during the hospital encounter of (from the past 24 hour(s)) CBC Collection Time: 11/09/17 4:42 AM Result Value Ref Range White Blood Cells 8.3 [...] K/UL MPV 7.8 7 - 11 FL BASIC METABOLIC PANEL Collection Time: 11/09/17 4:42 AM Result Value Ref Range Sodium 138 137 - [...] 10.6 MG/DL eGFR Non >60 >60 mL/min eGFR >60 >60 mL/min Point of Care Testing (Last 24 hours) Glucose: (!) 103 (11/09/17 0442) Radiology and other Diagnostics Review: Pertinent radiology reviewed. Misa Lainez MD Pager [phone] Associated attestation - Garry Blanca DO - 11/09/2017 2:16 PM CDT Formatting of this note may be different from the original. ATTESTATION I personally performed the chapman portions of the E/M visit, discussed case with resident and concur with resident documentation of history, physical exam, assessment, and treatment plan unless otherwise noted. Patient presented to outside hospital with speech difficulty and right hand weakness. [...] back to her baseline without clear residual deficit. Distal left MCA occlusion without ischemic changes on MRI or persistent clinical deficits. Etiology of emboli could be artery to artery vs cardio embolic. Restart ASA and Plavix. Allow for permissive blood pressure up to 160 systolic. Will set up for extended cardiac event monitor. Follow up in clinic with me. Staff name: Garry Blanca DO Date: 11/09/2017 * James Daniel, RN - 11/08/2017 6:16 PM CDT I have reviewed the notes, assessment, and/or procedures performed by SN Ramón and concur with her/his documentation unless otherwise noted. * James Daniel, RN - 11/08/2017 4:38 PM CDT Patient arrived to room # 6105 via wheelchair accompanied by RN. Patient transferred to the chair without assistance. Bedside safety checks completed. Initial patient assessment completed, refer to flowsheet for details. Admission skin assessment completed by: Pressure Injury Present on Hospital Admission (within 24 hours): No 1. Occiput: No 2. Ear: No 3. Scapula: No 4. Spinous Process: No 5. Shoulder: No 6. Elbow: No 7. Iliac Crest: No 8. Sacrum/Coccyx: No 9. Ischial Tuberosity: No 10. Trochanter: No 11. Knee: No 12. Malleolus: No 13. Heel: No 14. Toes: No 15. Assessed for device associated injury Yes 16. Nursing Nutrition Assessment Completed Yes See Doc Flowsheet for additional wound details. INTERVENTIONS: none needed at this time * Jenelle Zamora OT - 11/08/2017 2:53 PM CDT OCCUPATIONAL THERAPY NO TREATMENT/DISCHARGE NOTE The patient was not seen due to: discussed with PT and EMR reviewed. Pt is independent with ADLs and ambulation and previous symptoms have resolved. There are no OT needs identified. Please reconsult of new needs are identified. Therapist: Jenelle Zamora, OT Date: 11/08/2017 * Luisa Alonso M.Div, [facility] - 11/08/2017 11:32 AM CDT Reason for Visit: Patient request at admission Leanna/Sikh: The patient is [employer]ar[employer]. She attends [employer] in [place]. She believes that God has always guided her and taken care of her. The first time she has surgery was when she was 22 years old. During her recovery, she felt someone holding her hand tightly, but no one was there. She believes it was God. "And God has never let go." Source of Purpose/Meaning: her leanna and her family give her purpose. Worries/Concerns/Struggles: This stroke scares her and makes her wonder how long she has before "God takes her home." Method(s) of Coping: She tries to stay positive. She has a 38 year old son who will be in May and she has a daughter with a 7 month old son. These are all motivators for her to stay healthy. Support System: Her is a strong support for her and she takes comfort in knowing that he is home taking care of household needs. She has strong community support. Interventions/Plan: The senior writer assessed the patient and provided support and encouragement. The senior writer confirmed that she is on the [facility] director of cath lab visitation list. If the patient is still here next week, the senior writer will visit again for follow up. The spiritual care team is available as needed, 15/02, through the campus switchboard ([phone]). For immediate response, please page [phone]. For a response within 24 hours, please submit an order in [facility]2 for a senior writer consult or call the administrative voicemail at [phone]. * Jessi Jackson, PT - 11/08/2017 9:44 AM CDT PHYSICAL THERAPY ASSESSMENT & DISCHARGE NOTE MOBILITY: Mobility Progressive Mobility Level: Walk laps Distance Walked (feet): 400 ft Level of Assistance: Stand by assistance Assistive Device: None Time Tolerated: 11-30 minutes Activity Limited By: Dizziness SUBJECTIVE: Subjective Significant hospital events: 77 y.o. female presented with stuttering, expressive aphasia and right hand weakness and received IV tPA on 11/07/17 at approximately 0955 Mental / Cognitive Status: Alert;Oriented;Cooperative Persons Present: Spouse Pain: Patient has no complaint of pain Comments: PMH: thyroid cancer s/p resection on replacement therapy, breast cancer s/p right mastectomy in 1991, XRT and Tamoxifen, CAD s/p PCI x 4 (most recent 2015) on dual anti-platelet therapy, and rheumatoid arthritis on leflunomide. Ambulation Assist: Independent Mobility in Community without Device Patient Owned Equipment: Single Point Cane;Roller Walker Home Situation: Lives with Family Type of Home: House Entry Stairs: 3-5 Stairs In-Home Stairs: No Stairs Comments: Denies falls prior to admission ROM: ROM ROM Position Assessed: Seated ROM Method: Active LE ROM: Bilateral;WFL STRENGTH: Strength Overall Strength: No Focal Deficits Noted POSTURE/NEURO: Posture / Neurological Head Control: Independent Posture: No Postural Deviations Overall Tone: Normal BED MOBILITY/TRANSFERS: Bed Mobility/Transfers Transfer Type: Sit to Stand Transfer: Assistance Level: To/From;Bed;Independent Transfer: Assistive Device: None End Of Activity Status: Up in Chair;Nursing Notified;Instructed Patient to Request Assist with Mobility;Instructed Patient to Use Call Light GAIT: Gait Gait Distance: 400 feet Gait: Assistance Level: Standby Assist Gait: Assistive Device: None Gait: Descriptors: Pace: Slow;No balance loss Stairs: Number Climbed: 3 Stairs: Descriptors: Reciprocal Stairs: Assistance Level: Standby Assist Stairs: Assistive Device: Two Rails Activity Limited By: Patient Choice EDUCATION: Education Persons Educated: Patient/Family Patient Barriers To Learning: None Noted Interventions: Repetition of Instructions;Family Education Teaching Methods: Verbal Instruction Patient Response: Verbalized Understanding Topics: Plan/Goals of PT Interventions;Mobility Progression;Importance of Increasing Activity;Continue Ambulation on Own ASSESSMENT/PROGRESS: Assessment/Progress Assessment/Progress: Discontinue PT;Patient level of independence and safety is consistent with prior level of function and does not require physical therapy intervention AM-PAC 6 Clicks Basic Mobility Inpatient Turning from your back to your side while in a flat bed without using bed rails : None Moving from lying on your back to sitting on the side of a flatbed without using bedrails : None Moving to and from a bed to a chair (including a wheelchair): None Standing up from a chair using your arms (e.g. wheelchair, or bedside chair): None To walk in hospital room: None Climbing 3-5 steps with a railing: None Raw Score: 24 Standardized (T-scale) Score: 57.68 Basic Mobility CMS 0-100%: 0 CMS G Code Modifier for Basic Mobility: CH PLAN: Plan Plan Frequency: No Further Treatment RECOMMENDATIONS: PT Discharge Recommendations PT Discharge Recommendations: Home with Assistance Equipment Recommendations: None Therapist: Jessi Jackson, PT Date: 11/08/2017 * Masood Oakley MD - 11/08/2017 8:38 AM CDT Formatting of this note may be different from the original. Neurointensivist Critical Care Progress Note Today's Date: 11/08/2017 Name: Beulah Barreto Admission Date: 11/07/2017 LOS: 1 day ATTESTATION I have seen, personally fully evaluated this patient. The patient is admitted to the NSICU with: Left MCA stroke s/p IV tPA Hospital and ICU course: 11-07-17: Admit to NSICU 11-08-17: MRI-brain, TTE, TTF PMH: Significant for: Breast cancer in 1991, CAD s/p stenting, hypothyroidism, RA The patient is being managed for: Left MCA stroke s/p IV tPA HTN HLD Hypothyroidism RA I spent 40 minutes (excluding time spent performing or supervising any procedures) providing and personally directing critical care services including Detailed neurological and systems examination Assessment of intravascular volume status Optimization of systemic perfusion pressures Insertion and interpretation of Invasive hemodynamic monitoring data Review of and interpretation laboratory data Review of and interpretation of available imaging studies Review of medications Review of antibiotic, drain prophylaxis Review of DVT/PE Prophylaxis Review of seizure prophylaxis Management of patient on mechanical ventilation Electrolyte management and management of endocrine abnormalities Coordination of care with consult teams Active problems currently being addressed include Patient Active Problem List Diagnosis Date Noted Stroke (cerebrum) ([facility]) 11/07/2017 24 hour I/O balance is as follows: Intake/Output Summary (Last 24 hours) at 11/08/17 0839 Last data filed at 11/08/17 0500 Gross per 24 hour Intake 690 ml Output 1200 ml Net -510 ml __ Subjective: Beulah Barreto is a 77 y.o. female. Overnight Events: No new events noted, sign out obtained from bindery worker person ( nurse and [facility] physician). Patient examined: yes Objective: I have reviewed the following medications: Scheduled Meds: atorvastatin (LIPITOR) tablet 80 mg 80 mg Oral QHS calcium carbonate/vitamin D-3 (OSCAL-500+D) 1250 mg/200 unit tablet 1 tablet 1 tablet Oral BID leflunomide (ARAVA) tablet 10 mg 10 mg Oral QDAY levothyroxine (SYNTHROID) tablet 150 mcg 150 mcg Oral QDAY(07) Continuous Infusions: PRN and Respiratory Meds:carboxymethylcellulose PRN, labetalol (NORMODYNE; TRANDATE) injection PRN Vital Signs: Last Filed Vital Signs: 24 Hour Range BP: 135/84 (04/16 0800) Temp: 37 C (98.6 F) (11/08 0400) Pulse: 86 (11/09 799) Respirations: 20 PER MINUTE (11/09 799) SpO2: 96 % (11/09 799) O2 Delivery: None (Room Air) (11/08 699) Height: 162.6 cm (64") (11/07 1444) Weight: 103.2 kg (227 lb 8.2 oz) (11/07 1444) BP: (102-156)/(49-106) Temp: [36.9 C (98.4 F)-37.1 C (98.7 F)] Pulse: [69-90] Respirations: [6 PER MINUTE-26 PER MINUTE] SpO2: [93 %-99 %] O2 Delivery: None (Room Air) Intensity Pain Scale 0-10 (Pain 1): (not recorded) Vitals: 11/07/171444 Weight: 103.2 kg (227 lb 8.2 oz) Critical Care Vitals: ICP Monitoring: PA Catheter: Hemodynamics/Oxycalcs: Assessment and Plan: Neuro: GCS: E4, M6, V5 FOUR score: E4 M4 BR4 R4 Cranial Nerve Deficit: no Focal motor neurodeficit: no Need for Sedation: no E/o Delirium: no Need for restraints: no Seizure prophylaxis: no Steroids: no EVD/Lumbar drain: no Hypertonics: no Plan for management of potential cerebral edema: Avoid Dextrose containing solutions, Maintain Na > 140 mEq/ L, Maintain head of bed elevation at least 30 degrees Keep neck in neutral position to optimize venous drainage Maintain normothermia, avoid hypoxemia, [place] appropriate osmotherapy ( i.e mannitol vs Hypertonic saline) PLAN: 1) Left MCA Stroke - s/p IV tPA with NIHSS 0 and pt feeling 99% better with c/o mild tongue heaviness, MRI-brain at 10 am, CTA-neck from OSH did not show significant atherosclerotic disease, resume PESTICIDE APPLICATOR asa and plaviv pending MRI-brain results, PT/OT/ST, if TTE negative for etiology recommend Cardiology consult for LINQ device, if TTE showed PFO then will get LLE U/S due to multiple left knee surgeries in the last 4 mos with LLE edema Cardiac: Blood pressure 135/84, pulse 86, temperature 37 C (98.6 F), height 162.6 cm (64"), weight 103.2 kg (227 lb 8.2 oz), SpO2 96 %. SBP (transduce arterial line at the tragus) CPP goal > 60 ( In presence of ICP monitor) Need for vasopressors: no Need for anti-hypertensive: yes Hemodynamic monitoring/resuscitation : Goals of resuscitation: (in presence of invasive hemodynamic monitors) CPP 65-110 ICP < 20 mmHg SVV < 13% SVI 40-50 CI > 2.4 Lactate < 2 Base deficit < 4 SCVO2 goal > 70% Urine output goal > 0.5 ml/kg/hr PLAN: 1) TTE, 2) CAD s/p Stenting - resume asa and plavix pending MRI Respiratory: Respiratory status: Stable Need for mechanical ventilation: no Lung protective strategies in place Chest physiotherapy, Incentive spirometry, bronchotherapy, Avoid Hypoxemia, maintain SPO2 > 95% Monitor for and maintain normocapnia in absence of intracranial hypertension PLAN: No active issues Endocrine: Monitor for and maintain normoglycemia: target BG 100-180 mg/dl, with use of SSI or insulin infusion PLAN: 1) Hypothyroidism - PESTICIDE APPLICATOR synthroid Fluid and electrolyte status: Monitor for and maintain Na >140, K > 4, Magnesium > 2, Phosphorus > 2 Maintain normovolemia Maintenance iv fluids 0.9 Saline or 2% saline PLAN: No active issues Heme: Maintain INR < 1.5, Platelet count 80-100 k Maintain Hb > 7 gm% in absence of ongoing cerebral ischemia Infectious Disease: Maintain normothermia, need for surveillance cultures, antibiotics reviewed Medications: reviewed Sepsis surveillance Imaging: CXR/Neuroimaging: reviewed Radiology and Other Diagnostic Procedures Reviewed Lab Review: 24-hour labs: Results for orders placed or performed during the hospital encounter of (from the past 24 hour(s)) CBC Collection Time: 11/07/17 2:49 PM Result Value Ref Range White Blood Cells 8.2 4.5 - 11.0 K/UL RBC 4.40 4.0 - 5.0 M/UL Hemoglobin 12.9 12.0 - 15.0 GM/DL Hematocrit 39.7 36 - 45 % MCV 90.2 80 - 100 FL MCH 29.3 26 - 34 PG MCHC 32.5 32.0 - 36.0 G/DL RDW 15.6 (H) 11 - 15 % Platelet Count 203 150 - 400 K/UL MPV 7.8 7 - 11 FL COMPREHENSIVE METABOLIC PANEL Collection Time: 11/07/17 2:49 PM Result Value Ref Range Sodium 139 137 - 147 MMOL/L Potassium 4.2 3.5 - 5.1 MMOL/L Chloride 106 98 - 110 MMOL/L Glucose 109 (H) 70 - 100 MG/DL Blood Urea Nitrogen 14 7 - 25 MG/DL Creatinine 0.93 0.4 - 1.00 MG/DL Calcium 8.8 8.5 - 10.6 MG/DL Total Protein 6.5 6.0 - 8.0 G/DL Total Bilirubin 0.6 0.3 - 1.2 MG/DL Albumin 3.5 3.5 - 5.0 G/DL Alk Phosphatase 74 25 - 110 U/L AST (SGOT) 16 7 - 40 U/L CO2 26 21 - 30 MMOL/L ALT (SGPT) 11 7 - 56 U/L Anion Gap 7 3 - 12 eGFR Non 59 (L) >60 mL/min eGFR >60 >60 mL/min LIPID PROFILE Collection Time: 11/08/17 4:40 AM Result Value Ref Range Cholesterol 141 <200 MG/DL Triglycerides 155 (H) <150 MG/DL HDL 32 (L) >40 MG/DL LDL 82 <100 MG/DL VLDL 31 MG/DL Non HDL Cholesterol 109 MG/DL CBC Collection Time: 11/08/17 4:40 AM Result Value Ref Range White Blood Cells 6.7 4.5 - 11.0 K/UL RBC 4.21 4.0 - 5.0 M/UL Hemoglobin 12.7 12.0 - 15.0 GM/DL Hematocrit 37.4 36 - 45 % MCV 88.8 80 - 100 FL MCH 30.1 26 - 34 PG MCHC 33.9 32.0 - 36.0 G/DL RDW 15.2 (H) 11 - 15 % Platelet Count 203 150 - 400 K/UL MPV 8.2 7 - 11 FL COMPREHENSIVE METABOLIC PANEL Collection Time: 11/08/17 4:40 AM Result Value Ref Range Sodium 139 137 - [...] - 12 eGFR Non >60 >60 mL/min eGFR >60 >60 mL/min Point of Care Testing: (Last 24 hours): Glucose: (!) 103 (11/08/17 0440) Drains: reviewed Prophylaxis Review: Lines: No Urinary Catheter: No Antibiotic Usage: No VTE: Pharmacological prophylaxis; Contraindication: Bleeding risk; will wait 24 hours from IV tPA and Mechanical prophylaxis; MAGDALENO hyatt PT, OT, evaluation and treatment Diet: Enteral nutrition with PO, Or Corpak access if unable to swallow and is at risk for aspiration. Social work and nurse case management for discharge planning and placement. Family Meeting and update: yes. Patient is able to make his or her decisions, family updated during rounds. Goals of therapy: Addressed, Patient is full code Nurses concerns addressed. Disposition/Family: Transfer to Stroke service this afternoon X Masood Oakley MD [employer] Supervisor, Departments of Neurology and Radiology Pager: [phone] Date: 11/08/2017 X * Jorge Contreras, SMOOTH-MAINTENANCE SUPERVISOR 2ND SHIFT - 11/08/2017 7:20 AM CDT Formatting of this note may be different from the original. Neuro Critical Care Progress Note Beulah Barreto Admission Date: 11/07/2017 LOS: 1 day Full Code ASSESSMENT/PLAN Patient Active Problem List Diagnosis Date Noted Stroke (cerebrum) (HCC) 11/07/2017 Beulah Barreto is a 77 y.o. female with PMHx of thyroid cancer s/p resection on replacement therpy, breast cancer s/p right mastectomy in 1991, XRT and Tamoxifen, CAD s/p PCI x 4 (most recent 2015) on dual anti-platelet therapy, and rheumatoid arthritis on leflunomide. The patient presented to [place], [place] [facility] ED with stuttering, expressive aphasia and right hand weakness and received IV tPA on 11/07/17 at approximately 0955. Hospital and ICU course: 11/07: Admit to [facility] s/p IV tPA administration at approximately 0955. NIHSS=0 during initial assessment 11/08: MRI head at 1000 Neuro: - CTA head/neck from OSH consistent with left M2 branch occlusion of unknown etiology - CTP performed here revealing of moderated sized left MCA territory perfusion mismatch in the posterior left frtonal lobe, completed, older appearing infarcts within the right insula/right perisylvian temporal cortex and right cerebellum as well as mild hyperdensity along the posterior falx and right medial parieto-occipital area suggestive of SAH vs residual contrast - NIHSS=0 on initial assessment at [facility] - Received IV tPA per OSH at approximately 0955 on 11/07/17 - LDL 84, f/u: HgbA1C, echo PLAN - Keep SBP between 100 and 185 (permissive HTN, avoid hypotension) - F/u MRI brain at approximately 1000 today - Hold all antithrombotic medications at least until 24 hours after IV tPA administration, however will have to consider possibility of SAH on CTP as delineated above - Neuro-ICU monitoring, neurochecks q 1 hrs, parameters for Prevention of secondary brain injury (avoid hypotension, hypoxia, fever, hyperglycemia, significant anemia, diagnose and treatment of seizures, electrolyte abnormalities) Sedation/Pain Management: No sedation - Assess for delirium daily Cardiac: History of CAD s/p PCI x 4 (most recent 2015) - on dual anti-platelet therapy with ASA and Plavix Plan - Hold dual anti-platelet therapy until at least 24 hours s/p IV tPA administration and until MRI head completed to e/f hemorrhagic conversion HTN - PESTICIDE APPLICATOR metoprolol succinate 50 mg daily and amlodipine 5 mg daily - will hold for permissive HTN, as above Plan - SBP goal between 100-185 - Restart PESTICIDE APPLICATOR metoprolol and amlodipine - MAP goal > 65 HLD - LDL 82, TC 141, trig 155, HDL 32 Plan - Continue PESTICIDE APPLICATOR high intensity statin therapy with atorvastatin 80 mg QHS Respiratory: - O2 stable on RA GI: - Feeding: Cardiac diet Plan - neurosurgery bowel regimen, ensure daily BM Heme/Onc: Hx of thyroid cancer (1959-) History of breast CA - s/p complete thyroidectomy on replacement therapy - s/p mastectomy in 1991, XRT and Tamoxifen since discharged from her oncologist PLAN - Hold antithrombotics for now, as above - assess for coagulopathy, maintain platelets above 100k, INR <1.5 ID: - Tmax Afebrile, WBC 6.7 Plan - aim for normothermia, Temp <38.3 celsius, normothermia protocol if febrile Renal: - Performance Improvement Specialist/BUN 0.86/14 Plan - Aim for normovolemia Intake/Output Summary (Last 24 hours) at 11/08/17 0844 Last data filed at 11/08/17 0500 Gross per 24 hour Intake 690 ml Output 1200 ml Net -510 ml Endocrine: Hx of thyroid cancer - s/p resection - BG with AM labs 103 PLAN - Continue PESTICIDE APPLICATOR levothyroxine 150 mcg daily - Obtain HgbA1C, as above - Blood glucose goal 100-180mg/dl FEN: - IVF: No IVFs - Na 139, K 3.9, Cl 107 - Magnesium goal >2.0, i-Donald goal > 1.0, Potassium goal >4.0 mEq/L Prophylaxis Review: A)GI: not indicated B) Lines: No C) Urinary Catheter: No D) Antibiotic Usage: No E) VTE: Mechanical prophylaxis; Sequential compression device F) Isolation: n/a G)Seizures: n/a I) Restraints: Patient assessed for need for restraints. Disposition/Family: Admit to [facility] Primary service: Neurology Critical Care Consults: Rehabilitative Medicine CHIN Barreto is a 77 y.o. female. Overnight Events: No new events noted. Patient is resting in the chair alert and oriented this morning. Patient has no complaints and is reports feeling 99% back to normal. OBJECTIVE Vital Signs: Last Filed Vital Signs: 24 Hour Range BP: 116/65 (11/08 06) Temp: 37 C (98.6 F) (11/08 0400) Pulse: 75 (11/08 599) Respirations: 11 PER MINUTE (11/08 599) SpO2: 96 % (11/08 599) O2 Delivery: None (Room Air) (11/08 0700) Height: 162.6 cm (64") (11/07 1445) Weight: 103.2 kg (227 lb 8.2 oz) (11/07 1445) BP: (102-156)/(49-106) Temp: [36.9 C (98.4 F)-37.1 C (98.7 F)] Pulse: [69-90] Respirations: [11 PER MINUTE-26 PER MINUTE] SpO2: [93 %-99 %] O2 Delivery: None (Room Air) Intensity Pain Scale 0-10 (Pain 1): (not recorded) Vitals: 11/07/17 1445 Weight: 103.2 kg (227 lb 8.2 oz) Artificial airway: None Ventilator/ Respiratory Therapy: No Vent weaning trial: Not applicable Lines: None Drains: None Intake/Output Summary: (Last 24 hours) Intake/Output Summary (Last 24 hours) at 11/08/17 0720 Last data filed at 11/08/17 0500 Gross per 24 hour Intake 690 ml Output 1200 ml Net -510 ml Physical Exam: Blood pressure 116/65, pulse 75, temperature 37 C (98.6 F), height 162.6 cm (64"), weight 103.2 kg (227 lb 8.2 oz), SpO2 96 %. [place] coma score: E: 4 - Opens eyes on own M: 6 - Follows simple motor commands V: 5 - Alert and oriented Neuro: Mental Status: Awake, alert, oriented in all four spheres, follows commands across midline, no aphasia or dysarthria, able to state days of the week backward briskly Cranial Nerves: Cranial nerves 2-12 INTACT. - Pupil exam: Size: 4 mm Reactivity: brisk - EOM: intact without saccadic intrusions or nystagmus - Corneal reflex: R - present L - present - Grimace/facial movement: present - Cough: present - Gag reflex: present Motor: RUE: Strength: 5/5 RLE: Strength: 5/5 LUE: Strength: 5/5 LLE: Strength: 5/5 Sensory: normal Coordination: normal finger to nose and heel to olivia bilaterally DTRs: 2/4 in BUE and 1/4 in BLE Gait: intact Lungs: clear to auscultation bilaterally Pulmonary: Respiratory status: Stable Heart: regular rate and rhythm, S1, S2 normal, no murmur, click, rub or gallop Abdomen: soft, non-tender. Bowel sounds normal. No masses, no organomegaly Extremities: atraumatic, acyanotic, trace edema bilaterally Skin: Skin color, texture, turgor normal. No rashes or lesions Point of Care Testing: (Last 24 hours) Glucose: (!) 103 (11/08/17 0440) Lab Review: 24-hour labs: Results for orders placed or performed during the hospital encounter of (from the past 24 hour(s)) CBC Collection Time: 11/07/17 2:49 PM Result Value Ref Range White Blood Cells 8.2 4.5 - 11.0 K/UL RBC 4.40 4.0 - 5.0 M/UL Hemoglobin 12.9 12.0 - 15.0 GM/DL Hematocrit 39.7 36 - 45 % MCV 90.2 80 - 100 FL MCH 29.3 26 - 34 PG MCHC 32.5 32.0 - 36.0 G/DL RDW 15.6 (H) 11 - 15 % Platelet Count 203 150 - 400 K/UL MPV 7.8 7 - 11 FL COMPREHENSIVE METABOLIC PANEL Collection Time: 11/07/17 2:49 PM Result Value Ref Range Sodium 139 137 - 147 MMOL/L Potassium 4.2 3.5 - 5.1 MMOL/L Chloride 106 98 - 110 MMOL/L Glucose 109 (H) 70 - 100 MG/DL Blood Urea Nitrogen 14 7 - 25 MG/DL Creatinine 0.93 0.4 - 1.00 MG/DL Calcium 8.8 8.5 - 10.6 MG/DL Total Protein 6.5 6.0 - 8.0 G/DL Total Bilirubin 0.6 0.3 - 1.2 MG/DL Albumin 3.5 3.5 - 5.0 G/DL Alk Phosphatase 74 25 - 110 U/L AST (SGOT) 16 7 - 40 U/L CO2 26 21 - 30 MMOL/L ALT (SGPT) 11 7 - 56 U/L Anion Gap 7 3 - 12 eGFR Non 59 (L) >60 mL/min eGFR >60 >60 mL/min LIPID PROFILE Collection Time: 11/08/17 4:40 AM Result Value Ref Range Cholesterol 141 <200 MG/DL Triglycerides 155 (H) <150 MG/DL HDL 32 (L) >40 MG/DL LDL 82 <100 MG/DL VLDL 31 MG/DL Non HDL Cholesterol 109 MG/DL CBC Collection Time: 11/08/17 4:40 AM Result Value Ref Range White Blood Cells 6.7 4.5 - 11.0 K/UL RBC 4.21 4.0 - 5.0 M/UL Hemoglobin 12.7 12.0 - 15.0 GM/DL Hematocrit 37.4 36 - 45 % MCV 88.8 80 - 100 FL MCH 30.1 26 - 34 PG MCHC 33.9 32.0 - 36.0 G/DL RDW 15.2 (H) 11 - 15 % Platelet Count 203 150 - 400 K/UL MPV 8.2 7 - 11 FL COMPREHENSIVE METABOLIC PANEL Collection Time: 11/08/17 4:40 AM Result Value Ref Range Sodium 139 137 - [...] - 12 eGFR Non >60 >60 mL/min eGFR >60 >60 mL/min Radiology and Other Diagnostic Procedures Review: Pertinent radiologic and diagnostic procedures reviewed. Jorge Contreras APRN-MAINTENANCE SUPERVISOR 2ND SHIFT Date: 11/08/[phone] * Brendon Amanda RN - 11/07/2017 3:46 PM CDT Patient arrived to room # ([id number]) via cart accompanied by transport. Patient transferred to the bed without assistance. Bedside safety checks completed. Initial patient assessment completed, refer to flowsheet for details. Admission skin assessment completed by: Pressure Injury Present on Hospital Admission (within 24 hours): No 1. Occiput: No 2. Ear: No 3. Scapula: No 4. Spinous Process: No 5. Shoulder: No 6. Elbow: No 7. Iliac Crest: No 8. Sacrum/Coccyx: No 9. Ischial Tuberosity: No 10. Trochanter: No 11. Knee: No 12. Malleolus: No 13. Heel: No 14. Toes: No 15. Assessed for device associated injury No 16. Nursing Nutrition Assessment Completed No See Doc Flowsheet for additional wound details. INTERVENTIONS: in this encounter H&P Notes * Luis A Murray DO - 11/07/2017 3:41 PM CDT Formatting of this note may be different from the original. Neuro Critical Care Consult Beulah Barreto Admission Date: 11/07/2017 LOS: 0 days Full Code ASSESSMENT/PLAN Patient Active Problem List Diagnosis Date Noted Stroke (cerebrum) (HCC) 11/07/2017 Beulah Barreto is a 77 y.o. female with PMHx of thyroid cancer s/p resection on replacement therpay, breast cancer s/p right mastectomy in 1991, XRT and Tamoxifen, CAD s/p PCI x 4 (most recent 2015) on dual anti-platelet therapy, and rheumatoid arthritis on leflunomide. The patient presented to [facility] ED with stuttering expressive aphasia and right hand weakness and received IV tPA on 11/07/17 at approximately 0955. Hospital and ICU course: 11/07: Admit to [facility] s/p IV tPA administration at approximately 0955. NIHSS=0 during initial assessment Neuro: - CTA head/neck from OSH consistent with left M2 branch occlusion of unknown etiology - CTP performed here revealing of moderated sized left MCA territory perfusion mismatch in the posterior left frtonal lobe, completed, older appearing infarcts within the right insula/right perisylvian temporal cortex and right cerebellum as well as mild hyperdensity along the posterior falx and right medial parieto-occipital area suggestive of SAH vs residual contrast - NIHSS=0 on initial assessment at [facility] - Received IV tPA per OSH at approximately 0955 on 11/07/17 PLAN - Keep SBP between 100 and 185 (permissive HTN, avoid hypotension) - Stroke risk factor stratification: will obtain LDL, HgbA1c and 2D echocardiogram - Obtain MRI brain at approximately 1000 tomorrow - Hold all antithrombotic medications at least until 24 hours after IV tPA administration, however will have to consider possibility of SAH on CTP as delineated above - Neuro-ICU monitoring, neurochecks q 1 hrs, parameters for Prevention of secondary brain injury (avoid hypotension, hypoxia, fever, hyperglycemia, significant anemia, diagnose and treatment of seizures, electrolyte abnormalities) Sedation/Pain Management: No sedation - Assess for delirium daily Cardiac: - History of CAD s/p PCI x 4 (most recent 2015) on dual anti-platelet therapy with aspirin and Plavix - History of HTN on metoprolol succinate 50 mg daily and amlodipine 5 mg daily, will hold for permissive HTN, as above - Hyperlipidemia by history PLAN - SBP goal between 100-185 - MAP goal > 65 - Hold dual anti-platelet therapy until at least 24 hours s/p IV tPA administration and perhaps longer, as above - Resume PESTICIDE APPLICATOR high intensity statin therapy with atorvastatin 80 mg QHS Respiratory: - O2 appropriate on RA Date of Intubation: n/a - PaO2 goal >100, Spo2 goal >95%, PCO2 goal 35-40 torr, chest physiotherapy, bronchotherapy, PD& V q 6 hrs GI: - Feeding: Cardiac diet - neurosurgery bowel regimen, ensure daily BM Heme/Onc: - History of thyroid cancer in 1960s and 70s now s/p complete thyroidectomy on replacement therapy - History of breast CA s/p mastectomy in 1991, XRT and Tamoxifen since discharged from her oncologist PLAN - Hold antithrombotics for now, as above - assess forads coagulopathy, maintain platelets above 100k, INR <1.5 ID: - Tmax Afebrile - aim for normothermia, Temp <38.3 celsius, normothermia protocol if febrile Renal: - Creatinine 0.89 at OSH - I/O balance 0/0 over 24 hrs - Aim for normovolemia Endocrine: - History of thyroid cancer, as above PLAN - Resume PESTICIDE APPLICATOR levothyroxine 150 mcg daily - Obtain HgbA1C, as above - Blood glucose goal 100-180mg/dl FEN: - IVF: No IVFs - Magnesium goal >2.0, i-Donald goal > 1.0, Potassium goal >4.0 mEq/L Prophylaxis Review: A)GI: not indicated B) Lines: No C) Urinary Catheter: No D) Antibiotic Usage: No E) VTE: Mechanical prophylaxis; Sequential compression device F) Isolation: n/a G)Seizures: n/a I) Restraints: Patient assessed for need for restraints. Disposition/Family: Admit to NEICU Primary service: Neurology Critical Care Consults: Rehabilitative Medicine The above was [facility] Holguin SUBJECTIVE Chief Complaint: S/P IV tPA History of Present Illness: Beulah Barreto is a 77 y.o. female with PMHx as delineated above who was admitted to the NEICU by direct transfer from [facility] ED in [place], [place]. The patient was found alert and conversant in no acute distress in the NEICU at the time of my assessment. Beulah relates that she was in Wednesday mass this morning and was singing a hymn when she realized that she was singing the wrong words entirely. She relates that she was aware she was singing the wrong words. She also reports that at that time the hymnal felt heavy and her right hand was shaky. She did not notice any leg weakness as she was sitting at that time. Her symptoms lasted only seconds to a minute or so and then improved initially, but got worse again. At this point, the patient's took her to the Emergency Department at which time her symptoms had worsened again. However, she tells me that her symptoms got better for a time before worsening a third time, at which point the OSH gave her the "big shot." Beulah also endorsed some slurred speech intermittently throughout this period. She states that she is very close to her neurologic baseline at this time however she is experiencing some mild word finding difficulty. Otherwise, she denies focal weakness, numbness, visual disturbance, falls or problems with coordination. She has otherwise been in her usual state of health until today' s events. No other concerns. Plan of care discussed from a neuro-ICU standpoint with the patient, who voiced understanding and agreement. No past medical history on file. No past surgical history on file. No family history on file. Social History Social History Narrative No narrative on file Code Status: Full Code Decision Maker: Patient Immunizations (includes history and patient reported): There is no immunization history on file for this patient. Allergies: Tetracycline No prescriptions prior to admission. Review of Systems: A 14 point review of systems was negative except for: Neurological: positive for speech problems and weakness OBJECTIVE Vital Signs: Last Filed Vital Signs: 24 Hour Range BP: 131/64 (11/07 1530) Temp: 36.9 C (98.5 F) (11/07 1415) Pulse: 76 (11/07 1530) Respirations: 17 PER MINUTE (11/07 1530) SpO2: 98 % (11/07 1530) O2 Delivery: None (Room Air) (11/07 1515) BP: (109-131)/(64-106) Temp: [36.9 C (98.5 F)] Pulse: [69-78] Respirations: [14 PER MINUTE-24 PER MINUTE] SpO2: [98 %-99 %] O2 Delivery: None (Room Air) Intensity Pain Scale 0-10 (Pain 1): (not recorded) There were no vitals filed for this visit. Artificial airway: None Ventilator/ Respiratory Therapy: No Vent weaning trial: Not applicable Lines: None Drains: None Critical Care Vitals: ICP Monitoring: Hemodynamics/Oxycalcs: Intake/Output Summary: (Last 24 hours) No intake or output data in the 24 hours ending 11/07/17 1541 Physical Exam: Blood pressure 131/64, pulse 76, temperature 36.9 C (98.5 F), SpO2 98 %. [place] coma score: E: 4 - Opens eyes on own M: 6 - Follows simple motor commands V: 5 - Alert and oriented Neuro: Mental Status: Awake, alert, oriented in all four spheres, follows commands across midline, no aphasia or dysarthria, able to state days of the week backward briskly Cranial Nerves: Cranial nerves 2-12 INTACT. - Pupil exam: Size: 3 mm Reactivity: brisk - EOM: intact without saccadic intrusions or nystagmus - Corneal reflex: R - present L - present - Grimace/facial movement: present - Cough: present - Gag reflex: present Motor: RUE: Strength: 5/5 RLE: Strength: 5/5 LUE: Strength: 5/5 LLE: Strength: 5/5 Sensory: normal Coordination: normal finger to nose and heel to olivia bilaterally DTRs: 2/4 in BUE and 1/4 in BLE Gait: examination deferred Lungs: clear to auscultation bilaterally Pulmonary: Respiratory status: Stable Heart: regular rate and rhythm, S1, S2 normal, no murmur, click, rub or gallop Abdomen: soft, non-tender. Bowel sounds normal. No masses, no organomegaly Extremities: atraumatic, acyanotic, trace edema bilaterally Skin: Skin color, texture, turgor normal. No rashes or lesions Point of Care Testing: (Last 24 hours): Glucose: (!) 109 (11/07/17 1449) Lab Review: 24-hour labs: Results for orders placed or performed during the hospital encounter of (from the past 24 hour(s)) CBC Collection Time: 11/07/17 2:49 PM Result Value Ref Range White Blood Cells 8.2 4.5 - 11.0 K/UL RBC 4.40 4.0 - 5.0 M/UL Hemoglobin 12.9 12.0 - 15.0 GM/DL Hematocrit 39.7 36 - 45 % MCV 90.2 80 - 100 FL MCH 29.3 26 - 34 PG MCHC 32.5 32.0 - 36.0 G/DL RDW 15.6 (H) 11 - 15 % Platelet Count 203 150 - 400 K/UL MPV 7.8 7 - 11 FL COMPREHENSIVE METABOLIC PANEL Collection Time: 11/07/17 2:49 PM Result Value Ref Range Sodium 139 137 - 147 MMOL/L Potassium 4.2 3.5 - 5.1 MMOL/L Chloride 106 98 - 110 MMOL/L Glucose 109 (H) 70 - 100 MG/DL Blood Urea Nitrogen 14 7 - 25 MG/DL Creatinine 0.93 0.4 - 1.00 MG/DL Calcium 8.8 8.5 - 10.6 MG/DL Total Protein 6.5 6.0 - 8.0 G/DL Total Bilirubin 0.6 0.3 - 1.2 MG/DL Albumin 3.5 3.5 - 5.0 G/DL Alk Phosphatase 74 25 - 110 U/L AST (SGOT) 16 7 - 40 U/L CO2 26 21 - 30 MMOL/L ALT (SGPT) 11 7 - 56 U/L Anion Gap 7 3 - 12 eGFR Non 59 (L) >60 mL/min eGFR >60 >60 mL/min and Pertinent labs reviewed Radiology and Other Diagnostic Procedures Review: Pertinent radiologic and diagnostic procedures reviewed. Luis A Murray DO Date: 11/07/[phone] Associated attestation - Cheyenne Holguin MD - 11/07/2017 6:03 PM CDT Formatting of this note may be different from the original. ATTESTATION I reviewed the history and exam documented by the resident this afternoon and discussed this patient in detail with Dr. Murray, the [facility] team and Dr. Ashley Loomis (Stroke Neurology). The patient was seen today by and will be seen tomorrow by Dr. Fowler or Adin. No billing today as I did not physically examine the patient. Staff name: Ewa Holguin MD Date: 11/07/2017 in this encounter Consult Notes * Vasiliy Willett MD - 11/09/2017 11:23 AM CDT Associated Order(s): CONSULT CARDIOLOGY PHYSICIAN Formatting of this note may be different from the original. Consultation Report Beulah Barreto Admission Date: 11/07/2017 ATT: I have discussed with fellow and examined patient and agree with assessment, exam and plan. No s3, rales,edema. Assessment/Plan: Active Problems: Stroke (cerebrum) (HCC) Ms. Barreto is a 77 yo CF with PMHx of HTN, DLD, RA, CAD s/p PCI, Thyroid CA s/p resection and Breast CA (in remission) who presented to the hospital with a stroke and is now s/p tPA. Stroke work up till date has been negative and Cardiology consulted for the patient to be evaluated for fci rhythm monitoring to r/o parosyxmal A Fib as the cause of her cryptogenic stroke. Patient has not had any symptoms of palpitations or chest discomfort during this hospitalization or in the recent past. She has not noticed her heart rate to be fast either. Telemetry review during this hospitalization does not show any signs of arrhythmias. - We recommend that the patient have roasterman cardiac monitoring to rule out parosyxmal atrial fibrillation as the cause of her stroke. - We will arrange for a 30 days monitor to be mailed to the patient's home. We will place the order for this. Once she has completed the 30 days of monitoring , we will have the patient follow up with one of our EP doctors in clinic to be evaluated for a LINQ placement. Patient seen and discussed with Dr. Willett who agrees with the plan above. __ Chief Complaint: Stroke History of Present Illness: Beulah Barreto is a 77 y.o. female With PMHx of HTN, DLD, RA, CAD s/p PCI, Thyroid CA s/p resection and Breast CA (in remission) who presented to the hospital with a stroke and is now s/p tPA. Stroke work up till date has been negative and Cardiology consulted for the patient to be evaluated for roasterman rhythm monitoring to r/o parosyxmal A Fib as the cause of her cryptogenic stroke. Patient has not had any symptoms of palpitations or chest discomfort during this hospitalization or in the recent past. She has not noticed her heart rate to be fast either. Telemetry review during this hospitalization does not show any signs of arrhythmias. Past Medical History: Diagnosis Date Breast cancer (HCC) 1991 CAD (coronary artery disease) HLD (hyperlipidemia) HTN (hypertension) Rheumatoid arthritis (HCC) Thyroid cancer (HCC) 1959 Past Surgical History: Procedure Laterality Date HX CORONARY STENT PLACEMENT MASTECTOMY No family history on file. Social History Social History Marital status: Spouse name: N/A Number of children: N/A Years of education: N/A Social History Main Topics Smoking status: Former Smoker Smokeless tobacco: Never Used Alcohol use Not on file Drug use: Unknown Sexual activity: Not on file Other Topics Concern Not on file Social History Narrative No narrative on file Allergies: Tetracycline Medications: Scheduled Meds: amLODIPine (NORVASC) tablet 5 mg 5 mg Oral QDAY aspirin chewable tablet 81 mg 81 mg Oral QDAY atorvastatin (LIPITOR) tablet 80 mg 80 mg Oral QHS calcium carbonate/vitamin D-3 (OSCAL-500+D) 1250 mg/200 unit tablet 1 tablet 1 tablet Oral BID clopiDOGrel (PLAVIX) tablet 75 mg 75 mg Oral QDAY leflunomide (ARAVA) tablet 10 mg 10 mg Oral QDAY levothyroxine (SYNTHROID) tablet 150 mcg 150 mcg Oral QDAY() metoprolol XL (TOPROL XL) tablet 50 mg 50 mg Oral QDAY Continuous Infusions: PRN and Respiratory Meds:carboxymethylcellulose PRN Review of Systems: A 14 point review of systems was negative except for: as listed above. Physical Exam: Vital Signs: Last Filed In 24 Hours Vital Signs: 24 Hour Range BP: 127/77 (11/09 1000) Temp: 37.1 C (98.8 F) (11/09 1000) Pulse: 76 (11/09 1000) Respirations: 16 PER MINUTE (11/09 1000) SpO2: 98 % (11/09 1000) O2 Delivery: None (Room Air) (11/09 1000) SpO2 Pulse: 80 (11/08 1500) Height: 162.6 cm (5' 4") (11/08 1639) BP: (105-144)/(49-78) Temp: [36.7 C (98.1 F)-37.1 C (98.8 F)] Pulse: [75-88] Respirations: [15 PER MINUTE-17 PER MINUTE] SpO2: [96 %-99 %] O2 Delivery: None (Room Air) Intake/Output Summary (Last 24 hours) at 11/09/17 1124 Last data filed at 11/08/17 1200 Gross per 24 hour Intake 0 ml Output 250 ml Net -250 ml Physical Exam General Appearance: A&OX3, NAD, [place]: No carotid bruits, JVP at 5 cm Chest: CTAB Cardiovascular: RRR, S1S2, no m/r/g Abdomen: Soft, NTND, +BS Extremities: 2+ radial and pedal pulses bilat, no edema Lab/Radiology/Other Diagnostic Tests: CBC w/Diff Lab Results Component Value Date/Time WBC 8.3 11/09/2017 04:42 AM RBC 4.08 11/09/2017 04:42 AM HGB 12.3 11/09/2017 04:42 AM HCT 36.1 11/09/2017 04:42 AM MCV 88.6 11/09/2017 04:42 AM MCH 30.1 11/09/2017 04:42 AM MCHC 34.0 11/09/2017 04:42 AM RDW 15.4 (H) 11/09/2017 04:42 AM PLTCT 194 11/09/2017 04:42 AM MPV 7.8 11/09/2017 04:42 AM No results found for: NEUT, ANC, LYMA, ALC, RAYSHAWN, AMC, EOSA, AEC, BASA, ABC Comprehensive Metabolic Profile Lab Results Component Value Date/Time NA 138 11/09/2017 04:42 AM K 3.9 11/09/2017 04:42 AM CL 106 11/09/2017 04:42 AM CO2 23 11/09/2017 04:42 AM GAP 9 11/09/2017 04:42 AM BUN 19 11/09/2017 04:42 AM CR 0.90 11/09/2017 04:42 AM GLU 103 (H) 11/09/2017 04:42 AM Lab Results Component Value Date/Time CA 8.9 11/09/2017 04:42 AM ALBUMIN 3.2 (L) 11/08/2017 04:40 AM TOTPROT 6.1 11/08/2017 04:40 AM ALKPHOS 64 11/08/2017 04:40 AM AST 18 11/08/2017 04:40 AM ALT 11 11/08/2017 04:40 AM TOTBILI 0.6 11/08/2017 04:40 AM GFR >60 11/09/2017 04:42 AM GFRAA >60 11/09/2017 04:42 AM Thyroid Studies No results found for: TSH No results found for: TNI, CKMB, MYOGLB ECG: NSR Telemetry: Normal sinus rhythm with intermittent PACs. ECHO: The atria are not dilated Right ventricular chamber size is normal, and function is lower limits of normal by TAPSE Left ventricular chamber size is normal; with mild concentric left ventricular hypertrophy Normal left ventricular systolic function, with an ejection fraction estimated at 60% Mild diastolic dysfunction No hemodynamically significant valvular abnormalities Bolivar Baker MD CV Fellow Pager [phone] * Misael Barnard MD - 11/08/2017 8:08 AM CDT Associated Order(s): CONSULT REHABILITATION MEDICINE PHYSICIAN Formatting of this note may be different from the original. Physical Medicine & Rehabilitation Consult Note Date of Service: 11/08/2017 Beulah Barreto is a 77 y.o. female. : 1940 Primary Insurance: Secondary Insurance: Tertiary Insurance: Financial Class: Self-pay Date of Admission: 11/07/2017 Referring Physician: Cheyenne Holguin MD Reason for Consult: evaluate for Post-Acute Rehab/Placement Precautions: Fall Active Problems Stroke HTN HLD RA Hx thyroid ca Breast ca CAD Right hemiparesis (now resolved) expressive aphasia Assessment & Plan Beulah Barreto is a 77 y.o. female admitted to [facility] on 11/07/2017 with the following issues: L MCA Stroke with development of SAH in the Rt posterior falx and Rt medial parietal occipital region, in setting of tPA administration. Impairments: aphasia, communication deficits and dysarthria Activity Limitations: expression and social interaction Participation Restrictions: unable to return to work Post-acute care rehabilitation needs: Home. Patient may benefit from OP [employer] if word finding difficulties continue/progress. -Patient reports feeling well, being back at baseline. Other Recommendations: Aphasia/Dysarthria: Patient now seems closer to baseline, but could consider referral to outpatient [employer] as needed Pain: Pain currently treated with Oxycodone 5-10mg PO Q4h prn. Patient would benefit from pre-treatment of pain prior to therapies and possibly scheduling Tylenol 650mg-1g TID while awake for improved pain and function (If LFT is WNL) Bowel: Last BM documented PESTICIDE APPLICATOR. Agree with bowel regimen given immobility and while on opiate pain medications. Bladder: Voiding independently Skin/MSK: Given relative immobility and/or risk for contractures and skin breakdown, continue passive range of motion ~twice daily (partially performed by therapists), progressing as able to active range of motion, and functional activities. Recommend HOB > 30 degrees to reduce shearing, turning Q2 hours while supine in bed, pressure relief [id number] in seated position, PRAFOs for pressure relief and to prevent contractures Patient was seen and discussed with Attending Physician, Dr. Barnard. Masood Gonzalez MD Rehab Consult Pager: [phone] Rehabilitation Medicine Attending Physician Attestation: Agree with resident, with exceptions as noted in blue font and as appropriate. I personally performed chapman portions of the history and exam. I discussed the case with the resident and concur with the resident's documentation of history, physical assessment and treatment plan unless otherwise noted. Misael Barnard MD History of Present Illness Hospital Course: Beulah Barreto is a 77 y.o. female with PMHx of thyroid cancer s/p resection on replacement therpay, breast cancer s/p right mastectomy in 1991, XRT and Tamoxifen, CAD s/p PCI x 4 (most recent 2015) on dual anti-platelet therapy, and rheumatoid arthritis on leflunomide. The patient presented to [facility] ED with stuttering expressive aphasia and right hand weakness and received IV tPA on 11/07/[address] showed Lt M2 ischemic infarct, with development of SAH in the Rt posterior falx and Rt medial parietal occipital region, in setting of tPA administration. Plan for MRI 11/08. Past Medical and Surgical History thyroid cancer s/p resection on replacement therpay, breast cancer s/p right mastectomy in 1991, XRT and Tamoxifen, CAD s/p PCI x 4 (most recent 2015) on dual anti-platelet therapy, and rheumatoid arthritis on leflunomide Family\\Social History Social History Social History Marital status: N/A Spouse name: N/A Number of children: N/A Years of education: N/A Social History Main Topics Smoking status: Former Smoker Smokeless tobacco: Never Used Alcohol use Not on file Drug use: Unknown Sexual activity: Not on file Other Topics Concern Not on file Social History Narrative No narrative on file Family history reviewed and noncontributory. Medications: atorvastatin (LIPITOR) tablet 80 mg 80 mg Oral QHS calcium carbonate/vitamin D-3 (OSCAL-500+D) 1250 mg/200 unit tablet 1 tablet 1 tablet Oral BID leflunomide (ARAVA) tablet 10 mg 10 mg Oral QDAY levothyroxine (SYNTHROID) tablet 150 mcg 150 mcg Oral QDAY() PRN Medications: carboxymethylcellulose PRN, labetalol (NORMODYNE; TRANDATE) injection PRN Allergies: Allergies Allergen Reactions Tetracycline RASH Prior Level of Function Self-Care/ADLs: Independent Mobility: Independent Work/Personal Responsibilities/Hobbies: Lives in house with . Home Environment: No Data Recorded No Data Recorded No Data Recorded No Data Recorded No Data Recorded No Data Recorded No Data Recorded Current Level of Function Current Level Of Function: PT Gait:Gait Distance: 400 feet Gait: Assistance Level: Standby Assist Gait: Assistive Device: None Bed Mobility/Transfers Transfer Type: Sit to Stand Transfer: Assistance Level: To/From, Bed, Independent Transfer: Assistive Device: None End Of Activity Status: Up in Chair, Nursing Notified, Instructed Patient to Request Assist with Mobility, Instructed Patient to Use Call Light OT [employer] GRADER COGNITIVE EVALUATION SUMMARY PRAGMATICS: BEHAVIOR: AUDITORY COMPREHENSION: ORIENTATION: AUDITORY ATTENTION/WORKING MEMORY: AUDITORY MEMORY/SUSTAINED ATTENTION: NEW LEARNING: SEQUENCING/ORGANIZATION: PROBLEM SOLVING: REASONING: MATH/MONEY SKILLS: VISUAL PERCEPTUAL: SWALLOW EVALUATION SUMMARY Review of Systems A 14 point review of systems was negative except for: what is in HPI Physical Exam BP: 142/67 (11/08 0600) Temp: 37 C (98.6 F) (11/08 0400) Pulse: 73 (11/08 0600) Respirations: 6 PER MINUTE (11/08 699) SpO2: 97 % (11/08 699) O2 Delivery: None (Room Air) (11/08 699) SpO2 Pulse: 76 (11/08 0600) Height: 162.6 cm (64") (11/07 1445) Body mass index is 39.05 kg/m. Gen: Alert & conversational, No Acute Distress HEENT: NCAT, EOMI Heart: Regular Rate and Adequate Peripheral Perfusion Lungs: Regular Rhythmical Respirations without signs of effort or retraction Abdomen: Soft, non-tender, non-distended : No serra Skin: warm, intact, no gross lesions Ext: Moving all appropriately MS: Root Right Left Shoulder Abduction C5 5 5 Elbow Flexion C5 5 5 Elbow Extension C7 5 5 Wrist Extension C6 5 5 Finger Flexion C8 5 5 Finger Abduction T1 5 5 Hip Flexion L2 5 5 Knee Flexion L5/S1 5 5 Knee Extension L3 5 5 Dorsiflexion L4 5 5 Plantarflexion S1 5 5 EHL Extension L5 5 5 Neuro: Cranial Nerves Cranial Nerves 2-12 are grossly intact DTR's Symmetric +2 Babinski Plantar Reflex is Downgoing Bilaterally Engle Normal Finger to Nose Normal Heel to Olivia Normal Rapid Alternating Movements Normal Upper Extremity Tone Normal Lower Extremity Tone Normal Upper Extremity Sensation Intact to light touch bilaterally Lower Extremity Sensation Intact to light touch bilaterally Clonus Negative Bilaterally Memory/Cognition/Speech Slight word finding difficulties, very slight dysarthria Intake/Output Summary: Intake/Output Summary (Last 24 hours) at 11/08/17 0808 Last data filed at 11/08/17 0500 Gross per 24 hour Intake 690 ml Output 1200 ml Net -510 ml No Data Recorded No Data Recorded No Data Recorded No Data Recorded No Data Recorded No Data Recorded No Data Recorded Basic Metabolic Profile Lab Results Component Value Date/Time NA 139 11/08/2017 04:40 AM K 3.9 11/08/2017 04:40 AM CA 8.8 11/08/2017 04:40 AM CL 107 11/08/2017 04:40 AM CO2 25 11/08/2017 04:40 AM Lab Results Component Value Date/Time BUN 14 11/08/2017 04:40 AM CR 0.86 11/08/2017 04:40 AM GLU 103 (H) 11/08/2017 04:40 AM CBC w/Diff Lab Results Component Value Date/Time WBC 6.7 11/08/2017 04:40 AM RBC 4.21 11/08/2017 04:40 AM HGB 12.7 11/08/2017 04:40 AM HCT 37.4 11/08/2017 04:40 AM MCV 88.8 11/08/2017 04:40 AM MCH 30.1 11/08/2017 04:40 AM RDW 15.2 (H) 11/08/2017 04:40 AM PLTCT 203 11/08/2017 04:40 AM MPV 8.2 11/08/2017 04:40 AM No results found for: NEUT, ANC, LYMA, ALC, RAYSHAWN, AMC, EOSA, AEC, BASA, ABC Radiology: CT Brain Perf 11/07/17 1. Moderate sized left MCA territory perfusion [...] contrast in additional portions of the cerebrum. in this encounter Miscellaneous Notes * Care Plan - Luisa Tabor - 11/08/2017 5:36 PM CDT Problem: Neurological Status, Impaired/Altered Goal: Cognitive status restored to baseline Outcome: Goal Ongoing The patient's neurological status has been restored to baseline. This is evidenced by the patient's verbalization of their feelings of a return to baseline. Additionally, the patient has remained alert and oriented to person, place, time, and situation on 11/08/17. Problem: Discharge Planning Goal: Participation in plan of care Outcome: Goal Ongoing The patient has adequately participated in the plan of care. Goal: Knowledge regarding plan of care Outcome: Goal Ongoing The patient has adequately participated in the plan of care. The patient states they have many questions. Questions will continue to be answered by the team. Goal: Prepared for discharge Outcome: Goal Ongoing The patient is working towards discharge. The team is working to answer their questions. * Transfer - Jorge Contreras APRN-MALIHA - 11/08/2017 1:52 PM CDT Formatting of this note may be different from the original. Neuro Critical Care Transfer Note 11/08/2017 Beulah Barreto Admission date: 11/07/2017 Admitting Neuro Plate Worker: Dr Holguin [facility] Neuro-photo specialist: Dr. Oakley Length of stay in ICU: LOS: 1 day Admission diagnosis: acute stroke Stroke (cerebrum) ([facility]) Allergies: Tetracycline Code Status: Full Code ICU problem list: Patient Active Problem List Diagnosis Date Noted Stroke (cerebrum) (HCC) 11/07/2017 ICU course: Neuro: S/S stuttering, expressive aphasia and right hand weakness with onset. NIH 4 originally. Found to have a left M2 branch occlusion of unknown etiology and TPA given at 0955 on 11/07. NIH upon arrival 0. MRI 11/08 without evidence of new stroke. Cardiac: SR.BP stable. Restarted PESTICIDE APPLICATOR amlodipine and metoprolol. Echo WNL. Continuing statin. Pulmonary: Ra. Clear. No acute issues. GI/: No acute issues Heme: Restarted PESTICIDE APPLICATOR leflunomide for RA. Restarted Plavix and ASA. ID: no acute issues FEN: WNL Endocrine: Levothyroxine continued. Hgb A1C 5.7. Procedures performed in NSICU: none Tests performed in NSICU: CT brain perf 11/07: Mod sized left MCA territory perfusion mismatch in the posterior left frontal lobe. Corresponds with area of a distal left M2 branch small thrombus identified on prior CTA from OSH MRI 11/08: No recent infarct, intracranial hemorrhage, or mass lesion. Echo 11/08: LVEF 60%, mild diastolic dysfunction. Otherwise normal. Medication list: amLODIPine (NORVASC) tablet 5 mg 5 mg Oral QDAY atorvastatin (LIPITOR) tablet 80 mg 80 mg Oral QHS calcium carbonate/vitamin D-3 (OSCAL-500+D) 1250 mg/200 unit tablet 1 tablet 1 tablet Oral BID leflunomide (ARAVA) tablet 10 mg 10 mg Oral QDAY levothyroxine (SYNTHROID) tablet 150 mcg 150 mcg Oral QDAY() metoprolol XL (TOPROL XL) tablet 50 mg 50 mg Oral QDAY Recent Pertinent Lab Results: LDL 82 Recent Micro Results: none Condition at time of transfer; Neuro: alert and oriented. NIH 0 Cardiac: s1s2. RRR. HD stable. Pulmonary: Ra. Clear. GI/: Tolerating cardiac diet. Voiding. Heme: H/H WNL. ID: WNL FEN: WNL Endocrine: WNL Recommendations for accepting service: F/u: if no source is identified for stroke it is recommended to consults cardiology and assess for arrhythmia causes F/u: Cardiology consulted in regards to c/f arrhythmia as etiology source of infection. Please follow-up on their recs. Transfer hand off to : Name of Staff accepting patient: Dr. Blanca Name of resident accepting handoff: Dr. Pack [facility] attestation: Jorge Contreras APRN-MALIHA Pager [phone] * Case Mgmt DC Eliana Dorado RN - 11/08/2017 12:08 PM CDT Case Management Admission Assessment NAME:Beulah Barreto :1940 AGE: 77 y.o. ADMISSION DATE: 11/07/2017 DAYS ADMITTED: LOS: 1 day Todays Date: 11/08/2017 Source of Information: Patient Problem 77 yo F with PMHx of thyroid cancer s/p resection on replacement therpay, breast cancer s/p right mastectomy in 1991, XRT and Tamoxifen, CAD s/p PCI x 4 ( most recent 2015) on dual anti-platelet therapy, and rheumatoid arthritis on leflunomide. The patient presented to [facility] ED with stuttering expressive aphasia and right hand weakness and received IV tPA on 11/07/17 at approximately 0955. Plan Plan: CM Assessment, Assist PRN with SW/NCM Services, Discharge Planning for Home Anticipated PT Discharge Recommendations: Home with Assistance Interventions Reviewed EMR. Met with patient in room for assessment. Introduced self and explained NCM role. NCM provided Stroke & Brain Injury Resource List for community resources including self-care, support groups, local and national organizations, rehabilitation options, respite care, and financial assistance. Reviewed resource list and provided opportunity for questions. In addition, NCM provided contact information and explanation of SW/RNCM roles. Patient was encouraged to contact case management with questions and concerns during hospitalization and until patient is able to transition back to the patient's primary care physician. Patient Address/Phone [address] [facility] [phone] (home) Emergency Contact Extended Emergency Contact Information Primary Emergency Contact: Juancarlos Barreto [facility] Mobile Relation: Spouse Healthcare Directive Healthcare Directive: Yes, patient has a healthcare directive Type of Healthcare Directive: Durable power of heavy duty diesel mechanic for healthcare Location of Healthcare Directive: Patient does not have it with him/her Would patient like to fill out a (a new) Healthcare Directive?: No, patient declined Psych Advance Directive (Psych unit only): No, patient does not have a Psych Advance Directive Transportation Does the patient need discharge transport arranged?: No Transportation Name, Phone and Availability #1: Juancarlos Barreto [phone] () Expected Discharge Date Expected Discharge Date: 11/09/17 Living Situation Prior to Admission ? Living Arrangements Type of Residence: Home, independent (two entry steps from garage into single story house with basement) Living Arrangements: Spouse/significant other (patient and are retired) Bathroom Shower / Tub: Walk-in Shower (with shower wand and shower chair) How many levels in the residence?: 1 Does residence have entry and/or side stairs?: Yes (2) Assistance needed prior to admit or anticipated on discharge: No Who provides assistance or could if needed?: Juancarlos Barreto Are they in good health?: Yes Can support system provide 24/7 care if needed?: Yes ? Level of Function Prior level of function: Independent (completely independent of care; patient said the only thing she is afraid of is getting down on the floor with her 7 month old grandson as she may not be able to get back up) ? Cognitive Abilities Cognitive Abilities: Alert and Oriented, Engages in problem solving and planning , Participates in decision making, Recognizes impact of health condition on lifestyle, Understands nature of health condition Financial Resources ? Coverage Primary Insurance: Medicare (A&B) Secondary Insurance: Commercial insurance (BS MARLENI) Additional Coverage: RX ([facility] Rx; prescriptions are filled at [facility] in [place]) ? Source of Income Source Of Income: Other [facility] income ? Financial Assistance Needed? No Psychosocial Needs ? Mental Health Mental Health History: No ? Substance Use History Substance Use History Screen: No ? Other No Current/Previous Services ? PCP Rudy Parada, , Patient's last appointment with PCP was two weeks ago for HTN ? [facility] [id number] AT [facility] & [address] [facility] [address] [facility] [address] [place] [address] [address] [facility] & [address] [facility] [address] ? Durable Medical Equipment Durable Medical Equipment at home: Roller Walker, Shower Chair, Single Point Cane ? Home Health Receiving home health: In the past Agency name: [facility] Would patient use this agency again?: Yes ? Hemodialysis or Peritoneal Dialysis Undergoing hemodialysis or peritoneal dialysis: No ? Tube/Enteral Feeds Receive tube/enteral feeds: No ? Infusion Receive infusions: In the past Where: Home Infusion company: [facility] Would patient use this agency again?: Yes ? Private Duty Private duty help used: No ? Home and Community Based Services Home and community based services: No ? Roberto White Roberto White: No ? Hospice Hospice: No ? Outpatient Therapy PT: In the past When did patient receive care?: July 2017 Name of rehab location/group: [facility] outpatient PT Would patient return for future services?: Yes OT: No [facility]: No ? Alf Facility/[facility] SNF: No NH: No ? Inpatient Rehab IPR: No ? [facility] LTACH: No ? Acute Hospital Stay Acute Hospital Stay: In the past Was patient's stay within the last 30 days?: No When did patient receive care?: Jul 2017 (following knee replacement) Name of hospital: [facility] Sunday GARCIAN, RN, ACM Integrated Nurse Station Superintendent Neurology Service Pager: [phone] * Acute Stroke Response - Ashley Loomis MD - 11/07/2017 6:08 PM CDT Formatting of this note may be different from the original. NAME:Beulah Barerto :1940 AGE : 77 y.o. ADMISSION DATE: 11/07/2017 DAYS ADMITTED: LOS: 0 days Date of Service: 11/07/2017 Allergies: Tetracycline Type of ASRT note: Consult Assessment & Plan Chief Complaint: Garbled speech, Rt hand incoordination Assessment: Beulah Barreto is a 77 y.o. female with h/o presented with HTN, HLD, remote hx of tobaccoism, RA< hx of thyroid cancer s/p resection, breast cancer s /p Rt mastectomy, CAD s/p PCI x 4, presented from [place], [place], who presented with a sudden onset of garbled speech as well as Rt hand weakness and incoordination. She had an NIHSSS of 2 at the OSH ED for moderate aphasia, and was given tPA at approximately 0955, transferred to for post tPA monitoring. Her CTA head and neck obtained at the OSH significant for a Lt M2 occlusion, and CTP completed at [facility] showed decreased flow in portions of the Lt insula and posterior Lt frontal lobe, and increased CBV, indicative of perfusion mismatch, and corresponds to the noted occlusion on CTA head. There is also a completed, older infarct on the Rt insula region, as well as the development of mild hyperdensity along the posterior falx and along the sulci in the Rt medial parietal occipital area, suggestive of SAH vs. residual contrast. Upon arrival at [facility], pt's NIHSS is 0. Impression: Lt M2 ischemic infarct, with development of SAH in the Rt posterior falx and Rt medial parietal occipital region, in setting of tPA administration. Suspected localization of Stroke Sx: Lt MCA distribution Suspected etiology: embolic Pre-event mRS: 0 - No symptoms at all Plan: - Admit to neuro ICU for post tPA monitoring - MRI head WO - Stroke risk factor assessment Labs to include FLP, A1c Echocardiogram Telemetry to monitor for arrhythmia Evaluation of smoking history and smoking cessation consult if tobaccoism present Antiplt therapy: will start ASA 24 hours post tPA - CBC, BMP routine - PT/OT/[facility]ADER consult eval and treat - Rehab consult for assessment of post stroke care - BP parameters: permissive HTN in setting of Lt M2 occlusion; fluids if BP low and pt symptomatic; however, in setting of bleed, place pt on cardene trip if BP is >185mmhg for SBP, with gentle decrease in BP due to Lt M2 occlusion FEN: NPO until speech eval, NS @ 100 as pt received contrast media PPX: SCDs and Lovenox for DVT prevention The patient was seen and discussed with Dr. Loomis. ATTESTATION I personally performed the chapman portions of the E/M visit, discussed case with resident and concur with resident documentation of history, physical exam, assessment, and treatment plan unless otherwise noted. 77 y/o with onset of aphasia on Wednesday morning while at [facility]. Symptoms had resolved when she was in the ED. CT head was ok. nihss was 0. Symptoms returned soon after I spoke with ED doctor and I then advised alteplase since she had aphasia. NIHSS was 2. Pt was transferred to via fixed wing for ICU care. CTA was obtained prior to her departure and the images were available for me to review with our radiologist. She had a distal M2 thrombus at the upper Sylvian fissure on the left. The artery was open beyond the thrombus. On arrival to , a perfusion scan was obtained and showed a mismatch in in left hemisphere in insular area and posterior left frontal lobe. Small amount of SAH vs retained contrast were also noted. She was not a candidate for thrombectomy since she did not have a LVO. NIHSS was 0 and aphasia had resolved A) Acute ischemic stroke in left distal mca distribution. She has thrombus in the distal M2. Consider cardio embolic source. P) ICU for post tpa care. BP parameters per post tpa orders. Would avoid low blood pressure since she has occluded vessel and needs higher pressure for perfusion. Hold on antiplatelet for 24 hours after tpa and possibly longer if she indeed had SAH. Will see if she has SAH on MRI or if it was just contrast. Echo, FLP. Staff name: Ashley Loomis MD Date: 11/08/2017 History of Present Ilness History of Present Illness: Beulah Barreto is a 77 y.o. female with h/o presented with HTN, HLD, remote hx of tobaccoism, RA< hx of thyroid cancer s/p resection, breast cancer s/p Rt mastectomy, CAD s/p PCI x 4, presented from [place], [place] , who presented with a sudden onset of garbled speech as well as Rt hand weakness and incoordination. Pt was singing in the choir she suddenly noted that the words coming out of her don't make sense, and that she had a hard time holding her book with her Rt hand. She had an NIHSSS of 2 at the OSH ED for moderate aphasia, and was given tPA at approximately 0955, transferred to for post tPA monitoring. Her CTA head and neck obtained at the OSH significant for a Lt M2 occlusion, and CTP completed at [facility] showed decreased flow in portions of the Lt insula and posterior Lt frontal lobe, and increased CBV, indicative of perfusion mismatch, and corresponds to the noted occlusion on CTA head. There is also a completed, older infarct on the Rt insula region, as well as the development of mild hyperdensity along the posterior falx and along the sulci in the Rt medial parietal occipital area, suggestive of SAH vs. residual contrast. Upon arrival at [facility], pt's NIHSS is 0. Review of Systems A 14 point review of systems was negative except for: Neurological: positive for speech problems Constitutional: negative Eyes: negative Ears, nose, mouth, throat, and face: negative Respiratory: negative Cardiovascular: negative Gastrointestinal: negative Genitourinary: negative Integument/breast: negative Hematologic/lymphatic: negative Musculoskeletal: negative Neurological: negative Behavioral/Psych: negative Endocrine: negative Allergic/Immunologic: negative Stroke Activation Summary Patient Arrival: 1401 ASRT Arrival: 1401 Location of Response : [facility] Page Received: 1401 Clinical Presentation: Aphasia, Right sided weakness Signs & Symptoms: Onset of Symptoms, Last Known Well Onset of Symptoms - Date: 11/07/17 Onset of Symptoms - Time: 929 (in [facility] today) Last Known Well - Time: 929 CT/CTP/CTA: CTA/CTP time: 1414 CTA/CTP Interpretation time: 1424 BP: 141/65 (11/07 1800) Temp: 37.1 C (98.7 F) (11/07 1600) Pulse: 77 (11/07 1800) Respirations: 17 PER MINUTE (11/07 1800) SpO2: 98 % (11/07 1800) O2 Delivery: None (Room Air) (11/07 1800) SpO2 Pulse: 79 (11/07 1800) Height: 162.6 cm (64") (11/07 1445) NIHSS Completed at: 14:10 NIH Stroke Scale Item Scoring Definition Score 1a. LOC 0=alert and responsive 1=arousable to minor stimulation 2=arousable only to painful stimulation 3=reflex responses or unrousable 0 1b. LOC questions-as patients age and month. Must be exact. 0=both correct 1=one correct (or dysarthria, intubated, foreign language) 2=neither correct 0 1c. Commands-open/close eyes, engineer of system development and release non-paretic hand (other 1 step commands or mimic OK) 0=both correct (ok if impaired by weakness) 1=one correct 2=neither correct 0 2. Best Gaze-horizontal EOM by voluntary or Dolls 0=normal 1=partial gaze palsy (abnormal gaze in one or both eyes) 2=forced eye deviation or total paresis which cannot be overcome by Dolls 0 3. Visual Field-use visual threat if necessary. If monocular, score field of good eye 0=no visual loss 1=partial hemianopia, quadrantanopia, extinction 2=complete hemianopia 3=bilateral hemianopia or blindness 0 4. Facial Palsy-if stuporous, check symmetry of grimace to pain 0=normal 1=minor paralysis, flat NLF, asymm smile 2=partial paralysis (lower face=UMN) 3=complete paralysis (upper and lower face) 0 5. Motor Arm-arms outstretched 90 deg (sitting) or 45 deg (supine) for 10 seconds. Encourage best effort. 0=no drift x 10 seconds 1=drift but doesnt hit bed 2=some antigravity effort, but cant sustain 3=no antigravity effort, but even minimal mvt counts 4=no movement at all X=unable to assess due to amputation, fusion, etc L/R 0/0 6. Motor Leg-raise leg to 30 degrees supine x 5 seconds 0=no drift x 5 seconds 1=drift but doesnt hit bed 2=some antigravity effort, but cant sustain 3=no antigravity effort, but even minimal mvt counts 4=no movement at all X=unable to assess due to amputation, fusion, etc L/R 0/0 7. Limb Ataxia-check finger-nose- finger; heel-olivia; and score only if out of proportion to paralysis 0=no ataxia (or aphasic, hemiplegic) 1=ataxia in upper or lower extremity 2=ataxia in upper AND lower extremity X=unable to assess due to amputation, fusion, etc 0 8. Sensory-use safety pin. Check grimace or withdrawal if stuporous. Score only stroke- related losses 0=normal 1=mild-mod unilateral loss but patient aware of touch 9or aphasic, confused) 2=total loss, pt unaware of touch. Coma, bilateral loss 0 9. Best Language-describe cookie jar picture, name objects, read sentences. May use repeating, writing, stereognosis 0=normal 1=mild-mod aphasia (diff but partly comprehensible) 2=severe aphasia (almost no info exchanged) 3=mute, global aphasia, coma. No 1 step commands 0 10. Dysarthria-read list of words 0=normal 1=mild-mod; slurred but intelligible 2=severe; unintelligible or mute 0 11. Extinction/Neglect- simultaneously touch patient on both hands, show fingers in both visual madera, ask about deficit, left hand 0=normal, none detected. (visual loss alone) 1=neglects or extinguishes to double simult stimulation in any modality 2=profound neglect in more than one modality 0 Score 0 Was IV tPA given? Yes: Initiated within 60 minutes of arrival done at OSH Advanced imaging was interpreted at 14:20 The patient was not a thrombectomy candidate due to location of occlusion; low NIHSS score; rapid improvement Dysphagia screen: Did Patient Pass The Swallow Screen Part I?: Yes Did Patient Pass The Swallow Screen Part II: Yes Did Patient Pass The Swallow Screen: Yes Performed by nursing staff and passed or Failed screen by nursing staff and awaiting ST evaluation Cardiac rhythm on presentation: NSR Health History No past medical history on file. No past surgical history on file. No family history on file. Social History Social History Marital status: N/A Spouse name: N/A Number of children: N/A Years of education: N/A Social History Main Topics Smoking status: Former Smoker Smokeless tobacco: Never Used Alcohol use Not on file Drug use: Unknown Sexual activity: Not on file Other Topics Concern Not on file Social History Narrative No narrative on file Medications: atorvastatin (LIPITOR) tablet 80 mg 80 mg Oral QHS calcium carbonate/vitamin D-3 (OSCAL-500+D) 1250 mg/200 unit tablet 1 tablet 1 tablet Oral BID [START ON 11/08/2017] leflunomide (ARAVA) tablet 10 mg 10 mg Oral QDAY [START ON 11/08/2017] levothyroxine (SYNTHROID) tablet 150 mcg 150 mcg Oral QDAY( 07) PRN Medications: carboxymethylcellulose PRN, labetalol (NORMODYNE; TRANDATE) injection PRN Physical Exam HEENT: normocephalic, eyes open with no discharge, nares patent, oropharynx is clear with no lesions, palate intact CV: regular rate, distal pulses palpable Chest: normal configuration, equal chest rise bilaterally Ab: soft, non-tender, no masses, no organomegaly Skin: no rashes or lesions Extended Neuro Exam: Mental status: alert, oriented to person/place/time Speech: Normal Abnormal Fluency x Comprehension x Articulation x Repetition x Naming x Cranial Nerves: Normal Abnormal II x III, IV, x V x VII x VIII x IX, X x XI x XII x Muscle/motor: Tone: nml Bulk: nml Fasciculations: none Pronator drift: none NF NE SA EF EE WE WF FF FE FA TA HF ALMANZA HE KF KE DF PF R 5 5 5 5 5 5 5 5 5 5 5 5 5 5 5 5 5 5 L 5 5 5 5 5 5 5 5 5 5 5 5 5 5 5 5 Sensation: Normal RUE LUE RLE LLE Light Touch x Pin Prick x Temperature x Vibration x Proprioception x Coordination: Normal Abnormal Right Abnormal Left Finger to Nose x Rapid alternating Heel to Olivia x Finger tap Foot tap Lab/Radiology/Other Diagnostic Tests: 24-hour labs: Results for orders placed or performed during the hospital encounter of (from the past 24 hour(s)) CBC Collection Time: 11/07/17 2:49 PM Result Value Ref Range White Blood Cells 8.2 4.5 - 11.0 K/UL RBC 4.40 4.0 - 5.0 M/UL Hemoglobin 12.9 12.0 - 15.0 GM/DL Hematocrit 39.7 36 - 45 % MCV 90.2 80 - 100 FL MCH 29.3 26 - 34 PG MCHC 32.5 32.0 - 36.0 G/DL RDW 15.6 (H) 11 - 15 % Platelet Count 203 150 - 400 K/UL MPV 7.8 7 - 11 FL COMPREHENSIVE METABOLIC PANEL Collection Time: 11/07/17 2:49 PM Result Value Ref Range Sodium 139 137 - 147 MMOL/L Potassium 4.2 3.5 - 5.1 MMOL/L Chloride 106 98 - 110 MMOL/L Glucose 109 (H) 70 - 100 MG/DL Blood Urea Nitrogen 14 7 - 25 MG/DL Creatinine 0.93 0.4 - 1.00 MG/DL Calcium 8.8 8.5 - 10.6 MG/DL Total Protein 6.5 6.0 - 8.0 G/DL Total Bilirubin 0.6 0.3 - 1.2 MG/DL Albumin 3.5 3.5 - 5.0 G/DL Alk Phosphatase 74 25 - 110 U/L AST (SGOT) 16 7 - 40 U/L CO2 26 21 - 30 MMOL/L ALT (SGPT) 11 7 - 56 U/L Anion Gap 7 3 - 12 eGFR Non 59 (L) >60 mL/min eGFR >60 >60 mL/min Glucose: (!) 109 (11/07/17 1449) Pertinent radiology reviewed. Carlos Colvin DO PGY-4, Neurology Pager [phone] * Advanced Care Planning/Resuscitation Status - Luis A Murray DO - 2017 4:12 PM CDT Advance Care Planning/Resuscitation Status Conversation Individuals present for advance care planning conversation: resident/fellow physician Pertinent details of conversation (including direct quotes from patient or surrogate): Yes, I would want to be resuscitated! Outcome of conversation: Full Code Documents completed as a result of this conversation: None Other documents present, which outline patient/surrogate wishes: None * Acute Stroke Response - Bekah Gomez RN - 11/07/2017 3:04 PM CDT Formatting of this note may be different from the original. RN Stroke Activation Summary Date of Service: 11/07/2017 Beulah Barreto is a 77 y.o. female. : 1940 Allergies: Tetracycline Patient Arrival: 1401 ASRT Arrival: 1401 Location of Response : [facility] Page Received: 1401 Clinical Presentation: Aphasia, Right sided weakness Total Stroke Scale Score: 0 Signs & Symptoms: Onset of Symptoms, Last Known Well Onset of Symptoms - Date: 11/07/17 Onset of Symptoms - Time: 929 (in [facility] today) Last Known Well - Time: 929 Dysphagia screen: Did Patient Pass The Swallow Screen Part I?: Yes Did Patient Pass The Swallow Screen Part II: Yes Did Patient Pass The Swallow Screen: Yes Assessment & Plan Summary: Pt transferred from [facility], IV- tpa infusion completed per EMS. IV-Tpa started at 09:58 at OSH, pt weight 227. Pt taken from ED to CA-CT scanner for CTP of the head. Pt stable no neurological deficits. NIHSS 0. No intervention at this time. Pt taken to [id number]. Gave report to Ricky Hanson. Pt passed swallow evaluation. CT/CTP/CTA/IR: CTA/CTP time: 1415 CTA/CTP Interpretation time: 1425 N/A Plan: Admit to CA5 Call Completion: 1504 RN handoff: Ricky Hernandez Rn History of Present Illness No past medical history on file. No past surgical history on file. Social History Social History Marital status: N/A Spouse name: N/A Number of children: N/A Years of education: N/A Social History Main Topics Smoking status: Not on file Smokeless tobacco: Not on file Alcohol use Not on file Drug use: Unknown Sexual activity: Not on file Other Topics Concern Not on file Social History Narrative No narrative on file Bekah Gomez RN in this encounter Plan of Treatment Not on fileas of this encounter Procedures Procedure Name Priority Date/Time Associated Diagnosis Comments ECG-SCAN 11/07/2017 Results for this 3:40 PM CDT procedure are in the results section. in this encounter Results * BASIC METABOLIC PANEL (11/09/2017 4:42 AM) [...] Performing Laboratory [facility] [address] [place] [address] * CBC (11/09/2017 4:42 AM) Component Value Ref Range White Blood Cells [...] - 11 FL Specimen Performing Laboratory [facility] [address] [place] [address] * MRI HEAD WO CONTRAST (11/08/2017 10:54 [...] 10.33 Referring Provider None CV ECHO PV BRIDGE SAW OPERATOR Gerardo HANSON LV mass 227.86 66 - 150 g RWT 0.56 <=0.42 TV rest pulmonary artery NA mmHg pressure Right Heart Systolic TDI 0.150 m/s S' Cardiology Ultrasound Siemens VL2005 Machine Left Ventricle Mass Index 105.49 44 [...] No previous study available for comparison * CBC (11/08/2017 4:40 AM) Component Value Ref Range White Blood Cells 6.7 4.5 - 11.0 K/UL RBC 4.21 4.0 - 5.0 M/UL Hemoglobin 12.7 12.0 - 15.0 GM/DL Hematocrit 37.4 36 - 45 % MCV 88.8 80 - 100 FL MCH 30.1 26 - 34 PG MCHC 33.9 32.0 - 36.0 G/DL RDW 15.2 (H) 11 - 15 % Platelet Count 203 150 - 400 K/UL MPV 8.2 7 - 11 FL Specimen Performing Laboratory [facility] [address] [place] [address] * COMPREHENSIVE METABOLIC PANEL (11/08/2017 4:40 AM) Component Value Ref Range Sodium 139 137 [...] Performing Laboratory [facility] [address] [place] [address] * LIPID PROFILE (11/08/2017 4:40 AM) Component [...] Performing Laboratory [facility] [address] [place] [address] * ECG-SCAN (11/07/2017 3:40 PM) Narrative Ordered by an unspecified provider. * COMPREHENSIVE METABOLIC PANEL (11/07/2017 2:49 PM) Component Value Ref Range Sodium 139 137 - 147 MMOL/L Potassium 4.2 3.5 - 5.1 MMOL/L Chloride 106 98 - 110 MMOL/L Glucose 109 (H) 70 - 100 MG/DL Blood Urea Nitrogen 14 7 - 25 MG/DL Creatinine 0.93 0.4 - 1.00 MG/DL Calcium 8.8 8.5 - 10.6 MG/DL Total Protein 6.5 6.0 - 8.0 G/DL Total Bilirubin 0.6 0.3 - 1.2 MG/DL Albumin 3.5 3.5 - 5.0 G/DL Alk Phosphatase 74 25 - 110 U/L AST (SGOT) 16 7 - 40 U/L CO2 26 21 - 30 MMOL/L ALT (SGPT) 11 7 - 56 U/L Anion Gap 7 3 - 12 eGFR Non 59 (L) >60 mL/min Comment: The eGFR is not [...] Pharmacist for questions. Specimen Performing Laboratory [facility] [address] [place] [address] * CBC (11/07/2017 2:49 PM) Component Value Ref Range White Blood Cells 8.2 4.5 - 11.0 K/UL RBC 4.40 4.0 - 5.0 M/UL Hemoglobin 12.9 12.0 - 15.0 GM/DL Hematocrit 39.7 36 - 45 % MCV 90.2 80 - 100 FL MCH 29.3 26 - 34 PG MCHC 32.5 32.0 - 36.0 G/DL RDW 15.6 (H) 11 - 15 % Platelet Count 203 150 - 400 K/UL MPV 7.8 7 - 11 FL Specimen Performing Laboratory [facility] [address] [place] [address] * HEMOGLOBIN A1C (11/07/2017 2:49 PM) Component Value Ref Range Hemoglobin A1C 5.7 4.0 - 6.0 % Comment: The ADA recommends that most patients with type 1 and type 2 diabetes maintain an A1c level <7%. Specimen Performing Laboratory [facility] [address] [place] [address] * CT BRAIN PERF (11/07/2017 2:25 PM) [...] CT HEAD EXTERNAL IMAGING (11/07/2017 12:30 AM) Narrative This order has been auto finalized and does not contain a result. * CT HEAD EXTERNAL IMAGING (11/07/2017 12:15 AM) Narrative This order has been auto finalized and does not contain a result. * GENERAL RAD CHEST EXTERNAL IMAGING (11/07/2017) Narrative This order has been auto finalized and does not contain a result. in this encounter Visit Diagnoses Diagnosis Cerebrovascular accident (CVA) due to embolism of left middle cerebral artery (HCC) - Primary Diagnosis unknown Other unknown and unspecified cause of morbidity or mortality Cerebral artery occlusion without cerebral infarction Admitting Diagnoses Diagnosis acute stroke Stroke (cerebrum) (HCC) Administered Medications Medication Order MAR Action Action Date Dose Rate Site amLODIPine (NORVASC) tablet 5 mg Given 11/08/2017 5 mg 5 mg, Oral, DAILY, First dose on Mon 11:10 CDT 11/08/17 at 1145, Until Discontinued, NURSING: Please educate patient and document: Do not give with grapefruit juice. Given 11/09/2017 5 mg 08:35 CDT aspirin chewable tablet 81 mg Given 11/08/2017 81 mg 81 mg, Oral, DAILY, First dose on Mon 15:35 CDT 11/08/17 at 1515, Until Discontinued Given 11/09/2017 81 mg 08:35 CDT atorvastatin (LIPITOR) tablet 80 mg Given 11/07/2017 80 mg 80 mg, Oral, AT BEDTIME DAILY, First 21:00 CDT dose on 11/07/17 at 2100, Until Discontinued Given 11/08/2017 80 mg 20:24 CDT calcium carbonate/vitamin D-3 Given 11/08/2017 1 tablet (OSCAL-500+D) 1250 mg/200 unit tablet 1 08:25 CDT tablet 1 tablet, Oral, TWICE DAILY, First dose on 11/07/17 at 2100, Until Discontinued, Calcium Carb 1250mg delivers 500mg elemental Ca Given 11/08/2017 1 tablet 20:24 CDT Given 11/09/2017 1 tablet 08:35 CDT carboxymethylcellulose (REFRESH PLUS) 0.5 % ophthalmic solution 1 drop 1 drop, Both Eyes, NEEDED, Starting Wed11/07/17 at 1710, Until Wed11/09/17 at 1610, Dry Eyes, Irritated Eyes clopiDOGrel (PLAVIX) tablet 75 mg Given 11/08/2017 75 mg 75 mg, Oral, DAILY, First dose on Wed 15:35 CDT 11/08/17 at 1515, Until Discontinued, This Medication can increase the risk of bleeding and may need to be held prior to surgery or invasive procedures. Consult physician in advance. Given 11/09/2017 75 mg 08:36 CDT iopamidol 370 (ISOVUE-370) injection 40 Given 11/07/2017 40 mL mL 14:30 CDT 40 mL, Intravenous, ONCE, 1 dose, 11/07/17 at 1430, NOTE: This is a HIGH ALERT Medication. leflunomide (ARAVA) tablet 10 mg Given 11/08/2017 10 mg 10 mg, Oral, DAILY, First dose on Wed 08:25 CDT 11/08/17 at 0900, Until Discontinued Given 11/09/2017 10 mg 08:36 CDT levothyroxine (SYNTHROID) tablet 150 mcg Given 11/08/2017 150 mcg 150 mcg, Oral, DAILY, First dose on Wed 07:10 CDT 11/08/17 at 0700, Until Discontinued, Give 1 hour before a meal. If patient is receiving tube feedings, hold tube feed 1hr before and 1hr after dose. Given 11/09/2017 150 mcg 04:45 CDT metoprolol XL (TOPROL XL) tablet 50 mg Given 11/08/2017 50 mg 50 mg, Oral, DAILY, First dose on Mon 11:10 CDT 11/08/17 at 1145, Until Discontinued, Hold for heart rate < 60 bpm tablets may be cut in half, DO NOT CRUSH or CHEW Given 11/09/2017 50 mg 08:36 CDT perflutren lipid microspheres (DEFINITY) Given 11/08/2017 2 Diluted mL injection 1-20 Diluted mL 09:46 CDT 1-20 Diluted mL, Intravenous, ONCE, 1 dose, 11/08/17 at 0945, NOTE: This is a HIGH ALERT Medication. sodium chloride PF 0.9% injection 50 mL Given 11/07/2017 50 mL 50 mL, Intravenous, ONCE, 1 dose, [place] 14:30 CDT 11/07/17 at 1430, Intra-procedure (IR) in this encounter
--- OUTSIDE RECORDS SUMMARY | 2018-02-02 09:32 | XMS REPORT | Encounter Summary ---
Author Author [facility] Organization [facility] Address Unknown Phone Unavailable Care Team Providers Care Milk Hauler Name Role Phone Rudy Parada MD PCP Encounter Details Date Type Department Care Team Description 11/07/2017 Procedure Pass [facility] [place] [address] Social History Tobacco Use Types Packs/Day Years [...]
--- OUTSIDE RECORDS SUMMARY | 2018-02-02 09:35 | XMS REPORT | Continuity of Care Document ---
Author Author [facility] Organization [facility] Address Unknown Phone Unavailable Allergies Active Description Code Type Severity Reaction Onset Reported/Identified Relationship to Patient Clinical Status Yes tetracycline [id number] Drug Allergy Mild N/A 11/19/2009 Yes tetracycline [id number] Drug Allergy Mild RASH 06/07/2017 Medications There is no data. Problems Date Dx Coded Attending Type Code Diagnosis Diagnosed By 06/24/1199 RYNE GR FACC, GILBERT MONACO CCDS Ot Z48.812 ENCNTR FOR SURGICAL AFTCR FOLLOWING SURG 06/24/1199 GILBERT MICHELE MD, FACC, FACP CCDS Ot Z95.5 PRESENCE OF CORONARY ANGIOPLASTY IMPLANT 11/06/2010 Ot 244.9 HYPOTHYROIDISM NOS 11/06/2010 Ot 272.4 HYPERLIPIDEMIA NEC/NOS 11/06/2010 Ot 411.1 INTERMED CORONARY SYND 11/06/2010 Ot 414.01 CORONARY ATHEROSCLEROSIS OF [place] CORON 03/31/2011 Ot V45.82 PERCUTANEOUS TRANSLUM CORON ANGIOPLASTY 03/31/2011 Ot V57.89 REHABILITATION PROC NEC 04/15/2011 Ot V45.82 PERCUTANEOUS TRANSLUM CORON ANGIOPLASTY 04/15/2011 Ot V57.89 REHABILITATION PROC NEC 07/06/2012 Ot 211.4 BENIGN NEOPL RECTUM/ANUS 07/06/2012 Ot 562.10 DIVERTICULOSIS COLON (W/O MENT OF HEMORR 07/06/2012 Ot V76.51 SCREEN MAL NEOP-COLON 10/07/2012 Ot 244.9 HYPOTHYROIDISM NOS 10/07/2012 Ot 331.9 CEREB DEGENERATION NOS 10/07/2012 Ot 386.11 BENIGN PARXYSMAL VERTIGO 10/07/2012 Ot 401.9 HYPERTENSION NOS 10/07/2012 Ot 780.4 DIZZINESS AND GIDDINESS 10/18/2012 Ot 244.0 POSTSURGICAL HYPOTHYROID 10/18/2012 Ot 272.4 HYPERLIPIDEMIA NEC/NOS 10/18/2012 Ot 414.01 CORONARY ATHEROSCLEROSIS OF [place] CORON 10/18/2012 Ot 530.81 ESOPHAGEAL REFLUX 10/18/2012 Ot 536.8 STOMACH FUNCTION DIS NEC 10/18/2012 Ot 714.0 RHEUMATOID ARTHRITIS 10/18/2012 Ot 786.09 RESPIRATORY ABNORM NEC 10/18/2012 Ot V10.3 HX OF BREAST MALIGNANCY 10/18/2012 Ot V45.71 ACQUIRED ABSENCE OF BREAST AND NIPPLE 10/18/2012 Ot V45.82 PERCUTANEOUS TRANSLUM CORON ANGIOPLASTY 10/18/2012 Ot V58.63 LONG-TERM( CURRENT)USE OF ANTIPLATELET/AN 10/18/2012 Ot V58.66 LONG-TERM ( CURRENT) USE OF ASPIRIN 10/18/2012 Ot V58.69 OTH MED,LT, CURRENT USE 10/18/2012 Ot V85.41 BODY MASS INDEX 40.0-44.9, ADULT 12/21/2014 BAIMA, CATIE L POLICE CAPTAIN SENIOR Ot 272.4 12/21/2014 BAIMA, CATIE L POLICE CAPTAIN SENIOR Ot 414.00 12/21/2014 BAIMA, CATIE L POLICE CAPTAIN SENIOR Ot 272.4 12/21/2014 BAIMA, CATIE L POLICE CAPTAIN SENIOR Ot 414.00 12/24/2014 BAIMA, CATIE L POLICE CAPTAIN SENIOR Ot 272.4 12/24/2014 BAIMA, CATIE L POLICE CAPTAIN SENIOR Ot 414.00 12/24/2014 BAIMA, CATIE L POLICE CAPTAIN SENIOR Ot 272.4 12/24/2014 BAIMA, CATIE L POLICE CAPTAIN SENIOR Ot 414.00 12/24/2014 BAIMA, CATIE L POLICE CAPTAIN SENIOR Ot 272.4 12/24/2014 BAIMA, CATIE L POLICE CAPTAIN SENIOR Ot 414.00 12/24/2014 BAIMA, CATIE L POLICE CAPTAIN SENIOR Ot 272.4 12/24/2014 BAIMA, CATIE L POLICE CAPTAIN SENIOR Ot 414.00 01/10/2015 DAWOOD GR, FIONA P Ot 272.4 01/10/2015 DAWOOD GR, FIONA P Ot 285.1 01/10/2015 DAWOOD GR, FIONA P Ot 401.9 01/10/2015 DAWOOD GR, FIOAN P Ot 412 01/10/2015 DAWOOD GR, FIONA P Ot 414.01 01/10/2015 DAWOOD GR, FIONA P Ot 530.81 01/10/2015 DAWOOD GR, FIONA P Ot 714.0 01/10/2015 DAWOOD GR, FIONA P Ot 715.36 01/10/2015 DAWOOD GR, FIONA P Ot V10.3 01/10/2015 DAWOOD GR, FIONA P Ot V10.87 01/10/2015 DAWOOD GR, FIONA P Ot V45.82 01/12/2015 DAWOOD GR, FIONA P Ot 272.4 HYPERLIPIDEMIA NEC/NOS 01/12/2015 DAWOOD GR, FIONA P Ot 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.1 AC POSTHEMORRHAG ANEMIA 01/12/2015 DAWOOD GR, FIONA Kaur Ot 401.9 HYPERTENSION NOS 01/12/2015 DAWOOD GR, FIONA P Ot 412 OLD MYOCARDIAL INFARCT 01/12/2015 DAWOOD GR, FIONA P Ot 414.01 CORONARY ATHEROSCLEROSIS OF [place] CORON 01/12/2015 DAWOOD GR, FIONA P Ot 530.81 ESOPHAGEAL REFLUX 01/12/2015 DAWOOD GR, FIONA P Ot 714.0 RHEUMATOID ARTHRITIS 01/12/2015 DAWOOD GR, FIONA Kaur Ot 715.36 LOC OSTEOARTH NOS-L/LEG 01/12/2015 DAWOOD GR, FIONA Kaur Ot V10.3 HX OF BREAST MALIGNANCY 01/12/2015 DAWOOD GR, FIONA P Ot V10.87 HX OF THYROID MALIGNANCY 01/12/2015 DAWOOD GR, FIONA Kaur Ot V45.82 PERCUTANEOUS TRANSLUM CORON ANGIOPLASTY 01/16/2015 CATIE SAUNDERS POLICE CAPTAIN SENIOR Ot 272.4 01/16/2015 CATIE SAUNDERS POLICE CAPTAIN SENIOR Ot 414.00 01/18/2015 CATIE SAUNDERS POLICE CAPTAIN SENIOR Ot 272.4 01/18/2015 CATIE SAUNDERS POLICE CAPTAIN SENIOR Ot 414.00 02/04/2015 DAWOOD GR, FIONA P Ot V43.65 02/04/2015 DAWOOD GR, FIONA P Ot V54.81 02/04/2015 DAWOOD GR, FIONA P Ot V57.1 02/04/2015 DAWOOD GR, FIONA P Ot V43.65 02/04/2015 DAWOOD GR, FIONA P Ot V54.81 02/04/2015 DAWOOD GR, FIONA P Ot V57.1 02/15/2015 DAWOOD GR, FIONA P Ot V43.65 02/15/2015 DAWOOD GR, FIONA P Ot V54.81 02/15/2015 DAWOOD GR, FIONA P Ot V57.1 02/21/2015 DAWOOD GR, FIONA P Ot 715.36 02/21/2015 DAWOOD GR, FIONA P Ot 780.79 02/21/2015 DAWOOD GR, FIONA P Ot V57.1 02/21/2015 DAWOOD GR, FIONA P Ot V57.21 02/21/2015 DAWOOD GR, FIONA P Ot V72.63 02/21/2015 DAWOOD GR, FIONA P Ot V72.83 02/21/2015 DAWOOD GR, FIONA P Ot V74.8 02/27/2015 DAWOOD GR, FIONA P Ot 715.36 02/27/2015 DAWOOD GR, FIONA P Ot 780.79 02/27/2015 DAWOOD GR, FIONA P Ot V57.1 02/27/2015 DAWOOD GR, FIONA P Ot V57.21 02/27/2015 DAWOOD GR, FIONA P Ot V72.63 02/27/2015 DAWOOD GR, FIONA P Ot V72.83 02/27/2015 DAWOOD GR, FIONA P Ot V74.8 03/12/2015 GABBY GR, STEPHANIE Holden Ot V76.12 03/20/2015 DAWOOD GR, FIONA P Ot V43.65 KNEE JOINT REPLACEMENT STATUS 03/20/2015 DAWOOD GR, FIONA P Ot V54.81 AFTERCARE FOLLOWING JOINT REPLACEMENT 03/20/2015 DAWOOD GR, FIONA P Ot V57.1 PHYSICAL THERAPY NEC 06/24/2015 CATIE SAUNDERS POLICE CAPTAIN SENIOR Ot E03.9 06/24/2015 CATIE SAUNDERS POLICE CAPTAIN SENIOR Ot E78.5 06/24/2015 CATIE SAUNDERS L POLICE CAPTAIN SENIOR Ot I25.10 06/24/2015 CATIE SAUNDERS L POLICE CAPTAIN SENIOR Ot R00.2 06/26/2015 CATIE SAUNDERS L POLICE CAPTAIN SENIOR Ot E03.9 06/26/2015 CATIE SAUNDERS L POLICE CAPTAIN SENIOR Ot E78.5 06/26/2015 CATIE SAUNDERS L POLICE CAPTAIN SENIOR Ot I25.10 06/26/2015 CATIE SAUNDERS POLICE CAPTAIN SENIOR Ot R00.2 12/23/2015 GABBY GR, STEPHANIE Holden Ot E03.9 HYPOTHYROIDISM, UNSPECIFIED 12/23/2015 GABBY GR, STEPHANIE Holden Ot E78.5 HYPERLIPIDEMIA, UNSPECIFIED 12/23/2015 GABBY GR, STEPHANIE Holden Ot I10 ESSENTIAL (PRIMARY) HYPERTENSION 12/23/2015 STEPHANIE PIERRE MD Ot I21.3 ST ELEVATION (STEMI) MYOCARDIAL INFARCTI 12/23/2015 STEPHANIE PIERRE MD Ot I25.2 OLD MYOCARDIAL INFARCTION 12/23/2015 STEPHANIE PIERRE MD Ot I49.01 VENTRICULAR FIBRILLATION 12/23/2015 STEPHANIE PIERRE MD Ot K21.9 GASTRO-ESOPHAGEAL REFLUX DISEASE WITHOUT 12/23/2015 STEPHANIE PIERRE MD Ot M06.9 RHEUMATOID ARTHRITIS, UNSPECIFIED 12/23/2015 STEPHANIE PIERRE MD Ot T82.857A STENOSIS OF CARDIAC PROSTH DEV/GRFT, INI 12/23/2015 STEPHANIE PIERRE MD Ot Z85.3 PERSONAL HISTORY OF MALIGNANT NEOPLASM O 12/23/2015 STEPHANIE PIERRE MD Ot Z85.850 PERSONAL HISTORY OF MALIGNANT NEOPLASM O 12/23/2015 STEPHANIE PIERRE MD Ot Z95.5 PRESENCE OF CORONARY ANGIOPLASTY IMPLANT 01/06/2016 Ot 174.9 MALIGN NEOPL BREAST NOS 01/06/2016 Ot V76.11 SCRN MAMMO- HIGH RISK PT, MALIGNANT NEOPL 01/06/2016 Ot 793.80 UNSPEC ABNORMAL MAMMOGRAM 01/06/2016 Ot V10.3 HX OF BREAST MALIGNANCY 01/06/2016 Ot 793.80 UNSPEC ABNORMAL MAMMOGRAM 01/06/2016 Ot 414.01 CORONARY ATHEROSCLEROSIS OF [place] CORON 01/06/2016 Ot 729.5 PAIN IN LIMB 01/06/2016 Ot 786.50 CHEST PAIN NOS 01/06/2016 Ot 793.81 MAMMOGRAPHIC MICROCLACIFICATION 01/06/2016 Ot V72.84 EXAM PRE- OPERATIVE NOS 01/06/2016 Ot 272.4 HYPERLIPIDEMIA NEC/NOS 01/06/2016 Ot 414.00 CORON ATHEROSCLER NOS TYPE VESSEL, NATIV 01/06/2016 Ot 786.05 SHORTNESS OF BREATH 01/06/2016 Ot V58.63 LONG-TERM( CURRENT)USE OF ANTIPLATELET/AN 01/06/2016 Ot V58.66 LONG-TERM ( CURRENT) USE OF ASPIRIN 01/06/2016 Ot V58.69 OTH MED,LT, CURRENT USE 01/06/2016 Ot V72.63 PRE- PROCEDURAL LABORATORY EXAMINATION 01/06/2016 Ot V72.81 EXAM-PRE- OPERATIVE CARDIOVASCULAR 01/06/2016 STEPHANIE PIERRE MD Ot V76.12 OTH SCREEN MAMMO-MALIGN NEOPLASM OF PIA 01/06/2016 STEPHANIE PIERRE MD Ot V10.3 HX OF BREAST MALIGNANCY 01/06/2016 STEPHANIE PIERRE MD Ot V45.71 ACQUIRED ABSENCE OF BREAST AND NIPPLE 01/06/2016 STEPHANIE PIERRE MD Ot V76.11 SCRN MAMMO-HIGH RISK PT, MALIGNANT NEOPL 01/06/2016 FREDYCATIE KEVIN Som POLICE CAPTAIN SENIOR Ot 272.4 HYPERLIPIDEMIA NEC/NOS 01/06/2016 CATIE SAUNDERS POLICE CAPTAIN SENIOR Ot 414.00 CORON ATHEROSCLER NOS TYPE VESSEL, NATIV 01/06/2016 DAWOOD GR, FIONA Kaur Ot 715.36 LOC OSTEOARTH NOS-L/LEG 01/06/2016 DAWOOD GR, FIONA Kaur Ot 780.79 OTH MALAISE FATIGUE 01/06/2016 FIONA SEAY MD Ot V57.1 PHYSICAL THERAPY NEC 01/06/2016 FIONA SEAY MD Ot V57.21 ENCOUNTER FOR OCCUPATIONAL THERAPY 01/06/2016 FIONA SEAY MD Ot V72.63 PRE-PROCEDURAL LABORATORY EXAMINATION 01/06/2016 FIONA SEAY MD Ot V72.83 EXAM PRE-OPERATIVE NEC 01/06/2016 FIONA SEAY MD Ot V74.8 SCREEN-BACTERIAL DIS NEC 01/06/2016 GABBY GR, STEPHANIE Holden Ot V76.12 OTH SCREEN MAMMO-MALIGN NEOPLASM OF PIA 01/06/2016 NICKY CATIE Som POLICE CAPTAIN SENIOR Ot E03.9 HYPOTHYROIDISM, UNSPECIFIED 01/06/2016 CATIE SAUNDERS POLICE CAPTAIN SENIOR Ot E78.5 HYPERLIPIDEMIA, UNSPECIFIED 01/06/2016 CATIE SAUNDERS POLICE CAPTAIN SENIOR Ot I25.10 ATHSCL HEART DISEASE OF [place] CORONARY 01/06/2016 CATIE SAUNDERS POLICE CAPTAIN SENIOR Ot R00.2 PALPITATIONS 01/07/2016 GILBERT MICHELE MD, FACC, FACP CCDS Ot Z48.812 ENCNTR FOR SURGICAL AFTCR FOLLOWING SURG 01/07/2016 RYNE GR FACC, GILBERT FACVincent CCDS Ot Z95.5 PRESENCE OF CORONARY ANGIOPLASTY IMPLANT 01/08/2016 Ot 174.9 MALIGN NEOPL BREAST NOS 01/08/2016 Ot V76.11 SCRN MAMMO- HIGH RISK PT, MALIGNANT NEOPL 01/08/2016 Ot 793.80 UNSPEC ABNORMAL MAMMOGRAM 01/08/2016 Ot V10.3 HX OF BREAST MALIGNANCY 01/08/2016 Ot 793.80 UNSPEC ABNORMAL MAMMOGRAM 01/08/2016 Ot 414.01 CORONARY ATHEROSCLEROSIS OF [place] CORON 01/08/2016 Ot 729.5 PAIN IN LIMB 01/08/2016 Ot 786.50 CHEST PAIN NOS 01/08/2016 Ot 793.81 MAMMOGRAPHIC MICROCLACIFICATION 01/08/2016 Ot V72.84 EXAM PRE- OPERATIVE NOS 01/08/2016 Ot 272.4 HYPERLIPIDEMIA NEC/NOS 01/08/2016 Ot 414.00 CORON ATHEROSCLER NOS TYPE VESSEL, NATIV 01/08/2016 Ot 786.05 SHORTNESS OF BREATH 01/08/2016 Ot V58.63 LONG-TERM( CURRENT)USE OF ANTIPLATELET/AN 01/08/2016 Ot V58.66 LONG-TERM ( CURRENT) USE OF ASPIRIN 01/08/2016 Ot V58.69 OTH MED,LT, CURRENT USE 01/08/2016 Ot V72.63 PRE- PROCEDURAL LABORATORY EXAMINATION 01/08/2016 Ot V72.81 EXAM-PRE- OPERATIVE CARDIOVASCULAR 01/08/2016 STEPHANIE PIERRE MD Ot V76.12 OTH SCREEN MAMMO-MALIGN NEOPLASM OF PIA 01/08/2016 STEPHANIE PIERRE MD Ot V10.3 HX OF BREAST MALIGNANCY 01/08/2016 STEPHANIE PIERRE MD Ot V45.71 ACQUIRED ABSENCE OF BREAST AND NIPPLE 01/08/2016 STEPHANIE PIERRE MD Ot V76.11 SCRN MAMMO-HIGH RISK PT, MALIGNANT NEOPL 01/08/2016 CATIE SAUNDERS POLICE CAPTAIN SENIOR Ot 272.4 HYPERLIPIDEMIA NEC/NOS 01/08/2016 CATIE SAUNDERS POLICE CAPTAIN SENIOR Ot 414.00 CORON ATHEROSCLER NOS TYPE VESSEL, NATIV 01/08/2016 FIONA SEAY MD Ot 715.36 LOC OSTEOARTH NOS-L/LEG 01/08/2016 DAWOOD GR, FIONA Kaur Ot 780.79 OTH MALAISE FATIGUE 01/08/2016 FIONA SEAY MD Ot V57.1 PHYSICAL THERAPY NEC 01/08/2016 FIONA SEAY MD Ot V57.21 ENCOUNTER FOR OCCUPATIONAL THERAPY 01/08/2016 FIONA SEAY MD Ot V72.63 PRE-PROCEDURAL LABORATORY EXAMINATION 01/08/2016 DAWOOD GR, FIONA Kaur Ot V72.83 EXAM PRE-OPERATIVE NEC 01/08/2016 FIONA SEAY MD Ot V74.8 SCREEN-BACTERIAL DIS NEC 01/08/2016 GABBY GR, STEPHANIE Holden Ot V76.12 OTH SCREEN MAMMO-MALIGN NEOPLASM OF PIA 01/08/2016 CATIE SAUNDERS POLICE CAPTAIN SENIOR Ot E03.9 HYPOTHYROIDISM, UNSPECIFIED 01/08/2016 CATIE SAUNDERS POLICE CAPTAIN SENIOR Ot E78.5 HYPERLIPIDEMIA, UNSPECIFIED 01/08/2016 CATIE SAUNDERS POLICE CAPTAIN SENIOR Ot I25.10 ATHSCL HEART DISEASE OF [place] CORONARY 01/08/2016 CATIE SAUNDERS POLICE CAPTAIN SENIOR Ot R00.2 PALPITATIONS 01/08/2016 RYNE GR FACC, ALI FACP CCDS Ot Z48.812 ENCNTR FOR SURGICAL AFTCR FOLLOWING SURG 01/08/2016 RYNE GR FACC, ALI FACP CCDS Ot Z95.5 PRESENCE OF CORONARY ANGIOPLASTY IMPLANT 01/09/2016 RYNE SCHMIDTC, ALI FACP CCDS Ot I25.10 ATHSCL HEART DISEASE OF [place] CORONARY 02/05/2016 RYNE SCHMIDTC, ALI FACP CCDS Ot E78.4 OTHER HYPERLIPIDEMIA 02/05/2016 RYNE SCHMIDTC, ALI FACP CCDS Ot I25.10 ATHSCL HEART DISEASE OF [place] CORONARY 02/11/2016 RYNE GR FACPhil, ALI FACP CCDS Ot Z48.812 ENCNTR FOR SURGICAL AFTCR FOLLOWING SURG 02/11/2016 RYNE GR FACC, ALI FACP CCDS Ot Z95.5 PRESENCE OF CORONARY ANGIOPLASTY IMPLANT 02/12/2016 RYNE GR FACC, ALI FACP CCDS Ot E78.4 OTHER HYPERLIPIDEMIA 02/12/2016 RYNE GR FACC, ALI FACP CCDS Ot I25.10 ATHSCL HEART DISEASE OF [place] CORONARY 02/19/2016 STEPHANIE PIERRE MD Ot Z12.31 ENCNTR SCREEN MAMMOGRAM FOR MALIGNANT NE 02/20/2016 STEPHANIE PIERRE MD Ot Z12.31 ENCNTR SCREEN MAMMOGRAM FOR MALIGNANT NE 02/20/2016 STEPHANIE PIERRE MD Ot Z12.31 ENCNTR SCREEN MAMMOGRAM FOR MALIGNANT NE 03/11/2016 STEPHANIE PIERRE MD Ot Z12.31 ENCNTR SCREEN MAMMOGRAM FOR MALIGNANT NE 04/05/2016 RYNE GR FACC, ALI FACP CCDS Ot Z48.812 ENCNTR FOR SURGICAL AFTCR FOLLOWING SURG 04/05/2016 RYNE GR FAC, ALI FACP CCDS Ot Z95.5 PRESENCE OF CORONARY ANGIOPLASTY IMPLANT 04/07/2016 RYNE GR FACPhil, ALI FACP CCDS Ot Z48.812 ENCNTR FOR SURGICAL AFTCR FOLLOWING SURG 04/07/2016 RYNE GR FACPhil, ALI FACP CCDS Ot Z95.5 PRESENCE OF CORONARY ANGIOPLASTY IMPLANT 04/07/2016 RYNE GR FACPhil, ALI FACP CCDS Ot Z48.812 ENCNTR FOR SURGICAL AFTCR FOLLOWING SURG 04/07/2016 RYNE GR FACPhil, ALI FACP CCDS Ot Z95.5 PRESENCE OF CORONARY ANGIOPLASTY IMPLANT 04/08/2016 RYNE GR FACPhil, ALI FACP CCDS Ot Z48.812 ENCNTR FOR SURGICAL AFTCR FOLLOWING SURG 04/08/2016 RYNE GR FACC, ALI FACP CCDS Ot Z95.5 PRESENCE OF CORONARY ANGIOPLASTY IMPLANT 04/08/2016 RYNE GR FACC, ALI FACP CCDS Ot Z48.812 ENCNTR FOR SURGICAL AFTCR FOLLOWING SURG 04/08/2016 RYNE GR FACC, ALI FACP CCDS Ot Z95.5 PRESENCE OF CORONARY ANGIOPLASTY IMPLANT 04/08/2016 RYNE GR FACC, ALI FACP CCDS Ot Z48.812 ENCNTR FOR SURGICAL AFTCR FOLLOWING SURG 04/08/2016 RYNE GR FACC, ALI FACP CCDS Ot Z95.5 PRESENCE OF CORONARY ANGIOPLASTY IMPLANT 05/04/2016 RYNE GR FACC, ALI FACP CCDS Ot Z48.812 ENCNTR FOR SURGICAL AFTCR FOLLOWING SURG 05/04/2016 RYNE GR FACC, ALI FACP CCDS Ot Z95.5 PRESENCE OF CORONARY ANGIOPLASTY IMPLANT 05/06/2016 Ot 174.9 MALIGN NEOPL BREAST NOS 05/06/2016 Ot V76.11 SCRN MAMMO- HIGH RISK PT, MALIGNANT NEOPL 05/06/2016 Ot 793.80 UNSPEC ABNORMAL MAMMOGRAM 05/06/2016 Ot V10.3 HX OF BREAST MALIGNANCY 05/06/2016 Ot 793.80 UNSPEC ABNORMAL MAMMOGRAM 05/06/2016 Ot 414.01 CORONARY ATHEROSCLEROSIS OF [place] CORON 05/06/2016 Ot 729.5 PAIN IN LIMB 05/06/2016 Ot 786.50 CHEST PAIN NOS 05/06/2016 Ot 793.81 MAMMOGRAPHIC MICROCLACIFICATION 05/06/2016 Ot V72.84 EXAM PRE- OPERATIVE NOS 05/06/2016 Ot 272.4 HYPERLIPIDEMIA NEC/NOS 05/06/2016 Ot 414.00 CORON ATHEROSCLER NOS TYPE VESSEL, NATIV 05/06/2016 Ot 786.05 SHORTNESS OF BREATH 05/06/2016 Ot V58.63 LONG-TERM( CURRENT)USE OF ANTIPLATELET/AN 05/06/2016 Ot V58.66 LONG-TERM ( CURRENT) USE OF ASPIRIN 05/06/2016 Ot V58.69 OTH MED,LT, CURRENT USE 05/06/2016 Ot V72.63 PRE- PROCEDURAL LABORATORY EXAMINATION 05/06/2016 Ot V72.81 EXAM-PRE- OPERATIVE CARDIOVASCULAR 05/06/2016 GABBY GR, STEPHANIE Holden Ot V76.12 OTH SCREEN MAMMO-MALIGN NEOPLASM OF PIA 05/06/2016 STEPHANIE PIERRE MD Ot V10.3 HX OF BREAST MALIGNANCY 05/06/2016 STEPHANIE PIERRE MD Ot V45.71 ACQUIRED ABSENCE OF BREAST AND NIPPLE 05/06/2016 STEPHANIE PIERRE MD Ot V76.11 SCRN MAMMO-HIGH RISK PT, MALIGNANT NEOPL 05/06/2016 CATIE SAUNDERS POLICE CAPTAIN SENIOR Ot 272.4 HYPERLIPIDEMIA NEC/NOS 05/06/2016 CATIE SAUNDERS POLICE CAPTAIN SENIOR Ot 414.00 CORON ATHEROSCLER NOS TYPE VESSEL, NATIV 05/06/2016 FIONA SEAY MD Ot 715.36 LOC OSTEOARTH NOS-L/LEG 05/06/2016 FIONA SEAY MD Ot 780.79 OTH MALAISE FATIGUE 05/06/2016 FIONA SEAY MD Ot V57.1 PHYSICAL THERAPY NEC 05/06/2016 FIONA SEAY MD Ot V57.21 ENCOUNTER FOR OCCUPATIONAL THERAPY 05/06/2016 FIONA SEAY MD Ot V72.63 PRE-PROCEDURAL LABORATORY EXAMINATION 05/06/2016 FIONA SEAY MD Ot V72.83 EXAM PRE-OPERATIVE NEC 05/06/2016 FIONA SEAY MD Ot V74.8 SCREEN-BACTERIAL DIS NEC 05/06/2016 STEPHANIE PIERRE MD Ot V76.12 OTH SCREEN MAMMO-MALIGN NEOPLASM OF PIA 05/06/2016 CATIE SAUNDERS POLICE CAPTAIN SENIOR Ot E03.9 HYPOTHYROIDISM, UNSPECIFIED 05/06/2016 FREDYCATIE KEVIN POLICE CAPTAIN SENIOR Ot E78.5 HYPERLIPIDEMIA, UNSPECIFIED 05/06/2016 BAICATIE KEVIN L POLICE CAPTAIN SENIOR Ot I25.10 ATHSCL HEART DISEASE OF [place] CORONARY 05/06/2016 FREDYCATIE KEVIN POLICE CAPTAIN SENIOR Ot R00.2 PALPITATIONS 05/06/2016 RYNE GR FACC, ALI FACP CCDS Ot E78.4 OTHER HYPERLIPIDEMIA 05/06/2016 RYNE GR FACC, ALI FACP CCDS Ot I25.10 ATHSCL HEART DISEASE OF [place] CORONARY 05/06/2016 GABBY GR, STEPHANIE Holden Ot Z12.31 ENCNTR SCREEN MAMMOGRAM FOR MALIGNANT NE 05/06/2016 RYNE GR FACC, GILBERT FACP CCDS Ot Z48.812 ENCNTR FOR SURGICAL AFTCR FOLLOWING SURG 05/06/2016 RYNE GR FACC, ALI FACP CCDS Ot Z95.5 PRESENCE OF CORONARY ANGIOPLASTY IMPLANT 05/07/2016 HARINI HUIZAR MD Ot Z51.81 ENCOUNTER FOR THERAPEUTIC DRUG LEVEL MON 05/07/2016 HARINI HUIZAR MD Ot Z79.899 OTHER SENIOR CARE (CURRENT) DRUG THERAPY 05/15/2016 RYNE GR FACC, ALI FACP CCDS Ot Z48.812 ENCNTR FOR SURGICAL AFTCR FOLLOWING SURG 05/15/2016 RYNE GR FACC, ALI FACP CCDS Ot Z95.5 PRESENCE OF CORONARY ANGIOPLASTY IMPLANT 05/27/2016 HARINI HUIZAR MD Ot Z51.81 ENCOUNTER FOR THERAPEUTIC DRUG LEVEL MON 05/27/2016 HARINI HUIZAR MD Ot Z79.899 OTHER SENIOR CARE (CURRENT) DRUG THERAPY 06/01/2016 NICKYCATIE POLICE CAPTAIN SENIOR Ot E78.4 OTHER HYPERLIPIDEMIA 06/01/2016 FREDYCATIE KEVIN POLICE CAPTAIN SENIOR Ot I25.10 ATHSCL HEART DISEASE OF [place] CORONARY 09/16/2016 Ot 793.80 UNSPEC ABNORMAL MAMMOGRAM 09/16/2016 Ot 414.01 CORONARY ATHEROSCLEROSIS OF [place] CORON 09/16/2016 Ot 729.5 PAIN IN LIMB 09/16/2016 Ot 786.50 CHEST PAIN NOS 09/16/2016 Ot 793.81 MAMMOGRAPHIC MICROCLACIFICATION 09/16/2016 Ot V72.84 EXAM PRE- OPERATIVE NOS 09/16/2016 Ot 272.4 HYPERLIPIDEMIA NEC/NOS 09/16/2016 Ot 414.00 CORON ATHEROSCLER NOS TYPE VESSEL, NATIV 09/16/2016 Ot 786.05 SHORTNESS OF BREATH 09/16/2016 Ot V58.63 LONG-TERM( CURRENT)USE OF ANTIPLATELET/AN 09/16/2016 Ot V58.66 LONG-TERM ( CURRENT) USE OF ASPIRIN 09/16/2016 Ot V58.69 OTH MED,LT, CURRENT USE 09/16/2016 Ot V72.63 PRE- PROCEDURAL LABORATORY EXAMINATION 09/16/2016 Ot V72.81 EXAM-PRE- OPERATIVE CARDIOVASCULAR 09/16/2016 GABBY GR, STEPHANIE Holden Ot V76.12 OTH SCREEN MAMMO-MALIGN NEOPLASM OF PIA 09/16/2016 STEPHANIE PIERRE MD Ot V10.3 HX OF BREAST MALIGNANCY 09/16/2016 STEPHANIE PIERRE MD Ot V45.71 ACQUIRED ABSENCE OF BREAST AND NIPPLE 09/16/2016 STEPHANIE PIERRE MD Ot V76.11 SCRN MAMMO-HIGH RISK PT, MALIGNANT NEOPL 09/16/2016 CATIE SAUNDERS POLICE CAPTAIN SENIOR Ot 272.4 HYPERLIPIDEMIA NEC/NOS 09/16/2016 CATIE SAUNDERS POLICE CAPTAIN SENIOR Ot 414.00 CORON ATHEROSCLER NOS TYPE VESSEL, NATIV 09/16/2016 DAWOOD GR, FIONA Kaur Ot 715.36 LOC OSTEOARTH NOS-L/LEG 09/16/2016 DAWOOD GR, FIONA Kaur Ot 780.79 OTH MALAISE FATIGUE 09/16/2016 DAWOOD GR, FIONA Kaur Ot V57.1 PHYSICAL THERAPY NEC 09/16/2016 DAWOOD GR, FIONA Kaur Ot V57.21 ENCOUNTER FOR OCCUPATIONAL THERAPY 09/16/2016 DAWOOD GR, FIONA Kaur Ot V72.63 PRE-PROCEDURAL LABORATORY EXAMINATION 09/16/2016 DAWOOD GR, FIONA Kaur Ot V72.83 EXAM PRE-OPERATIVE NEC 09/16/2016 DAWOOD GR, FIONA Kaur Ot V74.8 SCREEN-BACTERIAL DIS NEC 09/16/2016 STEPHANIE PIERRE MD Ot V76.12 OTH SCREEN MAMMO-MALIGN NEOPLASM OF PIA 09/16/2016 CATIE SAUNDERS POLICE CAPTAIN SENIOR Ot E03.9 HYPOTHYROIDISM, UNSPECIFIED 09/16/2016 CATIE SAUNDERS POLICE CAPTAIN SENIOR Ot E78.5 HYPERLIPIDEMIA, UNSPECIFIED 09/16/2016 CATIE SAUNDERS L POLICE CAPTAIN SENIOR Ot I25.10 ATHSCL HEART DISEASE OF [place] CORONARY 09/16/2016 CATIE SAUNDERS POLICE CAPTAIN SENIOR Ot R00.2 PALPITATIONS 09/16/2016 RYNE GR [facility], ALI FACP CCDS Ot E78.4 OTHER HYPERLIPIDEMIA 09/16/2016 RYNE GR [facility]AC, ALI FACP CCDS Ot I25.10 ATHSCL HEART DISEASE OF [place] CORONARY 09/16/2016 GABBY GR, STEPHANIE Holden Ot Z12.31 ENCNTR SCREEN MAMMOGRAM FOR MALIGNANT NE 09/16/2016 FREDYHERBERTH CATIE L POLICE CAPTAIN SENIOR Ot E78.4 OTHER HYPERLIPIDEMIA 09/16/2016 NICKY CATIE Kearns POLICE CAPTAIN SENIOR Ot I25.10 ATHSCL HEART DISEASE OF [place] CORONARY 09/16/2016 BHUPENDRA GR, HARINI Yoder Ot Z51.81 ENCOUNTER FOR THERAPEUTIC DRUG LEVEL MON 09/16/2016 BHUPENDRA GR, HARINI Yoder Ot Z79.899 OTHER SENIOR CARE (CURRENT) DRUG THERAPY 09/17/2016 TAD DO CHANEL Ot E03.9 HYPOTHYROIDISM, UNSPECIFIED 09/17/2016 TAD DO, CHANEL Ot E78.5 HYPERLIPIDEMIA, UNSPECIFIED 09/17/2016 MISHRA DO, CHANEL Ot I10 ESSENTIAL (PRIMARY) HYPERTENSION 09/17/2016 MISHRAKOFI MARCUS CHANEL Ot I25.10 ATHSCL HEART DISEASE OF [place] CORONARY 09/17/2016 MISHRA DO CHANEL Ot I25.84 CORONARY ATHEROSCLEROSIS DUE TO [place] 09/17/2016 TAD DO CHANEL Ot K21.9 GASTRO-ESOPHAGEAL REFLUX DISEASE WITHOUT 09/17/2016 TAD DO CHANEL Ot R07.89 OTHER CHEST PAIN 09/17/2016 MISHRA DO CHANEL Ot Z79.899 OTHER SENIOR CARE (CURRENT) DRUG THERAPY 09/17/2016 MISHRA DO, CHANEL Ot Z95.5 PRESENCE OF CORONARY ANGIOPLASTY IMPLANT 2016 TAD DO CHANEL Ot E03.9 HYPOTHYROIDISM, UNSPECIFIED 2016 MISHRA DO CHANEL Ot E78.5 HYPERLIPIDEMIA, UNSPECIFIED 2016 MISHRA DO CHANEL Ot I10 ESSENTIAL (PRIMARY) HYPERTENSION 2016 TAD MARCUS CHANEL Ot I25.10 ATHSCL HEART DISEASE OF [place] CORONARY 2016 MISHRA DO, CHANEL Ot I25.84 CORONARY ATHEROSCLEROSIS DUE TO [place] 2016 MISHRA DO, CHANEL Ot K21.9 GASTRO-ESOPHAGEAL REFLUX DISEASE WITHOUT 2016 MISHRA DO CHANEL Ot R07.89 OTHER CHEST PAIN 2016 MISHRA DO CHANEL Ot Z79.899 OTHER SUPERVISING PRODUCER (CURRENT) DRUG THERAPY 2016 MISHRAKOFI MARCUS CHANEL Ot Z95.5 PRESENCE OF CORONARY ANGIOPLASTY IMPLANT 02/05/2017 NADEGE WHITE PREVOCATIONAL/REHABILITATION COUNSELOR Ot Z12.31 ENCNTR SCREEN MAMMOGRAM FOR MALIGNANT NE 02/23/2017 NADEGE WHITE R PREVOCATIONAL/REHABILITATION COUNSELOR Ot Z12.31 ENCNTR SCREEN MAMMOGRAM FOR MALIGNANT NE 02/23/2017 CINDYNADEGE R PREVOCATIONAL/REHABILITATION COUNSELOR Ot Z12.31 ENCNTR SCREEN MAMMOGRAM FOR MALIGNANT NE 02/24/2017 CINDY NADEGE R PREVOCATIONAL/REHABILITATION COUNSELOR Ot Z12.31 ENCNTR SCREEN MAMMOGRAM FOR MALIGNANT NE 03/23/2017 NADEGE WHITE PREVOCATIONAL/REHABILITATION COUNSELOR Ot Z12.31 ENCNTR SCREEN MAMMOGRAM FOR MALIGNANT NE 04/28/2017 FIONA SEAY MD Ot Z01.82 ENCOUNTER FOR ALLERGY TESTING 04/28/2017 FIONA SEAY MD Ot Z01.82 ENCOUNTER FOR ALLERGY TESTING 04/28/2017 CATIE SAUNDERS Ot Z01.812 ENCOUNTER FOR PREPROCEDURAL LABORATORY E 04/28/2017 FIONA SEAY MD Ot M17.11 UNILATERAL PRIMARY OSTEOARTHRITIS, RIGHT 04/28/2017 FIONA SEAY MD Ot R53.83 OTHER FATIGUE 04/28/2017 FIONA SEAY MD Ot Z01.811 ENCOUNTER FOR PREPROCEDURAL RESPIRATORY 04/28/2017 FIONA SEAY MD Ot Z01.812 ENCOUNTER FOR PREPROCEDURAL LABORATORY E 04/29/2017 HARINI HUIZAR MD Ot Z51.81 ENCOUNTER FOR THERAPEUTIC DRUG LEVEL MON 04/29/2017 HARINI HUIZAR MD Ot Z79.899 OTHER SUPERVISING PRODUCER (CURRENT) DRUG THERAPY 04/30/2017 FIONA SEYA MD Ot M17.11 UNILATERAL PRIMARY OSTEOARTHRITIS, RIGHT 04/30/2017 FIONA SEAY MD Ot R53.83 OTHER FATIGUE 04/30/2017 FIONA SEAY MD Ot Z01.811 ENCOUNTER FOR PREPROCEDURAL RESPIRATORY 04/30/2017 FIONA SEAY MD, Ot Z01.812 ENCOUNTER FOR PREPROCEDURAL LABORATORY E 05/14/2017 CATIE SAUNDERS Ot E78.4 OTHER HYPERLIPIDEMIA 05/14/2017 CATIE SAUNDERS Ot I25.10 ATHSCL HEART DISEASE OF [place] CORONARY 05/16/2017 FIONA SEAY MD Ot D62 ACUTE POSTHEMORRHAGIC ANEMIA 05/16/2017 FIONA SEAY MD, Ot E66.9 OBESITY, UNSPECIFIED 05/16/2017 FIONA SEAY MD, Ot E78.00 PURE HYPERCHOLESTEROLEMIA, UNSPECIFIED 05/16/2017 FIONA SEAY MD Ot E89.0 POSTPROCEDURAL HYPOTHYROIDISM 05/16/2017 FIONA SEAY MD, Ot I10 ESSENTIAL (PRIMARY) HYPERTENSION 05/16/2017 FIONA SEAY MD, Ot I25.10 ATHSCL HEART DISEASE OF [place] CORONARY 05/16/2017 FIONA SEAY MD Ot I25.2 OLD MYOCARDIAL INFARCTION 05/16/2017 FIONA SEAY MD Ot K21.9 GASTRO-ESOPHAGEAL REFLUX DISEASE WITHOUT 05/16/2017 FIONA SEYA MD Ot M06.9 RHEUMATOID ARTHRITIS, UNSPECIFIED 05/16/2017 FIONA SEAY MD, Ot M17.12 UNILATERAL PRIMARY OSTEOARTHRITIS, LEFT 05/16/2017 FIONA SEAY MD Ot Z68.41 BODY MASS INDEX (BMI) 40.0-44.9, ADULT 05/16/2017 FIONA SEAY MD, Ot Z79.01 SENIOR CARE (CURRENT) USE OF ANTICOAGULANT 05/16/2017 FIONA SEAY MD Ot Z79.82 SUPERVISING PRODUCER (CURRENT) USE OF ASPIRIN 05/16/2017 FIONA SEAY MD, Ot Z82.49 FAMILY HX OF ISCHEM HEART DIS AND OTH DI 05/16/2017 FIONA SEAY MD, Ot Z83.3 FAMILY HISTORY OF DIABETES MELLITUS 05/16/2017 FIONA SEAY MD, Ot Z85.3 PERSONAL HISTORY OF MALIGNANT NEOPLASM O 05/16/2017 FIONA SEAY MD, Ot Z85.850 PERSONAL HISTORY OF MALIGNANT NEOPLASM O 05/16/2017 FIONA SEAY MD, Ot Z87.891 PERSONAL HISTORY OF NICOTINE DEPENDENCE 05/16/2017 FIONA SEAY MD, Ot Z92.3 PERSONAL HISTORY OF IRRADIATION 05/16/2017 FIONA SEAY MD, Ot Z95.5 PRESENCE OF CORONARY ANGIOPLASTY IMPLANT 05/16/2017 FIONA SEAY MD, Ot Z96.651 PRESENCE OF RIGHT ARTIFICIAL KNEE JOINT 06/03/2017 FIONA SEAY MD, Ot Z47.1 AFTERCARE FOLLOWING JOINT REPLACEMENT FLEMING 06/03/2017 FIONA SEAY MD, Ot 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 LEFT ARTIFICIAL KNEE JOINT 06/07/2017 FIONA SEAY MD, Ot S83.092A OTHER SUBLUXATION OF LEFT PATELLA, INITI 06/07/2017 FIONA SEAY MD, Ot X58.XXXA EXPOSURE TO OTHER SPECIFIED FACTORS, INI 06/07/2017 FIONA SEAY MD Ot Y99.8 OTHER EXTERNAL CAUSE STATUS 06/07/2017 FIONA SEAY MD, Ot Z01.818 ENCOUNTER FOR OTHER PREPROCEDURAL EXAMIN 06/08/2017 FIONA SEAY MD, Ot S83.092A OTHER SUBLUXATION OF LEFT PATELLA, INITI 06/08/2017 FIONA SEAY MD, Ot X58.XXXA EXPOSURE TO OTHER SPECIFIED FACTORS, INI 06/08/2017 FIONA SEAY MD, Ot Y99.8 OTHER EXTERNAL CAUSE STATUS 06/08/2017 FIONA SEAY MD, Ot Z01.818 ENCOUNTER FOR OTHER PREPROCEDURAL EXAMIN 06/10/2017 FIONA SEAY MD, Ot E03.9 HYPOTHYROIDISM, UNSPECIFIED 06/10/2017 FIONA SEAY MD Ot E66.9 OBESITY, UNSPECIFIED 06/10/2017 FIONA SEAY MD, Ot E78.5 HYPERLIPIDEMIA, UNSPECIFIED 06/10/2017 FIONA SEAY MD, Ot I10 ESSENTIAL (PRIMARY) HYPERTENSION 06/10/2017 FIONA SEAY MD, Ot I25.10 ATHSCL HEART DISEASE OF [place] CORONARY 06/10/2017 FIONA SEAY MD, Ot I25.2 OLD MYOCARDIAL INFARCTION 06/10/2017 FIONA SEAY MD, Ot K21.9 GASTRO-ESOPHAGEAL REFLUX DISEASE WITHOUT 06/10/2017 FIONA SEAY MD, Ot M06.9 RHEUMATOID ARTHRITIS, UNSPECIFIED 06/10/2017 FIONA SEAY MD, Ot M25.362 OTHER INSTABILITY, LEFT KNEE 06/10/2017 FIONA SEAY MD, Ot Z68.41 BODY MASS INDEX (BMI) 40.0-44.9, ADULT 06/10/2017 FIONA SEAY MD, Ot Z87.891 PERSONAL HISTORY OF NICOTINE DEPENDENCE 06/10/2017 FIONA SEAY MD, Ot Z95.5 PRESENCE OF CORONARY ANGIOPLASTY IMPLANT 06/10/2017 FIONA SEAY MD, Ot Z96.651 PRESENCE OF RIGHT ARTIFICIAL KNEE JOINT 06/10/2017 FIONA SEAY MD, Ot 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 LEFT ARTIFICIAL KNEE JOINT 06/13/2017 FIONA SEAY MD, Ot S83.092A OTHER SUBLUXATION OF LEFT PATELLA, INITI 06/13/2017 FIONA SEAY MD, Ot X58.XXXA EXPOSURE TO OTHER SPECIFIED FACTORS, INI 06/13/2017 FIONA SEAY MD, Ot Y99.8 OTHER EXTERNAL CAUSE STATUS 06/13/2017 FIONA SEAY MD, Ot Z01.818 ENCOUNTER FOR OTHER PREPROCEDURAL EXAMIN 06/14/2017 FIONA SEAY MD, Ot E03.9 HYPOTHYROIDISM, UNSPECIFIED 06/14/2017 FIONA SEAY MD, Ot E66.9 OBESITY, UNSPECIFIED 06/14/2017 FIONA SEAY MD, Ot E78.5 HYPERLIPIDEMIA, UNSPECIFIED 06/14/2017 FIONA SEAY MD Ot I10 ESSENTIAL (PRIMARY) HYPERTENSION 06/14/2017 FIONA SEAY MD, Ot I25.10 ATHSCL HEART DISEASE OF [place] CORONARY 06/14/2017 FIONA SEAY MD, Ot I25.2 OLD MYOCARDIAL INFARCTION 06/14/2017 FIONA SEAY MD, Ot K21.9 GASTRO-ESOPHAGEAL REFLUX DISEASE WITHOUT 06/14/2017 FIONA SEAY MD, Ot M06.9 RHEUMATOID ARTHRITIS, UNSPECIFIED 06/14/2017 FIONA SEAY MD, Ot M25.362 OTHER INSTABILITY, LEFT KNEE 06/14/2017 FIONA SEAY MD, Ot T84.54XA INFECT/INFLM REACTION DUE TO INTERNAL LE 06/14/2017 FIONA SEAY MD, Ot Z68.41 BODY MASS INDEX (BMI) 40.0-44.9, ADULT 06/14/2017 FIONA SEAY MD, Ot Z87.891 PERSONAL HISTORY OF NICOTINE DEPENDENCE 06/14/2017 FIONA SEAY MD Ot Z95.5 PRESENCE OF CORONARY ANGIOPLASTY IMPLANT 06/14/2017 FIONA SEAY MD Ot Z96.651 PRESENCE OF RIGHT ARTIFICIAL KNEE JOINT 06/14/2017 FIONA SEAY MD Ot 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 LEFT ARTIFICIAL KNEE JOINT 06/18/2017 HARINI HUIZAR MD Ot Z51.81 ENCOUNTER FOR THERAPEUTIC DRUG LEVEL MON 06/18/2017 HARINI HUIZAR MD Ot Z79.899 OTHER SUPERVISING PRODUCER (CURRENT) DRUG THERAPY 06/22/2017 REFUGIO MURPHY MD E Ot D64.9 ANEMIA, UNSPECIFIED 06/22/2017 REFUGIO MURPHY MD E Ot E03.9 HYPOTHYROIDISM, UNSPECIFIED 06/22/2017 BELL MURPHY MDIC E Ot E78.5 HYPERLIPIDEMIA, UNSPECIFIED 06/22/2017 KATHERINE GR REFUGIO E Ot I10 ESSENTIAL (PRIMARY) HYPERTENSION 06/22/2017 KATHERINE GR REFUGIO E Ot I25.10 ATHSCL HEART DISEASE OF [place] CORONARY 06/22/2017 KATHERINE GR REFUGIO E Ot M06.9 RHEUMATOID ARTHRITIS, UNSPECIFIED 06/22/2017 KATHERINE GR REFUGIO E Ot T84.54XD INFECT/INFLM REACTION DUE TO INTERNAL LE 06/22/2017 BELL MURPHY MDIC E Ot Z47.1 AFTERCARE FOLLOWING JOINT REPLACEMENT FLEMING 06/22/2017 REFUGIO MURPHY MD E Ot Z95.5 PRESENCE OF CORONARY ANGIOPLASTY IMPLANT 06/22/2017 REFUGIO MURPHY MD E Ot Z96.651 PRESENCE OF RIGHT ARTIFICIAL KNEE JOINT 06/22/2017 REFUGIO MURPHY MD E Ot 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 LEFT ARTIFICIAL KNEE JOINT 06/22/2017 REFUGIO MURPHY MD E Ot D64.9 ANEMIA, UNSPECIFIED 06/22/2017 REFUGIO MURPHY MD E Ot E03.9 HYPOTHYROIDISM, UNSPECIFIED 06/22/2017 KATHERINE GR REFUGIO E Ot E78.5 HYPERLIPIDEMIA, UNSPECIFIED 06/22/2017 KATHERINE GR REFUGIO E Ot I10 ESSENTIAL (PRIMARY) HYPERTENSION 06/22/2017 KATHERINE GR REFUGIO E Ot I25.10 ATHSCL HEART DISEASE OF [place] CORONARY 06/22/2017 KATHERINE GR REFUGIO E Ot M06.9 RHEUMATOID ARTHRITIS, UNSPECIFIED 06/22/2017 KATHERINE GR, REFUGIO Grajeda Ot T84.54XD INFECT/INFLM REACTION DUE TO INTERNAL LE 06/22/2017 KATHERINE GR, REFUGIO Grajeda Ot Z47.1 AFTERCARE FOLLOWING JOINT REPLACEMENT FLEMING 06/22/2017 KATHERINE GR, REFUGIO Grajeda Ot Z95.5 PRESENCE OF CORONARY ANGIOPLASTY IMPLANT 06/22/2017 KATHERINE GR, REFUGIO Grajeda Ot Z96.651 PRESENCE OF RIGHT ARTIFICIAL KNEE JOINT 06/22/2017 REFUGIO MURPHY MD Ot 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 LEFT ARTIFICIAL KNEE JOINT 06/28/2017 FIOAN SEAY MD Ot Z47.1 AFTERCARE FOLLOWING JOINT REPLACEMENT FLEMING 06/28/2017 FIONA SEAY MD Ot 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 LEFT ARTIFICIAL KNEE JOINT 07/27/2017 BHUPENDRA GR, HARINI Yoder Ot Z51.81 ENCOUNTER FOR THERAPEUTIC DRUG LEVEL MON 07/27/2017 HARINI HUIZAR MD Ot Z79.899 OTHER SENIOR CARE (CURRENT) DRUG THERAPY 07/29/2017 HARINI HUIZAR MD Ot Z51.81 ENCOUNTER FOR THERAPEUTIC DRUG LEVEL MON 07/29/2017 HARINI HUIZAR MD Ot Z79.899 OTHER SENIOR CARE (CURRENT) DRUG THERAPY 10/12/2017 ERIC MARTIN DO Ot Z47.1 AFTERCARE FOLLOWING JOINT REPLACEMENT FLEMING 10/12/2017 ERIC MARTIN DO Ot 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 LEFT ARTIFICIAL KNEE JOINT 10/15/2017 ERIC MARTIN DO Ot Z47.1 AFTERCARE FOLLOWING JOINT REPLACEMENT FLEMING 10/15/2017 ERIC MARTIN DO Ot 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 LEFT ARTIFICIAL KNEE JOINT 11/07/2017 ANABELLE NOLASCO MD Ot E78.00 PURE HYPERCHOLESTEROLEMIA, UNSPECIFIED 11/07/2017 ANABELLE NOLASCO MD Ot I10 ESSENTIAL (PRIMARY) HYPERTENSION 11/07/2017 ANABELLE NOLASCO MD Ot I25.10 ATHSCL HEART DISEASE OF [place] CORONARY 11/07/2017 ANABELLE NOLASCO MD Ot I25.2 OLD MYOCARDIAL INFARCTION 11/07/2017 ANABELLE NOLASCO MD Ot I63.9 CEREBRAL INFARCTION, UNSPECIFIED 11/07/2017 ANABELLE NOLASCO MD Ot K21.9 GASTRO-ESOPHAGEAL REFLUX DISEASE WITHOUT 11/07/2017 ANABELLE NOLASCO MD Ot M06.9 RHEUMATOID ARTHRITIS, UNSPECIFIED 11/07/2017 GAURAV GR, ANABELLE Stuart Ot R47.89 OTHER SPEECH DISTURBANCES 11/07/2017 GAURAV GR, ANABELLE Stuart Ot Z79.02 SENIOR CARE (CURRENT) USE OF ANTITHROMBOTI 11/07/2017 ANABELLE NOLASCO MD Ot Z79.51 SUPERVISING PRODUCER (CURRENT) USE OF INHALED STERO 11/07/2017 ANABELLE NOLASCO MD Ot Z79.82 SENIOR CARE (CURRENT) USE OF ASPIRIN 11/07/2017 ANABELLE NOLASCO MD Ot Z82.49 FAMILY HX OF ISCHEM HEART DIS AND OTH DI 11/07/2017 ANABELLE NOLASCO MD Ot Z85.3 PERSONAL HISTORY OF MALIGNANT NEOPLASM O 11/07/2017 ANABELLE NOLASCO MD Ot Z85.850 PERSONAL HISTORY OF MALIGNANT NEOPLASM O 11/07/2017 ANABELLE NOLASCO MD Ot Z88.1 ALLERGY STATUS TO OTHER ANTIBIOTIC AGENT 11/07/2017 ANABELLE NOLASCO MD Ot Z90.11 ACQUIRED ABSENCE OF RIGHT BREAST AND NIP 11/07/2017 ANABELLE NOLASCO MD Ot Z90.89 ACQUIRED ABSENCE OF OTHER ORGANS 11/07/2017 GAURAV GR, ANABELLE Stuart Ot Z95.5 PRESENCE OF CORONARY ANGIOPLASTY IMPLANT 11/07/2017 ANABELLE NOLASCO MD Ot Z96.653 PRESENCE OF ARTIFICIAL KNEE JOINT, BILAT 11/09/2017 GAURAV GR, ANABELLE Stuart Ot E78.00 PURE HYPERCHOLESTEROLEMIA, UNSPECIFIED 11/09/2017 GAURAV GR, ANABELLE Stuart Ot I10 ESSENTIAL (PRIMARY) HYPERTENSION 11/09/2017 GAURAV GR, ANABELLE Stuart Ot I25.10 ATHSCL HEART DISEASE OF [place] CORONARY 11/09/2017 GAURAV GR, ANABELLE Stuart Ot I25.2 OLD MYOCARDIAL INFARCTION 11/09/2017 GAURAV GR, ANABELLE Stuart Ot I63.9 CEREBRAL INFARCTION, UNSPECIFIED 11/09/2017 ANABELLE NOLASCO MD Ot K21.9 GASTRO-ESOPHAGEAL REFLUX DISEASE WITHOUT 11/09/2017 GAURAV GR, ANABELLE Stuart Ot M06.9 RHEUMATOID ARTHRITIS, UNSPECIFIED 11/09/2017 ANABELLE NOLASCO MD Ot R47.89 OTHER SPEECH DISTURBANCES 11/09/2017 ANABELLE NOLASCO MD Ot Z79.02 SENIOR CARE (CURRENT) USE OF ANTITHROMBOTI 11/09/2017 GAURAV GR ANABELLE Stuart Ot Z79.51 SUPERVISING PRODUCER (CURRENT) USE OF INHALED STERO 11/09/2017 GAURAV GR ANABELLE Stuart Ot Z79.82 SUPERVISING PRODUCER (CURRENT) USE OF ASPIRIN 11/09/2017 GAURAV GR ANABELLE Stuart Ot Z82.49 FAMILY HX OF ISCHEM HEART DIS AND OTH DI 11/09/2017 GAURAV GR ANABELLE Stuart Ot Z85.3 PERSONAL HISTORY OF MALIGNANT NEOPLASM O 11/09/2017 GAURAV GR ANABELLE Stuart Ot Z85.850 PERSONAL HISTORY OF MALIGNANT NEOPLASM O 11/09/2017 GAURAV GR ANABELLE Stuart Ot Z88.1 ALLERGY STATUS TO OTHER ANTIBIOTIC AGENT 11/09/2017 GAURAV GR ANABELLE Stuart Ot Z90.11 ACQUIRED ABSENCE OF RIGHT BREAST AND NIP 11/09/2017 GAURAV GR ANABELLE Stuart Ot Z90.89 ACQUIRED ABSENCE OF OTHER ORGANS 11/09/2017 GAURAV GR ANABELLE Stuart Ot Z95.5 PRESENCE OF CORONARY ANGIOPLASTY IMPLANT 11/09/2017 GAURAV GR ANABELLE Stuart Ot Z96.653 PRESENCE OF ARTIFICIAL KNEE JOINT, BILAT 01/28/2018 Ot 272.4 HYPERLIPIDEMIA NEC/NOS 01/28/2018 Ot 414.00 CORON ATHEROSCLER NOS TYPE VESSEL, NATIV 01/28/2018 Ot 786.05 SHORTNESS OF BREATH 01/28/2018 Ot V58.63 LONG-TERM( CURRENT)USE OF ANTIPLATELET/AN 01/28/2018 Ot V58.66 LONG-TERM ( CURRENT) USE OF ASPIRIN 01/28/2018 Ot V58.69 OTH MED,LT, CURRENT USE 01/28/2018 Ot V72.63 PRE- PROCEDURAL LABORATORY EXAMINATION 01/28/2018 Ot V72.81 EXAM-PRE- OPERATIVE CARDIOVASCULAR 01/28/2018 STEPHANIE PIERRE MD Ot V76.12 OTH SCREEN MAMMO-MALIGN NEOPLASM OF PIA 01/28/2018 STEPHANIE PIERRE MD Ot V10.3 HX OF BREAST MALIGNANCY 01/28/2018 STEPHANIE PIERRE MD Ot V45.71 ACQUIRED ABSENCE OF BREAST AND NIPPLE 01/28/2018 STEPHANIE PIERRE MD Ot V76.11 SCRN MAMMO-HIGH RISK PT, MALIGNANT NEOPL 01/28/2018 CATIE SAUNDERS [employer] S[employer]IOR Ot 272.4 HYPERLIPIDEMIA NEC/NOS 01/28/2018 CATIE SAUNDERS [employer] Ot 414.00 CORON ATHEROSCLER NOS TYPE VESSEL, NATIV 01/28/2018 DAWOOD GR, FIONA Kaur Ot 715.36 LOC OSTEOARTH NOS-L/LEG 01/28/2018 DAWOOD GR, FIONA Kaur Ot 780.79 OTH MALAISE FATIGUE 01/28/2018 FIONA SEAY MD Ot V57.1 PHYSICAL THERAPY NEC 01/28/2018 DAWOOD GR, FIONA Kaur Ot V57.21 ENCOUNTER FOR OCCUPATIONAL THERAPY 01/28/2018 DAWOOD GR, FIONA Kaur Ot V72.63 PRE-PROCEDURAL LABORATORY EXAMINATION 01/28/2018 DAWOOD GR, FIONA Kaur Ot V72.83 EXAM PRE-OPERATIVE NEC 01/28/2018 DAWOOD GR, FOINA aKur Ot V74.8 SCREEN-BACTERIAL DIS NEC 01/28/2018 GABBY GR, STEPHANIE Holden Ot V76.12 OTH SCREEN MAMMO-MALIGN NEOPLASM OF PIA 01/28/2018 NICKY CATIE L [employer]TAIN SENIOR Ot E03.9 HYPOTHYROIDISM, UNSPECIFIED 01/28/2018 NICKY CATIE L [employer]TAIN SENIOR Ot E78.5 HYPERLIPIDEMIA, UNSPECIFIED 01/28/2018 FREDYCATIE KEVIN L [employer]TAIN SENIOR Ot I25.10 ATHSCL HEART DISEASE OF [place] CORONARY 01/28/2018 NICKY CATIE L [employer]TAIN SENIOR Ot R00.2 PALPITATIONS 01/28/2018 RYNE GR [facility], ALI FACP CCDS Ot E78.4 OTHER HYPERLIPIDEMIA 01/28/2018 RYNE GR FAC, ALI FACP CCDS Ot I25.10 ATHSCL HEART DISEASE OF [place] CORONARY 01/28/2018 GABBY GR, STEPHANIE Holden Ot Z12.31 ENCNTR SCREEN MAMMOGRAM FOR MALIGNANT NE 01/28/2018 FREDYHERBERTH CATIE L [employer]TAIN SENIOR Ot E78.4 OTHER HYPERLIPIDEMIA 01/28/2018 FREDYHERBERTH CATIE L [employer]TAIN SENIOR Ot I25.10 ATHSCL HEART DISEASE OF [place] CORONARY 01/28/2018 NICKY CATIE L [employer]TAIN SENIOR Ot Z51.81 ENCOUNTER FOR THERAPEUTIC DRUG LEVEL MON 01/28/2018 NICKY CATIE L [employer]TAIN SENIOR Ot Z79.899 OTHER SUPERVISING PRODUCER (CURRENT) DRUG THERAPY 01/28/2018 BHUPENDRA GR, HARINI Yoder Ot Z51.81 ENCOUNTER FOR THERAPEUTIC DRUG LEVEL MON 01/28/2018 HARINI HUIZAR MD Ot Z79.899 OTHER SENIOR CARE (CURRENT) DRUG THERAPY 01/28/2018 NADEGE WHITE APRN Ot Z12.31 ENCNTR SCREEN MAMMOGRAM FOR MALIGNANT NE 01/28/2018 CATIE SAUNDERS Som AYALA Ot E78.4 OTHER HYPERLIPIDEMIA 01/28/2018 CATIE SAUNDERS LUCY Ot I25.10 ATHSCL HEART DISEASE OF [place] CORONARY 01/28/2018 BHUPENDRA GR, HARINI Yoder Ot Z51.81 ENCOUNTER FOR THERAPEUTIC DRUG LEVEL MON 01/28/2018 HARINI HUIZAR MD Ot Z79.899 OTHER SENIOR CARE (CURRENT) DRUG THERAPY 01/28/2018 CARY GR, ANJALI Ot Z01.818 ENCOUNTER FOR OTHER PREPROCEDURAL EXAMIN Procedures Code Description Performed By Performed On 00.40 11/04/2010 00.45 11/04/2010 00.66 11/04/2010 36.07 11/04/2010 37.22 11/04/2010 88.53 11/04/2010 88.56 11/04/2010 00.40 11/05/2010 00.45 11/05/2010 00.66 11/05/2010 36.07 11/05/2010 88.56 11/05/2010 81.54 TOTAL KNEE REPLACEMENT 01/09/2015 [id number] DILATION OF 1 COR ART WITH DRUG-ELUT INT 12/20/2015 [id number] FLUOROSCOPY OF MULT COR ART USING L OSM 12/20/2015 [id number] REPLACE OF L KNEE JT WITH SYNTH SUB, LAM 05/12/2017 [id number] [id number] LEFT KNEE JOINT, OPEN APPROACH 06/09/2017 [id number] REMOVAL OF SYNTH SUB FROM L KNEE JT, FEM 06/09/2017 [id number] REPLACE OF L KNEE JT WITH SYNTH SUB, LAM 06/09/2017 [id number] REPLACE L KNEE JT, FEMORAL W SYNTH SUB, 06/09/2017 Results Test Result Range Complete blood count (CBC) with automated white blood cell (WBC) differential - 05/06/16 10:47 Blood leukocytes automated count (number/volume) 5.7 10*3/uL 4.3-11.0 Blood erythrocytes automated count (number/volume) 4.69 10*6/uL 4.35-5.85 Venous blood hemoglobin measurement (mass/volume) 14.0 g/dL 11.5-16.0 Blood hematocrit (volume fraction) 44 % 35-52 Automated erythrocyte mean corpuscular volume 94 [foz_us] 80-99 Automated erythrocyte mean corpuscular hemoglobin (mass per erythrocyte) 30 pg 25-34 Automated erythrocyte mean corpuscular hemoglobin concentration measurement ( mass/volume) 32 g/dL 32-36 Automated erythrocyte distribution width ratio 14.0 % 10.0-14.5 Automated blood platelet count (count/volume) 198 10*3/uL 130-400 Automated blood platelet mean volume measurement 10.1 [foz_us] 7.4-10.4 Automated blood neutrophils/100 leukocytes 55 % 42-75 Automated blood lymphocytes/100 leukocytes 26 % 12-44 Blood monocytes/100 leukocytes 10 % 0-12 Automated blood eosinophils/100 leukocytes 8 % 0-10 Automated blood basophils/100 leukocytes 1 % 0-10 Blood neutrophils automated count (number/volume) 3.2 10*3 1.8-7.8 Blood lymphocytes automated count (number/volume) 1.5 10*3 1.0-4.0 Blood monocytes automated count (number/volume) 0.6 10*3 0.0-1.0 Automated eosinophil count 0.5 10*3/uL 0.0-0.3 Automated blood basophil count (count/volume) 0.0 10*3/uL 0.0-0.1 Liver function panel (serum or plasma alk phos, alb, total and direct bili, total protein, ALT, AST) - 05/06/16 10:47 Serum or plasma total bilirubin measurement (mass/volume) 0.6 mg/dL 0.1-1.0 Serum or plasma alkaline phosphatase measurement (enzymatic activity/volume) 60 U/L 40-136 Serum or plasma aspartate aminotransferase measurement (enzymatic activity/ volume) 19 U/L 5-34 Serum or plasma alanine aminotransferase measurement (enzymatic activity/volume ) 26 U/L 0-55 Serum or plasma protein measurement (mass/volume) 6.7 g/dL 6.4-8.2 Serum or plasma albumin measurement (mass/volume) 3.8 g/dL 3.2-4.5 Bilirubin direct 0.2 mg/dL 0.0-0.3 Serum or plasma indirect bilirubin measurement (mass/volume) 0.4 mg/ dL NRG Complete blood count (CBC) with automated white blood cell (WBC) differential - 09/16/16 21:45 Blood leukocytes automated count (number/volume) 8.2 10*3/uL 4.3-11.0 Blood erythrocytes automated count (number/volume) 4.41 10*6/uL 4.35-5.85 Venous blood hemoglobin measurement (mass/volume) 13.4 g/dL 11.5-16.0 Blood hematocrit (volume fraction) 41 % 35-52 Automated erythrocyte mean corpuscular volume 94 [foz_us] 80-99 Automated erythrocyte mean corpuscular hemoglobin (mass per erythrocyte) 30 pg 25-34 Automated erythrocyte mean corpuscular hemoglobin concentration measurement ( mass/volume) 32 g/dL 32-36 Automated erythrocyte distribution width ratio 13.7 % 10.0-14.5 Automated blood platelet count (count/volume) 249 10*3/uL 130-400 Automated blood platelet mean volume measurement 10.2 [foz_us] 7.4-10.4 Automated blood neutrophils/100 leukocytes 54 % 42-75 Automated blood lymphocytes/100 leukocytes 30 % 12-44 Blood monocytes/100 leukocytes 10 % 0-12 Automated blood eosinophils/100 leukocytes 6 % 0-10 Automated blood basophils/100 leukocytes 0 % 0-10 Blood neutrophils automated count (number/volume) 4.5 10*3 1.8-7.8 Blood lymphocytes automated count (number/volume) 2.4 10*3 1.0-4.0 Blood monocytes automated count (number/volume) 0.8 10*3 0.0-1.0 Automated eosinophil count 0.5 10*3/uL 0.0-0.3 Automated blood basophil count (count/volume) 0.0 10*3/uL 0.0-0.1 PT panel in platelet poor plasma by coagulation assay - 09/16/16 21:45 Prothrombin time (PT) in platelet poor plasma by coagulation assay 11.6 s 12.2-14.7 INR in platelet poor plasma or blood by coagulation assay 0.9 0.8-1.4 Activated partial thromboplastin time (aPTT) in platelet poor plasma bycoagulation assay - 09/16/16 21:45 Activated partial thromboplastin time (aPTT) in platelet poor plasma bycoagulation assay 22 s 24-35 Comprehensive metabolic panel - 09/16/16 22:06 Serum or plasma sodium measurement (moles/volume) 141 mmol/L 135-145 Serum or plasma potassium measurement (moles/volume) 4.1 mmol/L 3.6-5.0 Serum or plasma chloride measurement (moles/volume) 107 mmol/L 98-107 Carbon dioxide 22 mmol/L 21-32 Serum or plasma anion gap determination (moles/volume) 12 mmol/L 5-14 Serum or plasma urea nitrogen measurement (mass/volume) 20 mg/dL 7-18 Serum or plasma creatinine measurement (mass/volume) 1.04 mg/dL 0.60-1.30 Serum or plasma urea nitrogen/creatinine mass ratio 19 NRG Serum or plasma creatinine measurement with calculation of estimated glomerular filtration rate 52 NRG Serum or plasma glucose measurement (mass/volume) 105 mg/dL 70-105 Serum or plasma calcium measurement (mass/volume) 8.5 mg/dL 8.5-10.1 Serum or plasma total bilirubin measurement (mass/volume) 0.3 mg/dL 0.1-1.0 Serum or plasma alkaline phosphatase measurement (enzymatic activity/volume) 61 U/L 40-136 Serum or plasma aspartate aminotransferase measurement (enzymatic activity/ volume) 21 U/L 5-34 Serum or plasma alanine aminotransferase measurement (enzymatic activity/volume ) 19 U/L 0-55 Serum or plasma protein measurement (mass/volume) 6.6 g/dL 6.4-8.2 Serum or plasma albumin measurement (mass/volume) 3.6 g/dL 3.2-4.5 Magnesium - 09/16/16 22:06 Magnesium 2.1 mg/dL 1.8-2.4 Serum or plasma troponin i.cardiac measurement (mass/volume) - 09/16/16 22:06 Serum or plasma troponin i.cardiac measurement (mass/volume) < ng/ mL <0.30 Serum or plasma troponin i.cardiac measurement (mass/volume) - 09/17/16 04:05 Serum or plasma troponin i.cardiac measurement (mass/volume) < ng/ mL <0.30 Serum or plasma troponin i.cardiac measurement (mass/volume) - 09/17/16 10:40 Serum or plasma troponin i.cardiac measurement (mass/volume) < ng/ mL <0.30 Activated partial thromboplastin time (aPTT) in platelet poor plasma bycoagulation assay - 09/17/16 15:12 Activated partial thromboplastin time (aPTT) in platelet poor plasma bycoagulation assay 55 s 24-35 Complete urinalysis with reflex to culture - 04/28/17 11:00 Urine color determination YELLOW NRG Urine clarity determination SLIGHTLY CLOUDY NRG Urine pH measurement by test strip 7 5-9 Specific gravity of urine by test strip 1.005 1.016- 1.022 Urine protein assay by test strip, semi-quantitative NEGATIVE NEGATIVE Urine glucose detection by automated test strip NEGATIVE NEGATIVE Erythrocytes detection in urine sediment by light microscopy NEGATIVE NEGATIVE Urine ketones detection by automated test strip NEGATIVE NEGATIVE Urine nitrite detection by test strip NEGATIVE NEGATIVE Urine total bilirubin detection by test strip NEGATIVE NEGATIVE Urine urobilinogen measurement by automated test strip (mass/volume) NORMAL NORMAL Urine leukocyte esterase detection by dipstick NEGATIVE NEGATIVE Automated urine sediment erythrocyte count by microscopy (number/high power field) NONE NRG Automated urine sediment leukocyte count by microscopy (number/high power field ) [HPF] NRG Bacteria detection in urine sediment by light microscopy TRACE NRG Squamous epithelial cells detection in urine sediment by light microscopy 10-25 NRG Crystals detection in urine sediment by light microscopy NONE NRG Casts detection in urine sediment by light microscopy NONE NRG Mucus detection in urine sediment by light microscopy NEGATIVE NRG Complete urinalysis with reflex to culture NO NRG Complete blood count (CBC) with automated white blood cell (WBC) differential - 04/28/17 12:00 Blood leukocytes automated count (number/volume) 7.1 10*3/uL 4.3-11.0 Blood erythrocytes automated count (number/volume) 4.62 10*6/uL 4.35-5.85 Venous blood hemoglobin measurement (mass/volume) 13.6 g/dL 11.5-16.0 Blood hematocrit (volume fraction) 44 % 35-52 Automated erythrocyte mean corpuscular volume 95 [foz_us] 80-99 Automated erythrocyte mean corpuscular hemoglobin (mass per erythrocyte) 29 pg 25-34 Automated erythrocyte mean corpuscular hemoglobin concentration measurement ( mass/volume) 31 g/dL 32-36 Automated erythrocyte distribution width ratio 14.1 % 10.0-14.5 Automated blood platelet count (count/volume) 187 10*3/uL 130-400 Automated blood platelet mean volume measurement 10.4 [foz_us] 7.4-10.4 Automated blood neutrophils/100 leukocytes 66 % 42-75 Automated blood lymphocytes/100 leukocytes 20 % 12-44 Blood monocytes/100 leukocytes 7 % 0-12 Automated blood eosinophils/100 leukocytes 6 % 0-10 Automated blood basophils/100 leukocytes 0 % 0-10 Blood neutrophils automated count (number/volume) 4.7 10*3 1.8-7.8 Blood lymphocytes automated count (number/volume) 1.4 10*3 1.0-4.0 Blood monocytes automated count (number/volume) 0.5 10*3 0.0-1.0 Automated eosinophil count 0.4 10*3/uL 0.0-0.3 Automated blood basophil count (count/volume) 0.0 10*3/uL 0.0-0.1 PT panel in platelet poor plasma by coagulation assay - 04/28/17 12:00 Prothrombin time (PT) in platelet poor plasma by coagulation assay 12.0 s 12.2-14.7 INR in platelet poor plasma or blood by coagulation assay 0.9 0.8-1.4 Liver function panel (serum or plasma alk phos, alb, total and direct bili, total protein, ALT, AST) - 04/28/17 12:00 Serum or plasma total bilirubin measurement (mass/volume) 0.5 mg/dL 0.1-1.0 Serum or plasma alkaline phosphatase measurement (enzymatic activity/volume) 65 U/L 40-136 Serum or plasma aspartate aminotransferase measurement (enzymatic activity/ volume) 19 U/L 5-34 Serum or plasma alanine aminotransferase measurement (enzymatic activity/volume ) 25 U/L 0-55 Serum or plasma protein measurement (mass/volume) 6.7 g/dL 6.4-8.2 Serum or plasma albumin measurement (mass/volume) 3.7 g/dL 3.2-4.5 Bilirubin direct 0.2 mg/dL 0.0-0.3 Serum or plasma indirect bilirubin measurement (mass/volume) 0.3 mg/ dL NR Lipid 1996 panel - 04/28/17 12:00 Serum or plasma triglyceride measurement (mass/volume) 121 mg/dL <150 Serum or plasma cholesterol measurement (mass/volume) 140 mg/dL < 200 Serum or plasma cholesterol in HDL measurement (mass/volume) 43 mg/ dL 40-60 Cholesterol in LDL [mass/volume] in serum or plasma by direct assay 75 mg/dL 1-129 Serum or plasma cholesterol in VLDL measurement (mass/volume) 24 mg/ dL 5-40 Comprehensive metabolic panel - 04/28/17 12:00 Serum or plasma sodium measurement (moles/volume) 142 mmol/L 135-145 Serum or plasma potassium measurement (moles/volume) 4.2 mmol/L 3.6-5.0 Serum or plasma chloride measurement (moles/volume) 108 mmol/L 98-107 Carbon dioxide 27 mmol/L 21-32 Serum or plasma anion gap determination (moles/volume) 7 mmol/L 5-14 Serum or plasma urea nitrogen measurement (mass/volume) 13 mg/dL 7-18 Serum or plasma creatinine measurement (mass/volume) 0.77 mg/dL 0.60-1.30 Serum or plasma urea nitrogen/creatinine mass ratio 17 NRG Serum or plasma creatinine measurement with calculation of estimated glomerular filtration rate > NRG Serum or plasma glucose measurement (mass/volume) 97 mg/dL 70-105 Serum or plasma calcium measurement (mass/volume) 8.4 mg/dL 8.5-10.1 Serum or plasma total bilirubin measurement (mass/volume) 0.5 mg/dL 0.1-1.0 Serum or plasma alkaline phosphatase measurement (enzymatic activity/volume) 64 U/L 40-136 Serum or plasma aspartate aminotransferase measurement (enzymatic activity/ volume) 20 U/L 5-34 Serum or plasma alanine aminotransferase measurement (enzymatic activity/volume ) 25 U/L 0-55 Serum or plasma protein measurement (mass/volume) 6.7 g/dL 6.4-8.2 Serum or plasma albumin measurement (mass/volume) 3.7 g/dL 3.2-4.5 Erythrocyte sedimentation rate by westergren method - 04/28/17 12:00 Erythrocyte sedimentation rate by westergren method 18 mm 0-30 Blood type T Indirect antibody screen panel - 04/28/17 12:00 ABO+Rh group AP NRG Blood group antibody screen NEGATIVE NRG Methicillin resistant Staphylococcus aureus (MRSA) screening culture - 12:00 Methicillin resistant Staphylococcus aureus (MRSA) screening culture NEG NRG Blood type T Indirect antibody screen panel - 05/12/17 06:15 ABO+Rh group AP NRG Transfusion band number [id number] NRG Blood group antibody screen NEGATIVE NRG Whole blood hemoglobin and hematocrit panel - 05/13/17 05:40 Venous blood hemoglobin measurement (mass/volume) 10.2 g/dL 11.5-16.0 Blood hematocrit (volume fraction) 33 % 35-52 Complete blood count (CBC) with automated white blood cell (WBC) differential - 05/14/17 06:25 Blood leukocytes automated count (number/volume) 10.0 10*3/uL 4.3-11.0 Blood erythrocytes automated count (number/volume) 3.11 10*6/uL 4.35-5.85 Venous blood hemoglobin measurement (mass/volume) 9.4 g/dL 11.5-16.0 Blood hematocrit (volume fraction) 30 % 35-52 Automated erythrocyte mean corpuscular volume 96 [foz_us] 80-99 Automated erythrocyte mean corpuscular hemoglobin (mass per erythrocyte) 30 pg 25-34 Automated erythrocyte mean corpuscular hemoglobin concentration measurement ( mass/volume) 32 g/dL 32-36 Automated erythrocyte distribution width ratio 13.8 % 10.0-14.5 Automated blood platelet count (count/volume) 153 10*3/uL 130-400 Automated blood platelet mean volume measurement 10.2 [foz_us] 7.4-10.4 Automated blood neutrophils/100 leukocytes 74 % 42-75 Automated blood lymphocytes/100 leukocytes 12 % 12-44 Blood monocytes/100 leukocytes 14 % 0-12 Automated blood eosinophils/100 leukocytes 1 % 0-10 Automated blood basophils/100 leukocytes 0 % 0-10 Blood neutrophils automated count (number/volume) 7.4 10*3 1.8-7.8 Blood lymphocytes automated count (number/volume) 1.2 10*3 1.0-4.0 Blood monocytes automated count (number/volume) 1.4 10*3 0.0-1.0 Automated eosinophil count 0.1 10*3/uL 0.0-0.3 Automated blood basophil count (count/volume) 0.0 10*3/uL 0.0-0.1 Comprehensive metabolic panel - 05/14/17 06:25 Serum or plasma sodium measurement (moles/volume) 139 mmol/L 135-145 Serum or plasma potassium measurement (moles/volume) 4.1 mmol/L 3.6-5.0 Serum or plasma chloride measurement (moles/volume) 107 mmol/L 98-107 Carbon dioxide 25 mmol/L 21-32 Serum or plasma anion gap determination (moles/volume) 7 mmol/L 5-14 Serum or plasma urea nitrogen measurement (mass/volume) 17 mg/dL 7-18 Serum or plasma creatinine measurement (mass/volume) 0.76 mg/dL 0.60-1.30 Serum or plasma urea nitrogen/creatinine mass ratio 22 NRG Serum or plasma creatinine measurement with calculation of estimated glomerular filtration rate > NRG Serum or plasma glucose measurement (mass/volume) 120 mg/dL 70-105 Serum or plasma calcium measurement (mass/volume) 7.9 mg/dL 8.5-10.1 Serum or plasma total bilirubin measurement (mass/volume) 0.5 mg/dL 0.1-1.0 Serum or plasma alkaline phosphatase measurement (enzymatic activity/volume) 50 U/L 40-136 Serum or plasma aspartate aminotransferase measurement (enzymatic activity/ volume) 16 U/L 5-34 Serum or plasma alanine aminotransferase measurement (enzymatic activity/volume ) 18 U/L 0-55 Serum or plasma protein measurement (mass/volume) 6.0 g/dL 6.4-8.2 Serum or plasma albumin measurement (mass/volume) 3.1 g/dL 3.2-4.5 Whole blood hemoglobin and hematocrit panel - 05/15/17 06:21 Venous blood hemoglobin measurement (mass/volume) 8.1 g/dL 11.5-16.0 Blood hematocrit (volume fraction) 26 % 35-52 Methicillin resistant Staphylococcus aureus (MRSA) screening culture - 06:40 Methicillin resistant Staphylococcus aureus (MRSA) screening culture NEG NRG Bacteria identification in isolate by anaerobe culture - 06/09/17 07:55 Bacteria identification in isolate by anaerobe culture NOANA NRG Gram stain microscopy - 06/09/17 07:55 GRAM STAIN RESULT NO BACTERIA NRG Bacteria identification in wound by culture - 06/09/17 07:55 Bacteria identification in wound by culture [id number] NR FREE TEXT EXTERNAL SENSITIVITY REPORTED AT 0808, 06-11-17 NRG QUANTITY OF GROWTH Scant Growth NR Bacterial susceptibility panel - 06/09/17 07:55 Oxacillin susceptibility test by minimum inhibitory concentration < = NRG Gentamicin susceptibility test by minimum inhibitory concentration < = NRG Clindamycin susceptibility test by minimum inhibitory concentration <= NRG Erythromycin susceptibility test by minimum inhibitory concentration <= NRG Trimethoprim/sulfamethoxazole susceptibility test by minimum inhibitoryconcentration <= NRG Vancomycin susceptibility test by minimum inhibitory concentration < = NRG Levofloxacin susceptibility test by minimum inhibitory concentration >= NRG Rifampin susceptibility test by minimum inhibitory concentration <= NRG Tetracycline susceptibility test by minimum inhibitory concentration <= NRG Ciprofloxacin susceptibility test by minimum inhibitory concentration R NRG Whole blood hemoglobin and hematocrit panel - 06/10/17 08:00 Venous blood hemoglobin measurement (mass/volume) 8.9 g/dL 11.5-16.0 Blood hematocrit (volume fraction) 29 % 35-52 IRON TEST - 06/10/17 08:00 Serum or plasma iron measurement (mass/volume) 51 % 35- 180 Complete blood count (CBC) with automated white blood cell (WBC) differential - 06/11/17 05:35 Blood leukocytes automated count (number/volume) 7.9 10*3/uL 4.3-11.0 Blood erythrocytes automated count (number/volume) 2.76 10*6/uL 4.35-5.85 Venous blood hemoglobin measurement (mass/volume) 8.4 g/dL 11.5-16.0 Blood hematocrit (volume fraction) 27 % 35-52 Automated erythrocyte mean corpuscular volume 99 [foz_us] 80-99 Automated erythrocyte mean corpuscular hemoglobin (mass per erythrocyte) 30 pg 25-34 Automated erythrocyte mean corpuscular hemoglobin concentration measurement ( mass/volume) 31 g/dL 32-36 Automated erythrocyte distribution width ratio 15.8 % 10.0-14.5 Automated blood platelet count (count/volume) 168 10*3/uL 130-400 Automated blood platelet mean volume measurement 9.9 [foz_us] 7.4-10.4 Automated blood neutrophils/100 leukocytes 70 % 42-75 Automated blood lymphocytes/100 leukocytes 16 % 12-44 Blood monocytes/100 leukocytes 13 % 0-12 Automated blood eosinophils/100 leukocytes 1 % 0-10 Automated blood basophils/100 leukocytes 0 % 0-10 Blood neutrophils automated count (number/volume) 5.5 10*3 1.8-7.8 Blood lymphocytes automated count (number/volume) 1.3 10*3 1.0-4.0 Blood monocytes automated count (number/volume) 1.0 10*3 0.0-1.0 Automated eosinophil count 0.1 10*3/uL 0.0-0.3 Automated blood basophil count (count/volume) 0.0 10*3/uL 0.0-0.1 Serum or plasma C reactive protein measurement (mass/volume) - 06/11/17 05:35 Serum or plasma C reactive protein measurement (mass/volume) 6.82 mg /dL 0.00-0.50 Comprehensive metabolic panel - 06/11/17 05:35 Serum or plasma sodium measurement (moles/volume) 139 mmol/L 135-145 Serum or plasma potassium measurement (moles/volume) 3.8 mmol/L 3.6-5.0 Serum or plasma chloride measurement (moles/volume) 108 mmol/L 98-107 Carbon dioxide 22 mmol/L 21-32 Serum or plasma anion gap determination (moles/volume) 9 mmol/L 5-14 Serum or plasma urea nitrogen measurement (mass/volume) 13 mg/dL 7-18 Serum or plasma creatinine measurement (mass/volume) 0.75 mg/dL 0.60-1.30 Serum or plasma urea nitrogen/creatinine mass ratio 17 NRG Serum or plasma creatinine measurement with calculation of estimated glomerular filtration rate > NRG Serum or plasma glucose measurement (mass/volume) 106 mg/dL 70-105 Serum or plasma calcium measurement (mass/volume) 7.6 mg/dL 8.5-10.1 Serum or plasma total bilirubin measurement (mass/volume) 0.5 mg/dL 0.1-1.0 Serum or plasma alkaline phosphatase measurement (enzymatic activity/volume) 56 U/L 40-136 Serum or plasma aspartate aminotransferase measurement (enzymatic activity/ volume) 22 U/L 5-34 Serum or plasma alanine aminotransferase measurement (enzymatic activity/volume ) 18 U/L 0-55 Serum or plasma protein measurement (mass/volume) 5.6 g/dL 6.4-8.2 Serum or plasma albumin measurement (mass/volume) 3.0 g/dL 3.2-4.5 Erythrocyte sedimentation rate by westergren method - 06/11/17 05:35 Erythrocyte sedimentation rate by westergren method 62 mm 0-30 Comprehensive metabolic panel - 06/12/17 06:00 Serum or plasma sodium measurement (moles/volume) 141 mmol/L 135-145 Serum or plasma potassium measurement (moles/volume) 3.9 mmol/L 3.6-5.0 Serum or plasma chloride measurement (moles/volume) 107 mmol/L 98-107 Carbon dioxide 24 mmol/L 21-32 Serum or plasma anion gap determination (moles/volume) 10 mmol/L 5-14 Serum or plasma urea nitrogen measurement (mass/volume) 10 mg/dL 7-18 Serum or plasma creatinine measurement (mass/volume) 0.81 mg/dL 0.60-1.30 Serum or plasma urea nitrogen/creatinine mass ratio 12 NRG Serum or plasma creatinine measurement with calculation of estimated glomerular filtration rate > NRG Serum or plasma glucose measurement (mass/volume) 135 mg/dL 70-105 Serum or plasma calcium measurement (mass/volume) 8.0 mg/dL 8.5-10.1 Serum or plasma total bilirubin measurement (mass/volume) 0.7 mg/dL 0.1-1.0 Serum or plasma alkaline phosphatase measurement (enzymatic activity/volume) 61 U/L 40-136 Serum or plasma aspartate aminotransferase measurement (enzymatic activity/ volume) 21 U/L 5-34 Serum or plasma alanine aminotransferase measurement (enzymatic activity/volume ) 17 U/L 0-55 Serum or plasma protein measurement (mass/volume) 5.9 g/dL 6.4-8.2 Serum or plasma albumin measurement (mass/volume) 3.0 g/dL 3.2-4.5 Complete blood count (CBC) with automated white blood cell (WBC) differential - 06/12/17 06:00 Blood leukocytes automated count (number/volume) 8.5 10*3/uL 4.3-11.0 Blood erythrocytes automated count (number/volume) 2.71 10*6/uL 4.35-5.85 Venous blood hemoglobin measurement (mass/volume) 8.3 g/dL 11.5-16.0 Blood hematocrit (volume fraction) 27 % 35-52 Automated erythrocyte mean corpuscular volume 99 [foz_us] 80-99 Automated erythrocyte mean corpuscular hemoglobin (mass per erythrocyte) 31 pg 25-34 Automated erythrocyte mean corpuscular hemoglobin concentration measurement ( mass/volume) 31 g/dL 32-36 Automated erythrocyte distribution width ratio 15.8 % 10.0-14.5 Automated blood platelet count (count/volume) 163 10*3/uL 130-400 Automated blood platelet mean volume measurement 10.0 [foz_us] 7.4-10.4 Automated blood neutrophils/100 leukocytes 70 % 42-75 Automated blood lymphocytes/100 leukocytes 16 % 12-44 Blood monocytes/100 leukocytes 11 % 0-12 Automated blood eosinophils/100 leukocytes 2 % 0-10 Automated blood basophils/100 leukocytes 0 % 0-10 Blood neutrophils automated count (number/volume) 6.0 10*3 1.8-7.8 Blood lymphocytes automated count (number/volume) 1.4 10*3 1.0-4.0 Blood monocytes automated count (number/volume) 0.9 10*3 0.0-1.0 Automated eosinophil count 0.2 10*3/uL 0.0-0.3 Automated blood basophil count (count/volume) 0.0 10*3/uL 0.0-0.1 Vancomycin trough - 06/12/17 14:55 Vancomycin trough 9.9 ug/mL 10.0-20.0 Complete blood count (CBC) with automated white blood cell (WBC) differential - 06/22/17 05:50 Blood leukocytes automated count (number/volume) 7.7 10*3/uL 4.3-11.0 Blood erythrocytes automated count (number/volume) 3.04 10*6/uL 4.35-5.85 Venous blood hemoglobin measurement (mass/volume) 9.7 g/dL 11.5-16.0 Blood hematocrit (volume fraction) 31 % 35-52 Automated erythrocyte mean corpuscular volume 103 [foz_us] 80-99 Automated erythrocyte mean corpuscular hemoglobin (mass per erythrocyte) 32 pg 25-34 Automated erythrocyte mean corpuscular hemoglobin concentration measurement ( mass/volume) 31 g/dL 32-36 Automated erythrocyte distribution width ratio 18.5 % 10.0-14.5 Automated blood platelet count (count/volume) 315 10*3/uL 130-400 Automated blood platelet mean volume measurement 9.6 [foz_us] 7.4-10.4 Automated blood neutrophils/100 leukocytes 65 % 42-75 Automated blood lymphocytes/100 leukocytes 22 % 12-44 Blood monocytes/100 leukocytes 9 % 0-12 Automated blood eosinophils/100 leukocytes 4 % 0-10 Automated blood basophils/100 leukocytes 1 % 0-10 Blood neutrophils automated count (number/volume) 5.0 10*3 1.8-7.8 Blood lymphocytes automated count (number/volume) 1.7 10*3 1.0-4.0 Blood monocytes automated count (number/volume) 0.7 10*3 0.0-1.0 Automated eosinophil count 0.3 10*3/uL 0.0-0.3 Automated blood basophil count (count/volume) 0.0 10*3/uL 0.0-0.1 Serum or plasma C reactive protein measurement (mass/volume) - 06/22/17 05:50 Serum or plasma C reactive protein measurement (mass/volume) 0.54 mg /dL 0.00-0.50 Erythrocyte sedimentation rate by westergren method - 06/22/17 05:50 Erythrocyte sedimentation rate by westergren method 40 mm 0-30 Complete blood count (CBC) with automated white blood cell (WBC) differential - 11/07/17 09:46 Blood leukocytes automated count (number/volume) 7.3 10*3/uL 4.3-11.0 Blood erythrocytes automated count (number/volume) 4.77 10*6/uL 4.35-5.85 Venous blood hemoglobin measurement (mass/volume) 14.0 g/dL 11.5-16.0 Blood hematocrit (volume fraction) 44 % 35-52 Automated erythrocyte mean corpuscular volume 93 [foz_us] 80-99 Automated erythrocyte mean corpuscular hemoglobin (mass per erythrocyte) 29 pg 25-34 Automated erythrocyte mean corpuscular hemoglobin concentration measurement ( mass/volume) 32 g/dL 32-36 Automated erythrocyte distribution width ratio 14.9 % 10.0-14.5 Automated blood platelet count (count/volume) 227 10*3/uL 130-400 Automated blood platelet mean volume measurement 10.2 [foz_us] 7.4-10.4 Automated blood neutrophils/100 leukocytes 62 % 42-75 Automated blood lymphocytes/100 leukocytes 20 % 12-44 Blood monocytes/100 leukocytes 8 % 0-12 Automated blood eosinophils/100 leukocytes 9 % 0-10 Automated blood basophils/100 leukocytes 1 % 0-10 Blood neutrophils automated count (number/volume) 4.5 10*3 1.8-7.8 Blood lymphocytes automated count (number/volume) 1.4 10*3 1.0-4.0 Blood monocytes automated count (number/volume) 0.6 10*3 0.0-1.0 Automated eosinophil count 0.7 10*3/uL 0.0-0.3 Automated blood basophil count (count/volume) 0.1 10*3/uL 0.0-0.1 Comprehensive metabolic panel - 11/07/17 09:46 Serum or plasma sodium measurement (moles/volume) 141 mmol/L 135-145 Serum or plasma potassium measurement (moles/volume) 4.4 mmol/L 3.6-5.0 Serum or plasma chloride measurement (moles/volume) 106 mmol/L 98-107 Carbon dioxide 25 mmol/L 21-32 Serum or plasma anion gap determination (moles/volume) 10 mmol/L 5-14 Serum or plasma urea nitrogen measurement (mass/volume) 13 mg/dL 7-18 Serum or plasma creatinine measurement (mass/volume) 0.89 mg/dL 0.60-1.30 Serum or plasma urea nitrogen/creatinine mass ratio 15 NRG Serum or plasma creatinine measurement with calculation of estimated glomerular filtration rate > NRG Serum or plasma glucose measurement (mass/volume) 101 mg/dL 70-105 Serum or plasma calcium measurement (mass/volume) 9.1 mg/dL 8.5-10.1 Serum or plasma total bilirubin measurement (mass/volume) 0.6 mg/dL 0.1-1.0 Serum or plasma alkaline phosphatase measurement (enzymatic activity/volume) 87 U/L 40-136 Serum or plasma aspartate aminotransferase measurement (enzymatic activity/ volume) 20 U/L 5-34 Serum or plasma alanine aminotransferase measurement (enzymatic activity/volume ) 18 U/L 0-55 Serum or plasma protein measurement (mass/volume) 7.5 g/dL 6.4-8.2 Serum or plasma albumin measurement (mass/volume) 4.0 g/dL 3.2-4.5 Serum or plasma troponin i.cardiac measurement (mass/volume) - 11/07/17 09:46 Serum or plasma troponin i.cardiac measurement (mass/volume) < ng/ mL <0.30 Encounters ACCT No. Visit Date/Time Discharge Status Pt. Type Provider Facility Loc./Unit Complaint [id number] 01/28/2018 10:05:00 01/28/2018 10:26:00 DIS Outpatient ANJALI TOWNSEND MD [facility] PREOP COLONOSCOPY [id number] 11/07/2017 09:00:00 11/07/2017 12:29:00 DIS Emergency ANABELLE NOLASCO MD [facility] ER LETHARGIC,POSS STROKE, [id number] 10/12/2017 08:43:00 10/12/2017 13:41:00 DIS Outpatient MARTIN ERIC MARCUS W [facility] REHAB S/P TKR REVISION [id number] 07/28/2017 00:22:00 07/28/2017 23:59:59 CLS Preadmit HARINI HUIZAR MD [facility] LAB Z79.899 [id number] 04/28/2017 10:49:00 07/27/2017 00:01:00 DIS Outpatient HARINI HUIZAR MD [facility] LAB Z79.899 [id number] 06/02/2017 09:28:00 06/28/2017 15:13:00 DIS Outpatient FIONA SEAY MD [facility] REHAB LEFT TKA [id number] 06/14/2017 10:15:00 06/22/2017 12:00:00 DIS Inpatient REFUGIO MURPHY MD [facility] IRF Patellar instability, revision left TKA [id number] 06/09/2017 05:52:00 06/14/2017 10:15:00 DIS Inpatient FIONA SEAY MD [facility] 4TH LEFT KNEE PATELLA DISLOCATION [id number] 06/07/2017 05:40:00 06/07/2017 14:08:00 DIS Outpatient FIONA SEAY MD [facility] PREOP LEFT KNEE PATELLA DISLOCATION [id number] 05/12/2017 05:49:00 05/16/2017 11:10:00 DIS Inpatient FIONA SEAY MD [facility] 4TH RIGHT KNEE OSTEOARTHRITIS [id number] 04/28/2017 10:52:00 04/28/2017 23:59:59 CLS Outpatient CAITE SAUNDERS [facility] LAB E78.4,I25.10 [id number] 04/28/2017 10:43:00 04/28/2017 15:21:00 DIS Outpatient FIONA SEAY MD [facility] PREOP RT. TKR [id number] 02/23/2017 09:07:00 02/23/2017 23:59:59 CLS Outpatient NADEGE WHITE APRN [facility] RAD SCREENING Z12.31 [id number] 09/16/2016 23:03:00 09/17/2016 21:30:00 DIS Outpatient MISHRA CHANEL [facility] CATH ANGINA [id number] 05/15/2016 11:27:00 05/15/2016 12:00:00 DIS Outpatient RYNE GR FACPhil, ALI FACP CCDS [facility] CR STENT [id number] 05/06/2016 10:39:00 05/06/2016 23:59:59 CLS Outpatient HARINI HUIZAR MD [facility] LAB SUPERVISING PRODUCER MED USE [id number] 05/06/2016 10:34:00 05/06/2016 23:59:59 CLS Outpatient CATIE SAUNDERS [facility] LAB HLP,CAD [id number] 03/27/2016 11:29:00 04/05/2016 00:01:00 DIS Outpatient RYNE GR FACC, ALI FACP CCDS [facility] CR STENT [id number] 02/19/2016 10:19:00 02/19/2016 23:59:59 CLS Outpatient STEPHANIE PIERRE MD [facility] RAD SCREENING [id number] 01/08/2016 09:51:00 01/08/2016 23:59:59 CLS Outpatient RYNE GR FACC, GILBERT FACVincent CCDS [facility] CARD CAD,HLP [id number] 12/20/2015 15:30:00 12/23/2015 10:10:00 DIS Inpatient STEPHANIE PIERRE MD [facility] ICU CHEST PAIN [id number] 05/29/2015 08:59:00 05/29/2015 23:59:59 CLS Outpatient CATIE SAUNDERS [facility] CARD FLUTTERING SENSATION OF HEART,CAD [id number] 03/20/2015 09:56:00 03/20/2015 11:08:00 DIS Outpatient FIONA SEAY MD [facility] REHAB S/P KNEE ARTHROPLASTY RIGHT [id number] 02/15/2015 11:25:00 02/15/2015 23:59:59 CLS Outpatient STEPHANIE PIERRE MD [facility] RAD SCREENING [id number] 01/09/2015 05:51:00 01/12/2015 11:00:00 DIS Inpatient FIONA SEAY MD [facility] SURGICAL RIGHT KNEE SEVERE OSTEOARTHRITIS [id number] 12/27/2014 09:37:00 12/27/2014 23:59:59 CLS Outpatient FIONA SEAY MD [facility] PREOP RIGHT KNEE SEVERE OSTEOARTHRITIS [id number] 12/20/2014 07:40:00 12/20/2014 23:59:59 CLS Outpatient CAITE SAUNDERS [facility] CARD CAD,HLP [id number] 02/06/2014 10:30:00 02/06/2014 23:59:59 CLS Outpatient STEPHANIE PIERRE MD [facility] RAD SCREENING [id number] 01/18/2013 10:18:00 01/18/2013 23:59:59 CLS Outpatient STEPHANIE PIERRE MD [facility] RAD SCREENING [id number] 02/02/2018 10:15:00 PEN Preadmit ANJALI TOWNSEND MD [facility] ENDO SCREENING [id number] 10/18/2012 06:59:00 Document Registration [id number] 10/17/2012 08:58:00 Document Registration [id number] 10/07/2012 12:28:00 Document Registration [id number] 07/06/2012 08:06:00 Document Registration [id number] 06/29/2012 07:34:00 Document Registration [id number] 01/18/2012 14:05:00 Document Registration [id number] 10/01/2011 07:03:00 Document Registration [id number] 07/13/2011 12:41:00 Document Registration [id number] 04/15/2011 11:38:00 Document Registration [id number] 03/25/2011 11:24:00 Document Registration [id number] 01/13/2011 13:05:00 Document Registration [id number] 01/02/2011 09:20:00 Document Registration [id number] 11/04/2010 18:30:00 Document Registration [id number] 03/20/2015 10:35:19 ACT Document Registration
[2018-02-02] MEDS ORDERED: NS IV 500 ML 500 ML IV PRN (09:36)
[2018-02-02] MEDS ORDERED: NS IV 500 ML 500 ML ONE (09:41)
[2018-02-02] MEDS ORDERED: LIDOCAINE JELLY 2% (XYLOCAINE) 5 ML TUBE MM PRN (09:45)
[2018-02-02 09:54] VITALS: BP 135/61
--- NOTE | 2018-02-02 10:17 | Progress Note-Pre Operative ---
Pre-Operative Progress Note H&P Reviewed The H&P was reviewed, patient examined and no changes noted. Date Seen by Provider: Feb 02, 2018 Time Seen by Provider: 10:00 Date H&P Reviewed: Feb 02, 2018 Time H&P Reviewed: 10:00 Pre-Operative Diagnosis: screening colonoscopy ANJALI TOWNSEND MD Feb 02, 2018 10:17 am
--- NOTE | 2018-02-02 10:17 | Conscious Sedation/ASA ---
Conscious Sedation Pre-Proced Time Reviewed: 10:00 ASA Class: 2 Airway Mallampati Classification: (red devil appropriate class) I. II. III, IV Lungs Heart ASA score ASA 1: a normal healthy patient ASA 2: a patient with a mild systemic disease (mid diabetes, controlled hypertension, obesity ASA 3: a patient with a severe systemic disease that limits activity (angina , COPD, prior Myocardial infarction) ASA 4: a patient with an incapacitating disease that is a constant threat to life (CHF, renal failure) ASA 5: a moribund patient not expected to survive 24 hrs. (ruptured aneurysm) ASA 6: a declared brain patient whose organs are being harvested. For emergent operations, add the letter E after the classification Grade 2 Sedation Plan: Analgesia, Amnesia, Plan communicated to team members, Discussed options with patient/fam, Discussed risks with patient/fam Note The patient is an appropriate candidate to undergo the planned procedure, sedation, and anesthesia. The patient immediately re-assessed prior to indication. ANJALI TOWNSEND MD Feb 02, 2018 10:17 am
[2018-02-02] MEDS: fentaNYL INJECTION 100 MCG/2 ML AMP IVP PRN ×2 (10:20→10:24)
[2018-02-02] MEDS: MIDAZOLAM 2 MG/2 ML (VERSED) VIAL IVP PRN ×3 (10:21→10:35)
[2018-02-02] MEDS ORDERED: ACETAMINOPHEN 325 MG TABLET PO PRN (10:30)
[2018-02-02] MEDS ORDERED: morphine INJ 10 MG/ML 1ML (SYR OR VIAL) IV PRN (10:30)
[2018-02-02] MEDS ORDERED: HYDROcodone/APAP 5 MG/325 MG (LORTAB) TAB PO PRN (10:30)
[2018-02-02] MEDS ORDERED: ONDANSETRON 4 MG/2 ML (SDV) Z0FRAN IV PRN (10:30)
--- NOTE | 2018-02-02 11:02 | Progress Note-Post Operative ---
Post-Operative Progess Note Surgeon (s)/Us Administrative Law Judge (s) Surgeon ANJALI TOWNSEND MD Us Administrative Law Judge: none Pre-Operative Diagnosis screening colonoscopy Post-Operative Diagnosis chronic stage 1 ext and int hemorrhoids, pedunculated polyp rectum(2-3mm), mild-mod sigmoid diverticulosis. Procedure & Operative Findings Date of Procedure 02/02/18 Procedure Performed/Findings Colonoscopy with snare polypectomy Anesthesia Type CS Estimated Blood Loss Estimated blood loss (mL): minimal Specimens/Packing Specimens Removed rectal polyp ANJALI TOWNSEND MD Feb 02, 2018 11:01
--- NOTE | 2018-02-02 11:03 | Discharge Inst-Surgical ---
D/C Lap Instructions-CARY Follow Up 5 years Activity as tolerated High Fiber Diet 25g or more per day Avoid Alcohol, Caffeine, Spicy [place] and Acid foods. Drink 64 fluid oz or more of fluids per day. Symptoms to Report: Fever over 101 degree F, Nausea/Vomiting If any problems/questions: Contact your physician or go to Emergency Room ANJALI TOWNSEND MD Feb 02, 2018 11:03
[2018-02-02 11:05] VITALS: BP 128/66
[2018-02-02 11:35] VITALS: BP 134/61
[2018-02-02 11:45] VITALS: BP 134/61
--- NOTE | 2018-02-02 13:46 | OPERATIVE REPORT ---
DATE OF SERVICE: 02/02/2018 ATTENDING PRIMARY CARE PHYSICIAN: Dr. Parada. PREOPERATIVE DIAGNOSIS: Screening colonoscopy, personal history of breast and thyroid cancer. History of colon polyp. POSTOPERATIVE DIAGNOSES: Mild chronic stage I external and internal hemorrhoids, small polyp of the rectum approximately 2 to 3 mm in size and mild sigmoid diverticulosis. PROCEDURES: Colonoscopy with snare polypectomy. SURGEON: Anjali Townsend MD. ANESTHESIA: Conscious sedation. ESTIMATED BLOOD LOSS: Minimal. FINDINGS: Chronic stage I external and internal hemorrhoids. There is a small polyp of the rectum approximately 2 to 3 mm in size, mild sigmoid diverticulosis with no signs of inflammation. The remainder of the colon was normal. DISPOSITION: The patient tolerated the procedure well. INDICATIONS: The patient is a 77-year-old female, who we have seen in the past. She is in need of a followup colonoscopy. She does not report any red blood per rectum nor any dark tarry stools as well as no major issues with diarrhea nor constipation. She does not have a family history or a personal history of colon cancer; however, does have a personal history of two primary cancers including a thyroid malignancy identified in 1973 as well as a breast cancer in 1991 requiring modified radical mastectomy. Her last colonoscopy was in 2011 where mild to moderate sigmoid diverticulosis was identified as well as a small rectal polyp, which was benign. DESCRIPTION OF PROCEDURE: The patient was brought to the endoscopy suite and laid in the left lateral decubitus position. After adequate IV pain and sedating medications and conscious sedation anesthesia, a digital rectal examination was performed. Mild chronic stage I external and internal hemorrhoids were identified, which were not actively edematous nor inflamed and no bleeding. Normal sphincter tone was felt and there were no palpable masses. The endoscope was then intubated into the anus and then rectum gently insufflated. The endoscope was then advanced through the valves of Stevens in the rectum. At the rectum, a small pedunculated polyp approximately 2 to 3 mm in size was identified. This was removed and cauterized at its base using a snare and electrocautery. This was then sent to pathology. The endoscope was then advanced through the remainder of the rectum, which was normal. Through the sigmoid colon, mild to moderate sigmoid diverticulosis was identified. There were no mucosal inflammatory changes to indicate any active diverticulitis. The endoscope was then advanced through the remainder of the descending, transverse and ascending colon to the cecum. These segments were normal. The endoscope was then slowly withdrawn while taking a second look and suctioning of residual air with no additional findings. The patient tolerated the procedure well. We will recommend continued medical management with a high-fiber diet with at least 25 grams of fiber per day as well as at least 64 fluid ounces of water daily to promote soft stools on a daily basis. Due to her personal history of cancer as well as these findings of polyps, we will recommend a followup colonoscopy in approximately 5 years. Job ID: [id number] DocumentID: [id number] Dictated Date: 02/02/2018 10:55:02 Welder Setter Resistance Machine Date: 02/02/2018 13:46:03 Dictated By: ANJALI TOWNSEND MD
== END 2018-02-02 11:45 | disposition home or self-care (01) ==
LOC: ENDO 09:28
PROVIDERS: ATTEND Surgery
DX: Z12.11 Encounter for screening for malignant neoplasm of colon (principal); D12.8 Benign neoplasm of rectum; K57.30 Diverticulosis of large intestine without perforation or abscess without bleeding; K64.0 First degree hemorrhoids; Z86.010 Personal history of colon polyps; I25.10 Atherosclerotic heart disease of native coronary artery without angina pectoris; I10 Essential (primary) hypertension; I25.2 Old myocardial infarction; Z86.73 Personal history of transient ischemic attack (TIA), and cerebral infarction without residual deficits; Z79.02 Long term (current) use of antithrombotics/antiplatelets; Z79.82 Long term (current) use of aspirin; Z79.899 Other long term (current) drug therapy; Z87.891 Personal history of nicotine dependence; Z85.3 Personal history of malignant neoplasm of breast; Z85.850 Personal history of malignant neoplasm of thyroid

== ENCOUNTER → 2018-03-11 | Outpatient (CLI) | payer MEDICARE, BC ==
--- NOTE | 2018-03-11 12:51 | Diagnostic Imaging Report ---
Indication: Routine screening. Comparison is made with prior study from 02/23/2017 and 02/19/2016. 2-D and 3-D unilateral left diagnostic mammography was performed with CAD. Scattered fibroglandular densities are identified in the left breast. Cardiac monitoring device is identified in the medial tissues. The parenchymal pattern is stable. No mass or malignant-appearing micro-calcifications are seen. The left axilla is unremarkable. IMPRESSION: BI-RADS category 2 No mammographic features suspicious for malignancy are identified. ACR BI-RADS Category 2: Benign findings. Result letter will be mailed to the patient. Note: At least 10% of breast cancer is not imaged by mammography. Dictated by: Dictated on workstation # [id number]
== END ==
LOC: RAD 10:55
PROVIDERS: ATTEND Nurse Practitioner
DX: Z12.31 Encounter for screening mammogram for malignant neoplasm of breast (principal)

== ENCOUNTER 2019-03-07 08:00 | Day surgery (SDC) | payer MEDICARE, BC ==
[2019-03-07] VITALS (11 sets, daily range): BP systolic 151–186; BP diastolic 63–96
[~2019-03-07] VITALS: Ht 162.6 cm; Wt 106.6 kg
[~2019-03-07 08:00] MED LIST changes: -AMLO5TAB2 PO; +AMLO5TAB9 PO; +HEParin (CATH LAB) 2,000 ML IV ONE; +LIDOCAINE 1% INJ 20 ML 20 ML VIAL ONE; +NS IV 1000 ML 1,000 ML ONE; -OXYC-197 PO; +OXYC1TAB87 PO
[2019-03-07] MEDS ORDERED: NS IV 1000 ML 1,000 ML IV SCH ×2 (08:01→11:28)
[2019-03-07 08:28] LABS: MEAN PLATELET VOLUME 9.7 FL (7.4-10.4); WHITE BLOOD COUNT 7.3 10^3/uL (4.3-11.0)
[2019-03-07] MEDS ORDERED: APIX5TAB PO (08:38)
[2019-03-07 08:41] LABS: INR 0.9 (0.8-1.4); PROTHROMBIN TIME PATIENT 12.2 SEC (12.2-14.7)
[2019-03-07 08:47] LABS: ALBUMIN 3.7 GM/DL (3.2-4.5); BILIRUBIN,TOTAL 0.6 MG/DL (0.1-1.0); CALCIUM 8.9 MG/DL (8.5-10.1); CREATININE SERUM 1.03 MG/DL (0.60-1.30); POTASSIUM 4.1 MMOL/L (3.6-5.0); TOTAL PROTEIN 7.1 GM/DL (6.4-8.2)
[2019-03-07] MEDS ORDERED: MIDAZOLAM 5 MG/5 ML (VERSED) VIAL ONE (10:09)
[2019-03-07] MEDS ORDERED: fentaNYL INJECTION 100 MCG/2 ML AMP ONE (10:10)
--- NOTE | 2019-03-07 10:44 | Cardiac Procedure Note-CS/ASA ---
Pre-Procedure Note Pre-Op Procedure Note H&P Reviewed The H&P was reviewed, patient examined and no changes noted. Date H&P Reviewed: Mar 07, 2019 Time H&P Reviewed: 10:43 Conscious Sedation Pre-Proced Time 10:43 ASA Score 3 For ASA 3 and 4: Consider anesthesia and medical clearance. Also, for patients with a history of failed moderate sedation consider anesthesia. Airway Lungs Heart ASA score ASA 1: a normal healthy patient ASA 2: a patient with a mild systemic disease (mid diabetes, controlled hypertension, obesity ASA 3: a patient with a severe systemic disease that limits activity (angina, COPD, prior Myocardial infarction) ASA 4: a patient with an incapacitating disease that is a constant threat to life (CHF, renal failure) ASA 5: a moribund patient not expected to survive 24 hrs. (ruptured aneurysm) ASA 6: a declared brain- patient whose organs are being harvested. For emergent operations, add the letter E after the classification Mallampati Classification Grade 2 Sedation Plan Analgesia, Amnesia, Plan communicated to team members, Discussed options with patient/fam, Discussed risks with patient/fam The patient is an appropriate candidate to undergo the planned procedure, sedation, and anesthesia. The patient immediately re-assessed prior to indication. GILBERT MICHELE MD FACP FAC CCDS Mar 07, 2019 10:44
[2019-03-07] MEDS ORDERED: ADENOSINE 3 MG/1 ML (ADENOSCAN) 30ML VIAL IV ONE (10:58)
[2019-03-07] MEDS ORDERED: HEParin 1000 UNIT/ML (10ML VIAL) FOR BOLUS ONE (10:58)
[2019-03-07] MEDS ORDERED: PATIENT MAY USE OWN MEDS, ALL PO SCH (11:30)
--- NOTE | 2019-03-07 11:33 | Discharge Inst-Cardiology ---
Discharge Inst-Cardiac Problems Reviewed?: Yes Discharge Medications Continued Medications: Amlodipine Besylate (Amlodipine Besylate) 5 Mg Tablet 2.5 MG PO DAILY, TAB Apixaban (Eliquis) 5 Mg Tablet 5 MG PO BID, TAB Aspirin (Aspirin) 81 Mg Tab.chew 81 MG PO DAILY, TAB Atorvastatin Calcium (Atorvastatin Calcium) 80 Mg Tablet 80 MG PO HS, TAB Calcium Carbonate/Vitamin D3 (Calcium + Vitamin D Tablet) 1 Each Tablet 1 TAB PO BID, TAB Carboxymethylcellulose Sodium (Sterile Lubricant) 15 Ml Drp.lq.gel 2 DROPS OU TID PRN for DRY EYES, DROPS Leflunomide (Leflunomide) 10 Mg Tablet 10 MG PO DAILY, TAB Levothyroxine Sodium (Levothyroxine Sodium) 150 Mcg Tablet 150 MCG PO DAILY, TAB Loratadine (Loratadine) 10 Mg Tablet 10 MG PO DAILY PRN for ALLERGIES, TAB Metoprolol Succinate (Metoprolol Succinate) 50 Mg Tab.er.24h 50 MG PO DAILY, TAB Multivitamin (Multivitamins) 1 Each Tablet 1 TAB PO DAILY, TAB Nitroglycerin (Nitrostat) 0.4 Mg Tab.subl 0.4 MG SL UD PRN for CHEST PAIN, TAB Ranitidine HCl (Ranitidine HCl) 150 Mg Tablet 150 MG PO BID, TAB GILBERT MICHELE MD FACP FAC CCDS Mar 07, 2019 11:33
--- NOTE | 2019-03-07 11:33 | Discharge Inst-Post CATH ---
Discharge Inst-CATH/EP Problems Reviewed?: Yes Post Cardiac Cath/EP D/C Inst Follow Up/Plan F/u with Dr Larsen in 2 weeks ACTIVITY * Go Home directly and rest. * Limit activity of the leg (or wrist if it was used) for 7 days including aerobics, swimming, jogging, bicycling, etc. * Restrict stair-climbing for 7 days if possible, if not, climb up with your non-cath leg, then bring together on the same step. * Avoid lifting, pushing, pulling or excessive movement of the affected extremity for 7 days. * Customary sexual activity may be resumed after 2 days-use caution not to use a position that strains or causes pain to the affected extremity. * No driving for 24 hours. * NO SMOKING. * Avoid straining for bowel movements for 7 days. * Gentle walking on level ground is allowed. * Returning to work will depend on the type of procedure and the results. Your doctor will discuss this with you. CALL YOUR DOCTOR FOR ANY OF THE FOLLOWING: *If bleeding from the puncture site occurs- Apply gentle pressure to site with clean cloth and call your doctor or EMS. * If a knot or lump forms under the skin, increases in size, or causes pain. * If bruising appears to be worsening or moving further down your leg instead of disappearing. * Temperature above 101 F. CARE OF YOUR GROIN INCISION; * Bruising or purple discoloration of the skin near the puncture site is common. * You may shower only, no bathtub bathing for 5 days. Be careful to avoid slipping as your leg may feel stiff. * If a closure device was used on your femoral artery, please see the attached guide regarding care of the device and your leg. * Leave dressing on FOR 24 hours. CARE OF YOUR WRIST INCISION; * Bruising or purple discoloration of the skin near the puncture site is common. * You may shower. * DO NOT submerge wrist. * Leave dressing on FOR 24 hours. GILBERT LARSEN MD FACP [facility] CCDS Mar 07, 2019 11:33
--- NOTE | 2019-03-07 13:43 | CARDIAC CATHETERIZATION ---
DATE OF SERVICE: 03/07/2019 CARDIAC CATHETERIZATION REPORT INDICATIONS: The patient is a 78-year-old lady with known coronary artery disease, who has recently had recurrence of chest discomfort and shortness of breath. Cardiac catheterization was carried out today after having obtained informed consent. DESCRIPTION OF PROCEDURE: She was brought to the cardiac catheterization laboratory in a fasting state. Right groin was prepared and draped in the usual sterile fashion. Lidocaine 1% was used for local anesthesia. Modified Seldinger technique was used to advance a 5-Lithuanian sheath in the right femoral artery, 5-Lithuanian JL4 catheter was used for left coronary angiography, 5-Lithuanian JR4 catheter was used for right coronary angiography, 5-Lithuanian pigtail catheter was used for left heart catheterization and left ventricular angiography. FRACTIONAL FLOW RESERVE MEASUREMENT IN THE LEFT ANTERIOR DESCENDING: Fractional flow reserve measurement was carried out at a 50% mid vessel stenosis of the left anterior descending. We exchanged the sheath over a wire for a 6-Lithuanian sheath. We used a 6-Lithuanian JL4 guide catheter. We advanced a pressure wire across the lesion and the tip was placed in the distal vessel. We infused adenosine 140 mcg/kg/minute for 2-1/2 minutes. Fractional flow reserve was 0.94, indicating that this lesion was not hemodynamically significant. The patient received 6000 units of intravenous heparin prior to the fractional flow reserve measurement. The equipment was removed and angiography of the right femoral artery was carried out through the sheath. Mynx was used to achieve hemostasis. The patient tolerated the procedure well. HEMODYNAMICS: Left ventricular end-diastolic pressure following coronary angiography was 14 mmHg. There is no significant pressure gradient on pullback across the aortic valve. Ascending aortic pressure was 165/84 with a mean of 117 mmHg. CORONARY ANGIOGRAPHY: Left main coronary artery is free of significant disease. Left anterior descending artery has a patent stent in its proximal and mid portion that is known to be 2.75 x 15 mm that was placed in 2010. The mid left anterior descending artery, distal to the stented portion, has approximately 50% stenosis and fractional flow reserve across it is 0.94, indicating that this is not hemodynamically significant. The left circumflex artery has a patent proximal to mid vessel stent that is known to be 2.5 x 15 mm that was placed in 2015. Right coronary artery is large and dominant. It has patent stents in its mid portion. These are known to be 4.0 x 23 mm (placed in 2010) and 3.5 x 18 mm (placed in 2008). There is approximately 40% focal in-stent restenosis. The flow throughout the vessel is normal. LEFT VENTRICULAR ANGIOGRAPHY: Left ventricular angiography was carried out in the right anterior oblique projection. Global left ventricular systolic function normal. No regional wall motion abnormalities seen. Left ventricular ejection fraction is 55-60%. CONCLUSIONS: 1. Patent stents in the left anterior descending, left circumflex and the right coronary artery (see details above). 2. Mild to moderate diffuse coronary artery disease, 50% stenosis, and the mid left anterior descending artery has a fractional flow reserve of 0.94, indicating that is hemodynamically insignificant. 3. Well preserved global left ventricular systolic function with ejection fraction 55-60%. 5. Left ventricular end-diastolic pressure is at the top limit of normal to mildly elevated. DISCUSSION AND RECOMMENDATIONS: Based on results of the study, it appears appropriate to continue a conservative approach. Risk factor modification is advised. Outpatient followup is advised. Job ID: [id number] DocumentID: [id number] Dictated Date: 03/07/2019 11:27:12 Surveyor Oil Well Directional Date: 03/07/2019 13:43:31 Dictated By: GILBERT MICHELE MD, MA, FACP, FACC,
--- NOTE | 2019-03-07 16:30 | NUR ---
iv and telemetry removed before discharge, cath tip was intact at time of removal of her iv. this RN will cont to monitor this patient throughout the remainder of this shift.
== END 2019-03-07 16:40 ==
LOC: CATH 08:00 → ICU 11:42 → CATH 16:40
PROVIDERS: ATTEND Internal Medicine Cardiovascular Disease
DX: I25.119 Atherosclerotic heart disease of native coronary artery with unspecified angina pectoris (principal); I10 Essential (primary) hypertension; E78.5 Hyperlipidemia, unspecified; K21.9 Gastro-esophageal reflux disease without esophagitis; E03.9 Hypothyroidism, unspecified; I48.0 Paroxysmal atrial fibrillation; M06.9 Rheumatoid arthritis, unspecified; Z88.1 Allergy status to other antibiotic agents; Z79.82 Long term (current) use of aspirin; Z79.899 Other long term (current) drug therapy; Z79.01 Long term (current) use of anticoagulants; Z85.850 Personal history of malignant neoplasm of thyroid; Z85.3 Personal history of malignant neoplasm of breast; Z82.49 Family history of ischemic heart disease and other diseases of the circulatory system; Z82.3 Family history of stroke
CPT/HCPCS: 36415; 80053; 80061; 84443; 85027; 85610; 85730; 87081; 93458

== ENCOUNTER 2019-03-23 11:26 | Outpatient (RCR) | payer MEDICARE, BC ==
[~2019-03-23 11:26] MED LIST changes: +APIX5TAB PO; -HEParin (CATH LAB) 2,000 ML IV ONE; -LIDOCAINE 1% INJ 20 ML 20 ML VIAL ONE; -NS IV 1000 ML 1,000 ML ONE
== END 2019-03-23 13:11 | disposition home or self-care (01) ==
PROVIDERS: ATTEND Internal Medicine
DX: R32 Unspecified urinary incontinence (principal); Z96.653 Presence of artificial knee joint, bilateral; Z85.850 Personal history of malignant neoplasm of thyroid; Z85.3 Personal history of malignant neoplasm of breast; Z98.890 Other specified postprocedural states

== ENCOUNTER → 2019-05-02 | Outpatient (CLI) | payer MEDICARE, BC ==
--- NOTE | 2019-05-02 14:59 | Diagnostic Imaging Report ---
INDICATION: Routine screening. COMPARISON: 03/11/2018 and 02/23/2017. TECHNIQUE: Unilateral left 2D and 3D screening mammography was performed with CAD. FINDINGS: Scattered fibroglandular densities are identified in the left breast. The previously noted cardiac monitoring device is again noted overlying the medial left breast. There are benign calcifications present. No mass or malignant appearing microcalcifications are seen. The left axilla is unremarkable. IMPRESSION: No mammographic features suspicious for malignancy are identified. ACR BI-RADS Category 2: Benign findings. Result letter will be mailed to the patient. Note: At least 10% of breast cancer is not imaged by mammography. Dictated by: Dictated on workstation # [id number]
== END ==
LOC: RAD 12:53
PROVIDERS: ATTEND Internal Medicine
DX: Z12.31 Encounter for screening mammogram for malignant neoplasm of breast (principal)

== ENCOUNTER 2020-03-11 12:26 | Emergency (ER) | payer MEDICARE, BC ==
[~2020-03-11] VITALS: Ht 162.5 cm; Wt 99.8 kg
[~2020-03-11 12:26] MED LIST changes: -METO-370 PO; +MULT-567 PO; -MULT1TAB69 PO; +SIMV40TA25 PO
[2020-03-11] MEDS ORDERED: ASPIRIN 81 MG CHEW (CHILDREN'S ASA) ONE (12:29)
[2020-03-11] MEDS ORDERED: LIDOCAINE 2% VISCOUS 15 ML UDC PO ONE (12:45)
[2020-03-11] MEDS ORDERED: ASPIRIN 81 MG CHEW (CHILDREN'S ASA) PO ONE (12:45)
[2020-03-11] MEDS ORDERED: ANTACID SUSP 30 ML UDC (MYLANTA) PO ONE (12:45)
[2020-03-11 12:49] LABS: BASOPHILS % (AUTO) 0 % (0-10); EOSINOPHILS # (AUTO) 0.4 10^3/uL (0.0-0.3); EOSINOPHILS % (AUTO) 4 % (0-10); HEMATOCRIT 38 % (35-52); HEMOGLOBIN 11.9 G/DL (11.5-16.0); LYMPHOCYTES # (AUTO) 1.4 X 10^3 (1.0-4.0); LYMPHOCYTES % (AUTO) 16 % (12-44); MEAN CORPUSCULAR HEMOGLOBIN 30 PG (25-34); MEAN CORPUSCULAR HGB CONC 32 G/DL (32-36); MEAN CORPUSCULAR VOLUME 94 FL (80-99); MEAN PLATELET VOLUME 10.2 FL (7.4-10.4); MONOCYTES # (AUTO) 0.8 X 10^3 (0.0-1.0); MONOCYTES % (AUTO) 9 % (0-12); NEUTROPHILS # (AUTO) 6.4 X 10^3 (1.8-7.8); NEUTROPHILS % (AUTO) 71 % (42-75); PLATELET COUNT 194 10^3/uL (130-400); RED CELL DISTRIBUTION WIDTH 13.6 % (10.0-14.5)
--- NOTE | 2020-03-11 12:54 | ED Chest Pain ---
General Chief Complaint: Chest Pain Stated Complaint: CHEST PAIN Nursing Triage Note: PT AMB TO RM 8 WITH COMPLAINT OF CP THAT STARTED AT 1145. PT STATES SYMPTOMS STARTED WITH A METALLIC TASTE IN HER MOUTH AND THEN PROGRESSED INTO A CHEST HEAVINESS. STATES TOOK 3 NITROS AT HOME WITH NO RELIEF. Nursing Sepsis Screen: No Definite Risk Source: patient Exam Limitations: no limitations History of Present Illness Date Seen by Provider: Mar 11, 2020 Time Seen by Provider: 12:27 Initial Comments To ER with reports of central chest heaviness that began at about 11:45 AM this morning. She has had this before and typically will take a Pepcid and will go away. However this pain felt a little bit different. She took 3 sublingual nitroglycerin at home without any improvement in pain. She had no shortness of breath no nausea and no diaphoresis. She does have a history of myocardial infarction with 4 coronary stents she believes. Primary scrap collector is Dr. Larsen. She is on Eliquis. Timing/Duration: changing over time Severity/Quality: moderate Location: central Radiation: no radiation Activities at Onset: none ASA po PATHOLOGY LABORATORY TECHNOLOGIST: No NTG SL PATHOLOGY LABORATORY TECHNOLOGIST: No Allergies and Home Medications Allergies Coded Allergies: tetracycline (Unverified Allergy, Mild, RASH, 06/07/17) Home Medications Amlodipine Besylate 5 Mg Tablet, 2.5 MG PO DAILY, (Reported) Apixaban 5 Mg Tablet, 5 MG PO BID, (Reported) Aspirin 81 Mg Tab.chew, 81 MG PO DAILY, (Reported) Atorvastatin Calcium 80 Mg Tablet, 80 MG PO HS, (Reported) Calcium Carbonate/Vitamin D3 1 Each Tablet, 1 TAB PO BID, (Reported) Carboxymethylcellulose Sodium 15 Ml Drp.lq.gel, 2 DROPS OU TID PRN for DRY EYES, (Reported) Leflunomide 10 Mg Tablet, 10 MG PO DAILY, (Reported) Levothyroxine Sodium 150 Mcg Tablet, 150 MCG PO DAILY, (Reported) Loratadine 10 Mg Tablet, 10 MG PO DAILY PRN for ALLERGIES, (Reported) Metoprolol Succinate 50 Mg Tab.er.24h, 50 MG PO DAILY, (Reported) Multivitamin 1 Each Tablet, 1 TAB PO DAILY, (Reported) Nitroglycerin 0.4 Mg Tab.subl, 0.4 MG SL UD PRN for CHEST PAIN, (Reported) Ranitidine HCl 150 Mg Tablet, 150 MG PO BID, (Reported) Patient Home Medication List Home Medication List Reviewed: Yes Review of Systems Review of Systems Constitutional: see HPI; No chills, No diaphoresis, No fever EENTM: No Symptoms Reported Respiratory: See HPI; Denies Orthopnea, Denies Shortness of Air Cardiovascular: See HPI, Chest Pain; Denies Edema, Denies Irregular Heart Rate, Denies Lightheadedness Gastrointestinal: No Symptoms Reported Genitourinary: No Symptoms Reported Musculoskeletal: no symptoms reported Skin: no symptoms reported Psychiatric/Neurological: No Symptoms Reported Endocrine: No Symptoms Reported Past Zjnsuck-Dhgcsi-Oxmvgv Hx Patient Social History Alcohol Use: Occasionally Uses Number of Drinks Today: Alcohol Beverage of Choice: Wine Recreational Drug Use: No Smoking Status: Former Smoker Type Used: Cigarettes Former Smoker, Quit: Apr 28, 2008 Recent Foreign Travel: No Contact w/Someone Who Travel: No Recent Infectious Disease Expo: No Recent Hopitalizations: No Immunizations Up To Date Tetanus Booster (TDap): Unknown Date of Pneumonia Vaccine: Apr 25, 2015 Date of Influenza Vaccine: Apr 06, 2016 Seasonal Allergies Seasonal Allergies: Yes Past Medical History Surgeries: Yes (BREAST LUMPECTOMY, RT MASTECTOMY, RT TKR, LT TKR, THROID x2- PARTIAL/TOTAL) Breast, Coronary Stent, Joint Replacement, Orthopedic, Thyroidectomy Respiratory: No Currently Using CPAP: No Cardiac: Yes (STENTS x4, CODED x2 IN 2007 AND 2015) Coronary Artery Disease, Heart Attack, High Cholesterol, Hypertension Neurological: Yes (mild stroke in 11/10 06/12) Stroke, TIA Reproductive Disorders: No Sexually Transmitted Disease: No HIV/AIDS: No Genitourinary: No Gastrointestinal: Yes Gastroesophageal Reflux Musculoskeletal: Yes (OSTEOARTHRITIS) Arthritis, Rheumatoid Arthritis Endocrine: Yes (HX THYROID CA x2 WITH THYROIDECTOMY) Hypothyroidsim HEENT: Yes (GLASSES) Loss of Vision: Bilateral Hearing Impairment: Denies Cancer: Yes Breast, Thyroid What Type of Treatment Did You: Radiation, Surgical Intervention Psychosocial: No Integumentary: No Blood Disorders: No Adverse Reaction/Blood Tranf: No (N/A) Family Medical History Alcoholism G8 BROTHER Arthritis 19 FATHER 19 MOTHER G8 BROTHER G8 SISTER Cardiovascular disease 19 FATHER G8 BROTHER Cataracts 19 MOTHER Diabetes mellitus G8 SISTER Drug abuse G8 BROTHER FH: cancer G8 BROTHER Hypertension 19 MOTHER Myocardial infarction 19 FATHER G8 BROTHER Thyroid disease G8 SISTER No Family History of: AIDS Abdominal aortic aneurysm O'Kean's disease Asthma Cancer of mouth Colon cancer Completed stroke Dementia Parkinson's disease Prostate cancer Psychosocial problem Respiratory disorder Seizure disorder Severe allergy Tuberculosis No Pertinent Family Hx Physical Exam Vital Signs Vital Signs - First Documented 03/11/20 12:27 Temp 36.4 Pulse 85 Resp 20 B/P (MAP) 167/89 (115) Pulse Ox 97 O2 Delivery Room Air Capillary Refill : Less Than 3 Seconds Height, Weight, BMI Height: 5'4.00" Weight: 235lbs. 0.0oz. 106.070703jt; 37.00 BMI Method:Stated General Appearance: No Apparent Distress, WD/WN Neck: Full Range of Motion, Normal Inspection Respiratory: Lungs Clear, Normal Breath Sounds, No Accessory Muscle Use, No Respiratory Distress Cardiovascular: Regular Rate, Rhythm, Normal Peripheral Pulses Gastrointestinal: Non Tender, Soft Extremity: Normal Capillary Refill, Normal Inspection Neurologic/Psychiatric: Alert, Oriented x3 Skin: Normal Color, Warm/Dry Progress/Results/Core Measures Results/Orders Lab Results Laboratory Tests Test 03/11/20 12:40 03/11/20 14:37 Range/Units White Blood Count 9.0 4.3-11.0 10^3/uL Red Blood Count 4.00 L 4.35-5.85 10^6/uL Hemoglobin 11.9 11.5-16.0 G/DL Hematocrit 38 35-52 % Mean Corpuscular Volume 94 80-99 FL Mean Corpuscular Hemoglobin 30 25-34 PG Mean Corpuscular Hemoglobin Concent 32 32-36 G/DL Red Cell Distribution Width 13.6 10.0-14.5 % Platelet Count 194 130-400 10^3/uL Mean Platelet Volume 10.2 7.4-10.4 FL Neutrophils (%) (Auto) 71 42-75 % Lymphocytes (%) (Auto) 16 12-44 % Monocytes (%) (Auto) 9 0-12 % Eosinophils (%) (Auto) 4 0-10 % Basophils (%) (Auto) 0 0-10 % Neutrophils # (Auto) 6.4 1.8-7.8 X 10^3 Lymphocytes # (Auto) 1.4 1.0-4.0 X 10^3 Monocytes # (Auto) 0.8 0.0-1.0 X 10^3 Eosinophils # (Auto) 0.4 H 0.0-0.3 10^3/uL Basophils # (Auto) 0.0 0.0-0.1 10^3/uL Prothrombin Time 14.0 12.2-14.7 SEC INR Comment 1.0 0.8-1.4 Activated Partial Thromboplast Time 28 24-35 SEC Sodium Level 139 135-145 MMOL/L Potassium Level 4.3 3.6-5.0 MMOL/L Chloride Level 106 98-107 MMOL/L Carbon Dioxide Level 23 21-32 MMOL/L Anion Gap 10 5-14 MMOL/L Blood Urea Nitrogen 18 7-18 MG/DL Creatinine 1.48 H 0.60-1.30 MG/DL Estimat Glomerular Filtration Rate 34 BUN/Creatinine Ratio 12 Glucose Level 111 H 70-105 MG/DL Calcium Level 8.6 8.5-10.1 MG/DL Corrected Calcium 8.8 8.5-10.1 MG/DL Magnesium Level 2.0 1.6-2.4 MG/DL Total Bilirubin 0.4 0.1-1.0 MG/DL Aspartate Amino Transf (AST/SGOT) 19 5-34 U/L Alanine Aminotransferase (ALT/SGPT) 16 0-55 U/L Alkaline Phosphatase 58 40-136 U/L Myoglobin 69.0 10.0-92.0 NG/ML Troponin I < 0.028 < 0.028 <0.028 NG/ML Total Protein 7.1 6.4-8.2 GM/DL Albumin 3.7 3.2-4.5 GM/DL My Orders Orders - JENIFER MORELOS APRN Antacid Suspension (Mylanta Suspension (03/11/20 12:45) Lidocaine 2% Viscous 15 Ml (Xylocaine Vi (03/11/20 12:45) Cbc With Automated Diff (03/11/20 12:31) Magnesium (03/11/20 12:31) Chest 1 View, Ap/Pa Only (03/11/20 12:31) Ekg Tracing (03/11/20 12:31) Comprehensive Metabolic Panel (03/11/20 12:31) Myoglobin Serum (03/11/20 12:31) Protime With Inr (03/11/20 12:31) Partial Thromboplastin Time (03/11/20 12:31) O2 (03/11/20 12:31) Monitor-Rhythm Ecg Trace Only (03/11/20 12:31) Lipid Panel (03/12/20 06:00) Ed Iv/Invasive Line Start (03/11/20 12:31) Troponin I (03/11/20 12:31) Aspirin Chewable Tablet (Baby Aspirin Ch (03/11/20 12:45) Troponin I (03/11/20 14:40) Medications Given in ED Current Medications Medications Dose Ordered Sig/Vic Route Start Time Stop Time Status Last Admin Dose Admin Al Hydrox/Mg Hydrox/Simethicone 30 ml ONCE ONCE PO 03/11/20 12:45 03/11/20 12:46 DC 03/11/20 12:36 30 ML Aspirin 324 mg ONCE ONCE PO 03/11/20 12:45 03/11/20 12:46 DC 03/11/20 12:30 324 MG Lidocaine HCl 10 ml ONCE ONCE PO 03/11/20 12:45 03/11/20 12:46 DC 03/11/20 12:37 10 ML Vital Signs/I&O 03/11/20 03/11/20 12:27 12:27 Temp 36.4 Pulse 85 Resp 20 B/P (MAP) 167/89 (115) Pulse Ox 97 O2 Delivery Room Air Room Air Blood Pressure Mean: 115 Departure Communication (Admissions) 1512-[id number] spoke with Dr Greenfield office, he will see her wednesday. She is chest pain free after the GI cocktail but also states she feels calmer. GERD vs anxiety is in the differential. Two hour troponin negative. Impression Primary Impression: Chest pain Qualified Codes: R07.9 - Chest pain, unspecified Disposition: HOME, SELF-CARE Condition: Stable Departure-Patient Inst. Decision time for Depature: 15:13 Referrals: STEPHANIE PIERRE MD (PCP/Family) Primary Care Physician Patient Instructions: Chest Pain (DC) Add. Discharge Instructions: . I made an appointment for you to see Dr. Larsen Wednesday at 11:50 AM. Return to ER for any recurrent chest pain or any other concerns in the meantime. All discharge instructions reviewed with patient and/or family. Voiced understanding. Copy Copies To 1: GILBERT LARSEN MD FACP FACC CCDS JENIFER MORELOS APRN Mar 11, 2020 12:53
[2020-03-11 12:56] LABS: ALBUMIN 3.7 GM/DL (3.2-4.5); POTASSIUM 4.3 MMOL/L (3.6-5.0)
[2020-03-11 12:57] LABS: CALCIUM 8.6 MG/DL (8.5-10.1)
[2020-03-11 12:58] LABS: TOTAL PROTEIN 7.1 GM/DL (6.4-8.2)
[2020-03-11 13:00] LABS: BILIRUBIN,TOTAL 0.4 MG/DL (0.1-1.0)
[2020-03-11 13:02] LABS: CREATININE SERUM 1.48 MG/DL (0.60-1.30)
--- NOTE | 2020-03-11 13:24 | Diagnostic Imaging Report ---
Indication: Chest pain and heaviness. Compared: 11/07/2017 Findings: Heart size is stable. There is no failure pattern. There is no vascular congestion, edema, pneumonia, effusion or pneumothorax. Impression: No acute-appearing abnormality. Dictated by: Dictated on workstation # [id number]
--- OUTSIDE RECORDS SUMMARY | 2020-03-11 14:28 | XMS REPORT | Clinical Summary ---
Author Author [facility] Organization [facility] Address Unknown Phone Unavailable Care Team Providers Care Leg Breaker Name Role Phone Rudy Parada MD PCP Source Comments Some departments are not documenting in the electronic medical record. If you d o not see the information that you expected, contact Release of Information in [facility] Information Management department at [phone] for further assistan ce in locating additional records.[facility] Allergies Comments Active Allergy Reactions Severity Noted Date Tetracycline RASH Medium 11/07/2017 Medications End Date Status Medication Sig Dispensed Refills Start Date Active aspirin EC 81 mg tablet Take 81 mg by 0 mouth daily. Take with food. Active calcium carbonate/vitamin Take 1 tablet 0 D-3 (OSCAL-500+D) 1250 by mouth mg/200 unit tablet daily. Calcium Carb 1250mg delivers 500mg elemental Ca Active atorvastatin (LIPITOR) 80 Take 80 mg by 0 mg tablet mouth at bedtime daily. Active Carboxymethylcellulose Apply 2 drops 0 Sodium 0.5 % drop to both eyes daily as needed. Active fluticasone (FLONASE) 50 Apply 1 spray 0 mcg/actuation nasal spray to each nostril as directed daily as needed. Shake bottle gently before using. Active leflunomide (ARAVA) 10 mg Take 5 mg by 0 tablet mouth daily. Active levothyroxine (SYNTHROID) Take 150 mcg 0 150 mcg tablet by mouth daily 30 minutes before breakfast. Active amLODIPine (NORVASC) 5 mg Take 2.5 mg 0 tablet by mouth at bedtime daily. Active loratadine (CLARITIN) 10 Take 10 mg by 0 mg tablet mouth daily as needed. Active metoprolol XL (TOPROL XL) Take 50 mg by 0 50 mg extended release mouth daily. tablet Active nitroglycerin (NITROSTAT) Place 0.4 mg 0 0.4 mg tablet under tongue every 5 minutes as needed for Chest Pain. Max of 3 tablets, call 911. Active ranitidine(+) (ZANTAC) Take 150 mg 0 150 mg tablet by mouth twice daily as needed for Heartburn. Active apixaban (ELIQUIS) 5 mg Take 5 mg by 0 tablet mouth twice daily. 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 Barreto has recovered well after her stroke. She only complains of occasional lightheadedness with positio n changes. I have had a chance to review her 30 day event monitor. It sh ows a single transmission sinus rhythm. I think would be an excellent candidate to proceed with implantable loop recorder. We talked a bout the rationale for an ILR. I discussed the risks and benefits of the procedure. Certainly if we are able to greens picker atrial fibrillation, th is would change her treatment regimen. All questions were answered. Mrs. Barreto is ready to proceed. Family History Medical History Relation Name Comments Cancer Brother brain, hip, stornum Heart Attack Brother Heart Attack Father None Reported Mother Cancer Sister Relation Name Status Comments Brother Father (Age 49) Maternal Grandfather (Age 50-60s) Maternal Grandmother (Age 93) Mother (Age 89) Paternal Grandfather old age Paternal Grandmother old age Sister Alive Social History Date Tobacco Use Types Packs/Day Years Used Quit: 2008 Former Smoker Smokeless Tobacco: Never Used Drinks/Week oz/Week Comments Alcohol Use 3-4 Glasses of wine 3.0 - 4.0 Yes Sex Assigned at Date Recorded Not on file Last Filed Vital Signs Reading Time Taken Comments Vital Sign 124/74 02/28/2018 9:13 AM CDT Blood Pressure 73 02/28/2018 9:13 AM CDT Pulse 36.8 C (98.2 F) 11/09/2017 1:00 PM CDT Temperature - - Respiratory Rate 100% 11/09/2017 1:00 PM CDT Oxygen Saturation - - Inhaled Oxygen Concentration 105.2 kg (232 lb) 02/28/2018 9:13 AM CDT Weight 162.6 cm (5' 4") 02/28/2018 9:13 AM CDT Height 39.82 02/28/2018 9:13 AM CDT Body Mass Index Plan of Treatment Health Maintenance Due Date Last Done Comments MEDICARE ANNUAL WELLNESS 1940 VISIT DTAP/TDAP VACCINES (1 - 1960 Tdap) HEPATITIS C SCREENING 1960 PHYSICAL (COMPREHENSIVE) 1960 EXAM SHINGLES RECOMBINANT 1992 VACCINE (1 of 2) OSTEOPOROSIS 10/09/2007 SCREENING/MONITORING PNEUMONIA (PPSV23) 10/09/2007 VACCINE (1 of 1 - PPSV23) INFLUENZA VACCINE 04/25/2020 07/30/2017, 05/19/2010 Implants Device Identifier Shelf Expiration Date Model / Serial / L ot Implanted Type Area Manufactur er Loop Recorder Loop Recorder Results Not on filefrom Last 3 Months Insurance Type Payer Benefit Subscriber ID Effective Phone Address Plan / Dates Group Medicare MEDICARE MEDICARE [id number] 2007-P PART A AND resent B PPO BCBS MARLENI BCBS MARLENI [id number] [id number] FED EMP resent PROGRAM [id number] Advance Directives Patient Senior Gl Accountant Explanation Type Date Recorded Advance 11/08/2017 12:25 PM Directive/DPOA Date Inactivated Comments Code Status Date Activated 11/09/2017 4:15 PM Full Code 11/07/2017 2:36 PM Provider has discussed Code Status No, more discussi on w/Patient or Family? needed
--- OUTSIDE RECORDS SUMMARY | 2020-03-11 14:29 | XMS REPORT | Continuity of Care Document ---
Author Author [facility] Organization [employer] Address Unknown Phone Unavailable Allergies Active Description Code Type Severity Reaction Onset Reported/Identified Relationship to Patient Clinical Status Yes tetracycline [id number] Drug Allergy Mild N/A 11/19/2009 Yes tetracycline [id number] Drug Allergy Mild RASH 06/07/2017 Medications There is no data. Problems Date Dx Coded Attending Type Code Diagnosis Diagnosed By 06/24/1199 GILBERT MICHELE MD, FACC, FACP CCDS Ot Z48.812 ENCNTR FOR SURGICAL AFTCR FOLLOWING SURG 06/24/1199 GILBERT MICHELE MD, FACC, FACP CCDS Ot Z95.5 PRESENCE OF CORONARY ANGIOPLASTY IMPLANT 06/24/1310 STEPHANIE PIERRE MD Ot R32 UNSPECIFIED URINARY INCONTINENCE 06/24/1310 STEPHANIE PIERRE MD Ot Z85.3 PERSONAL HISTORY OF MALIGNANT NEOPLASM O 06/24/1310 STEPHANIE PIERRE MD Ot Z85.8 50 PERSONAL HISTORY OF MALIGNANT NEOPLASM O 06/24/1310 STEPHANIE PIERRE MD Ot Z96.6 53 PRESENCE OF ARTIFICIAL KNEE JOINT, BILAT 06/24/1310 STEPHANIE PIERRE MD Ot Z98.8 90 OTHER SPECIFIED POSTPROCEDURAL STATES 11/06/2010 Ot 244.9 HYPO THYROIDISM NOS 11/06/2010 Ot 272.4 HYPE RLIPIDEMIA NEC/NOS 11/06/2010 Ot 411.1 INTE RMED CORONARY SYND 11/06/2010 Ot 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 03/31/2011 Ot V45.82 PER CUTANEOUS TRANSLUM CORON ANGIOPLASTY 03/31/2011 Ot V57.89 JANIYA ABILITATION PROC NEC 04/15/2011 Ot V45.82 PER CUTANEOUS TRANSLUM CORON ANGIOPLASTY 04/15/2011 Ot V57.89 JANIYA ABILITATION PROC NEC 07/06/2012 Ot 211.4 ANNA GN NEOPL RECTUM/ANUS 07/06/2012 Ot 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.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 (W/O MENT OF HEMORR 07/06/2012 Ot V76.51 SCR EEN MAL NEOP- COLON 10/07/2012 Ot 244.9 HYPO THYROIDISM NOS 10/07/2012 Ot 331.9 CERE B DEGENERATION NOS 10/07/2012 Ot 386.11 LYNNETTE IGN PARXYSMAL VERTIGO 10/07/2012 Ot 401.9 HYPE RTENSION NOS 10/07/2012 Ot 780.4 DIZZ INESS AND GIDDINESS 10/18/2012 Ot 244.0 POST SURGICAL HYPOTHYROID 10/18/2012 Ot 272.4 HYPE RLIPIDEMIA NEC/NOS 10/18/2012 Ot 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 10/18/2012 Ot 530.81 ESO PHAGEAL REFLUX 10/18/2012 Ot 536.8 STOM ACH FUNCTION DIS NEC 10/18/2012 Ot 714.0 RHEU MATOID ARTHRITIS 10/18/2012 Ot 786.09 RES PIRATORY ABNORM NEC 10/18/2012 Ot V10.3 HX O F BREAST MALIGNANCY 10/18/2012 Ot V45.71 ACQ UIRED ABSENCE OF BREAST AND NIPPLE 10/18/2012 Ot V45.82 PER CUTANEOUS TRANSLUM CORON ANGIOPLASTY 10/18/2012 Ot V58.63 JESUS G- TERM(CURRENT)USE OF ANTIPLATELET/AN 10/18/2012 Ot V58.66 JESUS G-TERM (CURRENT) USE OF ASPIRIN 10/18/2012 Ot V58.69 OTH MED,LT,CURRENT USE 10/18/2012 Ot V85.41 BOD Y MASS INDEX 40.0-44.9, ADULT 12/21/2014 BAIMA, CATIE L SENIOR DATA QUALITY ANALYST Ot 272.4 12/21/2014 BAIMA, CATIE L SENIOR DATA QUALITY ANALYST Ot 414.00 12/21/2014 BAIMA, CATIE L SENIOR DATA QUALITY ANALYST Ot 272.4 12/21/2014 BAIMA, CATIE L SENIOR DATA QUALITY ANALYST Ot 414.00 12/24/2014 BAIMA, CATIE L SENIOR DATA QUALITY ANALYST Ot 272.4 12/24/2014 BAIMA, CATIE L SENIOR DATA QUALITY ANALYST Ot 414.00 12/24/2014 BAIMA, CATIE L SENIOR DATA QUALITY ANALYST Ot 272.4 12/24/2014 BAIMA, CATIE L SENIOR DATA QUALITY ANALYST Ot 414.00 12/24/2014 BAIMA, CATIE L SENIOR DATA QUALITY ANALYST Ot 272.4 12/24/2014 BAIMA, CATIE L SENIOR DATA QUALITY ANALYST Ot 414.00 12/24/2014 BAIMA, CATIE L SENIOR DATA QUALITY ANALYST Ot 272.4 12/24/2014 CATIE SAUNDERS SENIOR DATA QUALITY ANALYST Ot 414.00 01/10/2015 DAWOOD GR, FIONA P Ot 272.4 01/10/2015 DAWOOD GR, FIONA P Ot 285.1 01/10/2015 DAWOOD GR, FIONA P Ot 401.9 01/10/2015 DAWOOD GR, FIONA P Ot 41 2 01/10/2015 DAWOOD GR, FIONA P Ot 414.01 [...] AC POSTHEMORRHAG ANEMIA 01/12/2015 DAWOOD GR, FIONA P Ot 401.9 HYPERTENSION NOS 01/12/2015 DAWOOD GR, FIONA P Ot 41 2 OLD MYOCARDIAL INFARCT 01/12/2015 DAWOOD GR, FIONA P Ot 414.01 CORONARY ATHEROSCLEROSIS OF [place] CORON 01/12/2015 DAWOOD GR, FIONA P Ot 530.81 ESOPHAGEAL REFLUX 01/12/2015 DAWOOD GR, FIONA P Ot 714.0 RHEUMATOID ARTHRITIS 01/12/2015 DAWOOD GR, FIONA P Ot 715.36 LOC OSTEOARTH NOS-L/LEG 01/12/2015 DAWOOD GR, FIONA P Ot V10.3 HX OF BREAST MALIGNANCY 01/12/2015 DAWOOD GR, FIONA P Ot V10.87 HX OF THYROID MALIGNANCY 01/12/2015 DAWOOD GR, FIONA P Ot V45.82 PERCUTANEOUS TRANSLUM CORON ANGIOPLASTY 01/16/2015 CATIE SAUNDERS SENIOR DATA QUALITY ANALYST Ot 272.4 01/16/2015 CATIE SAUNDERS SENIOR DATA QUALITY ANALYST Ot 414.00 01/18/2015 CATIE SAUNDERS SENIOR DATA QUALITY ANALYST Ot 272.4 01/18/2015 CATIE SAUNDERS SENIOR DATA QUALITY ANALYST Ot 414.00 02/04/2015 DAWOOD GR, FIONA P Ot V43.65 02/04/2015 DAWOOD GR, FIONA P Ot V54.81 02/04/2015 DAWOOD GR, FIONA P Ot V57.1 02/04/2015 DAWOOD GR, FIONA P Ot V43.65 02/04/2015 DAWOOD GR, FIONA P Ot V54.81 02/04/2015 DAWOOD GR, FIONA P Ot V57.1 02/15/2015 DAWOOD GR, FIONA P Ot V43.65 02/15/2015 DAWOOD RG, FIONA P Ot V54.81 02/15/2015 DAWOOD GR, [...] V74.8 03/12/2015 GABBY GR, STEPHANIE Holden Ot V76.1 2 03/20/2015 DAWOOD GR, FIONA P Ot V43.65 KNEE JOINT REPLACEMENT STATUS 03/20/2015 DAWOOD GR, FIONA P Ot V54.81 AFTERCARE FOLLOWING JOINT REPLACEMENT 03/20/2015 DAWOOD GR, FIONA P Ot V57.1 PHYSICAL THERAPY NEC 06/24/2015 CATIE SAUNDERS SENIOR DATA QUALITY ANALYST Ot E03.9 06/24/2015 CATIE SAUNDERS SENIOR DATA QUALITY ANALYST Ot E78.5 06/24/2015 CATIE SAUNDERS SENIOR DATA QUALITY ANALYST Ot I25.10 06/24/2015 CATIE SAUNDERS SENIOR DATA QUALITY ANALYST Ot R00.2 06/26/2015 CATIE SAUNDERS SENIOR DATA QUALITY ANALYST Ot E03.9 06/26/2015 CATIE SAUNDERS SENIOR DATA QUALITY ANALYST Ot E78.5 06/26/2015 CATIE SAUDNERS SENIOR DATA QUALITY ANALYST Ot I25.10 06/26/2015 FREDYCATIE KEVIN SENIOR DATA QUALITY ANALYST Ot R00.2 12/23/2015 STEPHANIE PIERRE MD Ot E03.9 HYPOTHYROIDISM, UNSPECIFIED 12/23/2015 STEPHANIE PIERRE MD Ot E78.5 HYPERLIPIDEMIA, UNSPECIFIED 12/23/2015 STEPHANIE PIERRE MD Ot I10 ESSENTIAL (PRIMARY) HYPERTENSION 12/23/2015 STEPHANIE PIERRE MD Ot I21.3 ST ELEVATION (STEMI) MYOCARDIAL INFARCTI 12/23/2015 STEPHANIE PIERRE MD Ot I25.2 OLD MYOCARDIAL INFARCTION 12/23/2015 STEPHANIE PIERRE MD Ot I49.0 1 VENTRICULAR FIBRILLATION 12/23/2015 STEPHANIE PIERRE MD Ot K21.9 GASTRO-ESOPHAGEAL REFLUX DISEASE WITHOUT 12/23/2015 STEPHANIE PIERRE MD Ot M06.9 RHEUMATOID ARTHRITIS, UNSPECIFIED 12/23/2015 STEPHANIE PIERRE MD Ot T82.857A STENOSIS OF CARDIAC PROSTH DEV/GRFT, INI 12/23/2015 STEPHANIE PIERRE MD Ot Z85.3 PERSONAL HISTORY OF MALIGNANT NEOPLASM O 12/23/2015 STEPHANIE PIERRE MD Ot Z85.8 50 PERSONAL HISTORY OF MALIGNANT NEOPLASM O 12/23/2015 STEPHANIE PIERRE MD Ot Z95.5 PRESENCE OF CORONARY ANGIOPLASTY IMPLANT 01/06/2016 Ot 174.9 RAMON GN NEOPL BREAST NOS 01/06/2016 Ot V76.11 SCR N MAMMO-HIGH RISK PT, MALIGNANT NEOPL 01/06/2016 Ot 793.80 UNS PEC ABNORMAL MAMMOGRAM 01/06/2016 Ot V10.3 HX O F BREAST MALIGNANCY 01/06/2016 Ot 793.80 UNS PEC ABNORMAL MAMMOGRAM 01/06/2016 Ot 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 01/06/2016 Ot 729.5 PAIN IN LIMB 01/06/[address] PAIN NOS 01/06/2016 Ot 793.81 SAMPSON MOGRAPHIC MICROCLACIFICATION 01/06/2016 Ot V72.84 EXA M PRE- OPERATIVE NOS 01/06/2016 Ot 272.4 HYPE RLIPIDEMIA NEC/NOS 01/06/2016 Ot 414.00 COR ON ATHEROSCLER NOS TYPE VESSEL, NATIV 01/06/2016 Ot 786.05 MOSHE RTNESS OF BREATH 01/06/2016 Ot V58.63 JESUS G- TERM(CURRENT)USE OF ANTIPLATELET/AN 01/06/2016 Ot V58.66 JESUS G-TERM (CURRENT) USE OF ASPIRIN 01/06/2016 Ot V58.69 OTH MED,LT,CURRENT USE 01/06/2016 Ot V72.63 PRE -PROCEDURAL LABORATORY EXAMINATION 01/06/2016 Ot V72.81 [id number] CARDIOVASCULAR 01/06/2016 GABBY GR, STEPHANIE Holden Ot V76.1 2 OTH SCREEN MAMMO-MALIGN NEOPLASM OF PIA 01/06/2016 STEPHANIE PIERRE MD Ot V10.3 HX OF BREAST MALIGNANCY 01/06/2016 STEPHANIE PIERRE MD Ot V45.7 1 ACQUIRED ABSENCE OF BREAST AND NIPPLE 01/06/2016 STEPHANIE PIERRE MD Ot V76.1 1 SCRN MAMMO-HIGH RISK PT, MALIGNANT NEOPL 01/06/2016 CATIE SAUNDERS SENIOR DATA QUALITY ANALYST Ot 272.4 HYPERLIPIDEMIA NEC/NOS 01/06/2016 CATIE SAUNDERS SENIOR DATA QUALITY ANALYST Ot 414.00 CORON ATHEROSCLER NOS TYPE VESSEL, [...] MD Ot V74.8 SCREEN-BACTERIAL DIS NEC 01/06/2016 STEPHANIE PIERRE MD Ot V76.1 2 OTH SCREEN MAMMO-MALIGN NEOPLASM OF PIA 01/06/2016 CATIE SAUNDERS SENIOR DATA QUALITY ANALYST Ot E03.9 HYPOTHYROIDISM, UNSPECIFIED 01/06/2016 FREDYCATIE KEVIN SENIOR DATA QUALITY ANALYST Ot E78.5 HYPERLIPIDEMIA, UNSPECIFIED 01/06/2016 FREDYCATIE KEVIN SENIOR DATA QUALITY ANALYST Ot I25.10 ATHSCL HEART DISEASE OF [place] CORONARY 01/06/2016 FREDYCATIE KEVIN SENIOR DATA QUALITY ANALYST Ot R00.2 PALPITATIONS 01/07/2016 RYNE GR FACC, GILBERT FACP CCDS Ot Z48.812 ENCNTR FOR SURGICAL AFTCR FOLLOWING SURG 01/07/2016 RYNE GR FAC, ALI FACP CCDS Ot Z95.5 PRESENCE OF CORONARY ANGIOPLASTY IMPLANT 01/08/2016 Ot 174.9 RAMON GN NEOPL BREAST NOS 01/08/2016 Ot V76.11 SCR N MAMMO-HIGH RISK PT, MALIGNANT NEOPL 01/08/2016 Ot 793.80 UNS PEC ABNORMAL MAMMOGRAM 01/08/2016 Ot V10.3 HX O F BREAST MALIGNANCY 01/08/2016 Ot 793.80 UNS PEC ABNORMAL MAMMOGRAM 01/08/2016 Ot 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 01/08/2016 Ot 729.5 PAIN IN LIMB 01/08/[address] PAIN NOS 01/08/2016 Ot 793.81 SAMPSON MOGRAPHIC MICROCLACIFICATION 01/08/2016 Ot V72.84 EXA M PRE- OPERATIVE NOS 01/08/2016 Ot 272.4 HYPE RLIPIDEMIA NEC/NOS 01/08/2016 Ot 414.00 COR ON ATHEROSCLER NOS TYPE VESSEL, NATIV 01/08/2016 Ot 786.05 MOSHE RTNESS OF BREATH 01/08/2016 Ot V58.63 JESUS G- TERM(CURRENT)USE OF ANTIPLATELET/AN 01/08/2016 Ot V58.66 JESUS G-TERM (CURRENT) USE OF ASPIRIN 01/08/2016 Ot V58.69 OTH MED,LT,CURRENT USE 01/08/2016 Ot V72.63 PRE -PROCEDURAL LABORATORY EXAMINATION 01/08/2016 Ot V72.81 [id number] CARDIOVASCULAR 01/08/2016 STEPHANIE PIERRE MD Ot V76.1 2 OTH SCREEN MAMMO-MALIGN NEOPLASM OF PIA 01/08/2016 STEPHANIE PIERRE MD Ot V10.3 HX OF BREAST MALIGNANCY 01/08/2016 STEPHANIE PIERRE MD Ot V45.7 1 ACQUIRED ABSENCE OF BREAST AND NIPPLE 01/08/[address] STEPHANIE Holden Ot V76.1 1 SCRN MAMMO-HIGH RISK PT, MALIGNANT NEOPL 01/08/2016 FREDYCATIE KEVIN SENIOR DATA QUALITY ANALYST Ot 272.4 HYPERLIPIDEMIA NEC/NOS 01/08/2016 FREDYCATIE KEVIN Som SENIOR DATA QUALITY ANALYST Ot 414.00 CORON ATHEROSCLER NOS TYPE VESSEL, NATIV 01/08/2016 DAWOOD GR, FIONA Kaur Ot 715.36 LOC OSTEOARTH NOS-L/LEG 01/08/2016 DAWOOD GR, FIONA Kaur Ot 780.79 OTH MALAISE FATIGUE 01/08/2016 FIONA SEAY MD Ot V57.1 PHYSICAL THERAPY NEC 01/08/2016 DAWOOD GR, FIONA Kaur Ot V57.21 ENCOUNTER FOR OCCUPATIONAL THERAPY 01/08/2016 FIONA SEAY MD Ot V72.63 PRE-PROCEDURAL LABORATORY EXAMINATION 01/08/2016 FIONA SEAY MD Ot V72.83 EXAM PRE-OPERATIVE NEC 01/08/2016 FIONA SEAY MD Ot V74.8 SCREEN-BACTERIAL DIS NEC 01/08/2016 GABBY GR, STEPHANIE Hloden Ot V76.1 2 OTH SCREEN MAMMO-MALIGN NEOPLASM OF PIA 01/08/2016 CATIE SAUNDERS SENIOR DATA QUALITY ANALYST Ot E03.9 HYPOTHYROIDISM, UNSPECIFIED 01/08/2016 NICKY CATIE Som SENIOR DATA QUALITY ANALYST Ot E78.5 HYPERLIPIDEMIA, UNSPECIFIED 01/08/2016 FREDYCATIE KEVIN Som SENIOR DATA QUALITY ANALYST Ot I25.10 ATHSCL HEART DISEASE OF [place] CORONARY 01/08/2016 NICKY CATIE L SENIOR DATA QUALITY ANALYST Ot R00.2 PALPITATIONS 01/08/2016 RYNE GR FACC, GILBERT FACP CCDS Ot Z48.812 ENCNTR FOR SURGICAL AFTCR FOLLOWING SURG 01/08/2016 GILBERT MICHELE MD, FACC FACP CCDS Ot Z95.5 PRESENCE OF CORONARY ANGIOPLASTY IMPLANT 01/09/2016 GILBERT MICHELE MD, FACC FACP CCDS Ot I25.10 ATHSCL HEART DISEASE OF [place] CORONARY 02/05/2016 GILBERT MICHELE MD, FACC FACP CCDS Ot E78.4 OTHER HYPERLIPIDEMIA 02/05/2016 GILBERT MICHELE MD, FACC FACP CCDS Ot I25.10 ATHSCL HEART DISEASE OF [place] CORONARY 02/11/2016 GILBERT MICHELE MD, FACC FACP CCDS Ot Z48.812 ENCNTR FOR SURGICAL AFTCR FOLLOWING SURG 02/11/2016 RYNE GR FACC, ALI FACP CCDS Ot Z95.5 PRESENCE OF CORONARY ANGIOPLASTY IMPLANT 02/12/2016 RYNE GR FACC, ALI FACP CCDS Ot E78.4 OTHER HYPERLIPIDEMIA 02/12/2016 RYNE GR FACC, GILBERT FACP CCDS Ot I25.10 ATHSCL HEART DISEASE OF [place] CORONARY 02/19/2016 GABBY GR, STEPHANIE Holden Ot Z12.3 1 ENCNTR SCREEN MAMMOGRAM FOR MALIGNANT NE 02/20/2016 STEPHANIE PIERRE MD Ot Z12.3 1 ENCNTR SCREEN MAMMOGRAM FOR MALIGNANT NE 02/20/2016 STEPHANIE PIERRE MD Ot Z12.3 1 ENCNTR SCREEN MAMMOGRAM FOR MALIGNANT NE 03/11/2016 STEPHANIE PIERRE MD Ot Z12.3 1 ENCNTR SCREEN MAMMOGRAM FOR MALIGNANT NE 04/05/2016 RYNE GR FACC, ALI FACP CCDS Ot Z48.812 ENCNTR FOR SURGICAL AFTCR FOLLOWING SURG 04/05/2016 RYNE GR FACC, GILBERT FACP CCDS Ot Z95.5 PRESENCE OF CORONARY ANGIOPLASTY IMPLANT 04/07/2016 RYNE GR FACC, ALI FACP CCDS Ot Z48.812 ENCNTR FOR SURGICAL AFTCR FOLLOWING SURG 04/07/2016 RYNE GR FACC, GILBERT FACP CCDS Ot Z95.5 PRESENCE OF CORONARY ANGIOPLASTY IMPLANT 04/07/2016 RYNE GR FACC, ALI FACP CCDS Ot Z48.812 ENCNTR FOR SURGICAL AFTCR FOLLOWING SURG 04/07/2016 RYNE GR FACC, GILBERT FACP CCDS Ot Z95.5 PRESENCE OF CORONARY [...] SURGICAL AFTCR FOLLOWING SURG 04/08/2016 RYNE GR FACPhil, ALI FACP CCDS Ot Z95.5 PRESENCE OF CORONARY ANGIOPLASTY IMPLANT 05/04/2016 RYNE GR FACC, GILBERT FACP CCDS Ot Z48.812 ENCNTR FOR SURGICAL AFTCR FOLLOWING SURG 05/04/2016 RYNE GR FACC, ALI FACP CCDS Ot Z95.5 PRESENCE OF CORONARY ANGIOPLASTY IMPLANT 05/06/2016 Ot 174.9 RAMON GN NEOPL BREAST NOS 05/06/2016 Ot V76.11 SCR N MAMMO-HIGH RISK PT, MALIGNANT NEOPL 05/06/2016 Ot 793.80 UNS PEC ABNORMAL MAMMOGRAM 05/06/2016 Ot V10.3 HX O F BREAST MALIGNANCY 05/06/2016 Ot 793.80 UNS PEC ABNORMAL MAMMOGRAM 05/06/2016 Ot 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 05/06/2016 Ot 729.5 PAIN IN LIMB 05/06/[address] PAIN NOS 05/06/2016 Ot 793.81 SAM[place] MOGRAPHIC MICROCLACIFICATION 05/06/2016 Ot V72.84 EXA M PRE- OPERATIVE NOS 05/06/2016 Ot 272.4 HYPE RLIPIDEMIA NEC/NOS 05/06/2016 Ot 414.00 COR ON ATHEROSCLER NOS TYPE VESSEL, NATIV 05/06/2016 Ot 786.05 MOSHE RTNESS OF BREATH 05/06/2016 Ot V58.63 JESUS G- TERM(CURRENT)USE OF ANTIPLATELET/AN 05/06/2016 Ot V58.66 JESUS G-TERM (CURRENT) USE OF ASPIRIN 05/06/2016 Ot V58.69 OTH MED,LT,CURRENT USE 05/06/2016 Ot V72.63 PRE -PROCEDURAL LABORATORY EXAMINATION 05/06/2016 Ot V72.81 [id number] CARDIOVASCULAR 05/06/2016 GABBY GR, STEPHANIE Holden Ot V76.1 2 OTH SCREEN MAMMO-MALIGN NEOPLASM OF PIA 05/06/2016 GABBY GR, STEPHANIE Holden Ot V10.3 HX OF BREAST MALIGNANCY 05/06/2016 STEPHANIE PIERRE MD Ot V45.7 1 ACQUIRED ABSENCE OF BREAST AND NIPPLE 05/06/2016 STEPHANIE PIERRE MD Ot V76.1 1 SCRN MAMMO-HIGH RISK PT, MALIGNANT NEOPL 05/06/2016 BAIMACATIE Som SENIOR DATA QUALITY ANALYST Ot 272.4 HYPERLIPIDEMIA NEC/NOS 05/06/2016 NICKY CATIE L SENIOR DATA QUALITY ANALYST Ot 414.00 CORON ATHEROSCLER NOS TYPE VESSEL, NATIV 05/06/2016 DAWOOD GR, FIONA Kaur Ot 715.36 LOC OSTEOARTH NOS-L/LEG 05/06/2016 DAWOOD GR, FIONA Kaur Ot 780.79 OTH MALAISE FATIGUE 05/06/2016 DAWOOD GR, FIONA Kaur Ot V57.1 PHYSICAL THERAPY NEC 05/06/2016 DAWOOD GR, FIONA Kaur Ot V57.21 ENCOUNTER FOR OCCUPATIONAL THERAPY 05/06/2016 DAWOOD GR, FIONA Kaur Ot V72.63 PRE-PROCEDURAL LABORATORY EXAMINATION 05/06/2016 DAWOOD GR, FIONA Kaur Ot V72.83 EXAM PRE-OPERATIVE NEC 05/06/2016 DAWOOD GR, FIONA Kaur Ot V74.8 SCREEN-BACTERIAL DIS NEC 05/06/2016 GABBY GR, STEPHANIE Holden Ot V76.1 2 OTH SCREEN MAMMO-MALIGN NEOPLASM OF PIA 05/06/2016 NICKY CATIE L SENIOR DATA QUALITY ANALYST Ot E03.9 HYPOTHYROIDISM, UNSPECIFIED 05/06/2016 NICKY CATIE L SENIOR DATA QUALITY ANALYST Ot E78.5 HYPERLIPIDEMIA, UNSPECIFIED 05/06/2016 NICKY CATIE L SENIOR DATA QUALITY ANALYST Ot I25.10 ATHSCL HEART DISEASE OF [place] CORONARY 05/06/2016 CATIE SAUNDERS SENIOR DATA QUALITY ANALYST Ot R00.2 PALPITATIONS 05/06/2016 RYNE GR FACC, GILBERT FACP CCDS Ot E78.4 OTHER HYPERLIPIDEMIA 05/06/2016 RYNE GR FACC, ALI FACP CCDS Ot I25.10 ATHSCL HEART DISEASE OF [place] CORONARY 05/06/2016 GABBY GR, STEPHANIE Holden Ot Z12.3 1 ENCNTR SCREEN MAMMOGRAM FOR MALIGNANT NE 05/06/2016 RYNE GR FACC, GILBERT FACP CCDS Ot Z48.812 ENCNTR FOR SURGICAL AFTCR FOLLOWING SURG 05/06/2016 RYNE GR FACC, GILBERT FACP CCDS Ot Z95.5 PRESENCE OF CORONARY ANGIOPLASTY IMPLANT 05/07/2016 BHUPENDRA GR, HARINI Yoder Ot Z51. 81 ENCOUNTER FOR THERAPEUTIC DRUG LEVEL MON 05/07/2016 BHUPENDRA GR, HARINI Yoder Ot Z79.899 OTHER LONG-TERM (CURRENT) DRUG THERAPY 05/15/2016 RYNE GR FACC, GILBERT MONACO CCDS Ot Z48.812 ENCNTR FOR SURGICAL AFTCR FOLLOWING SURG 05/15/2016 RYNE GR FACC, GILBERT MONACO CCDS Ot Z95.5 PRESENCE OF CORONARY ANGIOPLASTY IMPLANT 05/27/2016 BHUPENDRA GR, HARINI Yoder Ot Z51. 81 ENCOUNTER FOR THERAPEUTIC DRUG LEVEL MON 05/27/2016 BHUPENDRA GR, HARINI Yoder Ot Z79.899 OTHER PENSION ADVISER (CURRENT) DRUG THERAPY 06/01/2016 CATIE SAUNDERS SENIOR DATA QUALITY ANALYST Ot E78.4 OTHER HYPERLIPIDEMIA 06/01/2016 CATIE SAUNDERS SENIOR DATA QUALITY ANALYST Ot I25.10 ATHSCL HEART DISEASE OF [place] CORONARY 09/16/2016 Ot 793.80 UNS PEC ABNORMAL MAMMOGRAM 09/16/2016 Ot 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 09/16/2016 Ot 729.5 PAIN IN LIMB 09/16/[address] PAIN NOS 09/16/2016 Ot 793.81 [place] MOGRAPHIC MICROCLACIFICATION 09/16/2016 Ot V72.84 EXA M PRE- OPERATIVE NOS 09/16/2016 Ot 272.4 HYPE RLIPIDEMIA NEC/NOS 09/16/2016 Ot 414.00 COR ON ATHEROSCLER NOS TYPE VESSEL, NATIV 09/16/2016 Ot 786.05 MOSHE RTNESS OF BREATH 09/16/2016 Ot V58.63 JESUS G- TERM(CURRENT)USE OF ANTIPLATELET/AN 09/16/2016 Ot V58.66 EJSUS G-TERM (CURRENT) USE OF ASPIRIN 09/16/2016 Ot V58.69 OTH MED,LT,CURRENT USE 09/16/2016 Ot V72.63 PRE -PROCEDURAL LABORATORY EXAMINATION 09/16/2016 Ot V72.81 [id number] CARDIOVASCULAR 09/16/2016 STEPHANIE PIERRE MD Ot V76.1 2 OTH SCREEN MAMMO-MALIGN NEOPLASM OF PIA 09/16/2016 STEPHANIE PIERRE MD Ot V10.3 HX OF BREAST MALIGNANCY 09/16/2016 STEPHANIE PIERRE MD Ot V45.7 1 ACQUIRED ABSENCE OF BREAST AND NIPPLE 09/16/2016 STEPHANIE PIERRE MD Ot V76.1 1 SCRN MAMMO-HIGH RISK PT, MALIGNANT NEOPL 09/16/2016 CATIE SAUNDERS SENIOR DATA QUALITY ANALYST Ot 272.4 HYPERLIPIDEMIA NEC/NOS 09/16/2016 CATIE SAUNDERS SENIOR DATA QUALITY ANALYST Ot 414.00 CORON ATHEROSCLER NOS TYPE VESSEL, NATIV 09/16/2016 DAWOOD GR, FIONA Kaur Ot 715.36 LOC OSTEOARTH NOS-L/LEG 09/16/2016 FIONA SEAY MD Ot 780.79 OTH MALAISE FATIGUE 09/16/2016 FIONA SEAY MD Ot V57.1 PHYSICAL THERAPY NEC 09/16/2016 FIONA SEAY MD Ot V57.21 ENCOUNTER FOR OCCUPATIONAL THERAPY 09/16/2016 FIONA SEAY MD Ot V72.63 PRE-PROCEDURAL LABORATORY EXAMINATION 09/16/2016 FIONA SEAY MD Ot V72.83 EXAM PRE-OPERATIVE NEC 09/16/2016 FIONA SEAY MD Ot V74.8 SCREEN-BACTERIAL DIS NEC 09/16/2016 GABBY GR, STEPHANIE Holden Ot V76.1 2 OTH SCREEN MAMMO-MALIGN NEOPLASM OF PIA 09/16/2016 FREDYCATIE KEVIN Som SENIOR DATA QUALITY ANALYST Ot E03.9 HYPOTHYROIDISM, UNSPECIFIED 09/16/2016 FREDYCATIE KEVIN L SENIOR DATA QUALITY ANALYST Ot E78.5 HYPERLIPIDEMIA, UNSPECIFIED 09/16/2016 CATIE SAUNDERS L SENIOR DATA QUALITY ANALYST Ot I25.10 ATHSCL HEART DISEASE OF [place] CORONARY 09/16/2016 FREDYCATIE KEVIN SENIOR DATA QUALITY ANALYST Ot R00.2 PALPITATIONS 09/16/2016 RYNE GR FAC, ALI FACP CCDS Ot E78.4 OTHER HYPERLIPIDEMIA 09/16/2016 RYNE GR FAC, ALI FACP CCDS Ot I25.10 ATHSCL HEART DISEASE OF [place] CORONARY 09/16/2016 GABBY GR, STEPHANIE Holden Ot Z12.3 1 ENCNTR SCREEN MAMMOGRAM FOR MALIGNANT NE 09/16/2016 CATIE SAUNDERS SENIOR DATA QUALITY ANALYST Ot E78.4 OTHER HYPERLIPIDEMIA 09/16/2016 FREDYCATIE KEVIN L SENIOR DATA QUALITY ANALYST Ot I25.10 ATHSCL HEART DISEASE OF [place] CORONARY 09/16/2016 BHUPENDRA GR, HARINI Yoder Ot Z51. 81 ENCOUNTER FOR THERAPEUTIC DRUG LEVEL MON 09/16/2016 BHUPENDRA GR, HARINI Yoder Ot Z79.899 OTHER PENSION ADVISER (CURRENT) DRUG THERAPY 09/17/2016 CHANEL MISHRA DO Ot E03.9 HYPOTHYROIDISM, UNSPECIFIED 09/17/2016 MISHRA DO, CHANEL Ot E78.5 HYPERLIPIDEMIA, UNSPECIFIED 09/17/2016 MISHRA DO, CHANEL Ot I10 ESSENTIAL (PRIMARY) HYPERTENSION 09/17/2016 MISHRA DO, CHANEL Ot I25.10 ATHSCL HEART DISEASE OF [place] CORONARY 09/17/2016 MISHRA DO, CHANEL Ot I25.84 CORONARY ATHEROSCLEROSIS DUE TO [place] 09/17/2016 MISHRA DO, CHANEL Ot K21.9 GASTRO-ESOPHAGEAL REFLUX DISEASE WITHOUT 09/17/2016 MISHRA DO, CHANEL Ot R07.89 OTHER CHEST PAIN 09/17/2016 MISHRA DO, CHANEL Ot Z79.89 9 OTHER LONG-TERM (CURRENT) DRUG THERAPY 09/17/2016 MISHRA DO, CHANEL Ot Z95.5 PRESENCE OF CORONARY ANGIOPLASTY IMPLANT 2016 MISHRA DO, CHANEL Ot E03.9 HYPOTHYROIDISM, UNSPECIFIED 2016 MISHRA DO, CHANEL Ot E78.5 HYPERLIPIDEMIA, UNSPECIFIED 2016 MISHRA DO, CHANEL Ot I10 ESSENTIAL (PRIMARY) HYPERTENSION 2016 MISHRA DO, CHANEL Ot I25.10 ATHSCL HEART DISEASE OF [place] CORONARY 2016 MISHRA DO, CHANEL Ot I25.84 CORONARY ATHEROSCLEROSIS DUE TO [place] 2016 MISHRA DO, CHANEL Ot K21.9 GASTRO-ESOPHAGEAL REFLUX DISEASE WITHOUT 2016 MISHRA DO, CHANEL Ot R07.89 OTHER CHEST PAIN 2016 MISHRA DO, CHNAEL Ot Z79.89 9 OTHER LONG-TERM (CURRENT) DRUG THERAPY 2016 MISHRA DO, CHANEL Ot Z95.5 PRESENCE OF CORONARY ANGIOPLASTY IMPLANT 02/05/2017 NADEGE WHITE DRY CANS BACK TENDER Ot Z12.31 ENCNTR SCREEN MAMMOGRAM FOR MALIGNANT NE 02/23/2017 NADEGE WHITE DRY CANS BACK TENDER Ot Z12.31 ENCNTR SCREEN MAMMOGRAM FOR MALIGNANT NE 02/23/2017 NADEGE WHITE DRY CANS BACK TENDER Ot Z12.31 ENCNTR SCREEN MAMMOGRAM FOR MALIGNANT NE 02/24/2017 NADEGE WHITE DRY CANS BACK TENDER Ot Z12.31 ENCNTR SCREEN MAMMOGRAM FOR MALIGNANT NE 03/23/2017 NADEGE WHITE DRY CANS BACK TENDER Ot Z12.31 ENCNTR SCREEN MAMMOGRAM FOR MALIGNANT [...] Z01.812 ENCOUNTER FOR PREPROCEDURAL LABORATORY E 04/29/2017 BHUPENDRA GR, HARINI Yoder Ot Z51. 81 ENCOUNTER FOR THERAPEUTIC DRUG LEVEL MON 04/29/2017 HARINI HUIZAR MD Ot Z79.899 OTHER LONG-TERM (CURRENT) DRUG THERAPY 04/30/2017 FIONA SEAY MD Ot M17.11 UNILATERAL PRIMARY OSTEOARTHRITIS, RIGHT 04/30/2017 FIONA SEAY MD Ot R53.83 OTHER FATIGUE 04/30/2017 FIONA SEAY MD Ot Z01.811 ENCOUNTER FOR PREPROCEDURAL RESPIRATORY 04/30/2017 FIONA SEAY MD Ot Z01.812 ENCOUNTER FOR PREPROCEDURAL LABORATORY E 05/14/2017 CATIE SAUNDERS Ot E78.4 OTHER HYPERLIPIDEMIA 05/14/2017 CATIE SAUNDERS SENIOR DATA QUALITY ANALYST Ot I25.10 ATHSCL HEART DISEASE OF [place] CORONARY 05/16/2017 FIONA SEAY MD Ot D6 2 ACUTE POSTHEMORRHAGIC ANEMIA 05/16/2017 FOINA SEAY MD Ot E66.9 OBESITY, UNSPECIFIED 05/16/2017 FIONA SEAY MD Ot E78.00 PURE HYPERCHOLESTEROLEMIA, UNSPECIFIED 05/16/2017 FIONA SEAY MD Ot E89.0 POSTPROCEDURAL HYPOTHYROIDISM 05/16/2017 FIONA SEAY MD Ot I1 0 ESSENTIAL (PRIMARY) HYPERTENSION 05/16/2017 FIONA SEAY MD Ot I25.10 ATHSCL HEART DISEASE OF [place] CORONARY 05/16/2017 FIONA SEAY MD Ot I25.2 OLD MYOCARDIAL INFARCTION 05/16/2017 FIONA SEAY MD, Ot K21.9 GASTRO-ESOPHAGEAL REFLUX DISEASE WITHOUT 05/16/2017 FIONA SEAY MD, Ot M06.9 RHEUMATOID ARTHRITIS, UNSPECIFIED 05/16/2017 FIONA SEAY MD, Ot M17.12 UNILATERAL PRIMARY OSTEOARTHRITIS, LEFT 05/16/2017 FIONA SEAY MD, Ot Z68.41 BODY MASS INDEX (BMI) 40.0-44.9, ADULT 05/16/2017 FIONA SEAY MD, Ot Z79.01 PENSION ADVISER (CURRENT) USE OF ANTICOAGULANT 05/16/2017 FIONA SEAY MD, Ot Z79.82 PENSION ADVISER (CURRENT) USE OF ASPIRIN 05/16/2017 FIONA SEAY [...] OTHER SPECIFIED FACTORS, INI 06/07/2017 FIONA SEAY MD, Ot Y99.8 OTHER EXTERNAL CAUSE STATUS 06/07/2017 FIONA SEAY MD, Ot Z01.818 ENCOUNTER FOR OTHER PREPROCEDURAL EXAMIN 06/08/2017 FIONA SEAY MD, Ot S83.092A OTHER SUBLUXATION OF LEFT PATELLA, INITI 06/08/2017 FIONA SEAY MD Ot X58.XXXA EXPOSURE TO OTHER SPECIFIED FACTORS, INI 06/08/2017 FIONA SEAY MD, Ot Y99.8 OTHER EXTERNAL CAUSE STATUS 06/08/2017 FIONA SEAY MD, Ot Z01.818 ENCOUNTER FOR OTHER PREPROCEDURAL EXAMIN 06/10/2017 FIONA SEAY MD Ot E03.9 HYPOTHYROIDISM, UNSPECIFIED 06/10/2017 FIONA SEAY MD, Ot E66.9 OBESITY, UNSPECIFIED 06/10/2017 FIONA SEAY MD, Ot E78.5 HYPERLIPIDEMIA, UNSPECIFIED 06/10/2017 FIONA SEAY MD, Ot I1 0 ESSENTIAL (PRIMARY) HYPERTENSION 06/10/2017 FIONA SEAY MD, Ot I25.10 ATHSCL HEART DISEASE OF [place] CORONARY 06/10/2017 FIONA SEAY MD, Ot I25.2 OLD MYOCARDIAL INFARCTION 06/10/2017 FIONA SEAY MD, Ot K21.9 GASTRO-ESOPHAGEAL REFLUX DISEASE WITHOUT 06/10/2017 FIONA SEAY MD Ot M06.9 RHEUMATOID ARTHRITIS, UNSPECIFIED 06/10/2017 FIONA SEAY MD Ot M25.362 OTHER INSTABILITY, LEFT KNEE 06/10/2017 FIONA SEAY MD, Ot Z68.41 BODY MASS INDEX (BMI) 40.0-44.9, ADULT 06/10/2017 FIONA SEAY MD, Ot Z87.891 PERSONAL HISTORY OF NICOTINE DEPENDENCE 06/10/2017 FIONA SEAY MD Ot Z95.5 PRESENCE OF CORONARY ANGIOPLASTY IMPLANT 06/10/2017 FIONA SEAY MD Ot Z96.651 PRESENCE OF RIGHT ARTIFICIAL KNEE JOINT 06/10/2017 FIONA SEAY MD Ot 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 [...] HYPERLIPIDEMIA, UNSPECIFIED 06/14/2017 FIONA SEAY MD Ot I1 0 ESSENTIAL (PRIMARY) HYPERTENSION 06/14/2017 FIONA SEAY MD Ot I25.10 ATHSCL HEART DISEASE OF [place] CORONARY 06/14/2017 FIONA SEAY MD, Ot I25.2 OLD MYOCARDIAL INFARCTION 06/14/2017 FIONA SEAY MD Ot K21.9 GASTRO-ESOPHAGEAL REFLUX DISEASE WITHOUT 06/14/2017 FIONA SEAY MD Ot M06.9 RHEUMATOID ARTHRITIS, UNSPECIFIED 06/14/2017 FIONA SEAY MD Ot M25.362 OTHER INSTABILITY, LEFT KNEE 06/14/2017 FIONA SEAY MD Ot T84.54XA INFECT/INFLM REACTION DUE TO INTERNAL LE 06/14/2017 FIONA SEAY MD Ot Z68.41 BODY MASS INDEX (BMI) 40.0-44.9, ADULT 06/14/2017 FIONA SEAY MD Ot Z87.891 PERSONAL HISTORY OF NICOTINE DEPENDENCE 06/14/2017 FIONA SEAY MD Ot Z95.5 PRESENCE OF CORONARY ANGIOPLASTY IMPLANT 06/14/2017 FIONA SEAY MD Ot Z96.651 PRESENCE OF RIGHT ARTIFICIAL KNEE JOINT 06/14/2017 FIONA SEAY MD Ot 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 LEFT ARTIFICIAL KNEE JOINT 06/18/2017 HARINI HUIZAR MD Ot Z51. 81 ENCOUNTER FOR THERAPEUTIC DRUG LEVEL MON 06/18/2017 HARINI HUIZAR MD Ot Z79.899 OTHER PENSION ADVISER (CURRENT) DRUG THERAPY 06/22/2017 KATHERINE GR, REFUGIO Grajeda Ot D64.9 ANEMIA, UNSPECIFIED 06/22/2017 REFUGIO MURPHY MD Ot E03.9 HYPOTHYROIDISM, UNSPECIFIED 06/22/2017 REFUGIO MURPHY MD E Ot E78.5 HYPERLIPIDEMIA, UNSPECIFIED 06/22/2017 KATHERINE GR REFUGIO E Ot I10 ESSENTIAL (PRIMARY) HYPERTENSION 06/22/2017 REFUGIO MURPHY MD Ot I25.1 0 ATHSCL HEART DISEASE OF [place] CORONARY 06/22/2017 REFUGIO MURPHY MD E Ot M06.9 RHEUMATOID ARTHRITIS, UNSPECIFIED 06/22/2017 REFUGIO MURPHY MD E Ot T84.54XD INFECT/INFLM REACTION DUE TO INTERNAL LE 06/22/2017 REFUGIO MURPHY MD E Ot Z47.1 AFTERCARE FOLLOWING JOINT REPLACEMENT FLEMING 06/22/2017 REFUGIO MURPHY MD E Ot Z95.5 PRESENCE OF CORONARY ANGIOPLASTY IMPLANT 06/22/2017 REFUGIO MURPHY MD E Ot Z96.6 51 PRESENCE OF RIGHT ARTIFICIAL KNEE JOINT 06/22/2017 REFUGIO MURPHY MD E Ot Z96.6 52 PRESENCE OF LEFT ARTIFICIAL KNEE JOINT 06/22/2017 REFUGIO MURPHY MD E Ot D64.9 ANEMIA, UNSPECIFIED 06/22/2017 REFUGIO MURPHY MD E Ot E03.9 HYPOTHYROIDISM, UNSPECIFIED 06/22/2017 REFUGIO MURPHY MD E Ot E78.5 HYPERLIPIDEMIA, UNSPECIFIED 06/22/2017 BELL MURPHY MDIC E Ot I10 ESSENTIAL (PRIMARY) HYPERTENSION 06/22/2017 REFUGIO MURPHY MD E Ot I25.1 0 ATHSCL HEART DISEASE OF [place] CORONARY 06/22/2017 REFUGIO MURPHY MD E Ot M06.9 RHEUMATOID ARTHRITIS, UNSPECIFIED 06/22/2017 REFUGIO MURPHY MD E Ot T84.54XD INFECT/INFLM REACTION DUE TO INTERNAL LE 06/22/2017 REFUGIO MURPHY MD E Ot Z47.1 AFTERCARE FOLLOWING JOINT REPLACEMENT FLEMING 06/22/2017 REFUGIO MURPHY MD E Ot Z95.5 PRESENCE OF CORONARY ANGIOPLASTY IMPLANT 06/22/2017 REFUGIO MURPHY MD E Ot Z96.6 51 PRESENCE OF RIGHT ARTIFICIAL KNEE JOINT 06/22/2017 REFUGIO MURPHY MD E Ot Z96.6 52 PRESENCE OF LEFT ARTIFICIAL KNEE JOINT 06/28/2017 FIONA SEYA MD Ot Z47.1 AFTERCARE FOLLOWING JOINT REPLACEMENT FLEMING 06/28/2017 FIONA SEAY MD Ot 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 LEFT ARTIFICIAL KNEE JOINT 07/27/2017 HARINI HUIZAR MD Ot Z51. 81 ENCOUNTER FOR THERAPEUTIC DRUG LEVEL MON 07/27/2017 HARINI HUIZAR MD Ot Z79.899 OTHER LONG-TERM (CURRENT) DRUG THERAPY 07/29/2017 HARINI HUIZAR MD Ot Z51. 81 ENCOUNTER FOR THERAPEUTIC DRUG LEVEL MON 07/29/2017 BHUPENDRA GR, HARINI Yoder Ot Z79.899 OTHER LONG-TERM (CURRENT) DRUG THERAPY 10/12/2017 ERIC MARTIN DO Ot Z47. 1 AFTERCARE FOLLOWING JOINT REPLACEMENT FLEMING 10/12/2017 VERONICA MARCUS, ERIC Roman Ot 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 LEFT ARTIFICIAL KNEE JOINT 10/15/2017 ERIC MARTIN DO Ot Z47. 1 AFTERCARE FOLLOWING JOINT REPLACEMENT FLEMING 10/15/2017 ERIC MARTIN DO Ot 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 LEFT ARTIFICIAL KNEE JOINT 11/07/2017 GAURAV GR, ANABELLE Stuart Ot E78. 00 PURE HYPERCHOLESTEROLEMIA, UNSPECIFIED 11/07/2017 ANABELLE NOLASCO MD Ot I10 ESSENTIAL (PRIMARY) HYPERTENSION 11/07/2017 ANABELLE NOLASCO MD Ot I25. 10 ATHSCL HEART DISEASE OF [place] CORONARY 11/07/2017 ANABELLE NOLASCO MD Ot I25. 2 OLD MYOCARDIAL INFARCTION 11/07/2017 ANABELLE NOLASCO MD Ot I63. 9 CEREBRAL INFARCTION, UNSPECIFIED 11/07/2017 GAURAV GR, ANABELLE Stuart Ot K21. 9 GASTRO-ESOPHAGEAL REFLUX DISEASE WITHOUT 11/07/2017 GAURAV GR, ANABELLE Stuart Ot M06. 9 RHEUMATOID ARTHRITIS, UNSPECIFIED 11/07/2017 ANABELLE NOLASCO MD Ot R47. 89 OTHER SPEECH DISTURBANCES 11/07/2017 ANABELLE NOLASCO MD Ot Z79. 02 LONG-TERM (CURRENT) USE OF ANTITHROMBOTI 11/07/2017 ANABELLE NOLASCO MD Ot Z79. 51 PENSION ADVISER (CURRENT) USE OF INHALED STERO 11/07/2017 ANABELLE NOLASCO MD Ot Z79. 82 LONG-TERM (CURRENT) USE OF ASPIRIN 11/07/2017 ANABELLE NOLASCO MD Ot Z82. 49 FAMILY HX OF ISCHEM HEART DIS AND OTH DI 11/07/2017 ANABELLE NOLASCO MD Ot Z85. 3 PERSONAL HISTORY OF MALIGNANT NEOPLASM O 11/07/2017 ANABELLE NOLASCO MD Ot Z85.850 PERSONAL HISTORY OF MALIGNANT NEOPLASM O 11/07/2017 ANABELLE NOLASCO MD Ot Z88. 1 ALLERGY STATUS TO OTHER ANTIBIOTIC AGENT 11/07/2017 ANABELLE ONLASCO MD Ot Z90. 11 ACQUIRED ABSENCE OF RIGHT BREAST AND NIP 11/07/2017 ANABELLE NOLASCO MD Ot Z90. 89 ACQUIRED ABSENCE OF OTHER ORGANS 11/07/2017 ANABELLE NOLASCO MD Ot Z95. 5 PRESENCE OF CORONARY ANGIOPLASTY IMPLANT 11/07/2017 ANABELLE NOLASCO MD Ot Z96.653 PRESENCE OF ARTIFICIAL KNEE JOINT, BILAT 11/09/2017 ANABELLE NOLASCO MD Ot E78. 00 PURE HYPERCHOLESTEROLEMIA, UNSPECIFIED 11/09/2017 ANABELLE NOLASCO MD Ot I10 ESSENTIAL (PRIMARY) HYPERTENSION 11/09/2017 ANABELLE NOLASCO MD Ot I25. 10 ATHSCL HEART DISEASE OF [place] CORONARY 11/09/2017 ANABELLE NOLASCO MD Ot I25. 2 OLD MYOCARDIAL INFARCTION 11/09/2017 ANABELLE NOLASCO MD Ot I63. 9 CEREBRAL INFARCTION, UNSPECIFIED 11/09/2017 ANABELLE NOLASCO MD Ot K21. 9 GASTRO-ESOPHAGEAL REFLUX DISEASE WITHOUT 11/09/2017 ANABELLE NOLASCO MD Ot M06. 9 RHEUMATOID ARTHRITIS, UNSPECIFIED 11/09/2017 ANABELLE NOLASCO MD Ot R47. 89 OTHER SPEECH DISTURBANCES 11/09/2017 ANABELLE NOLASCO MD Ot Z79. 02 LONG-TERM (CURRENT) USE OF ANTITHROMBOTI 11/09/2017 ANABELLE NOLASCO MD Ot Z79. 51 PENSION ADVISER (CURRENT) USE OF INHALED STERO 11/09/2017 ANABELLE NOLASCO MD Ot Z79. 82 LONG-TERM (CURRENT) USE OF ASPIRIN 11/09/2017 ANABELLE NOLASCO MD Ot Z82. 49 FAMILY HX OF ISCHEM HEART DIS AND OTH DI 11/09/2017 ANABELLE NOLASCO MD Ot Z85. 3 PERSONAL HISTORY OF MALIGNANT NEOPLASM O 11/09/2017 ANABELLE NOLASCO MD Ot Z85.850 PERSONAL HISTORY OF MALIGNANT NEOPLASM O 11/09/2017 ANABELLE NOLASCO MD Ot Z88. 1 ALLERGY STATUS TO OTHER ANTIBIOTIC AGENT 11/09/2017 ANABELLE NOLASCO MD Ot Z90. 11 ACQUIRED ABSENCE OF RIGHT BREAST AND NIP 11/09/2017 ANABELLE NOLASCO MD Ot Z90. 89 ACQUIRED ABSENCE OF OTHER ORGANS 11/09/2017 ANABELLE NOLASCO MD Ot Z95. 5 PRESENCE OF CORONARY ANGIOPLASTY IMPLANT 11/09/2017 ANABELLE NOLASCO MD Ot Z96.653 PRESENCE OF ARTIFICIAL KNEE JOINT, BILAT 01/28/2018 CARY GR, ANJALI Ot Z01.81 8 ENCOUNTER FOR OTHER PREPROCEDURAL EXAMIN 01/28/2018 Ot 272.4 HYPE RLIPIDEMIA NEC/NOS 01/28/2018 Ot 414.00 COR ON ATHEROSCLER NOS TYPE VESSEL, NATIV 01/28/2018 Ot 786.05 MOSHE RTNESS OF BREATH 01/28/2018 Ot V58.63 JESUS G- TERM(CURRENT)USE OF ANTIPLATELET/AN 01/28/2018 Ot V58.66 JESUS G-TERM (CURRENT) USE OF ASPIRIN 01/28/2018 Ot V58.69 OTH MED,LT,CURRENT USE 01/28/2018 Ot V72.63 PRE -PROCEDURAL LABORATORY EXAMINATION 01/28/2018 Ot V72.81 [id number] CARDIOVASCULAR 01/28/2018 STEPHANIE PIERRE MD Ot V76.1 2 OTH SCREEN MAMMO-MALIGN NEOPLASM OF PIA 01/28/2018 STEPHANIE PIERRE MD Ot V10.3 HX OF BREAST MALIGNANCY 01/28/2018 STEPHANIE PIERRE MD Ot V45.7 1 ACQUIRED ABSENCE OF BREAST AND NIPPLE 01/28/2018 STEPHANIE PIERRE MD Ot V76.1 1 SCRN MAMMO-HIGH RISK PT, MALIGNANT NEOPL 01/28/2018 CATIE SAUNDERS SENIOR DATA QUALITY ANALYST Ot 272.4 HYPERLIPIDEMIA NEC/NOS 01/28/2018 CATIE SAUNDERS SENIOR DATA QUALITY ANALYST Ot 414.00 CORON ATHEROSCLER NOS TYPE VESSEL, NATIV 01/28/2018 FIONA SEAY MD Ot 715.36 LOC OSTEOARTH NOS-L/LEG 01/28/2018 FIONA SEAY MD Ot 780.79 OTH MALAISE FATIGUE 01/28/2018 FIONA SEAY MD Ot V57.1 PHYSICAL THERAPY NEC 01/28/2018 FIONA SEAY MD Ot V57.21 ENCOUNTER FOR OCCUPATIONAL THERAPY 01/28/2018 FIONA SEAY MD Ot V72.63 PRE-PROCEDURAL LABORATORY EXAMINATION 01/28/2018 FIONA SEAY MD Ot V72.83 EXAM PRE-OPERATIVE NEC 01/28/2018 FIONA SEAY MD Ot V74.8 SCREEN-BACTERIAL DIS NEC 01/28/2018 STEPHANIE PIERRE MD Ot V76.1 2 OTH SCREEN MAMMO-MALIGN NEOPLASM OF PIA 01/28/2018 CATIE SAUNDERS SENIOR DATA QUALITY ANALYST Ot E03.9 HYPOTHYROIDISM, UNSPECIFIED 01/28/2018 BAICATIE KEVIN L SENIOR DATA QUALITY ANALYST Ot E78.5 HYPERLIPIDEMIA, UNSPECIFIED 01/28/2018 BAIMARAVINDRACATIE L SENIOR DATA QUALITY ANALYST Ot I25.10 ATHSCL HEART DISEASE OF [place] CORONARY 01/28/2018 BAICATIE KEVIN L SENIOR DATA QUALITY ANALYST Ot R00.2 PALPITATIONS 01/28/2018 RYNE GR FAC, ALI FACP CCDS Ot E78.4 OTHER HYPERLIPIDEMIA 01/28/2018 RYNE GR FAC, ALI FACP CCDS Ot I25.10 ATHSCL HEART DISEASE OF [place] CORONARY 01/28/2018 GABBY GR, STEPHANIE Holden Ot Z12.3 1 ENCNTR SCREEN MAMMOGRAM FOR MALIGNANT NE 01/28/2018 CATIE SAUNDERS L SENIOR DATA QUALITY ANALYST Ot E78.4 OTHER HYPERLIPIDEMIA 01/28/2018 BAIMA, CATIE L SENIOR DATA QUALITY ANALYST Ot I25.10 ATHSCL HEART DISEASE OF [place] CORONARY 01/28/2018 BAIMACATIE L SENIOR DATA QUALITY ANALYST Ot Z51.81 ENCOUNTER FOR THERAPEUTIC DRUG LEVEL MON 01/28/2018 BAIMA CATIE L SENIOR DATA QUALITY ANALYST Ot Z79.899 OTHER PENSION ADVISER (CURRENT) DRUG THERAPY 01/28/2018 HARINI HUIZAR MD Ot Z51. 81 ENCOUNTER FOR THERAPEUTIC DRUG LEVEL MON 01/28/2018 HARINI HUIZAR MD Ot Z79.899 OTHER PENSION ADVISER (CURRENT) DRUG THERAPY 01/28/2018 NADEGE WHITE APRN Ot Z12.31 ENCNTR SCREEN MAMMOGRAM FOR MALIGNANT NE 01/28/2018 BAIMACATIE L SENIOR DATA QUALITY ANALYST Ot E78.4 OTHER HYPERLIPIDEMIA 01/28/2018 BAIMA CATIE L SENIOR DATA QUALITY ANALYST Ot I25.10 ATHSCL HEART DISEASE OF [place] CORONARY 01/28/2018 HARINI HUIZAR MD Ot Z51. 81 ENCOUNTER FOR THERAPEUTIC DRUG LEVEL MON 01/28/2018 HARINI HUIZAR MD Ot Z79.899 OTHER PENSION ADVISER (CURRENT) DRUG THERAPY 01/28/2018 ANJALI TOWNSEND MD Ot Z01.81 8 ENCOUNTER FOR OTHER PREPROCEDURAL EXAMIN 02/02/2018 ANJALI TOWNSEND MD Ot D12.8 BENIGN NEOPLASM OF RECTUM 02/02/2018 ANJALI TOWNSEND MD Ot I10 ESSENTIAL (PRIMARY) HYPERTENSION 02/02/2018 ANJALI TOWNSEND MD, Ot I25.10 ATHSCL HEART DISEASE OF [place] CORONARY 02/02/2018 ANJALI TOWNSEND MD, Ot I25.2 OLD MYOCARDIAL INFARCTION 02/02/2018 ANJALI TOWNSEND MD, Ot K57.30 DVRTCLOS OF LG INT W/O PERFORATION OR AB 02/02/2018 ANJALI TOWNSEND MD, Ot K62.1 RECTAL POLYP 02/02/2018 ANJALI TOWNSEND MD, Ot K64.0 FIRST DEGREE HEMORRHOIDS 02/02/2018 ANJALI TOWNSEND MD, Ot Z12.11 ENCOUNTER FOR SCREENING FOR MALIGNANT NE 02/02/2018 ANJALI TOWNSEND MD, Ot Z79.02 PENSION ADVISER (CURRENT) USE OF ANTITHROMBOTI 02/02/2018 ANJALI TOWNSEND MD, Ot Z79.82 PENSION ADVISER (CURRENT) USE OF ASPIRIN 02/02/2018 ANJALI TOWNSEND MD, Ot Z79.89 9 OTHER LONG-TERM (CURRENT) DRUG THERAPY 02/02/2018 ANJALI TOWNSEND MD, Ot Z85.3 PERSONAL HISTORY OF MALIGNANT NEOPLASM O 02/02/2018 ANJALI TOWNSEND MD Ot Z85.85 0 PERSONAL HISTORY OF MALIGNANT NEOPLASM O 02/02/2018 ANJALI TOWNSEND MD, Ot Z86.01 0 PERSONAL HISTORY OF COLONIC POLYPS 02/02/2018 ANJALI TOWNSEND MD Ot Z86.73 PRSNL HX OF TIA (TIA), AND CEREB INFRC W 02/02/2018 ANJALI TOWNSEND MD Ot Z87.89 1 PERSONAL HISTORY OF NICOTINE DEPENDENCE 02/04/2018 ANJALI TOWNSEND MD Ot D12.8 BENIGN NEOPLASM OF RECTUM 02/04/2018 ANJALI TOWNSEND MD Ot I10 ESSENTIAL (PRIMARY) HYPERTENSION 02/04/2018 ANJALI TOWNSEND MD, Ot I25.10 ATHSCL HEART DISEASE OF [place] CORONARY 02/04/2018 ANJALI TOWNSEND MD, Ot I25.2 OLD MYOCARDIAL INFARCTION 02/04/2018 ANJALI TOWNSEND MD, Ot K57.30 DVRTCLOS OF LG INT W/O PERFORATION OR AB 02/04/2018 ANJALI TOWNSEND MD, Ot K64.0 FIRST DEGREE HEMORRHOIDS 02/04/2018 KIDO MD, TAKAAKI Ot Z12.11 ENCOUNTER FOR SCREENING FOR MALIGNANT NE 02/04/2018 ANJALI TOWNSEND MD, Ot Z79.02 PENSION ADVISER (CURRENT) USE OF ANTITHROMBOTI 02/04/2018 ANJALI TOWNSEND MD, Ot Z79.82 LONG-TERM (CURRENT) USE OF ASPIRIN 02/04/2018 ANJALI TOWNSEND MD, Ot Z79.89 9 OTHER PENSION ADVISER (CURRENT) DRUG THERAPY 02/04/2018 ANJALI TOWNSEND MD, Ot Z85.3 PERSONAL HISTORY OF MALIGNANT NEOPLASM O 02/04/2018 ANJALI TOWNSEND MD, Ot Z85.85 0 PERSONAL HISTORY OF MALIGNANT NEOPLASM O 02/04/2018 ANJALI TOWNSEND MD, Ot Z86.01 0 PERSONAL HISTORY OF COLONIC POLYPS 02/04/2018 ANJALI TOWNSEND MD, Ot Z86.73 PRSNL HX OF TIA (TIA), AND CEREB INFRC W 02/04/2018 ANJALI TOWNSEND MD, Ot Z87.89 1 PERSONAL HISTORY OF NICOTINE DEPENDENCE 02/10/2018 ANJALI TOWNSEND MD, Ot D12.8 BENIGN NEOPLASM OF RECTUM 02/10/2018 ANJALI TOWNSEND MD Ot I10 ESSENTIAL (PRIMARY) HYPERTENSION 02/10/2018 ANJALI TOWNSEND MD, Ot I25.10 ATHSCL HEART DISEASE OF [place] CORONARY 02/10/2018 ANJALI TOWNSEND MD, Ot I25.2 OLD MYOCARDIAL INFARCTION 02/10/2018 ANJALI TOWNSEND MD, Ot K57.30 DVRTCLOS OF LG INT W/O PERFORATION OR AB 02/10/2018 ANJALI TOWNSEND MD, Ot K64.0 FIRST DEGREE HEMORRHOIDS 02/10/2018 ANJALI TOWNSEND MD, Ot Z12.11 ENCOUNTER FOR SCREENING FOR MALIGNANT NE 02/10/2018 ANJALI TOWNSEND MD, Ot Z79.02 PENSION ADVISER (CURRENT) USE OF ANTITHROMBOTI 02/10/2018 ANJALI TOWNSEND MD, Ot Z79.82 LONG-TERM (CURRENT) USE OF ASPIRIN 02/10/2018 ANJALI TOWNSEND MD, Ot Z79.89 9 OTHER PENSION ADVISER (CURRENT) DRUG THERAPY 02/10/2018 ANJALI TOWNSEND MD, Ot Z85.3 PERSONAL HISTORY OF MALIGNANT NEOPLASM O 02/10/2018 ANJALI TOWNSEND MD, Ot Z85.85 0 PERSONAL HISTORY OF MALIGNANT NEOPLASM O 02/10/2018 ANJALI TOWNSEND MD Ot Z86.01 0 PERSONAL HISTORY OF COLONIC POLYPS 02/10/2018 ANJALI TOWNSEND MD Ot Z86.73 PRSNL HX OF TIA (TIA), AND CEREB INFRC W 02/10/2018 ANJALI TOWNSEND MD Ot Z87.89 1 PERSONAL HISTORY OF NICOTINE DEPENDENCE 03/11/2018 Ot 272.4 HYPE RLIPIDEMIA NEC/NOS 03/11/2018 Ot 414.00 COR ON ATHEROSCLER NOS TYPE VESSEL, NATIV 03/11/2018 Ot 786.05 MOSHE RTNESS OF BREATH 03/11/2018 Ot V58.63 JESUS G- TERM(CURRENT)USE OF ANTIPLATELET/AN 03/11/2018 Ot V58.66 JESUS G-TERM (CURRENT) USE OF ASPIRIN 03/11/2018 Ot V58.69 OTH MED,LT,CURRENT USE 03/11/2018 Ot V72.63 PRE -PROCEDURAL LABORATORY EXAMINATION 03/11/2018 Ot V72.81 [id number] CARDIOVASCULAR 03/11/2018 STEPHANIE PIERRE MD Ot V76.1 2 OTH SCREEN MAMMO-MALIGN NEOPLASM OF PIA 03/11/2018 STEPHANIE PIERRE MD Ot V10.3 HX OF BREAST MALIGNANCY 03/11/2018 STEPHANIE PIERRE MD Ot V45.7 1 ACQUIRED ABSENCE OF BREAST AND NIPPLE 03/11/2018 STEPHANIE PIERRE MD Ot V76.1 1 SCRN MAMMO-HIGH RISK PT, MALIGNANT NEOPL 03/11/2018 CATIE SAUNDERS SENIOR DATA QUALITY ANALYST Ot 272.4 HYPERLIPIDEMIA NEC/NOS 03/11/2018 CATIE SAUNDERS SENIOR DATA QUALITY ANALYST Ot 414.00 CORON ATHEROSCLER NOS TYPE VESSEL, NATIV 03/11/2018 FIONA SEAY MD Ot 715.36 LOC OSTEOARTH NOS-L/LEG 03/11/2018 FIONA SEAY MD Ot 780.79 OTH MALAISE FATIGUE 03/11/2018 FIONA SEAY MD Ot V57.1 PHYSICAL THERAPY NEC 03/11/2018 FIONA SEAY MD Ot V57.21 ENCOUNTER FOR OCCUPATIONAL THERAPY 03/11/2018 FIONA SEAY MD Ot V72.63 PRE-PROCEDURAL LABORATORY EXAMINATION 03/11/2018 FIONA SEAY MD Ot V72.83 EXAM PRE-OPERATIVE NEC 03/11/2018 FIONA SEAY MD Ot V74.8 SCREEN-BACTERIAL DIS NEC 03/11/2018 GABBY GR, STEPHANIE Holden Ot V76.1 2 OTH SCREEN MAMMO-MALIGN NEOPLASM OF PIA 03/11/2018 FREDYRAVINDRA KEVINHER L SENIOR DATA QUALITY ANALYST Ot E03.9 HYPOTHYROIDISM, UNSPECIFIED 03/11/2018 BAIMA, CATIE L SENIOR DATA QUALITY ANALYST Ot E78.5 HYPERLIPIDEMIA, UNSPECIFIED 03/11/2018 BAIMA, CATIE L SENIOR DATA QUALITY ANALYST Ot I25.10 ATHSCL HEART DISEASE OF [place] CORONARY 03/11/2018 BAIMA, CATIE L SENIOR DATA QUALITY ANALYST Ot R00.2 PALPITATIONS 03/11/2018 RYNE GR FAC, ALI FACP CCDS Ot E78.4 OTHER HYPERLIPIDEMIA 03/11/2018 RYNE GR FAC, ALI FACP CCDS Ot I25.10 ATHSCL HEART DISEASE OF [place] CORONARY 03/11/2018 GABBY GR, STEPHANIE Holden Ot Z12.3 1 ENCNTR SCREEN MAMMOGRAM FOR MALIGNANT NE 03/11/2018 BAIMA, CATIE L SENIOR DATA QUALITY ANALYST Ot E78.4 OTHER HYPERLIPIDEMIA 03/11/2018 BAIMA, CATIE L SENIOR DATA QUALITY ANALYST Ot I25.10 ATHSCL HEART DISEASE OF [place] CORONARY 03/11/2018 BAIMA CATIE L SENIOR DATA QUALITY ANALYST Ot Z51.81 ENCOUNTER FOR THERAPEUTIC DRUG LEVEL MON 03/11/2018 BAIMA, CATIE L SENIOR DATA QUALITY ANALYST Ot Z79.899 OTHER PENSION ADVISER (CURRENT) DRUG THERAPY 03/11/2018 BHUPENDRA GR, HARINI Yoder Ot Z51. 81 ENCOUNTER FOR THERAPEUTIC DRUG LEVEL MON 03/11/2018 HARINI HUIZAR MD Ot Z79.899 OTHER LONG-TERM (CURRENT) DRUG THERAPY 03/11/2018 NADEGE WHITE APRN Ot Z12.31 ENCNTR SCREEN MAMMOGRAM FOR MALIGNANT NE 03/11/2018 BAIMA, CATIE L SENIOR DATA QUALITY ANALYST Ot E78.4 OTHER HYPERLIPIDEMIA 03/11/2018 BAIMA, CATIE L SENIOR DATA QUALITY ANALYST Ot I25.10 ATHSCL HEART DISEASE OF [place] CORONARY 03/11/2018 HARINI HUIZAR MD Ot Z51. 81 ENCOUNTER FOR THERAPEUTIC DRUG LEVEL MON 03/11/2018 HARINI HUIZAR MD Ot Z79.899 OTHER PENSION ADVISER (CURRENT) DRUG THERAPY 03/11/2018 NADEGE WHITE APRN Ot Z12.31 ENCNTR SCREEN MAMMOGRAM FOR MALIGNANT NE 03/14/2018 NADEGE WHITE APRN Ot Z12.31 ENCNTR SCREEN MAMMOGRAM FOR MALIGNANT NE 04/14/2018 NADEGE WHITE APRN Ot Z12.31 ENCNTR SCREEN MAMMOGRAM FOR MALIGNANT NE 03/07/2019 RYNE GR FACC, ALI FACP CCDS Ot E03.9 HYPOTHYROIDISM, UNSPECIFIED 03/07/2019 RYNE GR FACC, ALI FACP CCDS Ot E78.5 HYPERLIPIDEMIA, UNSPECIFIED 03/07/2019 RYNE GR FACC, ALI FACP CCDS Ot I10 ESSENTIAL (PRIMARY) HYPERTENSION 03/07/2019 RYNE GR FACC, ALI FACP CCDS Ot I25.119 ATHSCL HEART DISEASE OF [place] COR ART W 03/07/2019 RYNE GR FACC, GILBERT FACP CCDS Ot I48.0 PAROXYSMAL ATRIAL FIBRILLATION 03/07/2019 RYNE GR FACC, ALI FACP CCDS Ot K21.9 GASTRO-ESOPHAGEAL REFLUX DISEASE WITHOUT 03/07/2019 RYNE GR FACC, ALI FACP CCDS Ot M06.9 RHEUMATOID ARTHRITIS, UNSPECIFIED 03/07/2019 RYNE SCHMIDT, ALI FACP CCDS Ot Z79.01 LONG-TERM (CURRENT) USE OF ANTICOAGULANT 03/07/2019 RYNE GR FACC, GILBERT FACP CCDS Ot Z79.82 PENSION ADVISER (CURRENT) USE OF ASPIRIN 03/07/2019 RYNE SCHMIDT, ALI FACP CCDS Ot Z79.899 OTHER LONG-TERM (CURRENT) DRUG THERAPY 03/07/2019 RYNE GR FACC, ALI FACP CCDS Ot Z82.3 FAMILY HISTORY OF STROKE 03/07/2019 RYNE GR FACC, ALI FACP CCDS Ot Z82.49 FAMILY HX OF ISCHEM HEART DIS AND OTH DI 03/07/2019 RYNE GR FACC, ALI FACP CCDS Ot Z85.3 PERSONAL HISTORY OF MALIGNANT NEOPLASM O 03/07/2019 RYNE GR FACC, ALI FACP CCDS Ot Z85.850 PERSONAL HISTORY OF MALIGNANT NEOPLASM O 03/07/2019 RYNE GR FACC, ALI FACP CCDS Ot Z88.1 ALLERGY STATUS TO OTHER ANTIBIOTIC AGENT 03/13/2019 RYNE GR FACC, GILBERT FACP CCDS Ot E03.9 HYPOTHYROIDISM, UNSPECIFIED 03/13/2019 RYNE GR FACC, ALI FACP CCDS Ot E78.5 HYPERLIPIDEMIA, UNSPECIFIED 03/13/2019 RYNE GR FACC, ALI FACP CCDS Ot I10 ESSENTIAL (PRIMARY) HYPERTENSION 03/13/2019 RNYE GR FACC, ALI FACP CCDS Ot I25.119 ATHSCL HEART DISEASE OF [place] COR ART W 03/13/2019 RYNE GR FACC, ALI FACP CCDS Ot I48.0 PAROXYSMAL ATRIAL FIBRILLATION 03/13/2019 RYNE GR FACC, ALI FACP CCDS Ot K21.9 GASTRO-ESOPHAGEAL REFLUX DISEASE WITHOUT 03/13/2019 RYNE GR FACC, ALI FACP CCDS Ot M06.9 RHEUMATOID ARTHRITIS, UNSPECIFIED 03/13/2019 RYNE GR FACC, ALI FACP CCDS Ot Z79.01 LONG-TERM (CURRENT) USE OF ANTICOAGULANT 03/13/2019 RYNE GR FACC, ALI FACP CCDS Ot Z79.82 LONG-TERM (CURRENT) USE OF ASPIRIN 03/13/2019 RYNE GR FACC, ALI FACP CCDS Ot Z79.899 OTHER LONG-TERM (CURRENT) DRUG THERAPY 03/13/2019 RYNE GR FACC, GILBERT FACP CCDS Ot Z82.3 FAMILY HISTORY OF STROKE 03/13/2019 RYNE GR FACC, ALI FACP CCDS Ot Z82.49 FAMILY HX OF ISCHEM HEART DIS AND OTH DI 03/13/2019 RYNE GR FACC, GILBERT FACP CCDS Ot Z85.3 PERSONAL HISTORY OF MALIGNANT NEOPLASM O 03/13/2019 RYNE GR FACC, ALI FACP CCDS Ot Z85.850 PERSONAL HISTORY OF MALIGNANT NEOPLASM O 03/13/2019 RYNE GR FACC, ALI FACP CCDS Ot Z88.1 ALLERGY STATUS TO OTHER ANTIBIOTIC AGENT 03/15/2019 RYNE GR FACC, ALI FACP CCDS Ot E03.9 HYPOTHYROIDISM, UNSPECIFIED 03/15/2019 RYNE GR FACC, ALI FACP CCDS Ot E78.5 HYPERLIPIDEMIA, UNSPECIFIED 03/15/2019 RYNE GR FACC, ALI FACP CCDS Ot I10 ESSENTIAL (PRIMARY) HYPERTENSION 03/15/2019 RYNE GR FACC, ALI FACP CCDS Ot I25.119 ATHSCL HEART DISEASE OF [place] COR ART W 03/15/2019 RYNE GR FACC, ALI FACP CCDS Ot I48.0 PAROXYSMAL ATRIAL FIBRILLATION 03/15/2019 RYNE SCHMIDT, ALI FACP CCDS Ot K21.9 GASTRO-ESOPHAGEAL REFLUX DISEASE WITHOUT 03/15/2019 RYNE SCHMIDT, ALI FACP CCDS Ot M06.9 RHEUMATOID ARTHRITIS, UNSPECIFIED 03/15/2019 RYNE SCHMIDT, ALI FACP CCDS Ot Z79.01 LONG-TERM (CURRENT) USE OF ANTICOAGULANT 03/15/2019 RYNE SCHMIDT, ALI FACP CCDS Ot Z79.82 LONG-TERM (CURRENT) USE OF ASPIRIN 03/15/2019 RYNE SCHMIDT, ALI FACP CCDS Ot Z79.899 OTHER PENSION ADVISER (CURRENT) DRUG THERAPY 03/15/2019 RYNE SCHMIDT, ALI FACP CCDS Ot Z82.3 FAMILY HISTORY OF STROKE 03/15/2019 RYNE GR FACC, ALI FACP CCDS Ot Z82.49 FAMILY HX OF ISCHEM HEART DIS AND OTH DI 03/15/2019 RYNE SCHMIDT, ALI FACP CCDS Ot Z85.3 PERSONAL HISTORY OF MALIGNANT NEOPLASM O 03/15/2019 RYNE SCHMIDT, ALI FACP CCDS Ot Z85.850 PERSONAL HISTORY OF MALIGNANT NEOPLASM O 03/15/2019 RYNE GR [facility], ALI FACP CCDS Ot Z88.1 ALLERGY STATUS TO OTHER ANTIBIOTIC AGENT 03/23/2019 STEPHANIE PIERRE MD Ot R32 UNSPECIFIED URINARY INCONTINENCE 03/23/2019 STEPHANIE PIERRE MD Ot Z85.3 PERSONAL HISTORY OF MALIGNANT NEOPLASM O 03/23/2019 STEPHANIE PIERRE MD Ot Z85.8 50 PERSONAL HISTORY OF MALIGNANT NEOPLASM O 03/23/2019 STEPHANIE PIERRE MD Ot Z96.6 53 PRESENCE OF ARTIFICIAL KNEE JOINT, BILAT 03/23/2019 STEPHANIE PIERRE MD Ot Z98.8 90 OTHER SPECIFIED POSTPROCEDURAL STATES 05/01/2019 STEPHANIE PIERRE MD Ot Z12.3 1 ENCNTR SCREEN MAMMOGRAM FOR MALIGNANT NE 05/05/2019 STEPHANIE PIERRE MD Ot Z12.3 1 ENCNTR SCREEN MAMMOGRAM FOR MALIGNANT NE 07/24/2019 STEPHANIE PIERRE MD Ot Z12.3 1 ENCNTR SCREEN MAMMOGRAM FOR MALIGNANT NE Procedures Code Description Performed By Per formed On 00.40 11/04/2010 00.45 11/04/2010 00.66 11/04/2010 36.07 11/04/2010 37.22 11/04/2010 88.53 11/04/2010 88.56 11/04/2010 00.40 11/05/2010 00.45 11/05/2010 00.66 11/05/2010 36.07 11/05/2010 88.56 11/05/2010 81.54 TOTA L KNEE REPLACEMENT 01/09/2015 [id number] DI LATION OF 1 COR ART WITH DRUG-ELUT INT 12/20/2015 [id number] FL UOROSCOPY OF MULT COR ART USING L OSM 12/20/[id number] OF L KNEE JT WITH SYNTH SUB, LAM 05/12/2017 [id number] RE LEASE LEFT KNEE JOINT, OPEN APPROACH 06/09/2017 [id number] RE MOVAL OF SYNTH SUB FROM L KNEE JT, FEM 06/09/[id number] OF L KNEE JT WITH SYNTH SUB, LAM 06/09/[id number] L KNEE JT, FEMORAL W SYNTH SUB, 06/09/2017 Results Test Result Range Complete blood count (CBC) with automate d white blood cell (WBC) differential - 05/06/16 10:47 Blood leukocytes automated count (number/volume) 5.7 10*3/uL 4.3-11.0 Blood erythrocytes automated count (number/volume) 4.69 10*6/uL 4.35-5.85 Venous blood hemoglobin measurement (mass/volume) 14.0 g/dL 11.5-16.0 Blood hematocrit (volume fraction) 44 % 35-52 Automated erythrocyte mean corpuscular volume 94 [ foz_us] 80-99 Automated erythrocyte mean corpuscular h emoglobin (mass per erythrocyte) 30 pg 25-34 Automated erythrocyte mean corpuscular h emoglobin concentration measurement (mass/volume) 32 g/dL 32-36 Automated erythrocyte distribution width ratio 14. 0 % 10.0- 14.5 Automated blood platelet count (count/volume) 198 10*3/uL [...] 10*3 1.0-4.0 Blood monocytes automated count (number/volume) 0. 6 10*3 0.0-1.0 Automated eosinophil count 0.5 10*3/uL 0 .0-0.3 Automated blood basophil count (count/volume) 0.0 10*3/uL 0.0-0.1 Liver function panel (serum or plasma al k phos, alb, total and direct bili, total protein, ALT, AST) - 05/06/16 10:47 Serum or plasma total bilirubin measurement (mass/volu me) 0.6 mg/dL 0.1-1.0 Serum or plasma alkaline phosphatase joan surement (enzymatic activity/volume) 60 U/L 40-136 Serum or plasma aspartate aminotransfera se measurement (enzymatic activity/volume) 19 U/L 5-34 Serum or plasma alanine aminotransferase measurement (enzymatic activity/volume) 26 U/L 0-55 Serum or plasma protein measurement (mass/volume) 6.7 g/dL 6.4-8.2 Serum or plasma albumin measurement (mass/volume) 3.8 g/dL 3.2-4.5 Bilirubin direct 0.2 mg/dL 0.0-0.3 Serum or plasma indirect bilirubin measurement (mass/v olume) 0.4 mg/dL NRG Complete blood count (CBC) with automate d white blood cell (WBC) differential - 09/16/16 21:45 Blood leukocytes automated count (number/volume) 8.2 10*3/uL 4.3-11.0 Blood erythrocytes automated count (number/volume) 4.41 10*6/uL 4.35-5.85 Venous blood hemoglobin measurement (mass/volume) 13.4 g/dL 11.5-16.0 Blood hematocrit (volume fraction) 41 % 35-52 Automated erythrocyte mean corpuscular volume 94 [ foz_us] 80-99 Automated erythrocyte mean corpuscular h emoglobin (mass per erythrocyte) 30 pg 25-34 Automated erythrocyte mean corpuscular h emoglobin concentration measurement (mass/volume) 32 g/dL 32-36 Automated erythrocyte distribution width ratio 13. 7 % 10.0- 14.5 Automated blood platelet count (count/volume) 249 10*3/uL [...] 10*3 1.0-4.0 Blood monocytes automated count (number/volume) 0. 8 10*3 0.0-1.0 Automated eosinophil count 0.5 10*3/uL 0 .0-0.3 Automated blood basophil count (count/volume) 0.0 10*3/uL 0.0-0.1 PT panel in platelet poor plasma by coag ulation assay - 09/16/16 21:45 Prothrombin time (PT) in platelet poor plasma by coagu lation assay 11.6 s 12.2-14.7 INR in platelet poor plasma or blood by coagulation as say 0.9 0.8-1.4 Activated partial thromboplastin time (a PTT) in platelet poor plasma bycoagulation assay - 09/16/16 21:45 Activated partial thromboplastin time (a PTT) in platelet poor plasma bycoagulation assay 22 s 24-35 Comprehensive metabolic panel - 09/16/16 22:06 Serum or plasma sodium measurement (moles/volume) 141 mmol/L 135-145 Serum or plasma potassium measurement (moles/volume) 4.1 mmol/L 3.6-5.0 Serum or plasma chloride measurement (moles/volume) 107 mmol/L 98-107 Carbon dioxide 22 mmol/L 21-32 Serum or plasma anion gap determination (moles/volume) 12 mmol/L 5-14 Serum or plasma urea nitrogen measurement (mass/volume ) 20 mg/dL 7-18 Serum or plasma creatinine measurement (mass/volume) 1.04 mg/dL 0.60-1.30 Serum or plasma urea nitrogen/creatinine mass ratio 19 NRG Serum or plasma creatinine measurement w ith calculation of estimated glomerular filtration rate 52 NRG Serum or plasma glucose measurement (mass/volume) 105 mg/dL 70-105 Serum or plasma calcium measurement (mass/volume) 8.5 mg/dL 8.5-10.1 Serum or plasma total bilirubin measurement (mass/volu me) 0.3 mg/dL 0.1-1.0 Serum or plasma alkaline phosphatase joan surement (enzymatic activity/volume) 61 U/L 40-136 Serum or plasma aspartate aminotransfera se measurement (enzymatic activity/volume) 21 U/L 5-34 Serum or plasma alanine aminotransferase measurement (enzymatic activity/volume) 19 U/L 0-55 Serum or plasma protein measurement (mass/volume) 6.6 g/dL 6.4-8.2 Serum or plasma albumin measurement (mass/volume) 3.6 g/dL 3.2-4.5 Magnesium - 09/16/16 22:06 Magnesium 2.1 mg/dL 1.8-2.4 Serum or plasma troponin i.cardiac measu rement (mass/volume) - 09/16/16 22:06 Serum or plasma troponin i.cardiac measurement (mass/v olume) < ng/mL <0.30 Serum or plasma troponin i.cardiac measu rement (mass/volume) - 09/17/16 04:05 Serum or plasma troponin i.cardiac measurement (mass/v olume) < ng/mL <0.30 Serum or plasma troponin i.cardiac measu rement (mass/volume) - 09/17/16 10:40 Serum or plasma troponin i.cardiac measurement (mass/v olume) < ng/mL <0.30 Activated partial thromboplastin time (a PTT) in platelet poor plasma bycoagulation assay - 09/17/16 15:12 Activated partial thromboplastin time (a PTT) in platelet poor plasma bycoagulation assay 55 s 24-35 Complete urinalysis with reflex to cultu re - 04/28/17 11:00 Urine color determination YELLOW NRG Urine clarity determination SLIGHTLY CLOUDY NRG Urine pH measurement by test strip 7 5-9 Specific gravity of urine by test strip 1.005 1.016-1.022 Urine protein assay by test strip, semi-quantitative NEGATIVE NEGATIVE Urine glucose detection by automated test strip NE GATIVE NEGATIVE Erythrocytes detection in urine sediment by light micr oscopy NEGATIVE NEGATIVE Urine ketones detection by automated test strip NE GATIVE NEGATIVE Urine nitrite detection by test strip NEGATIVE NEGATIVE Urine total bilirubin detection by test strip NEGA TIVE NEGATIVE Urine urobilinogen measurement by automated test strip (mass/volume) NORMAL NORMAL Urine leukocyte esterase detection by dipstick NEG ATIVE NEGATIVE Automated urine sediment erythrocyte cou nt by microscopy (number/high power field) NONE NRG Automated urine sediment leukocyte count by microscopy (number/high power field) [HPF] NRG Bacteria detection in urine sediment by light microsco py TRACE NRG Squamous epithelial cells detection in u rine sediment by light microscopy 10-25 NRG Crystals detection in urine sediment by light microsco py NONE NRG Casts detection in urine sediment by light microscopy NONE NRG Mucus detection in urine sediment by light microscopy NEGATIVE NRG Complete urinalysis with reflex to culture NO NRG Complete blood count (CBC) with automate d white blood cell (WBC) differential - 04/28/17 12:00 Blood leukocytes automated count (number/volume) 7.1 10*3/uL 4.3-11.0 Blood erythrocytes automated count (number/volume) 4.62 10*6/uL 4.35-5.85 Venous blood hemoglobin measurement (mass/volume) 13.6 g/dL 11.5-16.0 Blood hematocrit (volume fraction) 44 % 35-52 Automated erythrocyte mean corpuscular volume 95 [ foz_us] 80-99 Automated erythrocyte mean corpuscular h emoglobin (mass per erythrocyte) 29 pg 25-34 Automated erythrocyte mean corpuscular h emoglobin concentration measurement (mass/volume) 31 g/dL 32-36 Automated erythrocyte distribution width ratio 14. 1 % 10.0- 14.5 Automated blood platelet count (count/volume) 187 10*3/uL [...] 10*3 1.0-4.0 Blood monocytes automated count (number/volume) 0. 5 10*3 0.0-1.0 Automated eosinophil count 0.4 10*3/uL 0 .0-0.3 Automated blood basophil count (count/volume) 0.0 10*3/uL 0.0-0.1 PT panel in platelet poor plasma by coag ulation assay - 04/28/17 12:00 Prothrombin time (PT) in platelet poor plasma by coagu lation assay 12.0 s 12.2-14.7 INR in platelet poor plasma or blood by coagulation as say 0.9 0.8-1.4 Liver function panel (serum or plasma al k phos, alb, total and direct bili, total protein, ALT, AST) - 04/28/17 12:00 Serum or plasma total bilirubin measurement (mass/volu me) 0.5 mg/dL 0.1-1.0 Serum or plasma alkaline phosphatase joan surement (enzymatic activity/volume) 65 U/L 40-136 Serum or plasma aspartate aminotransfera se measurement (enzymatic activity/volume) 19 U/L 5-34 Serum or plasma alanine aminotransferase measurement (enzymatic activity/volume) 25 U/L 0-55 Serum or plasma protein measurement (mass/volume) 6.7 g/dL 6.4-8.2 Serum or plasma albumin measurement (mass/volume) 3.7 g/dL 3.2-4.5 Bilirubin direct 0.2 mg/dL 0.0-0.3 Serum or plasma indirect bilirubin measurement (mass/v olume) 0.3 mg/dL NRG Lipid 1996 panel - 04/28/17 12:00 Serum or plasma triglyceride measurement (mass/volume) 121 mg/dL <150 Serum or plasma cholesterol measurement (mass/volume) 140 mg/dL < 200 Serum or plasma cholesterol in HDL measurement (mass/v olume) 43 mg/dL 40-60 Cholesterol in LDL [mass/volume] in serum or plasma by direct assay 75 mg/dL 1-129 Serum or plasma cholesterol in VLDL measurement (mass/ volume) 24 mg/dL 5-40 Comprehensive metabolic panel - 04/28/17 12:00 Serum or plasma sodium measurement (moles/volume) 142 mmol/L 135-145 Serum or plasma potassium measurement (moles/volume) 4.2 mmol/L 3.6-5.0 Serum or plasma chloride measurement (moles/volume) 108 mmol/L 98-107 Carbon dioxide 27 mmol/L 21-32 Serum or plasma anion gap determination (moles/volume) 7 mmol/L 5-14 Serum or plasma urea nitrogen measurement (mass/volume ) 13 mg/dL 7-18 Serum or plasma creatinine measurement (mass/volume) 0.77 mg/dL 0.60-1.30 Serum or plasma urea nitrogen/creatinine mass ratio 17 NRG Serum or plasma creatinine measurement w ith calculation of estimated glomerular filtration rate > NRG Serum or plasma glucose measurement (mass/volume) 97 mg/dL 70-105 Serum or plasma calcium measurement (mass/volume) 8.4 mg/dL 8.5-10.1 Serum or plasma total bilirubin measurement (mass/volu me) 0.5 mg/dL 0.1-1.0 Serum or plasma alkaline phosphatase joan surement (enzymatic activity/volume) 64 U/L 40-136 Serum or plasma aspartate aminotransfera se measurement (enzymatic activity/volume) 20 U/L 5-34 Serum or plasma alanine aminotransferase measurement (enzymatic activity/volume) 25 U/L 0-55 Serum or plasma protein measurement (mass/volume) 6.7 g/dL 6.4-8.2 Serum or plasma albumin measurement (mass/volume) 3.7 g/dL 3.2-4.5 Erythrocyte sedimentation rate by ibrahima gren method - 04/28/17 12:00 Erythrocyte sedimentation rate by westergren method 18 mm 0- 30 Blood type T Indirect antibody screen [facility] - 04/28/17 12:00 ABO+Rh group AP NR Blood group antibody screen NEGATIVE NR G Methicillin resistant Staphylococcus aur eus (MRSA) screening culture - 04/28/17 12:00 Methicillin resistant Staphylococcus aureus (MRSA) scr eening culture NEG NR Blood type T Indirect antibody screen [facility] - 05/12/17 06:15 ABO+Rh group AP NR Transfusion band number [id number] NR Blood group antibody screen NEGATIVE NR G Whole blood hemoglobin and hematocrit [facility] - 05/13/17 05:40 Venous blood hemoglobin measurement (mass/volume) 10.2 g/dL 11.5-16.0 Blood hematocrit (volume fraction) 33 % 35-52 Complete blood count (CBC) with automate d white blood cell (WBC) differential - 05/14/17 06:25 Blood leukocytes automated count (number/volume) 10.0 10*3/uL 4.3-11.0 Blood erythrocytes automated count (number/volume) 3.11 10*6/uL 4.35-5.85 Venous blood hemoglobin measurement (mass/volume) 9.4 g/dL 11.5-16.0 Blood hematocrit (volume fraction) 30 % 35-52 Automated erythrocyte mean corpuscular volume 96 [ foz_us] 80-99 Automated erythrocyte mean corpuscular h emoglobin (mass per erythrocyte) 30 pg 25-34 Automated erythrocyte mean corpuscular h emoglobin concentration measurement (mass/volume) 32 g/dL 32-36 Automated erythrocyte distribution width ratio 13. 8 % 10.0- 14.5 Automated blood platelet count (count/volume) 153 10*3/uL [...] 10*3 1.0-4.0 Blood monocytes automated count (number/volume) 1. 4 10*3 0.0-1.0 Automated eosinophil count 0.1 10*3/uL 0 .0-0.3 Automated blood basophil count (count/volume) 0.0 10*3/uL 0.0-0.1 Comprehensive metabolic panel - 05/14/17 06:25 Serum or plasma sodium measurement (moles/volume) 139 mmol/L 135-145 Serum or plasma potassium measurement (moles/volume) 4.1 mmol/L 3.6-5.0 Serum or plasma chloride measurement (moles/volume) 107 mmol/L 98-107 Carbon dioxide 25 mmol/L 21-32 Serum or plasma anion gap determination (moles/volume) 7 mmol/L 5-14 Serum or plasma urea nitrogen measurement (mass/volume ) 17 mg/dL 7-18 Serum or plasma creatinine measurement (mass/volume) 0.76 mg/dL 0.60-1.30 Serum or plasma urea nitrogen/creatinine mass ratio 22 NRG Serum or plasma creatinine measurement w ith calculation of estimated glomerular filtration rate > NRG Serum or plasma glucose measurement (mass/volume) 120 mg/dL 70-105 Serum or plasma calcium measurement (mass/volume) 7.9 mg/dL 8.5-10.1 Serum or plasma total bilirubin measurement (mass/volu me) 0.5 mg/dL 0.1-1.0 Serum or plasma alkaline phosphatase joan surement (enzymatic activity/volume) 50 U/L 40-136 Serum or plasma aspartate aminotransfera se measurement (enzymatic activity/volume) 16 U/L 5-34 Serum or plasma alanine aminotransferase measurement (enzymatic activity/volume) 18 U/L 0-55 Serum or plasma protein measurement (mass/volume) 6.0 g/dL 6.4-8.2 Serum or plasma albumin measurement (mass/volume) 3.1 g/dL 3.2-4.5 Whole blood hemoglobin and hematocrit pa jay jay - 05/15/17 06:21 Venous blood hemoglobin measurement (mass/volume) 8.1 g/dL 11.5-16.0 Blood hematocrit (volume fraction) 26 % 35-52 Methicillin resistant Staphylococcus aur eus (MRSA) screening culture - 06/09/17 06:40 Methicillin resistant Staphylococcus aureus (MRSA) scr eening culture NEG NRG Bacteria identification in isolate by an aerobe culture - 06/09/17 07:55 Bacteria identification in isolate by anaerobe culture NOANA NRG Gram stain microscopy - 06/09/17 07:55 GRAM STAIN RESULT NO BACTERIA NRG Bacteria identification in wound by cult ure - 06/09/17 07:55 Bacteria identification in wound by culture [id number] NRG FREE TEXT EXTERNAL SENSITIVITY REPORTED AT 0808, 1 08-11-16 NRG QUANTITY OF GROWTH Scant Growth NRG Bacterial susceptibility panel - 7 07:55 Oxacillin susceptibility test by minimum inhibitory co ncentration <= NRG Gentamicin susceptibility test by minimum inhibitory c oncentration <= NRG Clindamycin susceptibility test by minimum inhibitory concentration <= NRG Erythromycin susceptibility test by minimum inhibitory concentration <= NRG Trimethoprim/sulfamethoxazole susceptibi lity test by minimum inhibitoryconcentration <= NRG Vancomycin susceptibility test by minimum inhibitory c oncentration <= NRG Levofloxacin susceptibility test by minimum inhibitory concentration >= NRG Rifampin susceptibility test by minimum inhibitory con centration <= NRG Tetracycline susceptibility test by minimum inhibitory concentration <= NRG Ciprofloxacin susceptibility test by minimum inhibitor y concentration R NRG Whole blood hemoglobin and hematocrit pa jay jay - 06/10/17 08:00 Venous blood hemoglobin measurement (mass/volume) 8.9 g/dL 11.5-16.0 Blood hematocrit (volume fraction) 29 % 35-52 IRON TEST - 06/10/17 08:00 Serum or plasma iron measurement (mass/volume) 51 % 35-180 Complete blood count (CBC) with automate d white blood cell (WBC) differential - 06/11/17 05:35 Blood leukocytes automated count (number/volume) 7.9 10*3/uL 4.3-11.0 Blood erythrocytes automated count (number/volume) 2.76 10*6/uL 4.35-5.85 Venous blood hemoglobin measurement (mass/volume) 8.4 g/dL 11.5-16.0 Blood hematocrit (volume fraction) 27 % 35-52 Automated erythrocyte mean corpuscular volume 99 [ foz_us] 80-99 Automated erythrocyte mean corpuscular h emoglobin (mass per erythrocyte) 30 pg 25-34 Automated erythrocyte mean corpuscular h emoglobin concentration measurement (mass/volume) 31 g/dL 32-36 Automated erythrocyte distribution width ratio 15. 8 % 10.0- 14.5 Automated blood platelet count (count/volume) 168 10*3/uL [...] 10*3 1.0-4.0 Blood monocytes automated count (number/volume) 1. 0 10*3 0.0-1.0 Automated eosinophil count 0.1 10*3/uL 0 .0-0.3 Automated blood basophil count (count/volume) 0.0 10*3/uL 0.0-0.1 Serum or plasma C reactive protein measu rement (mass/volume) - 06/11/17 05:35 Serum or plasma C reactive protein measurement (mass/v olume) 6.82 mg/dL 0.00-0.50 Comprehensive metabolic panel - 06/11/17 05:35 Serum or plasma sodium measurement (moles/volume) 139 mmol/L 135-145 Serum or plasma potassium measurement (moles/volume) 3.8 mmol/L 3.6-5.0 Serum or plasma chloride measurement (moles/volume) 108 mmol/L 98-107 Carbon dioxide 22 mmol/L 21-32 Serum or plasma anion gap determination (moles/volume) 9 mmol/L 5-14 Serum or plasma urea nitrogen measurement (mass/volume ) 13 mg/dL 7-18 Serum or plasma creatinine measurement (mass/volume) 0.75 mg/dL 0.60-1.30 Serum or plasma urea nitrogen/creatinine mass ratio 17 NRG Serum or plasma creatinine measurement w ith calculation of estimated glomerular filtration rate > NRG Serum or plasma glucose measurement (mass/volume) 106 mg/dL 70-105 Serum or plasma calcium measurement (mass/volume) 7.6 mg/dL 8.5-10.1 Serum or plasma total bilirubin measurement (mass/volu me) 0.5 mg/dL 0.1-1.0 Serum or plasma alkaline phosphatase joan surement (enzymatic activity/volume) 56 U/L 40-136 Serum or plasma aspartate aminotransfera se measurement (enzymatic activity/volume) 22 U/L 5-34 Serum or plasma alanine aminotransferase measurement (enzymatic activity/volume) 18 U/L 0-55 Serum or plasma protein measurement (mass/volume) 5.6 g/dL 6.4-8.2 Serum or plasma albumin measurement (mass/volume) 3.0 g/dL 3.2-4.5 Erythrocyte sedimentation rate by ibrahima gren method - 06/11/17 05:35 Erythrocyte sedimentation rate by westergren method 62 mm 0- 30 Comprehensive metabolic panel - 06/12/17 06:00 Serum or plasma sodium measurement (moles/volume) 141 mmol/L 135-145 Serum or plasma potassium measurement (moles/volume) 3.9 mmol/L 3.6-5.0 Serum or plasma chloride measurement (moles/volume) 107 mmol/L 98-107 Carbon dioxide 24 mmol/L 21-32 Serum or plasma anion gap determination (moles/volume) 10 mmol/L 5-14 Serum or plasma urea nitrogen measurement (mass/volume ) 10 mg/dL 7-18 Serum or plasma creatinine measurement (mass/volume) 0.81 mg/dL 0.60-1.30 Serum or plasma urea nitrogen/creatinine mass ratio 12 NRG Serum or plasma creatinine measurement w ith calculation of estimated glomerular filtration rate > NRG Serum or plasma glucose measurement (mass/volume) 135 mg/dL 70-105 Serum or plasma calcium measurement (mass/volume) 8.0 mg/dL 8.5-10.1 Serum or plasma total bilirubin measurement (mass/volu me) 0.7 mg/dL 0.1-1.0 Serum or plasma alkaline phosphatase joan surement (enzymatic activity/volume) 61 U/L 40-136 Serum or plasma aspartate aminotransfera se measurement (enzymatic activity/volume) 21 U/L 5-34 Serum or plasma alanine aminotransferase measurement (enzymatic activity/volume) 17 U/L 0-55 Serum or plasma protein measurement (mass/volume) 5.9 g/dL 6.4-8.2 Serum or plasma albumin measurement (mass/volume) 3.0 g/dL 3.2-4.5 Complete blood count (CBC) with automate d white blood cell (WBC) differential - 06/12/17 06:00 Blood leukocytes automated count (number/volume) 8.5 10*3/uL 4.3-11.0 Blood erythrocytes automated count (number/volume) 2.71 10*6/uL 4.35-5.85 Venous blood hemoglobin measurement (mass/volume) 8.3 g/dL 11.5-16.0 Blood hematocrit (volume fraction) 27 % 35-52 Automated erythrocyte mean corpuscular volume 99 [ foz_us] 80-99 Automated erythrocyte mean corpuscular h emoglobin (mass per erythrocyte) 31 pg 25-34 Automated erythrocyte mean corpuscular h emoglobin concentration measurement (mass/volume) 31 g/dL 32-36 Automated erythrocyte distribution width ratio 15. 8 % 10.0- 14.5 Automated blood platelet count (count/volume) 163 10*3/uL [...] 10*3 1.0-4.0 Blood monocytes automated count (number/volume) 0. 9 10*3 0.0-1.0 Automated eosinophil count 0.2 10*3/uL 0 .0-0.3 Automated blood basophil count (count/volume) 0.0 10*3/uL 0.0-0.1 Vancomycin trough - 06/12/17 14:55 Vancomycin trough 9.9 ug/mL 10.0-20.0 Complete blood count (CBC) with automate d white blood cell (WBC) differential - 06/22/17 05:50 Blood leukocytes automated count (number/volume) 7.7 10*3/uL 4.3-11.0 Blood erythrocytes automated count (number/volume) 3.04 10*6/uL 4.35-5.85 Venous blood hemoglobin measurement (mass/volume) 9.7 g/dL 11.5-16.0 Blood hematocrit (volume fraction) 31 % 35-52 Automated erythrocyte mean corpuscular volume 103 [foz_us] 80-99 Automated erythrocyte mean corpuscular h emoglobin (mass per erythrocyte) 32 pg 25-34 Automated erythrocyte mean corpuscular h emoglobin concentration measurement (mass/volume) 31 g/dL 32-36 Automated erythrocyte distribution width ratio 18. 5 % 10.0- 14.5 Automated blood platelet count (count/volume) 315 10*3/uL [...] 10*3 1.0-4.0 Blood monocytes automated count (number/volume) 0. 7 10*3 0.0-1.0 Automated eosinophil count 0.3 10*3/uL 0 .0-0.3 Automated blood basophil count (count/volume) 0.0 10*3/uL 0.0-0.1 Serum or plasma C reactive protein measu rement (mass/volume) - 06/22/17 05:50 Serum or plasma C reactive protein measurement (mass/v olume) 0.54 mg/dL 0.00-0.50 Erythrocyte sedimentation rate by ibrahima gren method - 06/22/17 05:50 Erythrocyte sedimentation rate by westergren method 40 mm 0- 30 Complete blood count (CBC) with automate d white blood cell (WBC) differential - 11/07/17 09:46 Blood leukocytes automated count (number/volume) 7.3 10*3/uL 4.3-11.0 Blood erythrocytes automated count (number/volume) 4.77 10*6/uL 4.35-5.85 Venous blood hemoglobin measurement (mass/volume) 14.0 g/dL 11.5-16.0 Blood hematocrit (volume fraction) 44 % 35-52 Automated erythrocyte mean corpuscular volume 93 [ foz_us] 80-99 Automated erythrocyte mean corpuscular h emoglobin (mass per erythrocyte) 29 pg 25-34 Automated erythrocyte mean corpuscular h emoglobin concentration measurement (mass/volume) 32 g/dL 32-36 Automated erythrocyte distribution width ratio 14. 9 % 10.0- 14.5 Automated blood platelet count (count/volume) 227 10*3/uL [...] 10*3 1.0-4.0 Blood monocytes automated count (number/volume) 0. 6 10*3 0.0-1.0 Automated eosinophil count 0.7 10*3/uL 0 .0-0.3 Automated blood basophil count (count/volume) 0.1 10*3/uL 0.0-0.1 Comprehensive metabolic panel - 11/07/17 09:46 Serum or plasma sodium measurement (moles/volume) 141 mmol/L 135-145 Serum or plasma potassium measurement (moles/volume) 4.4 mmol/L 3.6-5.0 Serum or plasma chloride measurement (moles/volume) 106 mmol/L 98-107 Carbon dioxide 25 mmol/L 21-32 Serum or plasma anion gap determination (moles/volume) 10 mmol/L 5-14 Serum or plasma urea nitrogen measurement (mass/volume ) 13 mg/dL 7-18 Serum or plasma creatinine measurement (mass/volume) 0.89 mg/dL 0.60-1.30 Serum or plasma urea nitrogen/creatinine mass ratio 15 NRG Serum or plasma creatinine measurement w ith calculation of estimated glomerular filtration rate > NRG Serum or plasma glucose measurement (mass/volume) 101 mg/dL 70-105 Serum or plasma calcium measurement (mass/volume) 9.1 mg/dL 8.5-10.1 Serum or plasma total bilirubin measurement (mass/volu me) 0.6 mg/dL 0.1-1.0 Serum or plasma alkaline phosphatase joan surement (enzymatic activity/volume) 87 U/L 40-136 Serum or plasma aspartate aminotransfera se measurement (enzymatic activity/volume) 20 U/L 5-34 Serum or plasma alanine aminotransferase measurement (enzymatic activity/volume) 18 U/L 0-55 Serum or plasma protein measurement (mass/volume) 7.5 g/dL 6.4-8.2 Serum or plasma albumin measurement (mass/volume) 4.0 g/dL 3.2-4.5 Serum or plasma troponin i.cardiac measu rement (mass/volume) - 11/07/17 09:46 Serum or plasma troponin i.cardiac measurement (mass/v olume) < ng/mL <0.30 Automated blood complete blood count (he mogram) panel - 03/07/19 08:22 Blood leukocytes automated count (number/volume) 7.3 10*3/uL 4.3-11.0 Blood erythrocytes automated count (number/volume) 4.41 10*6/uL 4.35-5.85 Venous blood hemoglobin measurement (mass/volume) 13.0 g/dL 11.5-16.0 Blood hematocrit (volume fraction) 42 % 35-52 Automated erythrocyte mean corpuscular volume 94 [ foz_us] 80-99 Automated erythrocyte mean corpuscular h emoglobin (mass per erythrocyte) 30 pg 25-34 Automated erythrocyte mean corpuscular h emoglobin concentration measurement (mass/volume) 31 g/dL 32-36 Automated erythrocyte distribution width ratio 14. 0 % 10.0- 14.5 Automated blood platelet count (count/volume) 225 10*3/uL 130-400 Automated blood platelet mean volume measurement 9.7 [foz_us] 7.4-10.4 PT panel in platelet poor plasma by coag ulation assay - 03/07/19 08:22 Prothrombin time (PT) in platelet poor plasma by coagu lation assay 12.2 s 12.2-14.7 INR in platelet poor plasma or blood by coagulation as say 0.9 0.8-1.4 Activated partial thromboplastin time (a PTT) in platelet poor plasma bycoagulation assay - 03/07/19 08:22 Activated partial thromboplastin time (a PTT) in platelet poor plasma bycoagulation assay 29 s 24-35 Comprehensive metabolic panel - 03/07/19 08:22 Serum or plasma sodium measurement (moles/volume) 143 mmol/L 135-145 Serum or plasma potassium measurement (moles/volume) 4.1 mmol/L 3.6-5.0 Serum or plasma chloride measurement (moles/volume) 107 mmol/L 98-107 Carbon dioxide 26 mmol/L 21-32 Serum or plasma anion gap determination (moles/volume) 10 mmol/L 5-14 Serum or plasma urea nitrogen measurement (mass/volume ) 16 mg/dL 7-18 Serum or plasma creatinine measurement (mass/volume) 1.03 mg/dL 0.60-1.30 Serum or plasma urea nitrogen/creatinine mass ratio 16 NRG Serum or plasma creatinine measurement w ith calculation of estimated glomerular filtration rate 52 NRG Serum or plasma glucose measurement (mass/volume) 106 mg/dL 70-105 Serum or plasma calcium measurement (mass/volume) 8.9 mg/dL 8.5-10.1 Serum or plasma total bilirubin measurement (mass/volu me) 0.6 mg/dL 0.1-1.0 Serum or plasma alkaline phosphatase joan surement (enzymatic activity/volume) 71 U/L 40-136 Serum or plasma aspartate aminotransfera se measurement (enzymatic activity/volume) 17 U/L 5-34 Serum or plasma alanine aminotransferase measurement (enzymatic activity/volume) 21 U/L 0-55 Serum or plasma protein measurement (mass/volume) 7.1 g/dL 6.4-8.2 Serum or plasma albumin measurement (mass/volume) 3.7 g/dL 3.2-4.5 CALCIUM CORRECTED 9.1 mg/dL 8.5-10.1 Lipid 1996 panel - 03/07/19 08:22 Serum or plasma triglyceride measurement (mass/volume) 150 mg/dL <150 Serum or plasma cholesterol measurement (mass/volume) 142 mg/dL < 200 Serum or plasma cholesterol in HDL measurement (mass/v olume) 34 mg/dL 40-60 Cholesterol in LDL [mass/volume] in serum or plasma by direct assay 84 mg/dL 1-129 Serum or plasma cholesterol in VLDL measurement (mass/ volume) 30 mg/dL 5-40 THYROID STIMULATING HORMONE - 03/07/19 0 8:22 THYROID STIMULATING HORMONE 6.28 u[iU]/mL 0.35-4.94 Methicillin resistant Staphylococcus aur eus (MRSA) screening culture - 03/07/19 08:22 Methicillin resistant Staphylococcus aureus (MRSA) scr eening culture NEG NRG Encounters ACCT No. Visit Date/Time Discharge Status Pt. Type Provider Facility Loc./Unit Complaint [id number] 03/20/2015 10:35:19 ACT Document Registration [id number] 05/02/2019 12:53:00 23:59:59 CLS Outpatient STEPHANIE PIERRE MD [facility] RAD SCREENING [id number] 03/23/2019 11:26:00 13:11:00 DIS Outpatient STEPHANIE PIERRE MD [facility] REHAB URINARY INCONTINENCE [id number] 03/07/2019 08:00:00 16:40:00 DIS Outpatient RYNE GR FACC, GILBERT FACP CC DS [facility] CATH CAD, ANGINA , SOB, HTN, HYPERLIPIDEMIA [id number] 03/11/2018 10:55:00 018 23:59:59 CLS Outpatient NADEGE WHITE APRN [facility] RAD SCREENING [id number] 02/02/2018 09:28:00 018 11:45:00 DIS Outpatient ANJALI TOWNSEND MD [facility] ENDO SCREENING [id number] 01/28/2018 10:05:00 018 10:26:00 DIS Outpatient ANJALI TOWNSEND MD [facility] PREOP COLONOSCOPY [id number] 11/07/2017 09:00:00 018 12:29:00 DIS Emergency ANABELLE NOLASCO MD [facility] ER LETHARGIC,POSS STROKE, [id number] 10/12/2017 08:43:00 018 13:41:00 DIS Outpatient ERIC MARTIN DO [facility] REHAB S/P TKR REVISION [id number] 07/28/2017 00:22:00 018 23:59:59 CLS Preadmit HARINI HUIZAR MD [facility] LAB Z79.899 [id number] 04/28/2017 10:49:00 018 00:01:00 DIS Outpatient HARINI HUIZAR MD [facility] LAB Z79.899 [id number] 06/02/2017 09:28:00 017 15:13:00 DIS Outpatient FIONA SEAY MD [facility] REHAB LEFT TKA [id number] 06/14/2017 10:15:00 017 12:00:00 DIS Inpatient REFUGIO MURPHY MD [facility] IRF Patellar instability, r evision left TKA [id number] 06/09/2017 05:52:00 017 10:15:00 DIS Inpatient FIONA SEAY MD [facility] 4TH LEFT KNEE PATELLA DISLO CATION [id number] 06/07/2017 05:40:00 14:08:00 DIS Outpatient FIONA SEAY MD [facility] PREOP LEFT KNEE PATELLA DISL OCATION [id number] 05/12/2017 05:49:00 11:10:00 DIS Inpatient FIONA SEAY MD [facility] 4TH RIGHT KNEE OSTEOARTHRIT IS [id number] 04/28/2017 10:52:00 23:59:59 CLS Outpatient CATIE SAUNDERS [facility] LAB E78.4,I25.10 [id number] 04/28/2017 10:43:00 15:21:00 DIS Outpatient FIONA SEAY MD [facility] PREOP RT. TKR [id number] 02/23/2017 09:07:00 23:59:59 CLS Outpatient NADEGE WHITE APRN [facility] RAD SCREENING Z12.3 1 [id number] 09/16/2016 23:03:00 21:30:00 DIS Outpatient CHANEL MISHRA DO [facility] CATH ANGINA [id number] 05/15/2016 11:27:00 12:00:00 DIS Outpatient RYNE GR FACC, GILBERT MONACO CC DS [facility] CR STENT [id number] 05/06/2016 10:39:00 23:59:59 CLS Outpatient HARINI HUIZAR MD [facility] LAB PENSION ADVISER MED USE [id number] 05/06/2016 10:34:00 23:59:59 CLS Outpatient CATIE SAUNDERS [facility] LAB HLP,CAD [id number] 03/27/2016 11:29:00 00:01:00 DIS Outpatient GILBERT MICHELE MD, FACC, FACP CC DS [facility] CR STENT [id number] 02/19/2016 10:19:00 07/27/2 016 23:59:59 CLS Outpatient STEPHANIE PIERRE MD [facility] RAD SCREENING [id number] 01/08/2016 09:51:00 016 23:59:59 CLS Outpatient RYNE GR FACC, GILBERT MONACO CC DS [facility] CARD CAD,HLP [id number] 12/20/2015 15:30:00 016 10:10:00 DIS Inpatient STEPHANIE PIERRE MD [facility] ICU CHEST PAIN [id number] 05/29/2015 08:59:00 23:59:59 CLS Outpatient CATIE SAUNDERS [facility] CARD FLUTTERING SENS ATION OF HEART,CAD [id number] 03/20/2015 09:56:00 11:08:00 DIS Outpatient FIONA SEAY MD [facility] REHAB S/P KNEE ARTHROPLASTY RIGHT [id number] 02/15/2015 11:25:00 23:59:59 CLS Outpatient STEPHANIE PIERRE MD [facility] RAD SCREENING [id number] 01/09/2015 05:51:00 11:00:00 DIS Inpatient FIONA SEAY MD [facility] SURGICAL RIGHT KNEE SEVERE OSTEOARTHRITIS [id number] 12/27/2014 09:37:00 23:59:59 CLS Outpatient FIONA SEAY MD [facility] PREOP RIGHT KNEE SEVERE OSTE OARTHRITIS [id number] 12/20/2014 07:40:00 23:59:59 CLS Outpatient CATIE SAUNDERS [facility] CARD CAD,HLP [id number] 02/06/2014 10:30:00 014 23:59:59 CLS Outpatient STEPHANIE PIERRE MD [facility] RAD SCREENING [id number] 01/18/2013 10:18:00 013 23:59:59 CLS Outpatient STEPHANIE PIERRE MD [facility] RAD SCREENING [id number] 03/11/2020 12:28:[address] Emergency JENIFER MORELOS APRN [facility] ER CHEST PAIN [id number] 10/18/2012 06:59:00 Document Registration [id number] 10/17/2012 08:58:00 Document Registration [id number] 10/07/2012 12:28:00 Document Registration [id number] 07/06/2012 08:06:00 Document Registration [id number] 06/29/2012 07:34:00 Document Registration [id number] 01/18/2012 14:05:00 Document Registration [id number] 10/01/2011 07:03:00 Document Registration [id number] 07/13/2011 12:41:00 Document Registration [id number] 04/15/2011 11:38:00 Document Registration [id number] 03/25/2011 11:24:00 Document Registration [id number] 01/13/2011 13:05:00 Document Registration [id number] 01/02/2011 09:20:00 Document Registration [id number] 11/04/2010 18:30:00 Document Registration
[2020-03-11 15:35] VITALS: BP 168/76
== END 2020-03-11 15:35 | disposition home or self-care (01) ==
LOC: EDUNIT# 12:26 → ER 12:28
DX: R07.89 Other chest pain (principal); I25.2 Old myocardial infarction; I25.10 Atherosclerotic heart disease of native coronary artery without angina pectoris; I10 Essential (primary) hypertension; E78.00 Pure hypercholesterolemia, unspecified; K21.9 Gastro-esophageal reflux disease without esophagitis; E03.9 Hypothyroidism, unspecified; M06.9 Rheumatoid arthritis, unspecified; Z85.3 Personal history of malignant neoplasm of breast; Z85.850 Personal history of malignant neoplasm of thyroid; Z95.5 Presence of coronary angioplasty implant and graft; Z79.890 Hormone replacement therapy; Z86.73 Personal history of transient ischemic attack (TIA), and cerebral infarction without residual deficits; Z79.01 Long term (current) use of anticoagulants; Z88.1 Allergy status to other antibiotic agents; Z79.82 Long term (current) use of aspirin; Z87.891 Personal history of nicotine dependence; Z82.49 Family history of ischemic heart disease and other diseases of the circulatory system
CPT/HCPCS: 36415; 71045; 80053; 83735; 83874; 84484; 85025; 85610; 85730; 93005; 93041

== ENCOUNTER → 2020-05-10 | Outpatient (CLI) | payer MEDICARE, BC ==
--- NOTE | 2020-05-10 10:30 | Diagnostic Imaging Report ---
INDICATION: Routine screening. COMPARISON is made with prior mammograms from 05/02/2019 at 03/11/2018. 2-D and 3-D unilateral left screening mammography was performed with CAD. Scattered fibroglandular densities in left breast are noted. Cardiac monitoring device overlies the medial left breast. The parenchymal pattern is stable. There are benign calcifications. No mass or malignant appearing microcalcifications are seen. Left axilla is unremarkable. IMPRESSION: BI-RADS Category 2. No mammographic features suspicious for malignancy are identified. ACR BI-RADS Category 2: Benign findings. Result letter will be mailed to the patient. Note: At least 10% of breast cancer is not imaged by mammography. Dictated by: Dictated on workstation # [id number]
== END ==
LOC: RAD 09:15
PROVIDERS: ATTEND Physician Assistant
DX: Z12.31 Encounter for screening mammogram for malignant neoplasm of breast (principal)
CPT/HCPCS: 77063

== ENCOUNTER → 2020-06-18 | Outpatient (CLI) | payer MEDICARE, BC ==
[~2020-06-18] MED LIST changes: +AMLO-250 PO; -AMLO5TAB9 PO
== END ==
LOC: LABNPT 05:51
PROVIDERS: ATTEND Internal Medicine
DX: J02.9 Acute pharyngitis, unspecified (principal); Z20.828 Contact with and (suspected) exposure to other viral communicable diseases
CPT/HCPCS: 87635

== ENCOUNTER 2020-09-29 16:18 | Emergency (ER) | payer MEDICARE, BC ==
[~2020-09-29] VITALS: Ht 162.5 cm; Wt 102.5 kg
[2020-09-29] MEDS ORDERED: ASPIRIN 81 MG CHEW (CHILDREN'S ASA) PO ONE (16:30)
[2020-09-29 16:39] LABS: BASOPHILS # (AUTO) 0.1 10^3/uL (0.0-0.1); BASOPHILS % (AUTO) 1 % (0-10); EOSINOPHILS # (AUTO) 0.6 10^3/uL (0.0-0.3); EOSINOPHILS % (AUTO) 8 % (0-10); HEMATOCRIT 43 % (35-52); HEMOGLOBIN 13.3 g/dL (11.5-16.0); LYMPHOCYTES # (AUTO) 1.9 10^3/uL (1.0-4.0); LYMPHOCYTES % (AUTO) 24 % (12-44); MEAN CORPUSCULAR HEMOGLOBIN 30 pg (25-34); MEAN CORPUSCULAR HGB CONC 31 g/dL (32-36); MEAN CORPUSCULAR VOLUME 96 fL (80-99); MEAN PLATELET VOLUME 9.7 fL (9.0-12.2); MONOCYTES # (AUTO) 0.7 10^3/uL (0.0-1.0); MONOCYTES % (AUTO) 9 % (0-12); NEUTROPHILS # (AUTO) 4.6 10^3/uL (1.8-7.8); NEUTROPHILS % (AUTO) 58 % (42-75); PLATELET COUNT 256 10^3/uL (130-400); WHITE BLOOD COUNT 7.9 10^3/uL (4.3-11.0)
--- NOTE | 2020-09-29 16:45 | ED Cardiac General ---
History of Present Illness General Chief Complaint: Cardiac/General Problems Stated Complaint: IRREGULAR HR Nursing Triage Note: PT AMB TO RM 3 WITH COMPLAINT OF IRREGULAR HR. STATES HAD AN EPISODE OF APPROX 20 SECONDS AND FELT LIKE HEART WAS RACING. STATES AFTER SHE FELT VERY ANXIOUS. DID HIT BUTTON FOR LOOP RECORDER AT 1534. STATES TOOK NITRO X1 AT HOME AND FELT LIGHTHEADED AFTER. DENIES CP OR SOA. Source: patient Exam Limitations: no limitations History of Present Illness Date Seen by Provider: Sep 29, 2020 Time Seen by Provider: 16:42 Initial Comments To ER by private vehicle with reports of palpitations and intense anxiety that began at about 3:32 PM while walking in her kitchen today. She felt like her heart was beating rapidly and she felt very anxious. She did not have any chest pain or jaw pain or back pain or neck pain. She continues to feel anxious and as though her heart is beating rapidly. However she is normal sinus rhythm in the 70s. She does have a Linq device and follows with Dr. Lund. She states that she was told last week that she has intermittent atrial fibrillation. She is on Eliquis. She denies shortness of breath. Timing/Duration: changing over time Severity: moderate Location: central Prior CP/Workup: no prior chest pain NTG SL WARP KNIT OPERATOR: No ASA po WARP KNIT OPERATOR: No Allergies and Home Medications Allergies Coded Allergies: tetracycline (Unverified Allergy, Mild, RASH, 06/07/17) Home Medications Amlodipine Besylate 5 Mg Tablet, 2.5 MG PO DAILY, (Reported) Apixaban 5 Mg Tablet, 5 MG PO BID, (Reported) Aspirin 81 Mg Tab.chew, 81 MG PO DAILY, (Reported) Atorvastatin Calcium 80 Mg Tablet, 80 MG PO HS, (Reported) Calcium Carbonate/Vitamin D3 1 Each Tablet, 1 TAB PO BID, (Reported) Carboxymethylcellulose Sodium 15 Ml Drp.lq.gel, 2 DROPS OU TID PRN for DRY EYES, (Reported) Leflunomide 10 Mg Tablet, 10 MG PO DAILY, (Reported) Levothyroxine Sodium 150 Mcg Tablet, 150 MCG PO DAILY, (Reported) Loratadine 10 Mg Tablet, 10 MG PO DAILY PRN for ALLERGIES, (Reported) Metoprolol Succinate 50 Mg Tab.er.24h, 50 MG PO DAILY, (Reported) Multivitamin 1 Each Tablet, 1 TAB PO DAILY, (Reported) Nitroglycerin 0.4 Mg Tab.subl, 0.4 MG SL UD PRN for CHEST PAIN, (Reported) Ranitidine HCl 150 Mg Tablet, 150 MG PO BID, (Reported) Patient Home Medication List Home Medication List Reviewed: Yes Review of Systems Review of Systems Constitutional: see HPI EENTM: No Symptoms Reported Respiratory: No Symptoms Reported Cardiovascular: See HPI, Palpitations Gastrointestinal: No Symptoms Reported Genitourinary: No Symptoms Reported Musculoskeletal: no symptoms reported Skin: no symptoms reported Psychiatric/Neurological: No Symptoms Reported Endocrine: No Symptoms Reported Hematologic/Lymphatic: No Symptoms Reported Past Fejmymd-Wstghe-Kzrgol Hx Patient Social History Alcohol Use: Denies Use Number of Drinks Today: Alcohol Beverage of Choice: Wine Smoking Status: Former Smoker Type Used: Cigarettes Former Smoker, Quit: Apr 28, 2008 Recent Infectious Disease Expo: No Recent Hopitalizations: No Immunizations Up To Date Tetanus Booster (TDap): Unknown Date of Pneumonia Vaccine: Apr 25, 2015 Date of Influenza Vaccine: Apr 06, 2016 Seasonal Allergies Seasonal Allergies: Yes Past Medical History Surgeries: Yes (BREAST LUMPECTOMY, RT MASTECTOMY, RT TKR, LT TKR, THROID x2- PARTIAL/TOTAL) Breast, Coronary Stent, Joint Replacement, Orthopedic, Thyroidectomy Respiratory: No Currently Using CPAP: No Cardiac: Yes (STENTS x4, CODED x2 IN 2007 AND 2015) Coronary Artery Disease, Heart Attack, High Cholesterol, Hypertension Neurological: Yes (mild stroke in 11/10 06/12) Stroke, TIA Reproductive Disorders: No Sexually Transmitted Disease: No HIV/AIDS: No Genitourinary: No Gastrointestinal: Yes Gastroesophageal Reflux Musculoskeletal: Yes (OSTEOARTHRITIS) Arthritis, Rheumatoid Arthritis Endocrine: Yes (HX THYROID CA x2 WITH THYROIDECTOMY) Hypothyroidsim HEENT: Yes (GLASSES) Loss of Vision: Bilateral Hearing Impairment: Denies Cancer: Yes Breast, Thyroid What Type of Treatment Did You: Radiation, Surgical Intervention Psychosocial: No Integumentary: No Blood Disorders: No Adverse Reaction/Blood Tranf: No (N/A) Family Medical History Alcoholism G8 BROTHER Arthritis 19 FATHER 19 MOTHER G8 BROTHER G8 SISTER Cardiovascular disease 19 FATHER G8 BROTHER Cataracts 19 MOTHER Diabetes mellitus G8 SISTER Drug abuse G8 BROTHER FH: cancer G8 BROTHER Hypertension 19 MOTHER Myocardial infarction 19 FATHER G8 BROTHER Thyroid disease G8 SISTER No Family History of: AIDS Abdominal aortic aneurysm Worcester's disease Asthma Cancer of mouth Colon cancer Completed stroke Dementia Parkinson's disease Prostate cancer Psychosocial problem Respiratory disorder Seizure disorder Severe allergy Tuberculosis No Pertinent Family Hx Physical Exam Vital Signs Vital Signs - First Documented 09/29/20 16:21 Pulse 77 Resp 20 B/P (MAP) 193/80 (117) Pulse Ox 97 O2 Delivery Room Air Capillary Refill : Less Than 3 Seconds Height, Weight, BMI Height: 5'4.00" Weight: 235lbs. 0.0oz. 106.126949gr; 38.00 BMI Method:Stated General Appearance: No Apparent Distress, WD/WN HEENT: PERRL/EOMI, TMs Normal Neck: Full Range of Motion, Normal Inspection Respiratory: No Accessory Muscle Use, No Respiratory Distress Cardiovascular: Regular Rate, Rhythm, Normal Peripheral Pulses Gastrointestinal: Normal Bowel Sounds, Non Tender, Soft Extremity: Normal Capillary Refill, Normal Inspection Neurologic/Psychiatric: Alert, Oriented x3 Skin: Normal Color, Warm/Dry Progress/Results/Core Measures Results/Orders Lab Results Laboratory Tests Test 09/29/20 16:33 Range/Units White Blood Count 7.9 4.3-11.0 10^3/uL Red Blood Count 4.50 3.80-5.11 10^6/uL Hemoglobin 13.3 11.5-16.0 g/dL Hematocrit 43 35-52 % Mean Corpuscular Volume 96 80-99 fL Mean Corpuscular Hemoglobin 30 25-34 pg Mean Corpuscular Hemoglobin Concent 31 L 32-36 g/dL Red Cell Distribution Width 13.3 10.0-14.5 % Platelet Count 256 130-400 10^3/uL Mean Platelet Volume 9.7 9.0-12.2 fL Immature Granulocyte % (Auto) 0 % Neutrophils (%) (Auto) 58 42-75 % Lymphocytes (%) (Auto) 24 12-44 % Monocytes (%) (Auto) 9 0-12 % Eosinophils (%) (Auto) 8 0-10 % Basophils (%) (Auto) 1 0-10 % Neutrophils # (Auto) 4.6 1.8-7.8 10^3/uL Lymphocytes # (Auto) 1.9 1.0-4.0 10^3/uL Monocytes # (Auto) 0.7 0.0-1.0 10^3/uL Eosinophils # (Auto) 0.6 H 0.0-0.3 10^3/uL Basophils # (Auto) 0.1 0.0-0.1 10^3/uL Immature Granulocyte # (Auto) 0.0 0.0-0.1 10^3/uL Prothrombin Time 12.9 12.2-14.7 SEC INR Comment 0.9 0.8-1.4 Activated Partial Thromboplast Time 27 24-35 SEC D-Dimer 1.92 H 0.00-0.49 UG/ML Sodium Level 139 135-145 MMOL/L Potassium Level 4.0 3.6-5.0 MMOL/L Chloride Level 101 98-107 MMOL/L Carbon Dioxide Level 26 21-32 MMOL/L Anion Gap 12 5-14 MMOL/L Blood Urea Nitrogen 27 H 7-18 MG/DL Creatinine 1.70 H 0.60-1.30 MG/DL Estimat Glomerular Filtration Rate 29 BUN/Creatinine Ratio 16 Glucose Level 110 H 70-105 MG/DL Calcium Level 8.7 8.5-10.1 MG/DL Corrected Calcium 8.8 8.5-10.1 MG/DL Magnesium Level 2.1 1.6-2.4 MG/DL Total Bilirubin 0.2 0.1-1.0 MG/DL Aspartate Amino Transf (AST/SGOT) 23 5-34 U/L Alanine Aminotransferase (ALT/SGPT) 20 0-55 U/L Alkaline Phosphatase 69 40-136 U/L Myoglobin 91.9 10.0-92.0 NG/ML Troponin I < 0.028 <0.028 NG/ML B-Type Natriuretic Peptide 150.0 H <100.0 PG/ML Total Protein 7.4 6.4-8.2 GM/DL Albumin 3.9 3.2-4.5 GM/DL My Orders Orders - JENIFER MORELOS APRN Cbc With Automated Diff (09/29/20 16:29) Magnesium (09/29/20 16:29) Chest 1 View, Ap/Pa Only (09/29/20 16:29) Ekg Tracing (09/29/20 16:29) Comprehensive Metabolic Panel (09/29/20 16:29) Myoglobin Serum (09/29/20 16:29) Protime With Inr (09/29/20 16:29) Partial Thromboplastin Time (09/29/20 16:29) O2 (09/29/20 16:29) Monitor-Rhythm Ecg Trace Only (09/29/20 16:29) Lipid Panel (09/30/20 06:00) Ed Iv/Invasive Line Start (09/29/20 16:29) BNP (09/29/20 16:29) Fibrin Degradation Products (09/29/20 16:29) Troponin I (09/29/20 16:29) Aspirin Chewable Tablet (Baby Aspirin Ch (09/29/20 16:30) Troponin I (09/29/20 18:30) Medications Given in ED Current Medications Medications Dose Ordered Sig/Vic Route Start Time Stop Time Status Last Admin Dose Admin Aspirin 324 mg ONCE ONCE PO 09/29/20 16:30 09/29/20 16:31 DC 09/29/20 16:45 324 MG Vital Signs/I&O 09/29/20 16:21 Pulse 77 Resp 20 B/P (MAP) 193/80 (117) Pulse Ox 97 O2 Delivery Room Air Blood Pressure Mean: 117 Departure Communication (Admissions) 1808-feeling perfectly normal. wants to go home. this seems appropriate. Has remained in normal sinus rhythm with a normal rate and no ectopy during her ER stay. She will call Dr. Lora tomorrow to interrogate her Linq device. NAME: SEBASTIÁN JC MED REC#: [id number] PT STATUS: REG ER : 1940 PHYSICIAN: JENIFER MORELOS APRN ADMIT DATE: 09/29/20/ER Draft Date of Exam:09/29/20 CHEST 1 VIEW, AP/PA ONLY INDICATION: Chest pain. TECHNIQUE: Single view chest 4:51 PM. CORRELATION STUDY: 03/11/2020 FINDINGS: The heart size, mediastinal configuration and pulmonary vascularity are within normal limits. Loop recorder device projects over the left mid chest. The lungs are clear with no consolidating infiltrate. There is no significant effusion or pneumothorax. IMPRESSION: 1. Stable chest demonstrates no acute abnormality. Dictated on workstation # [id number] Dict: 09/29/20 165 Trans: 09/29/20 165 DO [id number] Interpreted by: CHRISTINA STAHL DO Electronically signed by: Impression Primary Impression: Palpitations Disposition: 01 HOME, SELF-CARE Condition: Stable Departure-Patient Inst. Decision time for Depature: 18:09 Referrals: STEPHANIE PIERRE MD (PCP/Family) Primary Care Physician Patient Instructions: Palpitations Add. Discharge Instructions: 1. Return to ER for any concerns or worsening symptoms. Follow-up with your doctor. Call Dr. Lora tomorrow to see if they can interrogate your Linq device to evaluate for arrhythmias that you felt today. All discharge instructions reviewed with patient and/or family. Voiced u nderstanding. Copy Copies To 1: GILBERT MICHELE MD FACP FACC CCDS JENIFER MORELOS APRN Sep 29, 2020 16:45
[2020-09-29 16:51] LABS: ALBUMIN 3.9 GM/DL (3.2-4.5)
--- NOTE | 2020-09-29 16:52 | Diagnostic Imaging Report ---
INDICATION: Chest pain. TECHNIQUE: Single view chest 4:51 PM. CORRELATION STUDY: 03/11/2020 FINDINGS: The heart size, mediastinal configuration and pulmonary vascularity are within normal limits. Loop recorder device projects over the left mid chest. The lungs are clear with no consolidating infiltrate. There is no significant effusion or pneumothorax. IMPRESSION: 1. Stable chest demonstrates no acute abnormality. Dictated by: Dictated on workstation # [id number]
[2020-09-29 16:53] LABS: CALCIUM 8.7 MG/DL (8.5-10.1)
[2020-09-29 16:54] LABS: TOTAL PROTEIN 7.4 GM/DL (6.4-8.2)
[2020-09-29 16:56] LABS: BILIRUBIN,TOTAL 0.2 MG/DL (0.1-1.0); INR 0.9 (0.8-1.4); PROTHROMBIN TIME PATIENT 12.9 SEC (12.2-14.7)
[2020-09-29 16:58] LABS: CREATININE SERUM 1.7 MG/DL (0.60-1.30)
[2020-09-29 17:01] LABS: MAGNESIUM 2.1 MG/DL (1.6-2.4)
[2020-09-29 18:35] VITALS: BP 164/74
== END 2020-09-29 18:35 | disposition home or self-care (01) ==
LOC: EDUNIT# 16:18 → ER 16:20
DX: R00.2 Palpitations (principal); I10 Essential (primary) hypertension; E78.00 Pure hypercholesterolemia, unspecified; K21.9 Gastro-esophageal reflux disease without esophagitis; E03.9 Hypothyroidism, unspecified; I25.2 Old myocardial infarction; I25.10 Atherosclerotic heart disease of native coronary artery without angina pectoris; Z88.1 Allergy status to other antibiotic agents; Z85.3 Personal history of malignant neoplasm of breast; Z85.850 Personal history of malignant neoplasm of thyroid; Z95.5 Presence of coronary angioplasty implant and graft; Z86.73 Personal history of transient ischemic attack (TIA), and cerebral infarction without residual deficits; Z87.891 Personal history of nicotine dependence; Z82.61 Family history of arthritis; Z83.3 Family history of diabetes mellitus; Z79.01 Long term (current) use of anticoagulants; Z79.82 Long term (current) use of aspirin
CPT/HCPCS: 36415; 71045; 80053; 83735; 83874; 83880; 84484; 85025; 85379; 85610; 85730; 93005; 93041

== ENCOUNTER → 2020-10-01 | Outpatient (CLI) | payer MEDICARE, BC | LOC: CARD 13:53 | PROVIDERS: ATTEND Nurse Practitioner Family | DX: I34.0 Nonrheumatic mitral (valve) insufficiency (principal); I51.7 Cardiomegaly | CPT/HCPCS: 93306 ==

== ENCOUNTER → 2021-05-12 | Outpatient (CLI) | payer MEDICARE, BC ==
[~2021-05-12] MED LIST changes: -LEFL10TA16 PO; +LEFL10TA20 PO
--- NOTE | 2021-05-12 18:30 | Diagnostic Imaging Report ---
EXAM: Unilateral left mammo screening COMPARISON: This study was compared to the prior exams of 05/10/2020, 05/02/2019 and 03/11/2018. At this time, there are no current complaints. The patient did undergo a right mastectomy for carcinoma in 1989. FINDINGS: There are scattered fibroglandular densities in both breasts which could obscure a lesion. Overall, there has been no significant change since the prior exam. There is no primary or secondary sign of malignancy noted. The loop recorder device noted on the prior exam is again evident. IMPRESSION: 1. There is no evidence for malignancy. ACR category 1 ACR BI-RADS Category 1: Negative. Result letter will be mailed to the patient. Note: At least 10% of breast cancer is not imaged by mammography. Dictated by: Dictated on workstation # [id number]
== END ==
LOC: RAD 11:30
PROVIDERS: ATTEND Internal Medicine
DX: Z12.31 Encounter for screening mammogram for malignant neoplasm of breast (principal)
CPT/HCPCS: 77063

== ENCOUNTER → 2021-07-21 | Outpatient (CLI) | payer MEDICARE, BC ==
--- NOTE | 2021-07-21 17:36 | Diagnostic Imaging Report ---
PROCEDURE: CT lumbar spine without contrast. TECHNIQUE: Multiple contiguous axial images were obtained through the lumbar spine without the use of intravenous contrast. Sagittal and coronal reformations were then performed. Auto Exposure Controls were utilized during the CT exam to meet ALARA standards for radiation dose reduction. INDICATION: Recent falls, right lower extremity weakness. COMPARISON: None FINDINGS: No acute fracture is seen in the lumbar spine. There is mild left convex curvature which may be positional. No spondylolisthesis is seen. There is marked disc height loss with vacuum disc phenomenon throughout the entirety of the lumbar spine. Disc height loss is most severe at L1-L2 and T12-L1. Vertebral body heights are preserved. No acute fracture is seen. There is facet arthropathy in the lower lumbar spine. There is calcific atherosclerosis. The right kidney is atrophic. There is a left adrenal nodule measuring 2.4 cm. Hounsfield units are 7, most consistent with an adenoma. There are degenerative changes which cause spinal canal stenosis at T12-L1, L1-L2, L2-L3, L3-L4, L4-L5 and L5-S1. On the right, there is marked foraminal stenosis at L1-L2, L3-L4, L4-L5 and L5-S1. On the left there is foraminal stenosis at L5-S1. IMPRESSION: 1. Advanced degenerative changes throughout the lumbar spine resulting in multilevel spinal canal and foraminal stenosis. No fracture is seen. 2. Right renal atrophy. Left adrenal adenoma. Dictated by: Dictated on workstation # [id number]
== END ==
LOC: RAD 16:59
PROVIDERS: ATTEND Physician Assistant
DX: M47.816 Spondylosis without myelopathy or radiculopathy, lumbar region (principal); M48.061 Spinal stenosis, lumbar region without neurogenic claudication; N26.1 Atrophy of kidney (terminal); D35.02 Benign neoplasm of left adrenal gland; W19.XXXA Unspecified fall, initial encounter
CPT/HCPCS: 72131

== ENCOUNTER → 2021-09-11 | Outpatient (CLI) | payer MEDICARE, BC ==
--- NOTE | 2021-09-11 10:54 | Diagnostic Imaging Report ---
PROCEDURE: MRI lumbar spine. TECHNIQUE: Multiplanar, multisequence MRI of the lumbar spine was performed without contrast. DATE: September 11, 2021. COMPARISON: CT lumbar spine July 21, 2021. INDICATION: 80-year-old female, low back pain. Lower extremity radiculopathy. FINDINGS: The alignment of the lumbar spine is unremarkable. There is no evidence of a diffuse marrow infiltrating or replacing process. There is no identified acute compression deformity or other fracture. There is no focal concerning bone lesion. There is moderate to severe disc height loss at T12-L1. There is severe disc height loss at L1-L2. There is moderate disc height loss at L2-L3. There is moderate disc height loss at L3-L4, L4-L5, and moderate to severe disc loss at L5-S1. There are multilevel Modic endplate degenerative related changes. The visualized cord and conus medullaris is unremarkable and terminates at the L2 level. T12-L1: There is diffuse disc bulge with a superimposed paracentral disc extrusion extending above the inferior endplate of T12 by 10 mm. There is moderate narrowing of bilateral lateral recesses. The facet joints and ligamentum flavum are unremarkable. There is mild bilateral foraminal narrowing. There is moderate spinal stenosis. L1-L2: There is diffuse disc bulge with a superimposed left paracentral disc extrusion. There is severe narrowing of the left lateral recess and moderate narrowing of the right lateral recess. There is prominence of the posterior epidural fat. The facet joints and ligamentum flavum are unremarkable. There is moderate right and severe left foraminal narrowing. There is severe spinal canal stenosis. L2-L3: There is diffuse disc bulge. There is moderate narrowing of the bilateral lateral recesses. There is prominence of the posterior epidural fat. There are bilateral facet degenerative changes. There is moderate to severe bilateral foraminal narrowing. There is moderate to severe spinal canal stenosis. L3-L4: There is diffuse disc bulge. There is severe narrowing of the bilateral lateral recesses. There are bilateral facet degenerative changes. There is prominence of the posterior epidural fat. There is severe bilateral foraminal narrowing. There is severe spinal canal stenosis. L4-L5: There is diffuse disc bulge eccentric to the right with severe narrowing of the right lateral recess. There is moderate narrowing of the left lateral recess. There are bilateral facet degenerative changes with mild ligamentum flavum hypertrophy. There is moderate left and moderate to severe right foraminal narrowing. There is moderate spinal canal stenosis. L5-S1: There is diffuse disc bulge eccentric to the left. There is a superimposed left paracentral disc extrusion. There is direct contact of the left S1 nerve root. There is severe narrowing of bilateral lateral recesses. There are bilateral facet degenerative changes. There is severe bilateral foraminal narrowing. There is mild spinal canal stenosis. IMPRESSION: 1. Multilevel advanced disc and facet degenerative changes of the thoracolumbar spine as described in detail level by level above. 2. No focal concerning bone lesion. Dictated by: Dictated on workstation # [id number]
== END ==
LOC: RAD 09:30
PROVIDERS: ATTEND Physician Assistant
DX: M51.17 Intervertebral disc disorders with radiculopathy, lumbosacral region (principal); M48.07 Spinal stenosis, lumbosacral region; M47.27 Other spondylosis with radiculopathy, lumbosacral region; M51.15 Intervertebral disc disorders with radiculopathy, thoracolumbar region
CPT/HCPCS: 72148

== ENCOUNTER → 2021-12-23 | Outpatient (RCR) | payer MEDICARE, BC | END | disposition home or self-care (01) | PROVIDERS: ATTEND Nurse Practitioner | DX: M54.50 Low back pain, unspecified (principal); G89.29 Other chronic pain; I11.9 Hypertensive heart disease without heart failure ==

== ENCOUNTER 2022-01-15 12:52 | Outpatient (RCR) | payer MEDICARE, BC | END 2022-01-22 | disposition home or self-care (01) | PROVIDERS: ATTEND Nurse Practitioner | DX: M54.50 Low back pain, unspecified (principal); G89.29 Other chronic pain; I11.9 Hypertensive heart disease without heart failure; R20.0 Anesthesia of skin; R20.2 Paresthesia of skin ==

== ENCOUNTER → 2022-05-14 | Outpatient (CLI) | payer MEDICARE, BC ==
--- NOTE | 2022-05-14 13:39 | Diagnostic Imaging Report ---
Indication: Routine screening. Comparison is made with prior mammograms from 05/12/2021 and 05/10/2020. 2-D and 3-D unilateral left screening mammography was performed with CAD. Scattered fibroglandular densities in the left breast are noted. Cardiac loop recorder overlies the medial soft tissues. There are benign parenchymal and vascular calcifications in the left breast. No mass or malignant-appearing microcalcifications are seen. IMPRESSION: BI-RADS Category 2 No mammographic features suspicious for malignancy are identified. ACR BI-RADS Category 2: Benign findings. Result letter will be mailed to the patient. Note: At least 10% of breast cancer is not imaged by mammography. Dictated by: Dictated on workstation # [id number]
== END ==
LOC: RAD 10:56
PROVIDERS: ATTEND Nurse Practitioner Family
DX: Z12.31 Encounter for screening mammogram for malignant neoplasm of breast (principal)
CPT/HCPCS: 77063

== ENCOUNTER 2023-02-07 13:16 | Emergency (ER) | payer MEDICARE, BC ==
[~2023-02-07] VITALS: Ht 162 cm; Wt 86.0 kg
--- NOTE | 2023-02-07 13:32 | ED Upper Extremity ---
General Chief Complaint: Upper Extremity Stated Complaint: LEFT ARM TIGHTNESS HX OF HEART ATTACK Nursing Triage Note: LEFT ARM PAIN STARTING AT 1030. DENIES INJURY. HX OF CARDIAC ISSUES. Source: patient Exam Limitations: no limitations History of Present Illness Date Seen by Provider: Feb 07, 2023 Time Seen by Provider: 13:22 Initial Comments 82-year-old female with history of coronary artery disease status post stenting with most recent stents being in 2015 presents for left arm tightness. Symptoms started about 3 hours ago and have been constant. She states it feels like a "block" [place] left upper arm. She points to her lateral upper bicep region. This is not similar to her previous heart attack symptoms. No nausea vomiting diaphoresis. No chest pain or shortness of breath. No aggravating or alleviating factors. She has not yet tried anything for her symptoms. She had a stress test 1 year ago per her report which was normal. Dr. Larsen is her foot and ankle surgeon. All other systems reviewed and negative except documented per HPI. Voice recognition software was used to help create this chart Allergies and Home Medications Allergies Coded Allergies: tetracycline (Unverified Allergy, Mild, RASH, 06/07/17) Patient Home Medication List Home Medication List Reviewed: Yes Amlodipine Besylate (Amlodipine Besylate) 5 Mg Tablet, 2.5 MG PO DAILY, (Reported) Entered as Reported by: DOUGLAS RODRIGUEZ on 01/28/18 0954 Apixaban (Eliquis) 5 Mg Tablet, 5 MG PO BID, (Reported) Entered as Reported by: CATIE ÁLVAREZ on 03/07/19 0838 Aspirin (Aspirin) 81 Mg Tab.chew, 81 MG PO DAILY, (Reported) Entered as Reported by: MIKE AU on 04/28/17 1440 Atorvastatin Calcium (Atorvastatin Calcium) 80 Mg Tablet, 80 MG PO HS, (Reported) Entered as Reported by: ABIMAEL ORTIZ on 09/17/16 0051 Calcium Carbonate/Vitamin D3 (Calcium + Vitamin D Tablet) 1 Each Tablet, 1 TAB PO BID, (Reported) Entered as Reported by: MIKE AU on 04/28/17 1440 Carboxymethylcellulose Sodium (Sterile Lubricant) 15 Ml Drp.lq.gel, 2 DROPS OU TID PRN for DRY EYES, (Reported) Entered as Reported by: MIKE AU on 04/28/17 1440 Leflunomide (Leflunomide) 10 Mg Tablet, 10 MG PO DAILY, (Reported) Entered as Reported by: DOUGLAS RODRIGUEZ on 01/28/18 0954 Levothyroxine Sodium (Levothyroxine Sodium) 150 Mcg Tablet, 150 MCG PO DAILY, (Reported) Entered as Reported by: DEVAUGHN MILLER on 12/20/15 0837 Loratadine (Loratadine) 10 Mg Tablet, 10 MG PO DAILY PRN for ALLERGIES, (Reported) Entered as Reported by: MIKE AU on 04/28/17 1440 Metoprolol Succinate (Metoprolol Succinate) 50 Mg Tab.er.24h, 50 MG PO DAILY, (Reported) Entered as Reported by: DEVAUGHN MILLER on 12/20/15 0837 Multivitamin (Multivitamins) 1 Each Tablet, 1 TAB PO DAILY, (Reported) Entered as Reported by: MIKE AU on 04/28/17 1440 Nitroglycerin (Nitrostat) 0.4 Mg Tab.subl, 0.4 MG SL UD PRN for CHEST PAIN, (Reported) Entered as Reported by: DEVAUGHN MILLER on 12/20/15 0837 Ranitidine HCl (Ranitidine HCl) 150 Mg Tablet, 150 MG PO BID, (Reported) Entered as Reported by: MIKE AU on 04/28/17 1440 Review of Systems Constitutional: see HPI Past Mtcnabs-Eelckl-Qmzfkd Hx Patient Social History Tobacco Use?: Yes Smoking Status: Former Smoker Substance use?: No Alcohol Use?: No Immunizations Up To Date Tetanus Booster (TDap): Unknown Seasonal Allergies Seasonal Allergies: Yes Past Medical History Surgeries: Yes (BREAST LUMPECTOMY, RT MASTECTOMY, RT TKR, LT TKR, THROID x2-PA RTIAL/TOTAL) Breast, Coronary Stent, Joint Replacement, Orthopedic, Thyroidectomy Respiratory: No Currently Using CPAP: No Cardiac: Yes (STENTS x4, CODED x2 IN 2007 AND 2015) Coronary Artery Disease, Heart Attack, High Cholesterol, Hypertension Neurological: Yes (mild stroke in 11/10 06/12) Stroke, TIA Reproductive Disorders: No Sexually Transmitted Disease: No HIV/AIDS: No Genitourinary: No Gastrointestinal: Yes Gastroesophageal Reflux Musculoskeletal: Yes (OSTEOARTHRITIS) Arthritis, Rheumatoid Arthritis Endocrine: Yes (HX THYROID CA x2 WITH THYROIDECTOMY) Hypothyroidsim HEENT: Yes (GLASSES) Loss of Vision: Bilateral Hearing Impairment: Denies Cancer: Yes Breast, Thyroid What Type of Treatment Did You: Radiation, Surgical Intervention Psychosocial: No Integumentary: No Blood Disorders: No Adverse Reaction/Blood Tranf: No (N/A) Family Medical History Alcoholism G8 BROTHER Arthritis 19 FATHER 19 MOTHER G8 BROTHER G8 SISTER Cardiovascular disease 19 FATHER G8 BROTHER Cataracts 19 MOTHER Diabetes mellitus G8 SISTER Drug abuse G8 BROTHER FH: cancer G8 BROTHER Hypertension 19 MOTHER Myocardial infarction 19 FATHER G8 BROTHER Thyroid disease G8 SISTER No Family History of: AIDS Abdominal aortic aneurysm [place]'s disease Asthma Cancer of mouth Colon cancer Completed stroke Dementia Parkinson's disease Prostate cancer Psychosocial problem Respiratory disorder Seizure disorder Severe allergy Tuberculosis No Pertinent Family Hx Physical Exam Vital Signs Vital Signs - First Documented 02/07/23 13:20 Temp 36.9 Pulse 77 Resp 16 B/P (MAP) 162/87 (112) Pulse Ox 97 O2 Delivery Room Air Capillary Refill : Less Than 3 Seconds Height, Weight, BMI Height: 5'4.00" Weight: 235lbs. 0.0oz. 106.207257wr; 32.00 BMI Method:Stated General Appearance: WD/WN, no apparent distress HEENT: normal ENT inspection, pharynx normal Neck: non-tender, full range of motion, normal inspection Cardiovascular: regular rate, rhythm, no edema, no murmur Respiratory: chest non-tender, lungs clear, normal breath sounds, no respiratory distress, no accessory muscle use Gastrointestinal: normal bowel sounds, non tender, soft, no organomegaly Back: no CVA tenderness Shoulder: normal inspection, non-tender, no evidence of injury Elbow/Forearm: normal inspection, non-tender, no evidence of injury Wrist: Yes normal inspection, Yes non-tender, Yes no evidence of injury Hand: normal inspection, non-tender, no evidence of injury Neurologic/Tendon: normal sensation, normal motor functions Neurologic/Psychiatric: alert, normal mood/affect, oriented x 3 Skin: normal color, warm/dry Progress/Results/Core Measures Results/Orders Lab Results Laboratory Tests Test 02/07/23 13:50 Range/Units White Blood Count 9.4 4.3-11.0 10^3/uL Red Blood Count 4.20 3.80-5.11 10^6/uL Hemoglobin 12.7 11.5-16.0 g/dL Hematocrit 39 35-52 % Mean Corpuscular Volume 93 80-99 fL Mean Corpuscular Hemoglobin 30 25-34 pg Mean Corpuscular Hemoglobin Concent 33 32-36 g/dL Red Cell Distribution Width 13.8 10.0-14.5 % Platelet Count 183 130-400 10^3/uL Mean Platelet Volume 10.3 9.0-12.2 fL Immature Granulocyte % (Auto) 0 % Neutrophils (%) (Auto) 71 42-75 % Lymphocytes (%) (Auto) 13 12-44 % Monocytes (%) (Auto) 8 0-12 % Eosinophils (%) (Auto) 6 0-10 % Basophils (%) (Auto) 1 0-10 % Neutrophils # (Auto) 6.7 1.8-7.8 10^3/uL Lymphocytes # (Auto) 1.3 1.0-4.0 10^3/uL Monocytes # (Auto) 0.8 0.0-1.0 10^3/uL Eosinophils # (Auto) 0.6 H 0.0-0.3 10^3/uL Basophils # (Auto) 0.1 0.0-0.1 10^3/uL Immature Granulocyte # (Auto) 0.0 0.0-0.1 10^3/uL Sodium Level 138 135-145 MMOL/L Potassium Level 3.5 L 3.6-5.0 MMOL/L Chloride Level 101 98-107 MMOL/L Carbon Dioxide Level 24 21-32 MMOL/L Anion Gap 13 5-14 MMOL/L Blood Urea Nitrogen 27 H 7-18 MG/DL Creatinine 1.58 H 0.60-1.30 MG/DL Estimat Glomerular Filtration Rate 33 BUN/Creatinine Ratio 17 Glucose Level 96 70-105 MG/DL Calcium Level 8.7 8.5-10.1 MG/DL Corrected Calcium 8.9 8.5-10.1 MG/DL Magnesium Level 2.0 1.6-2.4 MG/DL Total Bilirubin 0.3 0.1-1.0 MG/DL Aspartate Amino Transf (AST/SGOT) 20 5-34 U/L Alanine Aminotransferase (ALT/SGPT) 15 0-55 U/L Alkaline Phosphatase 52 40-136 U/L Troponin I < 0.028 <0.028 NG/ML Total Protein 6.7 6.4-8.2 GM/DL Albumin 3.7 3.2-4.5 GM/DL My Orders Orders - ROSSY LORENZO DO Ekg Tracing (02/07/23 13:21) Cbc With Automated Diff (02/07/23 13:29) Magnesium (02/07/23 13:29) Chest 1 View, Ap/Pa Only (02/07/23 13:29) Comprehensive Metabolic Panel (02/07/23 13:29) Ed Iv/Invasive Line Start (02/07/23 13:29) Troponin I Den (02/07/23 13:29) Vital Signs/I&O 02/07/23 13:20 Temp 36.9 Pulse 77 Resp 16 B/P (MAP) 162/87 (112) Pulse Ox 97 O2 Delivery Room Air Blood Pressure Mean: 112 Comment Sinus rhythm with a rate of 70 bpm. Normal intervals. Normal axis. No ST or T wave abnormalities. No ectopy. No STEMI. Departure Communication (Admissions) Patient has reproducible musculoskeletal pain upon exam. Work-up negative for acute ACS with negative troponins, nonischemic EKG. There is no evidence for another emergent medical condition. Have independently reviewed the chest x-ray shows no acute cardiopulmonary abnormalities. Lab work-up is otherwise unremarkable chemistry very mild hypokalemia at baseline renal function. She be discharged home with close primary care follow-up. She has had a stress test in the last year that was negative. Impression Primary Impression: Left arm pain Disposition: 01 HOME, SELF-CARE Condition: Stable Departure-Patient Inst. Referrals: NO,LOCAL PHYSICIAN (PCP/Family) Primary Care Physician Patient Instructions: Muscle Spasms (DC) Add. Discharge Instructions: You were seen in the department today for left arm pain. There is no indication of this coming from your heart today. I recommend she follow-up your primary doctor should your symptoms persist. In the meantime use ibuprofen and Tylenol as needed for pains. Return to the emergency department for any severe concerns All discharge instructions reviewed with patient and/or family. Voiced understanding. ROSSY LORENZO DO Feb 07, 2023 13:32
--- NOTE | 2023-02-07 13:49 | Diagnostic Imaging Report ---
CHEST 1 VIEW, AP/PA ONLY INDICATION: Chest pain. COMPARISON: Chest radiograph 09/29/2020. FINDINGS: Lungs: Normal lung volume. No focal consolidation. Stable pulmonary vasculature. Pleura: No pleural effusion or pneumothorax. Heart and Mediastinum: Cardiomediastinal silhouette and great vessels of the thorax are stable. Left subcutaneous entry level civil engineer. Osseous Structures and Soft Tissues: No acute osseous abnormality. Normal soft tissues. IMPRESSION: No acute cardiopulmonary process. Dictated by: Dictated on workstation # [id number]
[2023-02-07 14:13] LABS: ALBUMIN 3.7 GM/DL (3.2-4.5); BASOPHILS # (AUTO) 0.1 10^3/uL (0.0-0.1); BASOPHILS % (AUTO) 1 % (0-10); EOSINOPHILS # (AUTO) 0.6 10^3/uL (0.0-0.3); EOSINOPHILS % (AUTO) 6 % (0-10); HEMATOCRIT 39 % (35-52); HEMOGLOBIN 12.7 g/dL (11.5-16.0); LYMPHOCYTES # (AUTO) 1.3 10^3/uL (1.0-4.0); LYMPHOCYTES % (AUTO) 13 % (12-44); MEAN CORPUSCULAR HEMOGLOBIN 30 pg (25-34); MEAN CORPUSCULAR HGB CONC 33 g/dL (32-36); MEAN CORPUSCULAR VOLUME 93 fL (80-99); MEAN PLATELET VOLUME 10.3 fL (9.0-12.2); MONOCYTES # (AUTO) 0.8 10^3/uL (0.0-1.0); MONOCYTES % (AUTO) 8 % (0-12); NEUTROPHILS # (AUTO) 6.7 10^3/uL (1.8-7.8); NEUTROPHILS % (AUTO) 71 % (42-75); PLATELET COUNT 183 10^3/uL (130-400); WHITE BLOOD COUNT 9.4 10^3/uL (4.3-11.0)
[2023-02-07 14:14] LABS: CHLORIDE 101 MMOL/L (98-107); POTASSIUM 3.5 MMOL/L (3.6-5.0); SODIUM 138 MMOL/L (135-145)
[2023-02-07 14:15] LABS: CALCIUM 8.7 MG/DL (8.5-10.1)
[2023-02-07 14:16] LABS: GLUCOSE 96 MG/DL (70-105); TOTAL PROTEIN 6.7 GM/DL (6.4-8.2)
[2023-02-07 14:17] LABS: CARBON DIOXIDE 24 MMOL/L (21-32)
[2023-02-07 14:18] LABS: BILIRUBIN,TOTAL 0.3 MG/DL (0.1-1.0)
[2023-02-07 14:19] LABS: ALKALINE PHOSPHATASE 52 U/L (40-136)
[2023-02-07 14:20] LABS: CREATININE SERUM 1.58 MG/DL (0.60-1.30); GFR ESTIMATED 33
[2023-02-07 14:21] LABS: BUN/CREATININE RATIO 17
[2023-02-07 14:23] LABS: ALANINE AMINOTRANSFERASE 15 U/L (0-55)
[2023-02-07 14:44] VITALS: BP 124/67
== END 2023-02-07 14:46 | disposition home or self-care (01) ==
LOC: EDUNIT# 13:16 → ER 13:21
DX: M79.602 Pain in left arm (principal); E87.6 Hypokalemia; Z87.891 Personal history of nicotine dependence
CPT/HCPCS: 36415; 71045; 80053; 83735; 84484; 85025; 93005

== ENCOUNTER → 2023-05-18 | Outpatient (CLI) | payer MEDICARE, BC ==
--- NOTE | 2023-05-18 14:22 | Diagnostic Imaging Report ---
Indication: Routine screening. Comparison is made with prior mammogram 05/14/2022 and 05/12/2021. 2-D and 3-D unilateral left screening mammography was performed with CAD. The current study was also evaluated with a Computer Aided Detection (CAD) system. Scattered fibroglandular densities in the left breast are noted. Cardiac loop recorder overlies the medial left breast tissues. There are benign calcifications left breast. No mass or malignant-appearing microcalcifications are seen. Left axilla is unremarkable. IMPRESSION: BI-RADS Category 2 1. No mammographic features suspicious for malignancy are identified.. ACR BI-RADS Category 2: Benign findings. Result letter will be mailed to the patient. Note: At least 10% of breast cancer is not imaged by mammography. Dictated by: Dictated on workstation # [id number]
== END ==
LOC: RAD 08:12
PROVIDERS: ATTEND Internal Medicine
DX: Z12.31 Encounter for screening mammogram for malignant neoplasm of breast (principal)
CPT/HCPCS: 77063